=== PATIENT | female | born 1965 | race Two or more races ===

== ENCOUNTER 2022-08-18 08:11 | Outpatient (OUT) | payer BC, SELFPAY ==
[2022-08-18 09:18] LABS: Basophils Absolute Auto 0.1 10^3/uL (0.0-0.1); Basophils Percent Auto 0.9 % (0.2-2.0); Eosinophils Absolute Auto 0.5 10^3/uL (0.0-0.7); Eosinophils Percent Auto 8.7 % (0.9-7.0); Hematocrit 39.2 % (36.0-48.0); Hemoglobin 12.4 g/dL (12.0-16.0); Immature Granulocytes Abs Auto 0.01 10^3/uL (0.00-0.03); Immature Granulocytes Pct Auto 0.2 % (0.0-0.5); Lymphocytes Absolute Auto 1.6 10^3/uL (1.2-3.8); Lymphocytes Percent Auto 30.2 % (20.5-60.0); Mean Corpuscular HGB Conc 31.6 g/dL (29.9-35.2); Mean Corpuscular Hemoglobin 24.8 pg (26.7-34.0); Mean Corpuscular Volume 78.2 fL (81.0-99.0); Mean Platelet Volume 10.9 fL (9.5-13.5); Monocytes Absolute Auto 0.4 10^3/uL (0.3-0.8); Monocytes Percent Auto 7.6 % (1.7-12.0); Neutrophils Absolute Auto 2.8 10^3/uL (1.4-6.5); Neutrophils Percent Auto 52.4 % (43.0-75.0); Platelet Count 266 10^3/uL (150-450); Red Blood Count 5.01 10^6/uL (4.20-5.40); Red Cell Distribution Width 17.4 % (11.0-15.0); White Blood Count 5.3 10^3/uL (4.0-11.0)
[2022-08-18 09:43] LABS: Partial Thromboplastin Time 24.1 sec (22.3-36.2); Prothrombin Time 9.8 sec (9.0-11.6)
[2022-08-18 09:46] LABS: INR <0.93
[2022-08-18 10:07] LABS: Estimated Average Glucose 148 mg/dL; Glycohemoglobin A1C 6.8 % (4.5-6.2)
[2022-08-18 10:47] LABS: Alanine Aminotransferase 27 U/L (14-59); Albumin Globulin Ratio 0.8; Albumin Level 3.4 g/dL (3.4-5.0); Alkaline Phosphatase 76 U/L (46-116); Anion Gap 14.5; Aspartate Amino Transferase 19 U/L (15-37); BUN Creatinine Ratio 35.1; Bilirubin Direct 0.1 mg/dL (0.0-0.2); Bilirubin Total 0.3 mg/dL (0.2-1.0); Carbon Dioxide 24.7 mmol/L (21.0-32.0); Chloride 104 mmol/L (98-107); Estimated GFR (African America >60 (>=60); Estimated GFR (Non-African Ame >60 (>=60); Globulin 4.2 g/dL; Glucose 127 mg/dL (74-106); Potassium 4.2 mmol/L (3.5-5.1); Sodium 139 mmol/L (136-145); Total Protein 7.6 g/dL (6.4-8.2)
== END 2022-08-18 08:12 ==
LOC: PST 08:12
PROVIDERS: Obstetrics & Gynecology; PCP Family Medicine
DX: Z01.812 Encounter for preprocedural laboratory examination (principal); N92.0 Excessive and frequent menstruation with regular cycle; R10.2 Pelvic and perineal pain; N94.10 Unspecified dyspareunia; N94.6 Dysmenorrhea, unspecified
CPT/HCPCS: 36415; 80048; 80076; 83036; 85025; 85610; 85730; 86850; 86900; 86901

== ENCOUNTER 2022-08-23 06:16 | Day surgery (SDC) | payer BC, SELFPAY ==
[2022-08-18 08:33] VITALS: BP 131/86; PULSE 86; RESP 16; TEMP 36.4; O2SAT 98; BMI 31.4
[2022-08-23] VITALS (18 sets, daily range): BP systolic 132–155; BP diastolic 8–95; PULSE 89–100; RESP 10–28; TEMP 36.2–36.6; O2SAT 93–100; BMI 31.7
[2022-08-23 06:33] LABS: Hemoglobin 12.5 g/dL (12.0-16.0); Mean Corpuscular HGB Conc 32.1 g/dL (29.9-35.2); Mean Corpuscular Hemoglobin 24.9 pg (26.7-34.0); Mean Corpuscular Volume 77.7 fL (81.0-99.0); Mean Platelet Volume 10.8 fL (9.5-13.5); Platelet Count 252 10^3/uL (150-450); Red Blood Count 5.02 10^6/uL (4.20-5.40); Red Cell Distribution Width 17.2 % (11.0-15.0); White Blood Count 7.1 10^3/uL (4.0-11.0)
[2022-08-23 06:58] LABS: Glucometer 122 mg/dL (74-106)
[2022-08-23 07:06] LABS: HCG Quantitative <1 mIU/mL
[2022-08-23] MEDS: METRONIDAZOLE/SODIUM CHLORIDE 500 MG/100 ML PREMIX 100 MG IV ×2 (07:21→14:16)
[2022-08-23] MEDS: LACTATED RINGER'S SOLUTION 1,000 ML 50 ML IV ×2 (07:26→09:49)
[2022-08-23] MEDS: CIPROFLOXACIN IN 5 % DEXTROSE 400 MG/200 ML PIGGYBACK 200 MG IV (07:40)
--- NOTE | 2022-08-23 09:26 | PC.NURSE ---
BLADDER RETROFILLED WITH 240MLS.
[2022-08-23] MEDS: HYDROMORPHONE HCL 0.5 MG/0.5 ML SYRINGE IV (11:19)
--- NOTE | 2022-08-23 11:40 | PC.NURSE ---
restless on arrival to PACU; TRYING TO RUB EYES; NO SPECIFIC COMPLAINTS
--- NOTE | 2022-08-23 11:45 | PC.NURSE ---
pLACED ON BEDPAN;having urge to vois; peripad removed for medium amount bloody drainage
--- NOTE | 2022-08-23 11:50 | PC.NURSE ---
c/o right neck pain and lower abdominal pain; medicated with Toradol per anesthesia; remains on bedpan
--- NOTE | 2022-08-23 11:57 | PC.NURSE ---
medicated for pain as ordered; also c/o right neck pain
--- NOTE | 2022-08-23 12:31 | PC.NURSE ---
removed from bedpan; did not void; 3 dressings to abdomen dry and intact; pain to lower abdomen and right neck rated 4 on pain scale; peripad dry and intact
--- NOTE | 2022-08-23 12:36 | PC.NURSE ---
dressings x3 to abdomen and peripad dry and intact; pain assessment unchanged from previous
--- NOTE | 2022-08-23 12:39 | PC.NURSE ---
dressingsx3 to abdomen dry and intact; peripad dry; pain level to lower abdomen and right neck unchanged and pt states pain level tolerable
--- NOTE | 2022-08-23 12:43 | PC.NURSE ---
dressings x3 to abdomen and peripad dry; pain level unchanged from previous
--- NOTE | 2022-08-23 13:16 | OP_ITS ---
OPERATION DATE: ??08/23/2022 PROCEDURE:? Robotic assisted laparoscopic hysterectomy with left salpingectomy and right salpingo-oophorectomy with extensive lysis of adhesions of the omentum and bowel from the anterior abdominal wall. PREOPERATIVE DIAGNOSIS:? Dysmenorrhea, menorrhagia, pelvis pain, history of endometriosis. POSTOPERATIVE DIAGNOSIS:? Dysmenorrhea, menorrhagia, pelvis pain, history of endometriosis. ANESTHESIA:? General. SURGEON:? Kain Qucah D.O. CLIENT SUCCESS MANAGER:? INOCENTE Anand URINE OUTPUT:? Yellow and clear. BLOOD LOSS:? 100 mL. FINDINGS:? Significant adhesions of the bowel and omentum to the anterior abdominal wall, significant uterine fibroids, enlarged uterus, normal appearing ovaries and tubes. SPECIMEN:? Uterus, left tube and right tube and ovary. PROCEDURE:? The patient was taken back to the operating room, where she was prepped and draped in the normal sterile fashion after being placed in the dorsal lithotomy position.? Patient?s anesthesia was found to be adequate.? Surgical timeout was performed using two patient identifiers.? SCDs were on and in place.? Two grams of Ancef were given prior to the surgery.? Sterile Anderson catheter was inserted.? Standard size VCare was secured to the uterine cervix and the surgeon changed gloves.? Attention then was turned to the patient's abdomen, where a supraumbilical incision was then made.? Two S retractors were used to identify the patient?s fascia.? The fascia was then tented up using Jean clamps and the patient?s fascia was incised sharply.? Patient?s abdomen was identified and entered bluntly.? The patient had the trocar placed and a pneumoperitoneum was obtained.? Approximately 4 liters of CO2 gas was used.? The camera was then placed through the trocar.? At this time, two robot trocars were placed in the patient?s left and right side, two hand widths from the midline, and this was placed under direct visualization.? The patient?s tube on the right side was tented up and the vessel sealer was then used to come across the infundibular ligament, and this was carried down.? The vessel sealer was carried down serially to the broad ligament, to the area of the bladder flap, which was then created anteriorly, and the uterine arteries were skeletonized and sealed using the vessel sealer.?This was done on the contralateral side as well, except is was across the mesosalpinx and uteroovarian ligament. The colpotomy was made using the monopolar cautery on cut, and this was carried circumferentially, posteriorly to anteriorly, until the uterus was amputated.? The specimen was then removed intact through the vagina, without difficulty.? The vagina was then closed using two running V-Loc in a non-lock fashion.? The robot was undocked.? The abdomen was desufflated.? The skin defects were closed using 4-0 Vicryl.? Please note, the fascia was closed using 0 Vicryl.? Sponge, lap and needle counts were correct x2.? Patient was taken to recovery room in stable condition.? The patient was awakened by Anesthesia first.? Patient tolerated procedure well.? please note extensive lysis of adhesions of omentum and bowel adhesions using the vessel sealer MTDD
[2022-08-23] MEDS: PROMETHAZINE HCL 25 MG/ML VIAL 12.5 MG IV (14:02)
[2022-08-23 18:13] LABS: Hematocrit 37.5 % (36.0-48.0); Hemoglobin 12.2 g/dL (12.0-16.0)
--- NOTE | 2022-09-30 10:22 | PM.ONB ---
Brief Operative Note Date of procedure: 08/23/22 Pre-op diagnosis: pelvic pain, aub, dysmenorrhea,dyspareunia Post-op diagnosis: same Procedure: PROCEDURE:? Robotic assisted laparoscopic hysterectomy with cystoscopy, bilateral salpingectomy, rt oopherectomy SPECIMEN:? Uterus and cervix, rt ovary and bilateral tubes PROCEDURE:? The patient was taken back to the operating room, where she was prepped and draped in the normal sterile fashion after being placed in the dorsal lithotomy position.? Patient?s anesthesia was found to be adequate.? Surgical timeout was performed using two patient identifiers.? SCDs were on and in place.? Two grams of Ancef were given prior to the surgery.? Sterile Anderson catheter was inserted.? Standard size VCare was secured to the uterine cervix and the surgeon changed gloves.? Attention then was turned to the patient's abdomen, where a supraumbilical incision was then made.? Two S retractors were used to identify the patient?s fascia.? The fascia was then tented up using Jean clamps and the patient?s fascia was incised sharply.? Patient?s abdomen was identified and entered bluntly.? The patient had the trocar placed and a pneumoperitoneum was obtained.? Approximately 4 liters of CO2 gas was used.? The camera was then placed through the trocar.? At this time, two robot trocars were placed in the patient?s left and right side, two hand widths from the midline, and this was placed under direct visualization.? The patient?s tube on the right side was tented up and the vessel sealer was then used to come across the infundibular pelvic ligaement. .? The vessel sealer was carried down serially to the broad ligament, to the area of the bladder flap, which was then created anteriorly, and the uterine arteries were skeletonized and sealed using the vessel sealer.? This was done on the contralateral side, except we came across the mesosalpingx and uteroovarian ligament. The colpotomy was made using the monopolar cautery on cut, and this was carried circumferentially, posteriorly to anteriorly, until the uterus was amputated.? The specimen was then removed intact through the vagina, without difficulty.? The vagina was then closed using two running V-Loc in a non-lock fashion.? The robot was undocked.? The abdomen was desufflated.? The skin defects were closed using 4-0 Vicryl.? Please note, the fascia was closed using 0 Vicryl.? Sponge, lap and needle counts were correct x2.? Patient was taken to recovery room in stable condition.? The patient was awakened by Anesthesia first.? Patient tolerated procedure well.??Please note left ovarian cystectomy was performed using the vessel sealer Anesthesia: SUSHMA Surgeon: Kain Quach [employer] Drawer: Amanda Geronimo Estimated blood loss (mL): 100 Pathology: other (rt ovary and tube, lt tube, uterus and cervix) Condition: stable Disposition: PACU
== END 2022-08-23 20:57 ==
LOC: SURGOUT 12:49 → MS 18:10 → SURGOUT 08-24 10:02
PROVIDERS: PCP Family Medicine; Visit Provider Obstetrics & Gynecology
PROC: (CPT 58571; principal; 2022-08-23 07:30)
DX: N80.03 Adenomyosis of the uterus (principal); N83.11 Corpus luteum cyst of right ovary; D25.9 Leiomyoma of uterus, unspecified; N94.6 Dysmenorrhea, unspecified; N92.0 Excessive and frequent menstruation with regular cycle; R10.2 Pelvic and perineal pain; N94.10 Unspecified dyspareunia; Z01.812 Encounter for preprocedural laboratory examination; I10 Essential (primary) hypertension; E11.9 Type 2 diabetes mellitus without complications; G47.33 Obstructive sleep apnea (adult) (pediatric); Z79.84 Long term (current) use of oral hypoglycemic drugs; Z79.899 Other long term (current) drug therapy; Z79.85 Long-term (current) use of injectable non-insulin antidiabetic drugs; Z90.49 Acquired absence of other specified parts of digestive tract
CPT/HCPCS: 58571; 36415; 84702; 85014; 85018; 85027; 86850; 86900; 86901; 88307; 94667; J1170; J2704

== ENCOUNTER 2022-08-31 15:22 | Outpatient (OUT) | payer BC, SELFPAY ==
[2022-08-31 15:54] LABS: Basophils Absolute Auto 0.1 10^3/uL (0.0-0.1); Basophils Percent Auto 0.6 % (0.2-2.0); Eosinophils Absolute Auto 0.6 10^3/uL (0.0-0.7); Eosinophils Percent Auto 6.9 % (0.9-7.0); Hematocrit 41.4 % (36.0-48.0); Immature Granulocytes Abs Auto 0.06 10^3/uL (0.00-0.03); Immature Granulocytes Pct Auto 0.6 % (0.0-0.5); Lymphocytes Absolute Auto 2.1 10^3/uL (1.2-3.8); Lymphocytes Percent Auto 23.2 % (20.5-60.0); Mean Corpuscular HGB Conc 31.4 g/dL (29.9-35.2); Mean Corpuscular Hemoglobin 24.9 pg (26.7-34.0); Mean Corpuscular Volume 79.2 fL (81.0-99.0); Mean Platelet Volume 10.7 fL (9.5-13.5); Monocytes Absolute Auto 0.6 10^3/uL (0.3-0.8); Monocytes Percent Auto 6.4 % (1.7-12.0); Neutrophils Absolute Auto 5.8 10^3/uL (1.4-6.5); Neutrophils Percent Auto 62.3 % (43.0-75.0); Platelet Count 396 10^3/uL (150-450); Red Blood Count 5.23 10^6/uL (4.20-5.40); Red Cell Distribution Width 16.3 % (11.0-15.0); White Blood Count 9.2 10^3/uL (4.0-11.0)
== END 2022-08-31 15:23 | disposition home or self-care (01) ==
LOC: LAB 15:24
PROVIDERS: PCP Family Medicine; Visit Provider Physician Assistant
DX: Z48.89 Encounter for other specified surgical aftercare (principal); Z90.710 Acquired absence of both cervix and uterus
CPT/HCPCS: 36415; 85025

== ENCOUNTER 2022-09-22 16:03 | Outpatient (OUT) | payer BC, SELFPAY ==
--- NOTE | 2022-09-22 16:23 | XR_ITS ---
The [address] [address] Patient Name: RENO HARRIS MRN: [id number] date: 1965 Sex: F Assigned Patient Location: [facility] Current Patient Location: [facility] Accession/Order Number: [id number] Exam Date: 09/22/2022 16:15 Report Date: 09/25/2022 09:25 At the request of: KATHLEEN FREITAS Procedure: XR shoulder RT min 2V EXAM: XR shoulder RT min 2V HISTORY: SHOULDER IMPONGMENT M75.40 COMPARISON: None. TECHNIQUE: 3 views FINDINGS: No acute fracture or dislocation. No significant degenerative changes. Unremarkable soft tissues. XR/XR shoulder RT min 2V IMPRESSION: Unremarkable exam. Electronically authenticated by: IVETH SUTHERLAND Date: 09/25/2022 09:25
== END 2022-09-22 16:04 | disposition home or self-care (01) ==
PROVIDERS: PCP Family Medicine; Visit Provider Family Medicine
DX: M75.41 Impingement syndrome of right shoulder (principal)
CPT/HCPCS: 73030

== ENCOUNTER 2022-10-05 06:56 | Outpatient (RCR) | payer BC, SELFPAY | END 2022-10-27 15:11 | disposition home or self-care (01) | LOC: PT 06:56 | PROVIDERS: PCP Family Medicine; Visit Provider Family Medicine | DX: M25.511 Pain in right shoulder (principal) | CPT/HCPCS: 97110; 97161 ==

== ENCOUNTER 2022-11-02 07:36 | Day surgery (SDC) | payer BC, SELFPAY ==
--- NOTE | 2022-11-02 07:49 | MR_ITS ---
[address] [address] Patient Name: RENO HARRIS MRN: [id number] date: 1965 Sex: F Assigned Patient Location: MRI Current Patient Location: MRI Accession/Order Number: [id number] Exam Date: 11/02/2022 08:45 Report Date: 11/02/2022 10:12 At the request of: KATHLEEN FREITAS Procedure: MR arthrogram shoulder EXAMINATION: MR arthrogram shoulder HISTORY: Shoulder Impingement M75.40 ; chronic right shoulder pain and limited range of motion COMPARISON: Right shoulder arthrogram 11/02/2022, XR shoulder right 09/22/2022 TECHNIQUE: A variety of imaging planes and parameters were utilized for visualization of suspected pathology. Imaging was performed without or with contrast as indicated by examination type. FINDINGS: ROTATOR CUFF REGION CUFF TENDONS: A full thickness tear involves the supraspinatus tendon involving intra-articular injected contrast to fill the subacromial and subdeltoid bursa. Tendon remains intact without retraction. CUFF MUSCLES: Normal appearing muscles. DELTOID: Normal. No significant atrophy or tear. LONG BICEPS TENDON: Normal. No abnormal signal, attrition, or tear. LABRUM/BICEPS ANCHOR SUPERIOR: Normal. No visible labral tear or biceps anchor pathology. ANTERIOR/INFERIOR: Normal. No visible tear or attrition. POSTERIOR: Normal. No posterior labrum abnormality. CAPSULE Normal. No visible capsular laxity or thickening. AC JOINT REGION AC JOINT: Normal acromioclavicular joint. AC LIGAMENTS: Normal acromioclavicular ligament. CC LIGAMENTS: Normal coracoclavicular ligaments. ACROMION: Normal horizontal (Type I) configuration. SUBACROMIAL BURSA: Normal. No significant effusion. HYALINE CARTILAGE: Normal. No visible cartilage narrowing or focal defect. OTHER BONES: Normal proximal humerus, glenoid, and coracoid. OTHER OBSERVATIONS: Negative. No other significant findings or glenohumeral effusion. MR/MR arthrogram shoulder IMPRESSION: 1. Full-thickness tear of the supraspinatus tendon without complete disruption or retraction. 2. Large amount of fluid within the subacromial and subdeltoid bursa. During today's arthrogram intra-articular injected contrast quickly and easily passed through the supraspinatus tendon into the bursa. Electronically authenticated by: EFREN WHEALN Date: 11/02/2022 10:12
[2022-11-02] MEDS: LIDOCAINE HCL 20 ML, SODIUM BICARBONATE 2 MEQ INJ (08:45)
--- NOTE | 2022-11-02 08:50 | FL_ITS ---
[address] [address] Patient Name: RENO HARRIS MRN: [id number] date: 1965 Sex: F Assigned Patient Location: MRI Current Patient Location: MRI Accession/Order Number: [id number] Exam Date: 11/02/2022 08:00 Report Date: 11/02/2022 09:05 At the request of: KATHLEEN FREITAS Procedure: FL arthrogram shoulder RT EXAMINATION: FL arthrogram shoulder RT, FL guided needle placement HISTORY: Shoulder Impingement COMPARISON: No relevant comparison available. TECHNIQUE: An arthrogram was performed under fluoroscopic guidance using non-ionic contrast material in the usual sterile manner after obtaining informed consent. Standard level fluoroscopic mode of operation utilized. FINDINGS: JOINT: Right shoulder NEEDLE: 25 gauge, 3.5 spinal needle. MEDICATION: 2 mL buffered 1% lidocaine for subcutaneous anesthesia. Approximately 8 mL injected into joint space consisting of a mixture of 5 mL Omnipaque-300, 5 mL 1% Xylocaine and 0.2 mL Dotarem. TECHNIQUE: Anterior approach under fluoroscopic guidance. CLINICAL: Decreased pain following the injection (4/10 preinjection; 0/10 post injection). COMPLICATIONS: None. OTHER: Negative. FL/FL arthrogram shoulder RT IMPRESSION: 1. Technically successful arthrogram without complication. 2. Please see separate MRI arthrogram report. Electronically authenticated by: EFREN WHELAN Date: 11/02/2022 09:05
--- NOTE | 2022-11-02 08:50 | FL_ITS ---
[address] [address] Patient Name: RENO HARRIS MRN: [id number] date: 1965 Sex: F Assigned Patient Location: MRI Current Patient Location: MRI Accession/Order Number: [id number] Exam Date: 11/02/2022 08:00 Report Date: 11/02/2022 09:05 At the request of: KATHLEEN FREITAS Procedure: FL guided needle placement EXAMINATION: FL arthrogram shoulder RT, FL guided needle placement HISTORY: Shoulder Impingement COMPARISON: No relevant comparison available. TECHNIQUE: An arthrogram was performed under fluoroscopic guidance using non-ionic contrast material in the usual sterile manner after obtaining informed consent. Standard level fluoroscopic mode of operation utilized. FINDINGS: JOINT: Right shoulder NEEDLE: 25 gauge, 3.5 spinal needle. MEDICATION: 2 mL buffered 1% lidocaine for subcutaneous anesthesia. Approximately 8 mL injected into joint space consisting of a mixture of 5 mL Omnipaque-300, 5 mL 1% Xylocaine and 0.2 mL Dotarem. TECHNIQUE: Anterior approach under fluoroscopic guidance. CLINICAL: Decreased pain following the injection (4/10 preinjection; 0/10 post injection). COMPLICATIONS: None. OTHER: Negative. FL/FL guided needle placement IMPRESSION: 1. Technically successful arthrogram without complication. 2. Please see separate MRI arthrogram report. Electronically authenticated by: EFREN WHELAN Date: 11/02/2022 09:05
== END 2022-11-02 08:52 | disposition home or self-care (01) ==
PROVIDERS: Radiology Diagnostic Radiology; PCP Family Medicine; Visit Provider Family Medicine
DX: M75.41 Impingement syndrome of right shoulder (principal); M75.121 Complete rotator cuff tear or rupture of right shoulder, not specified as traumatic
CPT/HCPCS: 23350; 73040; 73222; 77002; A9575; Q9967

== ENCOUNTER 2022-11-19 03:00 | Emergency (ER) | payer BC, SELFPAY ==
[2022-11-19 03:04] VITALS: BP 153/73; PULSE 110; RESP 18; TEMP 37.8; O2SAT 97
--- NOTE | 2022-11-19 03:21 | ED_ITS ---
HPI - URI/Sore Throat General Chief Complaint: Upper Respiratory Infection Stated Complaint: COLD FEVER Time Seen by Provider: 11/19/22 03:01 History of Present Illness HPI Narrative: 57-year-old female presents for cough and body aches and chills and slight fever. She is worried about having Covid. She's been vaccinated and her symptoms started about twelve hours ago. She is worried about passing anything contagious to coworkers or family members. No vomiting or diarrhea. Related Data Home Medications Medication Instructions Recorded Confirmed dulaglutide 3 mg/0.5 mL 3 mg subcut .weekly 08/18/22 11/02/22 subcutaneous pen injector (Trulicity) insulin glargine 100 unit/mL (3 70 unit subcut BEDTIME 08/18/22 11/02/22 mL) subcutaneous pen (Basaglar KwikPen U-100 Insulin) lisinopril 10 1 tab PO DAILY 08/18/22 11/02/22 mg-hydrochlorothiazide 12.5 mg tablet metformin 1,000 mg tablet 1,000 mg PO BID 08/18/22 11/02/22 doxepin 10 mg capsule 10 mg PO BEDTIME 11/02/22 11/02/22 Allergies Allergy/AdvReac Type Severity Reaction Status Date / Time Penicillins Allergy Rash Verified 11/19/22 03:11 Review of Systems ROS Narrative A ten point review of systems is negative except as noted above. [facility] Medical History (Updated 11/19/22 @ 04:26 by Manfred Holbrook MD) Surgical History (Updated 10/31/22 @ 14:14 by Elizabeth Michele) Family History (Updated 08/18/22 @ 08:42 by Ellie Villegas NP) Other Family history of colon cancer Family history of diabetes mellitus Family history of heart disease Family history of hypertension Family history of myocardial infarction Family history of stroke Social History (Updated 08/18/22 @ 08:33 by Ellie Villegas NP) Within the past year, how often did you have a drink containing alcohol: monthly or less Smoking status: Never smoker Non-prescribed substance use: denies use Previous occupational history: [employer] Highest level of school completed/degree received: Associate degree: occupational, technical, vocational program Exam Narrative Exam Narrative: Nurses note and vital signs reviewed and patient is not hypoxic. General: The patient appears well and in no apparent distress. Patient is resting comfortably on cart. Skin: Warm, dry, no pallor noted. There is no rash noted. Head: Normocephalic, atraumatic Eye: Normal conjunctiva, no drainage Ears, Nose, Mouth, and Throat: oral mucosa is moist. Nares patent. Cardiovascular: Regular Rate and Rhythm Respiratory: Patient is in no distress, no accessory muscle use, lungs are clear to auscultation, no wheezing, rales or rhonchi Back: non-tender GI: soft and nontender Musculoskeletal: The patient has no evidence of calf tenderness, no pitting edema, symmetrical pulses noted bilaterally Neurological: A&O, normal speech Psychiatric: Cooperative Constitutional Vital Signs, click to edit/add: Last Vital Signs Temp 100.0 F 11/19/22 03:04 Pulse 110 H 11/19/22 03:04 Resp 18 11/19/22 03:04 BP 153/73 H 11/19/22 03:04 Pulse Ox 97 11/19/22 03:04 O2 Del Method Room Air 11/19/22 03:04 Course Vital Signs Vital signs: Vital Signs Temperature 100.0 F 11/19/22 03:04 Pulse Rate 110 H 11/19/22 03:04 Respiratory Rate 18 11/19/22 03:04 Blood Pressure 153/73 H 11/19/22 03:04 Pulse Oximetry 97 11/19/22 03:04 Oxygen Delivery Method Room Air 11/19/22 03:04 Temperature 100.0 F 11/19/22 03:04 Pulse Rate 110 H 11/19/22 03:04 Respiratory Rate 18 11/19/22 03:04 Blood Pressure 153/73 H 11/19/22 03:04 Pulse Oximetry 97 11/19/22 03:04 Oxygen Delivery Method Room Air 11/19/22 03:04 MDM - URI/Sore Throat MDM Narrative Medical decision making narrative: Covid test is positive and she was informed. Treatment diagnosis and follow-up were discussed with the patient. Differential Diagnosis Differential diagnosis: Likely upper respiratory infection, bronchitis and other (Covid) Lab Data Attestation: I reviewed the patient's lab results. Labs: Lab Results 11/19/22 Range/Units 03:25 SARS-CoV-2 (PCR) Positive A (NEGATIVE) Discharge Plan Discharge Chief Complaint: Upper Respiratory Infection Clinical Impression: COVID-19 Patient Disposition: Home, Self-Care Time of Disposition Decision: 04:26 Condition: Good Prescriptions / Home Meds: No Action Trulicity 3 mg/0.5 mL pen injector 3 mg SUBCUT .weekly Rx Instructions: Mondays insulin glargine [Basaglar KwikPen U-100 Insulin] 100 unit/mL (3 mL) insulin pen 70 unit SUBCUT BEDTIME lisinopril-hydrochlorothiazide 10-12.5 mg tablet 1 tab PO DAILY metformin 1,000 mg tablet 1,000 mg PO BID doxepin 10 mg capsule 10 mg PO BEDTIME Instructions: Droplet Precautions (ED), COVID-19 (Coronavirus Disease 2019) (ED), COVID-19: Slow the Coronavirus Spread (ED), Face Coverings (Masks) and COVID-19 (ED) Stand Alone Forms: Portal Instructions Referrals: Frank Busby MD [Primary Care Provider] - 1 week
[2022-11-19 04:20] LABS: SARS-CoV-2 Ag POSITIVE (NEGATIVE)
[2022-11-19] MEDS: ACETAMINOPHEN 325 MG TABLET 650 MG PO (04:43)
== END 2022-11-19 04:45 | disposition home or self-care (01) ==
PROVIDERS: Emergency Provider Emergency Medicine; PCP Family Medicine
DX: U07.1 COVID-19 (principal); Z79.4 Long term (current) use of insulin; Z79.899 Other long term (current) drug therapy; Z79.85 Long-term (current) use of injectable non-insulin antidiabetic drugs; Z79.84 Long term (current) use of oral hypoglycemic drugs
CPT/HCPCS: 87811; 99283

== ENCOUNTER 2022-12-04 08:08 | Outpatient (OUT) | payer BC, SELFPAY ==
--- NOTE | 2022-12-04 08:13 | MM_ITS ---
Patient: RENO HARRIS Exam Date: 12/04/2022 : 1965 Gender:F Ordering : DR Frank Busby . Admission #: [id number] Family : DR Finnegan Philomena . Order #: [id number] CLICK HERE TO VIEW EXAM RADIOLOGY REPORT PROCEDURE: MM TOMOSYNTHESIS SCREENING BI COMPARISON: MG MAMM SCREEN 3D ILSA CAD, 07/04/2021. MG MAMM SCREEN ILSA W CAD, 02/19/2019. MG MAMM SCREEN ILSA W CAD, 02/13/2018. MAMMO ILSA SCREEN, 04/26/2007. INDICATIONS: Screening Calculator Name NCI Breast Cancer Risk Assessment Tool 5 Year Breast Cancer Risk 0.80% Lifetime Breast Cancer Risk 6.00% Personal Breast Cancer No Personal Ovarian Cancer No Treatments None Family Cancers Aunt-paternal with breast cancer at age 50. LOCATION: [facility] BREAST COMPOSITION: Scattered areas fibroglandular density. FINDINGS: DIAGNOSTIC CATEGORY 1--NEGATIVE. RIGHT BREAST: No significant suspicious finding. No significant change has occurred. LEFT BREAST: No significant suspicious finding. No significant change has occurred. RECOMMENDATIONS: ROUTINE MAMMOGRAM AND CLINICAL EVALUATION IN 12 MONTHS. PLEASE NOTE: A NORMAL MAMMOGRAM DOES NOT EXCLUDE THE POSSIBILITY OF BREAST CANCER. A CLINICALLY SUSPICIOUS PALPABLE LUMP SHOULD BE BIOPSIED. Dictated by: Ede Meneses M.D. on 12/04/2022 at 13:24 Approved by: Ede Meneses M.D. on 12/04/2022 at 13:29
== END 2022-12-04 08:09 | disposition home or self-care (01) ==
LOC: MAMMO 08:09
PROVIDERS: PCP Family Medicine; Visit Provider Family Medicine
DX: Z12.31 Encounter for screening mammogram for malignant neoplasm of breast (principal); Z80.3 Family history of malignant neoplasm of breast
CPT/HCPCS: 77063; 77067

== ENCOUNTER 2023-01-12 08:40 | Outpatient (OUT) | payer BC, SELFPAY ==
--- NOTE | 2023-01-12 09:17 | ECG_ITS ---
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
--- NOTE | 2023-01-12 09:43 | PM.PRESUREVA ---
History of Present Illness History of Present Illness Chief complaint: Right Shoulder Rotator Cuff Tear Narrative: Patient presents for preadmission testing. Please see HPI from Dr. Nath dated 01/08/2023. Review of Systems ROS Narrative REVIEW OF SYSTEMS: Negative except as stated in HPI, ten or more systems reviewed. Constitutional: No fever , chills, weakness ENT: No sore throat or epistaxis Cardiovascular: No edema, chest pain, palpitations, or activity intolerance Respiratory: No shortness of breath, cough, or wheezing Gastrointestinal: No abdominal pain, constipation, diarrhea, or vomiting Genitourinary: No dysuria or hematuria Neurological: No numbness, tingling, weakness, or headache Psychiatric: No mood changes [facility] Medical History (Updated 01/12/23 @ 09:24 by Ellie Villegas NP) Anemia ?D64.9 - Anemia, unspecified (ICD-10) Arthritis ?M19.90 - Unspecified osteoarthritis, unspecified site (ICD-10) Back pain ?M54.9 - Dorsalgia, unspecified (ICD-10) Colon polyp ?K63.5 - Polyp of colon (ICD-10) Constipation ?K59.00 - Constipation, unspecified (ICD-10) Depression ?F32.A - Depression, unspecified (ICD-10) Diabetes ?E11.9 - Type 2 diabetes mellitus without complications (ICD-10) Diarrhea ?R19.7 - Diarrhea, unspecified (ICD-10) Diverticulosis ?K57.90 - Diverticulosis of intestine, part unspecified, without perforation or abscess without bleeding (ICD-10) GERD (gastroesophageal reflux disease) ?K21.9 - Gastro-esophageal reflux disease without esophagitis (ICD-10) Hepatitis A ?B15.9 - Hepatitis A without hepatic coma (ICD-10) High cholesterol ?E78.00 - Pure hypercholesterolemia, unspecified (ICD-10) Hypertension ?I10 - Essential (primary) hypertension (ICD-10) IBS (irritable bowel syndrome) ?K58.9 - Irritable bowel syndrome without diarrhea (ICD-10) Migraine ?G43.909 - Migraine, unspecified, not intractable, without status migrainosus (ICD-10) Neuropathy ?G62.9 - Polyneuropathy, unspecified (ICD-10) ARLIN (obstructive sleep apnea) ?G47.33 - Obstructive sleep apnea (adult) (pediatric) (ICD-10) Palpitations ?R00.2 - Palpitations (ICD-10) Pneumonia ?J18.9 - Pneumonia, unspecified organism (ICD-10) Restless leg ?G25.81 - Restless legs syndrome (ICD-10) Right shoulder pain ?M25.511 - Pain in right shoulder (ICD-10) Rotator cuff tear ?M75.100 - Unspecified rotator cuff tear or rupture of unspecified shoulder, not specified as traumatic (ICD-10) Sleep apnea ?G47.30 - Sleep apnea, unspecified (ICD-10) Urinary tract infection ?N39.0 - Urinary tract infection, site not specified (ICD-10) Surgical History (Updated 01/12/23 @ 09:24 by Ellie Villegas NP) History of section ?Z98.891 - History of uterine scar from previous surgery (ICD-10) History of cholecystectomy ?Z90.49 - Acquired absence of other specified parts of digestive tract (ICD-10) History of colonoscopy ?Z98.890 - Other specified postprocedural states (ICD-10) History of dilation and curettage ?Z98.890 - Other specified postprocedural states (ICD-10) History of hysterectomy (08/2022) ?Z90.710 - Acquired absence of both cervix and uterus (ICD-10) History of robot-assisted laparoscopic hysterectomy ?Z90.710 - Acquired absence of both cervix and uterus (ICD-10) History of tubal ligation ?Z98.51 - Tubal ligation status (ICD-10) S/P hip arthroscopy ?Z98.890 - Other specified postprocedural states (ICD-10) Family History (Updated 08/18/22 @ 08:42 by Ellie Villegas NP) Other Family history of colon cancer Family history of diabetes mellitus Family history of heart disease Family history of hypertension Family history of myocardial infarction Family history of stroke Social History (Updated 08/18/22 @ 08:33 by Ellie Villegas NP) Within the past year, how often did you have a drink containing alcohol: monthly or less Smoking status: Never smoker Non-prescribed substance use: denies use Previous occupational history: [employer] Highest level of school completed/degree received: Associate degree: occupational, technical, vocational program Meds Home Medications and Allergies Home Medications Medication Instructions Recorded Confirmed Type dulaglutide 3 mg/0.5 mL 3 mg subcut .weekly 08/18/22 01/12/23 History subcutaneous pen injector (Trulicity) insulin glargine 100 unit/mL (3 70 unit subcut BEDTIME 08/18/22 01/12/23 History mL) subcutaneous pen (Basaglar KwikPen U-100 Insulin) lisinopril 10 1 tab PO DAILY 08/18/22 01/12/23 History mg-hydrochlorothiazide 12.5 mg tablet metformin 1,000 mg tablet 1,000 mg PO BID 08/18/22 01/12/23 History diclofenac sodium 75 mg 75 mg PO BID 01/12/23 01/12/23 History tablet,delayed release tizanidine 4 mg capsule 4 mg PO QPM 01/12/23 01/12/23 History Allergies Allergy/AdvReac Type Severity Reaction Status Date / Time Penicillins Allergy Rash Verified 01/12/23 09:17 Exam Narrative Exam Narrative: Constitutional: Awake, alert, comfortable, well-appearing, nontoxic, interactive, vital signs as charted Head: Normocephalic, atraumatic Neck: Supple, normal appearance, normal range of motion, no meningeal signs, no lymphadenopathy Respiratory: No respiratory distress, breath sounds clear Cardiovascular: Regular rate and rhythm, strong and regular heart tones Psychiatric: Oriented ?3, normal affect Assessment and Plan Assessment and Plan (1) Rotator cuff tear: Plan Right shoulder arthroscopic rotator cuff repair scheduled with Dr. Nath 01/22/2023.
[2023-01-12 10:04] LABS: Basophils Absolute Auto 0.1 10^3/uL (0.0-0.1); Basophils Percent Auto 0.9 % (0.2-2.0); Eosinophils Absolute Auto 0.4 10^3/uL (0.0-0.7); Eosinophils Percent Auto 7.8 % (0.9-7.0); Hematocrit 35.9 % (36.0-48.0); Hemoglobin 12.2 g/dL (12.0-16.0); Immature Granulocytes Abs Auto 0.02 10^3/uL (0.00-0.03); Immature Granulocytes Pct Auto 0.4 % (0.0-0.5); Lymphocytes Absolute Auto 1.9 10^3/uL (1.2-3.8); Lymphocytes Percent Auto 35.2 % (20.5-60.0); Mean Corpuscular Hemoglobin 28.9 pg (26.7-34.0); Mean Corpuscular Volume 85.1 fL (81.0-99.0); Mean Platelet Volume 11.2 fL (9.5-13.5); Monocytes Absolute Auto 0.4 10^3/uL (0.3-0.8); Monocytes Percent Auto 7.8 % (1.7-12.0); Neutrophils Absolute Auto 2.5 10^3/uL (1.4-6.5); Neutrophils Percent Auto 47.9 % (43.0-75.0); Platelet Count 206 10^3/uL (150-450); Red Blood Count 4.22 10^6/uL (4.20-5.40); Red Cell Distribution Width 13.6 % (11.0-15.0); White Blood Count 5.3 10^3/uL (4.0-11.0)
[2023-01-12 11:21] LABS: Anion Gap 10.3; BUN Creatinine Ratio 31.1; Calcium 8.6 mg/dL (8.5-10.1); Carbon Dioxide 29.9 mmol/L (21.0-32.0); Chloride 101 mmol/L (98-107); Estimated GFR (African America >60 (>=60); Estimated GFR (Non-African Ame >60 (>=60); Glucose 204 mg/dL (74-106); Potassium 4.2 mmol/L (3.5-5.1); Sodium 137 mmol/L (136-145)
== END 2023-01-12 08:41 | disposition home or self-care (01) ==
LOC: PST 01-15 08:40
PROVIDERS: PCP Family Medicine; Visit Provider Orthopaedic Surgery
DX: Z01.812 Encounter for preprocedural laboratory examination (principal); Z01.810 Encounter for preprocedural cardiovascular examination; S46.021A Laceration of muscle(s) and tendon(s) of the rotator cuff of right shoulder, initial encounter
CPT/HCPCS: 80048; 85025; 93005; G0463

== ENCOUNTER 2023-01-22 12:58 | Day surgery (SDC) | payer BC, SELFPAY ==
[2023-01-12 09:37] VITALS: BP 157/88; PULSE 80; RESP 18; TEMP 36.2; O2SAT 98; BMI 34.1
[2023-01-22] VITALS (11 sets, daily range): BP systolic 136–173; BP diastolic 65–96; PULSE 68–88; RESP 14–21; TEMP 36.2–36.4; O2SAT 91–98; BMI 33.5
[2023-01-22 13:12] LABS: Basophils Absolute Auto 0.1 10^3/uL (0.0-0.1); Basophils Percent Auto 0.8 % (0.2-2.0); Eosinophils Absolute Auto 0.4 10^3/uL (0.0-0.7); Hematocrit 37.4 % (36.0-48.0); Hemoglobin 12.8 g/dL (12.0-16.0); Immature Granulocytes Abs Auto 0.02 10^3/uL (0.00-0.03); Immature Granulocytes Pct Auto 0.3 % (0.0-0.5); Lymphocytes Absolute Auto 2.3 10^3/uL (1.2-3.8); Lymphocytes Percent Auto 31.9 % (20.5-60.0); Mean Corpuscular HGB Conc 34.2 g/dL (29.9-35.2); Mean Corpuscular Hemoglobin 29.2 pg (26.7-34.0); Mean Corpuscular Volume 85.2 fL (81.0-99.0); Mean Platelet Volume 10.8 fL (9.5-13.5); Monocytes Absolute Auto 0.5 10^3/uL (0.3-0.8); Monocytes Percent Auto 6.4 % (1.7-12.0); Neutrophils Percent Auto 55.6 % (43.0-75.0); Platelet Count 231 10^3/uL (150-450); Red Blood Count 4.39 10^6/uL (4.20-5.40); Red Cell Distribution Width 13.4 % (11.0-15.0); White Blood Count 7.2 10^3/uL (4.0-11.0)
[2023-01-22] MEDS: LACTATED RINGER'S SOLUTION 1,000 ML 50 ML IV ×2 (13:49→17:37)
[2023-01-22] MEDS: CEFAZOLIN SODIUM/DEXTROSE,ISO 2 GM/50 ML PIGGYBACK IV (15:19)
--- NOTE | 2023-01-22 15:24 | PC.NURSE ---
Patient was positioned for block being performed by Dr. Mcfarlane. Time out was completed per protocol. O2 applied. Patient medicated per Dr. Mcfarlane. Bedside Ultrasound was used to locate nerve for block. Monitored patient throughout block and until taken to OR. Patient tolerated block well. Voiced no concerns or complaints.
--- NOTE | 2023-01-22 15:29 | PM.ORPRC ---
Procedure Note Date of procedure: 01/22/23 Pre-op diagnosis: Right shoulder rotator cuff tear Post-op diagnosis: same as pre-op Procedure: Procedure: Right shoulder arthroscopic rotator cuff repair Operative Procedure: After informed consent was obtained the patient was brought to the operating room where general anesthetic was administered. Preoperatively a regional block was placed. The patient was placed in the beach chair position. Exam under anesthesia of the left shoulder revealed full range of motion and no instability. The left shoulder was prepped and draped in the usual sterile fashion. Diagnostic arthroscopy was performed through standard anterior, posterior, and lateral arthroscopy portals. Findings included a normal biceps tendon. The anterior and superior labrum had degenerative fraying was debrided with arthroscopic shaver back to stable edge. Posterior labrum was intact. The subscapularis tendon was intact. Articular cartilage of the humeral head had grade I chondromalacia of the more posterior aspect. Articular cartilage of the glenoid was intact. The supraspinatus tendon had a full-thickness nonretracted tear.. The infraspinatus was intact. The axillary recess did not have any loose bodies. The arthroscope was introduced into the subacromial space and there was moderate bursal inflammation which was removed the arthroscopic shaver. The greater tuberosity where the rotator cuff and torn from was debrided down to bleeding bed of bone. 1 Arthrex suture tape and 1 Arthrex fiber tape were placed in the torn rotator cuff tendons in an inverted horizontal mattress fashion. These were then repaired to the greater tuberosity with 1 Arthrex 4.75 bio composite swivel lock. Solid fixation was achieved. The shoulder was drained of arthroscopy fluid and portals were closed with 3-0 nylon suture. A sterile dressing was placed. UltraSling was placed. Patient was awakened and brought to the recovery room in stable condition. There were no intraoperative or immediate postoperative complications. Anesthesia: regional and General-LMA Surgeon: Ede Nath Estimated blood loss (mL): 5 Pathology: none sent Condition: stable Disposition: PACU
[2023-01-22] MEDS: EPINEPHRINE HCL PF 1 MG/ML AMPULE IO (17:41)
== END 2023-01-22 18:00 | disposition home or self-care (01) ==
PROVIDERS: Anesthesiology; PCP Family Medicine; Visit Provider Orthopaedic Surgery
PROC: (CPT 29827; principal; 2023-01-22 14:30)
DX: M75.101 Unspecified rotator cuff tear or rupture of right shoulder, not specified as traumatic (principal); I10 Essential (primary) hypertension; Z86.010 Personal history of colon polyps; F32.A Depression, unspecified; K57.90 Diverticulosis of intestine, part unspecified, without perforation or abscess without bleeding; K21.9 Gastro-esophageal reflux disease without esophagitis; B15.9 Hepatitis A without hepatic coma; E78.00 Pure hypercholesterolemia, unspecified; E11.42 Type 2 diabetes mellitus with diabetic polyneuropathy; G47.33 Obstructive sleep apnea (adult) (pediatric); G25.81 Restless legs syndrome; Z87.01 Personal history of pneumonia (recurrent); Z87.440 Personal history of urinary (tract) infections; Z90.710 Acquired absence of both cervix and uterus; Z98.51 Tubal ligation status; Z79.4 Long term (current) use of insulin; Z79.84 Long term (current) use of oral hypoglycemic drugs; Z86.16 Personal history of COVID-19
CPT/HCPCS: 29827; 36415; 64415; 82948; 85025; C1713; J2704

== ENCOUNTER 2023-02-20 08:00 | Outpatient (RCR) | payer BC, SELFPAY | END 2023-03-11 07:55 | disposition home or self-care (01) | LOC: PT 08:00 | PROVIDERS: PCP Family Medicine; Visit Provider Orthopaedic Surgery | DX: M75.101 Unspecified rotator cuff tear or rupture of right shoulder, not specified as traumatic (principal) | CPT/HCPCS: 97110; 97161 ==

== ENCOUNTER 2023-03-12 10:08 | Outpatient (RCR) | payer BC, SELFPAY | END 2023-05-24 17:19 | disposition home or self-care (01) | LOC: PT 10:08 | PROVIDERS: PCP Family Medicine; Visit Provider Orthopaedic Surgery | DX: M75.101 Unspecified rotator cuff tear or rupture of right shoulder, not specified as traumatic (principal) | CPT/HCPCS: 97110; 97140 ==

== ENCOUNTER 2023-11-29 07:41 | Outpatient (OUT) | payer BC, SELFPAY ==
--- OUTSIDE RECORDS SUMMARY | 2023-11-29 07:44 | XMS_ITS | CCD ---
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 above: Performed By: #### E RUR, PREGU #### [facility] [address] [address] [address] Bernice Hamilton PTTon 06-09-2022 aPTT Coag (Bld) [Time] 24.2 s Normal 22.3-36.2 [facility] Comment on above: Performed By: #### Mara MURPHYR, PREGU #### [facility] [address] [place] [address] Dr. Bernice Hamilton Outside Colonoscopyon 2022 Outside Colonoscopy [id number]#[id number] D:127 Normal [facility] Reminderson 04-20-2022 Reminders - From: Nayeli Du LPN To: N - Clinical; Sent: 04/20/2022 12:53:45 EST Show up: 03/19/2027 07:00:00 EST Subject: colonoscopy recall Due Date/Time: 2027 07:00:00 EST Reminder/Recall Patient is due for colonoscopy 2027 due to history of colonic polyps. Normal [facility] PREG HCG QUALon 2022 , QUAL Negative Normal NEGATIVE [facility] Comment on above: Performed By: #### E CHRISTIE, PREGU #### [facility] [address] [place], [place] [id number] Dr. Bernice Hamilton Pre-Certification Formon Pre-Certification Form [id number]#[id number] D:127 Normal [facility] Ambulatory Visit Summaryon 0 03-23-2022 Ambulatory Visit Summary [place] H[place]IS :1965 Visit Date:03/23/2022 Ambulatory Visit Instructions Your Diagnosis Abdominal pain, left lower quadrant Personal history of colonic polyps Your Care Team Attending Physician - BO LACY, Polina Saleh Primary Care Physician - Kehinde LACY, Kathleen This Is Your Medications List Contact prescribing physician if questions or concerns dulaglutide (Trulicity Pen 1.5 mg/0.5 mL subcutaneous solution) empagliflozin (Jardiance 10 mg oral tablet) esomeprazole (esomeprazole 20 mg Cap-DR) hydrochlorothiazide (hydrochlorothiazide 12.5 mg Tab) hydrochlorothiazide-lis inopril (hydrochlorothiazide-li sinopril 12.5 mg-10 mg Tab) insulin glargine (Basaglar KwikPen 100 units/mL subcutaneous solution) linaclotide (linaclotide 145 mcg oral capsule) metformin (metformin 1000 mg Tab) multivitamin (Multi Vitamins oral tablet) Procedures Performed Colonoscopy (09/05/2017), Colonoscopy (2012), section (2001), section (1994), section (1991), section (1986), Arthroscopy of hip, Cholecystectomy, Dilation and curettage, Hysteroscopy. Discharge Vitals Heart Rate (Peripheral) 88 Respiratory Rate 16 Blood Pressure 141/81 Height 175.2 cm Height 69 in Weight 98.5 kg Weight 216.7 lb BMI 32.09 Medications What How Much When Instructions Unchanged dulaglutide (Trulicity Pen 1.5 mg/ 0.5 mL subcutaneous solution) 1.5 Milligram Subcutaneous Every week Contact prescribing physician if questions or concerns Unchanged empagliflozin (Jardiance 10 mg oral tablet) 1 Tablets By Mouth Once a day (in the morning) Contact prescribing physician if questions or concerns Unchanged esomeprazole (esomeprazole 20 mg Cap-DR) 1 Capsules By Mouth Every day Contact prescribing physician if questions or concerns Unchanged hydrochlorothiazide (hydrochlorothiazide 12.5 mg Tab) 1 Tablets By Mouth Every day Contact prescribing physician if questions or concerns Unchanged hydrochlorothiazide-lis inopril (hydrochlorothiazide-li sinopril 12.5 mg-10 mg Tab) 1 Tablets By Mouth Every day Contact prescribing physician if questions or concerns Unchanged insulin glargine (Basaglar KwikPen 100 units/ mL subcutaneous solution) 50 Units Subcutaneous Every day Contact prescribing physician if questions or concerns Unchanged linaclotide (linaclotide 145 mcg oral capsule) 1 Capsules By Mouth Every day Contact prescribing physician if questions or concerns Unchanged metformin (metformin 1000 mg Tab) 1 Tablets By Mouth 2 times a day Contact prescribing physician if questions or concerns Unchanged multivitamin (Multi Vitamins oral tablet) 1 Tablets By Mouth Every day Contact prescribing physician if questions or concerns Allergies Bactrim (Unknown) penicillins (Rash) Problems Ongoing - Any problem that you are currently receiving treatment for. Abdominal pain, left lower quadrant Anxiety BMI 32.0-32.9,adult Depression Diabetes Dysphonia GERD (gastroesophageal reflux disease) HTN (hypertension) Hypercholesteremia Migraines Personal history of colonic polyps RLS (restless legs syndrome) Sleep apnea Normal [facility] Consent for Procedure/Surger yon 03-23-2022 Consent for Procedure/Surgery [id number]#[id number] D:127 Normal [facility] ED Note-Physicianon 03-19-19 ED Note-Physician [id number] D:127 Normal [facility] RAD - CT Reporton 03-19-2022 RAD - CT Report [id number]#[id number] D:127 Normal [facility] AMYLASEon 03-13-2022 Amylase [Catalytic activity/Vol] 53 U/L Normal 25-115 [facility] Comment on above: Performed By: #### E RUTherese PREGU #### [facility] [address] [place], [place] [address] Dr. Bernice Hamilton CBC AUTO DIFFon 03-13-2022 BASO # 0.0 103/ul Normal 0.0-0.1 [facility] Comment on above: Performed By: #### C BC ####[facility] [address] [place], [place] [address]DaDr. Bernice Hamilton Basophils/100 WBC (Bld) 0.2 % Normal 0.2-2.0 [facility] Comment on above: Performed By: #### C BC ####[facility] [address] [id number]. Bernice Hamilton EO # 0.2 103/ul Normal 0.0-0.7 [facility] Comment on above: Performed By: #### C BC ####[facility] [address] [address]Dr. Bernice Hamilton Eosinophils/100 WBC (Bld) 1.1 % Normal 0.9-7.0 [facility] Comment on above: Performed By: #### C BC ####[facility] [address] [address]Dr. Bernice Hamilton Erythrocyte distribution width (RBC) [Ratio] 15.7 % Critically high 11.0-15.0 [facility] Comment on above: Performed By: #### C BC ####[facility] [address] [place], [place] [address]Dr. Bernice Hamilton Hematocrit (Bld) [Volume fraction] 37.0 % Normal 36.0-48.0 [facility] Comment on above: Performed By: #### C BC ####[facility] [address] [address]Dr. Bernice Hamilton Hemoglobin (Bld) [Mass/Vol] 11.5 g/dL Critically low 12.0-16.0 [facility] Comment on above: Performed By: #### C BC ####[facility] [address] [place], [place] [address]Dr. Bernice Hamilton IG # 0.08 10e3/ul Critically high 0.00-0.03 [facility] Comment on above: Performed By: #### C BC ####[facility] [address] [address]Dr. Bernice Hamilton IG % 0.5 % Normal 0.0-0.5 [facility] Comment on above: Performed By: #### C BC ####[facility] [address] [place], [place] [address]Dr. Bernice Hamilton LYMPH # 1.1 103/ul Critically low 1.2-3.8 [facility] Comment on above: Performed By: #### C BC ####[facility] [address] [address]Dr. Bernice Hamilton Lymphocytes/100 WBC (Bld) 6.4 % Critically low 20.5-60.0 [facility] Comment on above: Performed By: #### C BC ####[facility] [address] [address]Dr. Bernice Hamilton MANUAL DIFF REQ NO Normal [facility] Comment on above: Performed By: #### C BC ####[facility] [address] [place], [place] [address]Dr. Bernice Hamilton MCH (RBC) [Entitic mass] 23.1 pg Critically low 26.7-34.0 [facility] Comment on above: Performed By: #### C BC ####[facility] [address] [place], [place] [address]Dr. Bernice Hamilton MCHC (RBC) [Mass/Vol] 31.1 g/dL Normal 29.9-35.2 [facility] Comment on above: Performed By: #### C BC ####[facility] [address] [place], [place] [address]Dr. Bernice Hamilton MCV (RBC) [Entitic vol] 74.3 fL Critically low 81.0-99.0 [facility] Comment on above: Performed By: #### C BC ####[facility] [address] [place], [place] [address]Dr. Bernice Hamilton MONO # 1.1 103/ul Critically high 0.3-0.8 [facility] Comment on above: Performed By: #### C BC ####[facility] [address] [place], [place] [address]Dr. Bernice Hamilton Monocytes/100 WBC (Bld) 6.3 % Normal 1.7-12.0 [facility] Comment on above: Performed By: #### C BC ####[facility] [address] [place], [place] [address]Dr. Bernice Hamilton NEUT # 14.3 103/ul Critically high 1.4-6.5 [facility] Comment on above: Performed By: #### C BC ####[facility] [address] [id number]. Bernice Hamilton Neutrophils/100 WBC (Bld) 85.5 % Critically high 43.0-75.0 [facility] Comment on above: Performed By: #### C BC ####[facility] [address] [address]Dr. Bernice Hamilton Platelet mean volume (Bld) [Entitic vol] 10.4 fL Normal 9.5-13.5 [facility] Comment on above: Performed By: #### C BC ####[facility] [address] [address]Dr. Bernice Hamilton PLT 356 103/ul Normal 150-450 [facility] Comment on above: Performed By: #### C BC ####[facility] [address] [address]Dr. Bernice Hamilton RBC 4.98 106/ul Normal 4.20-5.40 [facility] Comment on above: Performed By: #### C BC ####[facility] [address] [address]Dr. Bernice Hamilton WBC 16.8 103/ul Critically high 4.0-11.0 [facility] Comment on above: Performed By: #### C BC ####[facility] [address] [address]Dr. Bernice Hamilton CT ABD/PELV W CONon 03-13-[address] ABD/PELV W CON CT ABD/PELV W CON: 03/13/2022 3:40 AM EST CLINICAL HISTORY: 56 years old Female with GENERALIZED ABDOMINAL PAIN. Left lower quadrant pain and vomiting. [facility] 02/28/2022. TECHNIQUE: Axial CT images through the abdomen and pelvis are obtained after the intravenous administration of contrast. Coronal and sagittal reformations are also obtained. Dose reduction techniques were achieved by using automated exposure control and/or adjustment of mA and/or kV according to patient size and/or use of iterative reconstruction technique. COMPARISON: None available. FINDINGS: The lung bases are clear with no dependent infiltrate or effusion. The spleen, pancreas and bilateral adrenal glands are unremarkable. Elongation of the right lobe of the liver at 24.2 cm is present possible hepatomegaly or Sheri's lobe. The liver is mildly diffusely hypoattenuating suggesting hepatic steatosis without focal abnormality. Small cyst at the upper pole of the right kidney measures 1.6 cm. The bilateral kidneys demonstrate normal enhancement without hydronephrosis. The bilateral ureters demonstrate no gross abnormality or obstruction. The stomach and small bowel are unremarkable. The appendix is visualized and mildly thickened at 7 mm with minimal indistinct margins with normal appearance at the base possible early acute appendicitis. Fluid density seen throughout the colon suggesting diarrheal illness. A few diverticula are present without focal inflammatory change. Tiny fat-containing ventral umbilical hernia. The bladder appears unremarkable. There is no evidence of aortic aneurysm present. No enlarged lymph nodes are seen. No free air or free fluid is seen. The uterus and adnexa are within normal limits. Mild senescent changes of the osseous structures are present. No acute compression fracture deformity or suspicious osseous abnormality. IMPRESSION: 1. The distal appendix is mildly thickened and edematous in appearance at 7 mm without mesenteric stranding. Appendix is located superficially within the right lower quadrant. Findings may represent early acute appendicitis. 2. Fluid density throughout the colon suggesting diarrheal illness. 3. Mild hepatomegaly or Sheri's lobe and hepatic steatosis. 4. Diverticulosis without diverticulitis. 5. Small right renal cyst. Findings discussed with Dr. Shore 03/13/2022 and 5:40 AM. Electronically authenticated by: MATTHEW MELARA Date: 2022-03-13 05:43 Normal [facility] GROUP A STREP CULTUREon S. pyogenes Ag Ql (Unsp spec) Culture Observations: NEGATIVE FOR GROUP A STREPTOCOCCUS. Normal [facility] Comment on above: Performed By: #### S SCRN, GRASTCX ####[facility] [address] [place], [place] [address]TqDr. Bernice Hamilton LIPASEon 03-13-2022 Lipase [Catalytic activity/Vol] 121.0 U/L Normal 73.0-393.0 [facility] Comment on above: Performed By: #### E RUR, PREGU #### [facility] [address] [place], [place] [address] Dr. Bernice Hamilton PROF 14(COMP METB)on 023 Albumin [Mass/Vol] 3.6 g/dL Normal 3.4-5.[address] [facility] Comment on above: Performed By: #### Mara MURPHYR, PREGU #### [facility] [address] [address] [address] Bernice Hamilton Albumin/Globulin [Mass ratio] 0.8 {ratio} Normal [facility] Comment on above: Performed By: #### Mara MURPHYR, PREGU #### [facility] [address] [address] [address] Bernice Hamilton ALP [Catalytic activity/Vol] 112 U/L Normal 46-116 [facility] Comment on above: Performed By: #### Mara SORIANO, PREGU #### [facility] [address] [place] [address] Dr. Bernice Hamilton ALT [Catalytic activity/Vol] 23 U/L Normal 14-59 [facility] Comment on above: Performed By: #### Mara SORIANO, PREGU #### [facility] [address] [place] [address] Dr. Bernice Hamilton Anion gap [Moles/Vol] 16.5 mmol/L Normal [facility] Comment on above: Performed By: #### Mara SORIANO, PREGU #### [facility] [address] [place] [address] Dr. Bernice Hamilton AST [Catalytic activity/Vol] 20 U/L Normal 15-37 [facility] Comment on above: Performed By: #### Mara SORIANO, PREGU #### [facility] [address] [address] [address] Bernice Hamilton Bilirubin [Mass/Vol] 0.5 mg/dL Normal 0.2-1.0 [facility] Comment on above: Performed By: #### Mara SORIANO, PREGU #### [facility] [address] [place] [address] Dr. Bernice Hamilton Calcium [Mass/Vol] 9.2 mg/dL Normal 8.5-10.1 [facility] Comment on above: Performed By: #### E RUR, PREGU #### [facility] [address] [address] [address] Bernice Hamilton Chloride [Moles/Vol] 98 mmol/L Normal 98-107 [facility] Comment on above: Performed By: #### E RUR, PREGU #### [facility] [address] [address] [address] Bernice Hamilton CO2 [Moles/Vol] 23.5 mmol/L Normal 21.0-32.0 [facility] Comment on above: Performed By: #### E RUR, PREGU #### [facility] [address] [address] [address] Bernice Hamilton Creatinine [Mass/Vol] 0.99 mg/dL Normal 0.55-1.02 [facility] Comment on above: Performed By: #### E RUR, PREGU #### [facility] [address] [place] [address] Dr. Bernice Hamilton EGFR-AF ITALIAN >60 Normal >=60 [facility] Comment on above: Performed By: #### E RUR, PREGU #### [facility] [address] [place] [address] Dr. Bernice Hamilotn EGFR-NON AF ITALIAN 58 mL/min/1.73m2 Critically low >=60 [facility] Comment on above: Performed By: #### E RUR, PREGU #### [facility] [address] [place] [address] Dr. Bernice Hamilton Globulin (S) [Mass/Vol] 4.4 g/dL Normal [facility] Comment on above: Performed By: #### E RUR, PREGU #### [facility] [address] [place] [address] Dr. Bernice Hamilton Glucose [Mass/Vol] 288 mg/dL Critically high 74-106 [facility] Comment on above: Performed By: #### E RUR, PREGU #### [facility] [address] [place] [address] Dr. Bernice Hamilton Potassium [Moles/Vol] 4.0 mmol/L Normal 3.5-5.1 [facility] Comment on above: Performed By: #### E RUR, PREGU #### [facility] [address] [address] [address] Bernice Hamilton Protein [Mass/Vol] 8.0 g/dL Normal 6.4-8.[address] [facility] Comment on above: Performed By: #### E RUR, PREGU #### [facility] [address] [address] [address] Bernice Hamilton Sodium [Moles/Vol] 134 mmol/L Critically low 136-145 [facility] Comment on above: Performed By: #### E RUR, PREGU #### [facility] [address] [place] [address] Dr. Bernice Hamilton Urea nitrogen [Mass/Vol] 17.0 mg/dL Normal 7.0-18.0 [facility] Comment on above: Performed By: #### E RUR, PREGU #### [facility] [address] [place] [address] Dr. Bernice Hamilton Urea nitrogen/Creatinine [Mass ratio] 17.2 mg/mg Normal [facility] Comment on above: Performed By: #### E RUR, PREGU #### [facility] [address] [place] [address] Dr. Bernice Hamilton STREPT SCREENon 03-13-2022 STREP SCREEN A Negative Normal NEGATIVE [facility] Comment on above: Performed By: #### S SCRN, GRASTCX ####[facility] [address] [place], [place] [address]Dr. Bernice Hamilton TROPONIN, HIGH SENSITIVITYon 03-13-2022 HSTROP 8.3 pg/mL Normal 4.0-51.3 [facility] Comment on above: Result Comment: CUT- OFF POINTS HAVE BEEN ESTABLISHED BASED ON THE FOURTH UNIVERSAL DEFINITIONS OF MYOCARDIAL INFARCTION. THE UPPER REFERENCE LIMIT (URL) OF TROPONIN, DEFINED THE 99TH PERCENTILE OF cTnI DISTRIBUTION IN A REFERENCE POPULATION, HAS BEEN CONFIRMED THE DECISION THRESHOLD FOR UT DIAGNOSIS. Performed By: #### H STROPN ####[facility] [address] [place], [place] [address]Dr. Bernice Hamilton CBC AUTO DIFFon 02-28-2022 BASO # 0.1 103/ul Normal 0.0-0.1 [facility] Comment on above: Performed By: #### C BC ####[facility] [address] [address]Dr. Bernice Hamilton Basophils/100 WBC (Bld) 0.8 % Normal 0.2-2.0 [facility] Comment on above: Performed By: #### C BC ####[facility] [address] [place], [place] [address]Dr. Susiesherwin Hamilton EO # 0.4 103/ul Normal 0.0-0.7 [facility] Comment on above: Performed By: #### C BC ####[facility] [address] [place], [place] [address]Dr. Bernice Hamilton Eosinophils/100 WBC (Bld) 5.7 % Normal 0.9-7.0 [facility] Comment on above: Performed By: #### C BC ####[facility] [address] [place], [place] [address]Dr. Bernice Hamilton Erythrocyte distribution width (RBC) [Ratio] 15.3 % Critically high 11.0-15.0 [facility] Comment on above: Performed By: #### C BC ####[facility] [address] [place], [place] [address]Dr. Bernice Hamilton Hematocrit (Bld) [Volume fraction] 35.9 % Critically low 36.0-48.0 [facility] Comment on above: Performed By: #### C BC ####[facility] [address] [place], [place] [address]Dr. Susiesherwin Hamilton Hemoglobin (Bld) [Mass/Vol] 11.0 g/dL Critically low 12.0-16.0 [facility] Comment on above: Performed By: #### C BC ####[facility] [address] [place], [place] [address]Dr. Bernice Hamilton IG # 0.02 10e3/ul Normal 0.00-0.03 [facility] Comment on above: Performed By: #### C BC ####[facility] [address] [place] [id number]. Susiesherwin Hamilton IG % 0.3 % Normal 0.0-0.5 [facility] Comment on above: Performed By: #### C BC ####[facility] [address] [address]Dr. Bernice Alfonso LYMPH # 2.4 103/ul Normal 1.2-3.8 [facility] Comment on above: Performed By: #### C BC ####[facility] [address] [place], [place] [address]Dr. Susiesherwin Hamilton Lymphocytes/100 WBC (Bld) 33.2 % Normal 20.5-60.0 [facility] Comment on above: Performed By: #### C BC ####[facility] [address] [place], [place] [address]Dr. Bernice Hamilton MANUAL DIFF REQ NO Normal [facility] Comment on above: Performed By: #### C BC ####[facility] [address] [address]Dr. Bernice Alfonso MCH (RBC) [Entitic mass] 22.8 pg Critically low 26.7-34.0 [facility] Comment on above: Performed By: #### C BC ####[facility] [address] [place], [place] [address]Dr. Bernice Hamilton MCHC (RBC) [Mass/Vol] 30.6 g/dL Normal 29.9-35.2 [facility] Comment on above: Performed By: #### C BC ####[facility] [address] [place], [place] [address]Dr. Bernice Alfonso MCV (RBC) [Entitic vol] 74.5 fL Critically low 81.0-99.0 [facility] Comment on above: Performed By: #### C BC ####[facility] [address] [place], [place] [address]DrPablo Hamilton MONO # 0.5 103/ul Normal 0.3-0.8 [facility] Comment on above: Performed By: #### C BC ####[facility] [address] [place], [place] [address]Dr. Bernice Hamilton Monocytes/100 WBC (Bld) 7.4 % Normal 1.7-12.0 [facility] Comment on above: Performed By: #### C BC ####[facility] [address] [place] [address]Dr. Bernice Hamilton NEUT # 3.8 103/ul Normal 1.4-6.5 [facility] Comment on above: Performed By: #### C BC ####[facility] [address] [address]Dr. Berince Hamilton Neutrophils/100 WBC (Bld) 52.6 % Normal 43.0-75.0 [facility] Comment on above: Performed By: #### C BC ####[facility] [address] [place] [address]Dr. Bernice Hamilton Platelet mean volume (Bld) [Entitic vol] 10.3 fL Normal 9.5-13.5 [facility] Comment on above: Performed By: #### C BC ####[facility] [address] [place] [address]Dr. Bernice Hamilton PLT 334 103/ul Normal 150-450 [facility] Comment on above: Performed By: #### C BC ####[facility] [address] [place] [address]Dr. Bernice Hamilton RBC 4.82 106/ul Normal 4.20-5.40 [facility] Comment on above: Performed By: #### C BC ####[facility] [address] [place] [id number]. Bernice Hamilton WBC 7.3 103/ul Normal 4.0-11.0 [facility] Comment on above: Performed By: #### C BC ####[facility] [address] [id number] Hamilton POINT OF CARE GLUCOSEon 12-2 -2021 Glucose [Mass/Vol] 188 mg/dL Critically high 74-106 [facility] Comment on above: Performed By: #### B MP #### [facility] [address] [address] [address] Bernice Hamilton PREG HCG QUALon 02-28-2022 , QUAL Negative Normal NEGATIVE [facility] Comment on above: Performed By: #### B MP #### [facility] [address] [address] [address] Bernice Hamilton Covid-19 PCR ([facility])on 02-09 SARS-CoV-2 (COVID-19) RNA JOSIAS+probe Ql (Unsp spec) Not detected Normal NOT DETECTED [facility] Comment on above: Result Comment: This test is not yet approved or cleared by the [place] FDA. When there are no FDA-approved or cleared tests available, and other criteria are met, FDA can make tests available under an emergency access mechanism called an Emergency Use Authorization (EUA). The EUA for this test is supported by the Speed of Health and Human Service's (HHS's) declaration that circumstances exist to justify the emergency use of in vitro diagnostics for the detection and/or diagnosis of the virus that causes COVID-19. This EUA will remain in effect (meaning this test can be used) for the duration of the COVID-19 declaration justifying emergency of IVDs, unless it is terminated or revoked by FDA (after which the test may no longer be used). When diagnostic testing is negative, the possibility of a false negative should be considered in the context of a patient's recent exposures and the presence of clinical signs and symptoms consistent with SARS-CoV-2. Performed By: #### C VDTBH ####[facility] [address] [address]Dr. Bernice Hamilton PROF CHEM 8 (BAS METB)on Anion gap [Moles/Vol] 12.4 mmol/L Normal [facility] Comment on above: Performed By: #### B MP #### [facility] [id number] Bernice Hamilton Calcium [Mass/Vol] 8.7 mg/dL Normal 8.5-10.1 [facility] Comment on above: Performed By: #### B MP #### [facility] [id number] Bernice Hamilton Chloride [Moles/Vol] 103 mmol/L Normal 98-107 [facility] Comment on above: Performed By: #### B MP #### [facility] [address] [address] [address] Bernice Hamilton CO2 [Moles/Vol] 27.8 mmol/L Normal 21.0-32.0 [facility] Comment on above: Performed By: #### B MP #### [facility] [address] [address] [address] Bernice Hamilton Creatinine [Mass/Vol] 0.92 mg/dL Normal 0.55-1.02 [facility] Comment on above: Performed By: #### B MP #### [facility] [address] [address] [address] Bernice Hamilton EGFR-AF ITALIAN >60 Normal >=60 [facility] Comment on above: Performed By: #### B MP #### [facility] [address] [address] [address] Bernice Hamilton EGFR-NON AF ITALIAN >60 Normal >=60 [facility] Comment on above: Performed By: #### B MP #### [facility] [address] [address] [address] Bernice Hamilton Glucose [Mass/Vol] 228 mg/dL Critically high 74-106 [facility] Comment on above: Performed By: #### B MP #### [facility] [address] [address] [address] Bernice Hamilton Potassium [Moles/Vol] 4.2 mmol/L Normal 3.5-5.1 [facility] Comment on above: Performed By: #### B MP #### [facility] [address] [address] [address] Bernice Hamilton Sodium [Moles/Vol] 139 mmol/L Normal 136-[address] [facility] Comment on above: Performed By: #### B MP #### [facility] [address] [address] [address] Bernice Hamilton Urea nitrogen [Mass/Vol] 16.0 mg/dL Normal 7.0-18.0 [facility] Comment on above: Performed By: #### B MP #### [facility] [address] [place] [address] Dr. Bernice Hamilton Urea nitrogen/Creatinine [Mass ratio] 17.4 mg/mg Normal [facility] Comment on above: Performed By: #### B MP #### [facility] [address] [place] [address] Dr. Bernice Hamilton Covid-19 PCR ([facility])on SARS-CoV-2 (COVID-19) RNA JOSIAS+probe Ql (Unsp spec) Not detected Normal NOT DETECTED [facility] Comment on above: Result Comment: When diagnostic testing is negative, the possibility of a false negative should be considered in the context of a patient's recent exposures and the presence of clinical signs and symptoms consistent with SARS-CoV-2. This test is not yet approved or cleared by the [place] FDA. When there are no FDA-approved or cleared tests available, and other criteria are met, FDA can make tests available under an emergency access mechanism called an Emergency Use Authorization (EUA). The EUA for this test is supported by the Principal Software Engineer of Health and Human Service's declaration that circumstances exist to justify the emergency use of in vitro diagnostics for the detection and/or diagnosis of the virus that causes COVID-19. This EUA will remain in effect for the duration of the COVID-19 declaration justifying emergency of IVDs, unless it is terminated or revoked by the FDA (after which the test may no longer be used). Performed By: #### E RUR, PREGU #### [facility] [address] [place] [address] Dr. Bernice Hamilton INFLUENZA A AND B AGon 02-14 INFLUANEGH SEE BELOW Normal [facility] Comment on above: Result Comment: Nega tive for Flu A protein angiten. Infection due to Flu A cannot be ruled out. Flu A angiten in the sample may be below the detection limit of the test. Performed By: #### I NFLUAB #### [facility] [address] [place] [address] Dr. Bernice Hamilton INFLUBNEGH SEE BELOW Normal [facility] Comment on above: Result Comment: Nega tive for Flu B protein antigen. Infection due to Flu B cannot be ruled out. Flu B antigen in the sample may be below the detection limit of the test. Performed By: #### I NFLUAB #### [facility] [address] [address] [address] Bernice Hamilton INFLUENZA A AG Negative Normal NEGATIVE SEE COMMENT [facility] Comment on above: Performed By: #### I NFLUAB #### [facility] [address] [place] [address] Dr. Bernice Hamilton INFLUENZA B AG Negative Normal NEGATIVE SEE COMMENT [facility] Comment on above: Performed By: #### I NFLUAB #### [facility] [address] [address] [address] Bernice Hamilton INTERNAL CONTROLS Within Normal Limits Normal Wi thin Normal Limits [facility] Comment on above: Performed By: #### I NFLUAB #### [facility] [address] [place] [address] Dr. Bernice Hamilton US PELVIS AND TRANSVAGon US PELVIS AND TRANSVAG EXAMINATION: US PELVIS AND TRANSVAG HISTORY: Excessive menstruation with irregular cycle COMPARISON: Ultrasound pelvis 07/08/2021 TECHNIQUE: Transabdominal and transvaginal sonographic examination. FINDINGS: UTERUS: Slightly heterogeneous echotexture with less well-defined differentiation between endometrium and myometrium. Thickened appearance of uterine khalil, the 2.8 cm anteriorly. Incidental scar within lower uterine segment. Round 1.7 cm hypoechoic mass within posterior lower uterine wall favoring a leiomyoma. Uterus size: 11.1 x 5.9 x 5.5 cm ENDOMETRIUM: Homogeneous echotexture. Endometrial thickness: 9 mm RIGHT OVARY: Contains a 2.6 cm benign-appearing cyst. Duplex Doppler demonstrates normal waveform and flow; resistive index 0.4. Ovary size: 2.6 x 2.8 x 3.4 cm LEFT OVARY: Contains a 1.1 cm dominant follicle versus benign-appearing cyst. Duplex Doppler demonstrates normal waveform and flow; resistive index 0.4. Ovary size: 2.9 x 1.4 x 2.8 cm CUL-DE-SAC: Unremarkable. No significant free fluid. BLADDER: Unremarkable. OTHER: None. IMPRESSION: 1. Posterior uterine wall 1.7 cm leiomyoma. 2. Slightly heterogeneous myometrium less well demarcated myometrial-endometrial junction; possible adenomyosis. No abnormal endometrial thickening or endometrial mass. Electronically authenticated by: EFREN WHELAN Date: 2022-01-27 06:22 Normal [facility] CBC AUTO DIFFon 01-26-2022 BASO # 0.1 103/ul Normal 0.0-0.1 [facility] Comment on above: Performed By: #### B MP #### [facility] [address] [address] [address] Bernice Hamilton Basophils/100 WBC (Bld) 0.8 % Normal 0.2-2.0 [facility] Comment on above: Performed By: #### B MP #### [facility] [address] [address] [address] Bernice Hamilton EO # 0.3 103/ul Normal 0.0-0.7 [facility] Comment on above: Performed By: #### B MP #### [facility] [address] [address] [address] Bernice Hamilton Eosinophils/100 WBC (Bld) 3.8 % Normal 0.9-7.0 [facility] Comment on above: Performed By: #### B MP #### [facility] [address] [address] [address] Bernice Hamilton Erythrocyte distribution width (RBC) [Ratio] 15.0 % Normal 11.0-15.0 [facility] Comment on above: Performed By: #### B MP #### [facility] [address] [address] [address] Bernice Hamilton Hematocrit (Bld) [Volume fraction] 39.1 % Normal 36.0-48.0 [facility] Comment on above: Performed By: #### B MP #### [facility] [address] [address] [address] Bernice Hamilton Hemoglobin (Bld) [Mass/Vol] 12.3 g/dL Normal 12.0-16.0 [facility] Comment on above: Performed By: #### B MP #### [facility] [address] [place] [address] Dr. Bernice Hamilton IG # 0.02 10e3/ul Normal 0.00-0.03 [facility] Comment on above: Performed By: #### B MP #### [facility] [address] [place] [address] Dr. Bernice Hamilton IG % 0.3 % Normal 0.0-0.5 [facility] Comment on above: Performed By: #### B MP #### [facility] [address] [place] [address] Dr. Bernice Hamilton LYMPH # 2.6 103/ul Normal 1.2-3.8 [facility] Comment on above: Performed By: #### B MP #### [facility] [address] [place] [address] Dr. Bernice Hamilton Lymphocytes/100 WBC (Bld) 36.1 % Normal 20.5-60.0 [facility] Comment on above: Performed By: #### B MP #### [facility] [address] [place] [address] Dr. Bernice Hamilton MANUAL DIFF REQ NO Normal [facility] Comment on above: Performed By: #### B MP #### [facility] [address] [place] [address] Dr. Bernice Hamilton MCH (RBC) [Entitic mass] 23.3 pg Critically low 26.7-34.0 [facility] Comment on above: Performed By: #### B MP #### [facility] [address] [place] [address] Dr. Bernice Hamilton MCHC (RBC) [Mass/Vol] 31.5 g/dL Normal 29.9-35.2 [facility] Comment on above: Performed By: #### B MP #### [facility] [address] [place] [address] Dr. Bernice Hamilton MCV (RBC) [Entitic vol] 74.2 fL Critically low 81.0-99.0 [facility] Comment on above: Performed By: #### B MP #### [facility] [address] [place] [address] Dr. Bernice Hamilton MONO # 0.6 103/ul Normal 0.3-0.8 [facility] Comment on above: Performed By: #### B MP #### [facility] [address] [place] [address] Dr. Bernice Hamilton Monocytes/100 WBC (Bld) 8.3 % Normal 1.7-12.0 [facility] Comment on above: Performed By: #### B MP #### [facility] [address] [place] [address] Dr. Bernice Hamilton NEUT # 3.6 103/ul Normal 1.4-6.5 [facility] Comment on above: Performed By: #### B MP #### [facility] [address] [place] [address] Dr. Bernice Hamilton Neutrophils/100 WBC (Bld) 50.7 % Normal 43.0-75.0 [facility] Comment on above: Performed By: #### B MP #### [facility] [address] [place] [address] Dr. Bernice Hamilton Platelet mean volume (Bld) [Entitic vol] 10.7 fL Normal 9.5-13.5 [facility] Comment on above: Performed By: #### B MP #### [facility] [address] [place] [address] Dr. Bernice Hamilton PLT 303 103/ul Normal 150-450 [facility] Comment on above: Performed By: #### B MP #### [facility] [address] [place] [address] Dr. Bernice Hamilton RBC 5.27 106/ul Normal 4.20-5.40 [facility] Comment on above: Performed By: #### B MP #### [facility] [address] [place] [address] Dr. Bernice Hamilton WBC 7.1 103/ul Normal 4.0-11.0 [facility] Comment on above: Performed By: #### B MP #### [facility] [address] [place] [address] Dr. Bernice Hamilton FREE T4on 01-26-2022 Free T4 [Mass/Vol] 1.08 ng/dL Normal 0.76-1.46 [facility] Comment on above: Performed By: #### B MP #### [facility] [address] [place] [address] Dr. Bernice Hamilton GLYCOHEMOGLOBIN A1Con 2021 ADA RECOMMENDATION SEE BELOW Normal [facility] Comment on above: Result Comment: ADA RECOMMENDED LIMIT 4.0 - 6.0 ADA THERAPEUTIC TARGET < 7.0 ACTION SUGGESTED > 7.0 Performed By: #### E RUR, PREGU #### [facility] [address] [place] [address] Dr. Bernice Hamilton Glucose [Mass/Vol] 209 mg/dL Normal [facility] Comment on above: Performed By: #### E RUR, PREGU #### [facility] [address] [place] [address] Dr. Bernice Hamilton HbA1c (Bld) [Mass fraction] 8.9 % Critically high 4.5-6.2 [facility] Comment on above: Performed By: #### E RUR, PREGU #### [facility] [address] [place] [address] Dr. Bernice Hamilton PREG QUANT HCGon 01-26-2022 HCG QUANT <1 Normal [facility] Comment on above: Performed By: #### T HUMBERTO, PREGQNT #### [facility] [address] [place] [address] Dr. Bernice Hamilton HCG RANGE SEE BELOW Normal [facility] Comment on above: Result Comment: 5-50 0.2-1 WEEK 50-500 1-2 WEEKS 100-5,000 2-3 WEEKS 500-10,000 3-4 WEEKS 1,000-50,000 4-5 WEEKS 10,000-100,000 5-6 WEEKS 15,000-200,000 6-8 WEEKS 10,000-100,000 2-3 MONTHS Performed By: #### T SH, PREGQNT #### [facility] [address] [place] [address] Dr. Bernice Hamilton PROTIMEon 01-26-2022 INR Coag (PPP) [Relative time] 0.95 {INR} Normal [facility] Comment on above: Performed By: #### P TT, PT ####[facility] [address] [id number]. Bernice Hamilton INR GUIDELINES SEE BELOW Normal [facility] Comment on above: Result Comment: DAMARIS RED INR: 2.0 - 3.0 CONDITIONS NOT LISTED BELOW 2.5 - 3.5 FOR PROSTHETIC HEART VALVE REPLACEMENT 2.5 - 3.5 RECURRENT THROMBOSIS Performed By: #### P TT, PT ####[facility] [address] [id number]. Bernice Hamilton PT Coag (PPP) [Time] 10.3 s Normal 9.0-11.6 [facility] Comment on above: Performed By: #### P TT, PT ####[facility] [address] [id number]. Bernice Hamilton PTTon 01-26-2022 aPTT Coag (Bld) [Time] 23.8 s Normal 22.3-36.2 [facility] Comment on above: Performed By: #### P TT, PT ####[facility] [address] [id number]. Bernice Hamilton TSHon 01-26-2022 TSH 1.602 uIU/mL Normal 0.358-3.740 [facility] Comment on above: Performed By: #### T SH, PREGQNT #### [facility] [address] [place], [place] [address] Dr. Bernice Hamilton Covid-19 PCR ([facility])on 12-11 SARS-CoV-2 (COVID-19) RNA JOSIAS+probe Ql (Unsp spec) Not detected Normal NOT DETECTED [facility] Comment on above: Result Comment: When diagnostic testing is negative, the possibility of a false negative should be considered in the context of a patient's recent exposures and the presence of clinical signs and symptoms consistent with SARS-CoV-2. This test is not yet approved or cleared by the [place] FDA. When there are no FDA-approved or cleared tests available, and other criteria are met, FDA can make tests available under an emergency access mechanism called an Emergency Use Authorization (EUA). The EUA for this test is supported by the Speed of Health and Human Service's declaration that circumstances exist to justify the emergency use of in vitro diagnostics for the detection and/or diagnosis of the virus that causes COVID-19. This EUA will remain in effect for the duration of the COVID-19 declaration justifying emergency of IVDs, unless it is terminated or revoked by the FDA (after which the test may no longer be used). Performed By: #### E CHRISTIE, MERARYU #### [facility] [address] [place] [address] Dr. Bernice Hamilton XR FOOT ILSA MIN 3 VIEWSon XR FOOT ILSA MIN 3 VIEWS EXAMINATION: XR FOOT ILSA MIN 3 VIEWS HISTORY: Pain in both feet COMPARISON: No relevant comparison available. FINDINGS: RIGHT FINDINGS: BONES: No acute fracture or dislocation. Moderate enthesopathic spurring of the calcaneus SOFT TISSUES: Negative. No visible soft tissue swelling. OTHER: Negative. LEFT FINDINGS: BONES: No acute fracture or dislocation. Moderate enthesopathic spurring of the calcaneus SOFT TISSUES: Negative. No visible soft tissue swelling. OTHER: Negative. IMPRESSION: RIGHT CONCLUSION: Calcaneal enthesopathy LEFT CONCLUSION: Calcaneal enthesopathy Electronically authenticated by: HETAL ENCARNACION Date: 2021-09-22 18:28 Normal [facility] ECHOCARDIO M/2D COMPLETEon 0 09-13-2021 ECHOCARDIO M/2D COMPLETE Patient: RENO HARRIS Exam Date: 09/13/2021 : 1965 Gender:F Ordering : DR KATHLEEN BUSBY . Admission #: [id number] Family : Order #: [id number] CLICK HERE TO VIEW EXAM ECHOCARDIOGRAM REPORT PROCEDURE: CARDIO PULMONARY ECHOCARDIO M/2D COMP INDICATIONS: Near syncope COMPARISON: None. DESCRIPTION: COMPLETE ECHOCARDIOGRAM Real-time transthoracic echocardiography with 2D, M-mode, spectral and color flow Doppler performed. QUALITY: Technical quality was good. LEFT VENTRICLE: Normal chamber size. Proximal septal hypertrophy (sigmoid septum). Moderate left ventricular hypertrophy. Global left ventricular systolic function is normal. LV EF: Visual estimation of left ventricular ejection fraction is 65% DIASTOLIC: Grade I diastolic dysfunction. ATRIAL SEPTUM: LEFT ATRIUM: Mild dilatation. RIGHT ATRIUM: Mild dilatation. RIGHT VENTRICLE: Normal chamber size. Normal right ventricular systolic function. TRICUSPID VALVE: Normal mobility and thickness. No stenosis with trivial regurgitation. Unable to assess right-sided pressures due to lack of measurable tricuspid regurgitation. MITRAL VALVE: No mitral valve prolapse. No evidence of mitral valve stenosis. There is no mitral annular calcification. No mitral regurgitation. AORTIC VALVE: Normal trileaflet appearance. No visible sclerosis. Normal leaflet mobility. No evidence of aortic valve stenosis. AORTIC ROOT: Normal diameter and appearance. 3.4 cm. PULMONIC VALVE: Normal thickness and mobility. No stenosis. No regurgitation. PERICARDIUM: No evidence of pericardial effusion. IVC: Collapses with inspirations. Normal size PLEURA: CONCLUSION: 1. Moderate left ventricular hypertrophy with proximal septal hypertrophy. LV systolic function is normal. LVEF is 65%. 2. Normal right ventricular size and systolic function. 3. No significant valvular dysfunction. 4. Unable to assess right-sided pressures due to lack of measurable tricuspid regurgitation. 5. No pericardial effusion. Dictated by: Zac Aguilar M.D. on 09/14/2021 at 10:18 Approved by: Zac Aguilar M.D. on 09/14/2021 at 10:21 Normal [facility] CARDIAC IVETH ADMITon 022 CK [Catalytic activity/Vol] 69 U/L Normal 26-192 [facility] Comment on above: Performed By: #### B MP #### [facility] [address] [place] [address] Dr. Bernice Hamilton CK.MB [Mass/Vol] 0.99 ng/mL Normal <=3.60 [facility] Comment on above: Performed By: #### B MP #### [facility] [address] [address] [address] Bernice Hamilton HSTROP 13.6 pg/mL Normal 4.0-51.3 [facility] Comment on above: Result Comment: CUT- OFF POINTS HAVE BEEN ESTABLISHED BASED ON THE FOURTH UNIVERSAL DEFINITIONS OF MYOCARDIAL INFARCTION. THE UPPER REFERENCE LIMIT (URL) OF TROPONIN, DEFINED THE 99TH PERCENTILE OF cTnI DISTRIBUTION IN A REFERENCE POPULATION, HAS BEEN CONFIRMED THE DECISION THRESHOLD FOR UT DIAGNOSIS. Performed By: #### B MP #### [facility] [address] [address] [address] Bernice Hamilton CRISTIANO 25 ng/mL Normal 9-82 [facility] Comment on above: Performed By: #### B MP #### [facility] [address] [place] [address] Dr. Bernice Hamilton CBC AUTO DIFFon 08-21-2021 BASO # 0.1 103/ul Normal 0.0-0.1 [facility] Comment on above: Performed By: #### C BC #### [facility] [address] [place] [address] Dr. Bernice Hamilton Basophils/100 WBC (Bld) 0.9 % Normal 0.2-2.0 [facility] Comment on above: Performed By: #### C BC #### [facility] [address] [place] [address] Dr. Bernice Hamilton EO # 0.5 103/ul Normal 0.0-0.7 [facility] Comment on above: Performed By: #### C BC #### [facility] [address] [place] [address] Dr. Bernice Hamilton Eosinophils/100 WBC (Bld) 6.8 % Normal 0.9-7.0 [facility] Comment on above: Performed By: #### C BC #### [facility] [address] [place] [address] Dr. Bernice Hamilton Erythrocyte distribution width (RBC) [Ratio] 14.6 % Normal 11.0-15.0 [facility] Comment on above: Performed By: #### C BC #### [facility] [address] [place] [address] Dr. Bernice Hamilton Hematocrit (Bld) [Volume fraction] 33.7 % Critically low 36.0-48.0 [facility] Comment on above: Performed By: #### C BC #### [facility] [address] [place] [address] Dr. Bernice Hamilton Hemoglobin (Bld) [Mass/Vol] 10.6 g/dL Critically low 12.0-16.0 [facility] Comment on above: Performed By: #### C BC #### [facility] [address] [place] [address] Dr. Bernice Hamilton IG # 0.02 10e3/ul Normal 0.00-0.03 [facility] Comment on above: Performed By: #### C BC #### [facility] [address] [place] [address] Dr. Bernice Hamilton IG % 0.3 % Normal 0.0-0.5 [facility] Comment on above: Performed By: #### C BC #### [facility] [address] [place] [address] Dr. Bernice Hamilton LYMPH # 2.6 103/ul Normal 1.2-3.8 [facility] Comment on above: Performed By: #### C BC #### [facility] [address] [place] [address] Dr. Bernice Hamilton Lymphocytes/100 WBC (Bld) 32.7 % Normal 20.5-60.0 [facility] Comment on above: Performed By: #### C BC #### [facility] [address] [place] [address] Dr. Bernice Hamilton MANUAL DIFF REQ NO Normal [facility] Comment on above: Performed By: #### C BC #### [facility] [address] [place] [address] Dr. Bernice Hamilton MCH (RBC) [Entitic mass] 24.9 pg Critically low 26.7-34.0 [facility] Comment on above: Performed By: #### C BC #### [facility] [address] [place] [address] Dr. Bernice Hamilton MCHC (RBC) [Mass/Vol] 31.5 g/dL Normal 29.9-35.2 [facility] Comment on above: Performed By: #### C BC #### [facility] [address] [place] [address] Dr. Bernice Hamilton MCV (RBC) [Entitic vol] 79.3 fL Critically low 81.0-99.0 [facility] Comment on above: Performed By: #### C BC #### [facility] [address] [place] [address] Dr. Bernice Hamilton MONO # 0.5 103/ul Normal 0.3-0.8 [facility] Comment on above: Performed By: #### C BC #### [facility] [address] [place] [address] Dr. Bernice Hamilton Monocytes/100 WBC (Bld) 6.0 % Normal 1.7-12.0 [facility] Comment on above: Performed By: #### C BC #### [facility] [address] [place] [address] Dr. Bernice Hamilton NEUT # 4.3 103/ul Normal 1.4-6.5 [facility] Comment on above: Performed By: #### C BC #### [facility] [address] [place] [address] Dr. Bernice Hamilton Neutrophils/100 WBC (Bld) 53.3 % Normal 43.0-75.0 [facility] Comment on above: Performed By: #### C BC #### [facility] [address] [place] [address] Dr. Bernice Hamilton Platelet mean volume (Bld) [Entitic vol] 11.8 fL Normal 9.5-13.5 [facility] Comment on above: Performed By: #### C BC #### [facility] [address] [place] [address] Dr. Bernice Hamilton PLT 262 103/ul Normal 150-450 [facility] Comment on above: Performed By: #### C BC #### [facility] [address] [place] [address] Dr. Bernice Hamilton RBC 4.25 106/ul Normal 4.20-5.40 [facility] Comment on above: Performed By: #### C BC #### [facility] [address] [place] [address] Dr. Bernice Hamilton WBC 8.0 103/ul Normal 4.0-11.0 [facility] Comment on above: Performed By: #### C BC #### [facility] [address] [place] [address] Dr. Bernice Hamilton ER URINE PROFILEon 2 Bilirubin Ql (U) Negative Normal NEGATIVE [facility] Comment on above: Performed By: #### E RUR, PREGU #### [facility] [address] [place] [address] Dr. Bernice Hamilton Clarity (U) CLEAR Normal CLEAR [facility] Comment on above: Performed By: #### E RUR, PREGU #### [facility] [address] [place] [address] Dr. Bernice Hamilton Color (U) LT. YELLOW Normal YELLOW [facility] Comment on above: Performed By: #### E RUR, PREGU #### [facility] [address] [place] [address] Dr. Bernice GONZALEZ A micrscopic examination will be performed if indicated. Normal [facility] Comment on above: Performed By: #### E RUR, PREGU #### [facility] [address] [place] [address] Dr. Bernice Hamilton Glucose Ql (U) 100 mg/dl Abnormal NEGATIVE [facility] Comment on above: Performed By: #### E RUR, PREGU #### [facility] [address] [place] [address] Dr. Bernice Hamilton Hemoglobin Ql (U) Negative Normal NEGATIVE [facility] Comment on above: Performed By: #### E RUR, PREGU #### [facility] [address] [place] [address] Dr. Bernice Hamilton Ketones Ql (U) Negative Normal NEGATIVE [facility] Comment on above: Performed By: #### E RUR, PREGU #### [facility] [address] [place] [address] Dr. Bernice Hamilton LEUKOCYTES Negative Normal NEGATIVE [facility] Comment on above: Performed By: #### E RUR, PREGU #### [facility] [address] [place] [address] Dr. Bernice Hamilton Nitrite Ql (U) Negative Normal NEGATIVE [facility] Comment on above: Performed By: #### E RUR, PREGU #### [facility] [address] [place] [address] Dr. Bernice Hamilton pH (U) 5.0 [pH] Normal 5-9 [facility] Comment on above: Performed By: #### E RUR, PREGU #### [facility] [address] [address] [address] Bernice Hamilton SPEC GRAVITY 1.010 Normal 1.005-<=1.025 [facility] Comment on above: Performed By: #### E RUR, PREGU #### [facility] [address] [address] [address] Bernice Hamilton UA PROTEIN Negative Normal NEGATIVE/ TRACE [facility] Comment on above: Performed By: #### E RUR, PREGU #### [facility] [address] [place] [address] Dr. Bernice Hamilton UR MICRO IND NOT INDICATED Normal [facility] Comment on above: Performed By: #### E RUR, PREGU #### [facility] [address] [place] [address] Dr. Bernice Hamilton Urobilinogen Qn (U) 0.2 {Marco Antonio'U}/dL Normal 0.2 - 1. 0 [facility] Comment on above: Performed By: #### E RUR, PREGU #### [facility] [address] [address] [address] Bernice Hamilton URon 08-21-2021 , QUAL Negative Normal NEGATIVE [facility] Comment on above: Performed By: #### E RUR, PREGU #### [facility] [address] [place] [address] Dr. Bernice Hamilton PROF 14(COMP METB)on 022 Albumin [Mass/Vol] 3.4 g/dL Normal 3.4-5.[address] [facility] Comment on above: Performed By: #### B MP #### [facility] [address] [place] [address] Dr. Bernice Hamilton Albumin/Globulin [Mass ratio] 0.9 {ratio} Normal [facility] Comment on above: Performed By: #### B MP #### [facility] [address] [address] [address] Bernice Hamilton ALP [Catalytic activity/Vol] 81 U/L Normal 46-116 [facility] Comment on above: Performed By: #### B MP #### [facility] [address] [address] [address] Bernice Hamilton ALT [Catalytic activity/Vol] 32 U/L Normal 14-59 [facility] Comment on above: Performed By: #### B MP #### [facility] [address] [address] [address] Bernice Hamilton Anion gap [Moles/Vol] 15.5 mmol/L Normal [facility] Comment on above: Performed By: #### B MP #### [facility] [address] [address] [address] Bernice Hamilton AST [Catalytic activity/Vol] 29 U/L Normal 15-37 [facility] Comment on above: Performed By: #### B MP #### [facility] [address] [place] [address] Dr. Bernice Hamilton Bilirubin [Mass/Vol] 0.4 mg/dL Normal 0.2-1.0 [facility] Comment on above: Performed By: #### B MP #### [facility] [address] [address] [address] Bernice Hamilton Calcium [Mass/Vol] 8.7 mg/dL Normal 8.5-10.[address] [facility] Comment on above: Performed By: #### B MP #### [facility] [address] [place] [address] Dr. Bernice Hamilton Chloride [Moles/Vol] 100 mmol/L Normal 98-107 [facility] Comment on above: Performed By: #### B MP #### [facility] [address] [address] [address] Bernice Hamilton CO2 [Moles/Vol] 24.2 mmol/L Normal 21.0-32.0 [facility] Comment on above: Performed By: #### B MP #### [facility] [address] [address] [address] Bernice Hamilton Creatinine [Mass/Vol] 0.78 mg/dL Normal 0.55-1.02 [facility] Comment on above: Performed By: #### B MP #### [facility] [address] [address] [address] Bernice Hamilton EGFR-AF ITALIAN >60 Normal >=60 [facility] Comment on above: Performed By: #### B MP #### [facility] [address] [address] [address] Bernice Hamilton EGFR-NON AF ITALIAN >60 Normal >=60 [facility] Comment on above: Performed By: #### B MP #### [facility] [address] [address] [address] Bernice Hamilton Globulin (S) [Mass/Vol] 3.8 g/dL Normal [facility] Comment on above: Performed By: #### B MP #### [facility] [address] [address] [address] Bernice Hamilton Glucose [Mass/Vol] 214 mg/dL Critically high 74-106 [facility] Comment on above: Performed By: #### B MP #### [facility] [address] [address] [address] Bernice Hamilton Potassium [Moles/Vol] 3.7 mmol/L Normal 3.5-5.1 [facility] Comment on above: Performed By: #### B MP #### [facility] [address] [place] [address] Dr. Bernice Hamilton Protein [Mass/Vol] 7.2 g/dL Normal 6.4-8.2 [facility] Comment on above: Performed By: #### B MP #### [facility] [address] [address] [address] Bernice Hamilton Sodium [Moles/Vol] 136 mmol/L Normal 136-145 [facility] Comment on above: Performed By: #### B MP #### [facility] [address] [address] [address] Bernice Hamilton Urea nitrogen [Mass/Vol] 13.0 mg/dL Normal 7.0-18.0 [facility] Comment on above: Performed By: #### B MP #### [facility] [address] [address] [address] Bernice Hamilton Urea nitrogen/Creatinine [Mass ratio] 16.7 mg/mg Normal [facility] Comment on above: Performed By: #### B MP #### [facility] [address] [place], [place] [address] Dr. Bernice Hamilton PROTIMEon 08-21-2021 INR Coag (PPP) [Relative time] 0.97 {INR} Normal [facility] Comment on above: Performed By: #### P T, PTT ####[facility] [address] [id number]. Bernice Hamilton INR GUIDELINES SEE BELOW Normal [facility] Comment on above: Result Comment: DAMARIS RED INR: 2.0 - 3.0 CONDITIONS NOT LISTED BELOW 2.5 - 3.5 FOR PROSTHETIC HEART VALVE REPLACEMENT 2.5 - 3.5 RECURRENT THROMBOSIS Performed By: #### P T, PTT ####[facility] [address] [id number]. Bernice Hamilton PT Coag (PPP) [Time] 10.5 s Normal 9.0-11.6 [facility] Comment on above: Performed By: #### P T, PTT ####[facility] [address] [id number]. Bernice Hamilton PTTon 08-21-2021 aPTT Coag (Bld) [Time] 21.9 s Critically low 22.3-36.2 [facility] Comment on above: Performed By: #### P T, PTT ####[facility] [address] [address]Dr. Bernice Hamilton XR CHEST 1 Von 08-21-2021 XR CHEST 1 V EXAMINATION: XR CHES T 1 V, , 08/21/2021 2:46 PM EDT INDICATION: Dizziness HISTORY: Ordering Provider Reason for Exam: Technologist Note: Additional: COMPARISON: Chest x-ray dated 07/28/2021. TECHNIQUE: Chest x-ray: One view. FINDINGS: No pneumothorax, pleural effusion or focal airspace consolidation. Heart is normal in size. Bony thorax is unremarkable. IMPRESSION: No acute cardiopulmonary process. Electronically authenticated by: SARAH BETH MENJIVAR Date: 2021-08-21 15:43 Normal [facility] GLYCOHEMOGLOBIN A1Con 2021 ADA RECOMMENDATION SEE BELOW Normal [facility] Comment on above: Result Comment: ADA RECOMMENDED LIMIT 4.0 - 6.0 ADA THERAPEUTIC TARGET < 7.0 ACTION SUGGESTED > 7.0 Performed By: #### A 1C ####[facility] [address] [address]Dr. Bernice Hamilton Glucose [Mass/Vol] 192 mg/dL Normal [facility] Comment on above: Performed By: #### A 1C ####[facility] [address] [place], [place] [address]Dr. Bernice Hamilton HbA1c (Bld) [Mass fraction] 8.3 % Critically high 4.5-6.2 [facility] Comment on above: Performed By: #### A 1C ####[facility] [address] [place], [place] [address]Dr. Bernice Hamilton PROF 14(COMP METB)on 022 Albumin [Mass/Vol] 3.6 g/dL Normal 3.4-5.[address] [facility] Comment on above: Performed By: #### C MP ####[facility] [address] [place], [place] [address]Dr. Bernice Hamilton Albumin/Globulin [Mass ratio] 0.9 {ratio} Normal [facility] Comment on above: Performed By: #### C MP ####[facility] [address] [place], [place] [address]Dr. Bernice Hamilton ALP [Catalytic activity/Vol] 84 U/L Normal 46-116 [facility] Comment on above: Performed By: #### C MP ####[facility] [address] [place], [place] [address]Dr. Bernice Hamilton ALT [Catalytic activity/Vol] 31 U/L Normal 14-59 [facility] Comment on above: Performed By: #### C MP ####[facility] [address] [place], [place] [address]Dr. Bernice Hamilton Anion gap [Moles/Vol] 12.4 mmol/L Normal [facility] Comment on above: Performed By: #### C MP ####[facility] [address] [address]Dr. Bernice Hamilton AST [Catalytic activity/Vol] 19 U/L Normal 15-37 [facility] Comment on above: Performed By: #### C MP ####[facility] [address] [address]Dr. Bernice Hamilton Bilirubin [Mass/Vol] 0.3 mg/dL Normal 0.2-1.0 [facility] Comment on above: Performed By: #### C MP ####[facility] [address] [address]Dr. Bernice Hamilton Calcium [Mass/Vol] 8.9 mg/dL Normal 8.5-10.[address] [facility] Comment on above: Performed By: #### C MP ####[facility] [address] [place], [place] [address]Dr. Bernice Hamilton Chloride [Moles/Vol] 100 mmol/L Normal 98-107 [facility] Comment on above: Performed By: #### C MP ####[facility] [address] [place], [place] [address]Dr. Bernice Hamilton CO2 [Moles/Vol] 28.8 mmol/L Normal 21.0-32.0 [facility] Comment on above: Performed By: #### C MP ####[facility] [address] [place], [place] [address]Dr. Bernice Hamilton Creatinine [Mass/Vol] 0.79 mg/dL Normal 0.55-1.02 [facility] Comment on above: Performed By: #### C MP ####[facility] [address] [address]Dr. Bernice Hamilton EGFR-AF ITALIAN >60 Normal >=60 [facility] Comment on above: Performed By: #### C MP ####[facility] [address] [place], [place] [address]Dr. Bernice Hamilton EGFR-NON AF ITALIAN >60 Normal >=60 [facility] Comment on above: Performed By: #### C MP ####[facility] [address] [phone]. Bernice Hamilton Globulin (S) [Mass/Vol] 3.9 g/dL Normal [facility] Comment on above: Performed By: #### C MP ####[facility] [address] [address]Dr. Bernice Hamilton Glucose [Mass/Vol] 187 mg/dL Critically high 74-106 [facility] Comment on above: Performed By: #### C MP ####[facility] [address] [address]Dr. Bernice Hamilton Potassium [Moles/Vol] 4.2 mmol/L Normal 3.5-5.1 [facility] Comment on above: Performed By: #### C MP ####[facility] [address] [address]Dr. Bernice Hamilton Protein [Mass/Vol] 7.5 g/dL Normal 6.4-8.2 [facility] Comment on above: Performed By: #### C MP ####[facility] [address] [place], [place] [address]Dr. Benrice Hamilton Sodium [Moles/Vol] 137 mmol/L Normal 136-[address] [facility] Comment on above: Performed By: #### C MP ####[facility] [address] [place], [place] [address]Dr. Bernice Hamilton Urea nitrogen [Mass/Vol] 14.0 mg/dL Normal 7.0-18.0 [facility] Comment on above: Performed By: #### C MP ####[facility] [address] [place], [place] [address]Dr. Bernice Hamilton Urea nitrogen/Creatinine [Mass ratio] 17.7 mg/mg Normal [facility] Comment on above: Performed By: #### C MP ####[facility] [address] [place], [place] [address]Dr. Bernice Hamilton CBC AUTO DIFFon 07-28-2021 BASO # 0.1 103/ul Normal 0.0-0.1 [facility] Comment on above: Performed By: #### C BC ####[facility] [address] [id number]. Bernice Hamilton Basophils/100 WBC (Bld) 0.8 % Normal 0.2-2.0 [facility] Comment on above: Performed By: #### C BC ####[facility] [address] [id number]. Bernice Hamilton EO # 0.5 103/ul Normal 0.0-0.7 [facility] Comment on above: Performed By: #### C BC ####[facility] [address] [place], [place] [address]Dr. Bernice Hamilton Eosinophils/100 WBC (Bld) 5.4 % Normal 0.9-7.0 [facility] Comment on above: Performed By: #### C BC ####[facility] [address] [place], [place] [address]Dr. Bernice Hamilton Erythrocyte distribution width (RBC) [Ratio] 14.6 % Normal 11.0-15.0 [facility] Comment on above: Performed By: #### C BC ####[facility] [address] [place], [place] [address]Dr. Bernice Hamilton Hematocrit (Bld) [Volume fraction] 35.2 % Critically low 36.0-48.0 [facility] Comment on above: Performed By: #### C BC ####[facility] [address] [id number]. Bernice Hamilton Hemoglobin (Bld) [Mass/Vol] 11.0 g/dL Critically low 12.0-16.0 [facility] Comment on above: Performed By: #### C BC ####[facility] [address] [address]Dr. Bernice Hamilton IG # 0.04 10e3/ul Critically high 0.00-0.03 [facility] Comment on above: Performed By: #### C BC ####[facility] [address] [place], [place] [address]Dr. Bernice Hamilton IG % 0.5 % Normal 0.0-0.5 [facility] Comment on above: Performed By: #### C BC ####[facility] [address] [id number]. Bernice Hamilton LYMPH # 2.7 103/ul Normal 1.2-3.8 [facility] Comment on above: Performed By: #### C BC ####[facility] [address] [id number]. Bernice Alfonso Lymphocytes/100 WBC (Bld) 32.7 % Normal 20.5-60.0 [facility] Comment on above: Performed By: #### C BC ####[facility] [address] [id number]. Bernice Alfonso MANUAL DIFF REQ NO Normal [facility] Comment on above: Performed By: #### C BC ####[facility] [address] [id number]. Bernice Alfonso MCH (RBC) [Entitic mass] 24.6 pg Critically low 26.7-34.0 [facility] Comment on above: Performed By: #### C BC ####[facility] [address] [id number]. Bernice Hamilton MCHC (RBC) [Mass/Vol] 31.3 g/dL Normal 29.9-35.2 [facility] Comment on above: Performed By: #### C BC ####[facility] [address] [id number]. Bernice Alfonso MCV (RBC) [Entitic vol] 78.7 fL Critically low 81.0-99.0 [facility] Comment on above: Performed By: #### C BC ####[facility] [address] [id number]. Bernice Hamilton MONO # 0.6 103/ul Normal 0.3-0.8 [facility] Comment on above: Performed By: #### C BC ####[facility] [address] [address]Dr. Bernice Alfonso Monocytes/100 WBC (Bld) 7.0 % Normal 1.7-12.0 [facility] Comment on above: Performed By: #### C BC ####[facility] [address] [id number]. Bernice Hamilton NEUT # 4.5 103/ul Normal 1.4-6.5 [facility] Comment on above: Performed By: #### C BC ####[facility] [address] [id number]. Susiesherwin Hamilton Neutrophils/100 WBC (Bld) 53.6 % Normal 43.0-75.0 [facility] Comment on above: Performed By: #### C BC ####[facility] [address] [id number]. Bernice Hamilton Platelet mean volume (Bld) [Entitic vol] 11.0 fL Normal 9.5-13.5 [facility] Comment on above: Performed By: #### C BC ####[facility] [address] [address]Dr. Bernice Hamilton PLT 305 103/ul Normal 150-450 [facility] Comment on above: Performed By: #### C BC ####[facility] [address]yn[address] [address]Dr. Bernice Hamilton RBC 4.47 106/ul Normal 4.20-5.40 [facility] Comment on above: Performed By: #### C BC ####[facility] [address] [id number]. Bernice Alfonso WBC 8.4 103/ul Normal 4.0-11.0 [facility] Comment on above: Performed By: #### C BC ####[facility] [address] [address]Dr. Susiesherwin Hamilton MAGNESIUMon 07-28-2021 Magnesium [Mass/Vol] 1.5 mg/dL Critically low 1.8-2.4 [facility] Comment on above: Performed By: #### E RUR PREGU #### [facility] [id number] Bernice Hamilton PROF 14(COMP METB)on 022 Albumin [Mass/Vol] 3.4 g/dL Normal 3.4-5.0 [facility] Comment on above: Performed By: #### H STROPN, CMP ####[facility] [address] [address]Dr. Bernice Hamilton Albumin/Globulin [Mass ratio] 0.8 {ratio} Normal [facility] Comment on above: Performed By: #### H STROPN, CMP ####[facility] [address] [address]Dr. Bernice Hamilton ALP [Catalytic activity/Vol] 81 U/L Normal 46-116 [facility] Comment on above: Performed By: #### H STROPN, CMP ####[facility] [address] [address]Dr. Bernice Hamilton ALT [Catalytic activity/Vol] 31 U/L Normal 14-59 [facility] Comment on above: Performed By: #### H STROPN, CMP ####[facility] [address] [address]Dr. Bernice Hamilton Anion gap [Moles/Vol] 14.3 mmol/L Normal [facility] Comment on above: Performed By: #### H STROPN, CMP ####[facility] [address] [place], [place] [address]Dr. Bernice Alfonso AST [Catalytic activity/Vol] 18 U/L Normal 15-37 [facility] Comment on above: Performed By: #### H STROPN, CMP ####[facility] [address] [address]Dr. Bernice Alfonso Bilirubin [Mass/Vol] 0.3 mg/dL Normal 0.2-1.0 [facility] Comment on above: Performed By: #### H STROPN, CMP ####[facility] [address] [address]Dr. Bernice Alfonso Calcium [Mass/Vol] 9.1 mg/dL Normal 8.5-10.[address] [facility] Comment on above: Performed By: #### H STROPN, CMP ####[facility] [address] [address]Dr. Bernice Hamilton Chloride [Moles/Vol] 102 mmol/L Normal 98-107 [facility] Comment on above: Performed By: #### H STROPN, CMP ####[facility] [address] [address]Dr. Bernice Hamilton CO2 [Moles/Vol] 26.1 mmol/L Normal 21.0-32.0 [facility] Comment on above: Performed By: #### H STROPN, CMP ####[facility] [address] [place] [address]Dr. Bernice Hamilton Creatinine [Mass/Vol] 0.81 mg/dL Normal 0.55-1.02 [facility] Comment on above: Performed By: #### H STROPN, CMP ####[facility] [address] [place], [place] [address]Dr. Bernice Hamilton EGFR-AF ITALIAN >60 Normal >=60 [facility] Comment on above: Performed By: #### H ANURADHAPN, CMP ####[facility] [address] [place], [place] [address]Dr. Bernice Hamilton EGFR-NON AF ITALIAN >60 Normal >=60 [facility] Comment on above: Performed By: #### H LOY, CMP ####[facility] [address] [place], [place] [address]Dr. Bernice Hamilton Globulin (S) [Mass/Vol] 3.8 g/dL Normal [facility] Comment on above: Performed By: #### H ANURADHAPN, CMP ####[facility] [address] [address]Dr. Bernice Hamilton Glucose [Mass/Vol] 206 mg/dL Critically high 74-106 [facility] Comment on above: Performed By: #### H STROPN, CMP ####[facility] [address] [address]Dr. Bernice Hamilton Potassium [Moles/Vol] 3.4 mmol/L Critically low 3.5-5.1 [facility] Comment on above: Performed By: #### H STROPN, CMP ####[facility] [address] [place], [place] [address]Dr. Bernice Hamilton Protein [Mass/Vol] 7.2 g/dL Normal 6.4-8.2 [facility] Comment on above: Performed By: #### H LOY, CMP ####[facility] [address] [place], [place] [address]Po. Bernice Hamilton Sodium [Moles/Vol] 139 mmol/L Normal 136-145 [facility] Comment on above: Performed By: #### H LOY, CMP ####[facility] [address] [place], [place] [address]Vq. Bernice Hamilton Urea nitrogen [Mass/Vol] 16.0 mg/dL Normal 7.0-18.0 [facility] Comment on above: Performed By: #### H LOY, CMP ####[facility] [address] [place], [place] [address]Ha. Bernice Hamilton Urea nitrogen/Creatinine [Mass ratio] 19.7 mg/mg Normal [facility] Comment on above: Performed By: #### H LOY, CMP ####[facility] [address] [place], [place] [address]Cs. Bernice Hamilton TROPONIN, HIGH SENSITIVITYon 07-28-2021 HSTROP 10.4 pg/mL Normal 4.0-51.3 [facility] Comment on above: Result Comment: CUT- OFF POINTS HAVE BEEN ESTABLISHED BASED ON THE FOURTH UNIVERSAL DEFINITIONS OF MYOCARDIAL INFARCTION. THE UPPER REFERENCE LIMIT (URL) OF TROPONIN, DEFINED THE 99TH PERCENTILE OF cTnI DISTRIBUTION IN A REFERENCE POPULATION, HAS BEEN CONFIRMED THE DECISION THRESHOLD FOR UT DIAGNOSIS. Performed By: #### H LOY, CMP ####[facility] [address] [place], [place] [address]Da. Bernice Hamilton XR CHEST 1 Von 07-28-2021 XR CHEST 1 V EXAMINATION: XR CHES T 1 V HISTORY: Near syncope COMPARISON: 10/11/2020 TECHNIQUE: AP portable erect FINDINGS: LUNGS: No significant pulmonary parenchymal abnormalities. VASCULATURE: No increased pulmonary vasculature. PLEURA: No pneumothorax, effusion, or pleural thickening. CARDIAC: No cardiomegaly or cardiac silhouette abnormality. MEDIASTINUM: No visible mass or adenopathy. BONES: No fracture or visible bone lesion. OTHER: Negative. IMPRESSION: No acute disease. Electronically authenticated by: HETAL ENCARNACION Date: 2021-07-28 15:17 Normal [facility] Chlamydia/GC/Trich NAAon Chlamydia Trachomotis, JOSIAS Negative Normal Negative [facility] Comment on above: Order Comment: Reaso n for Exam High risk sexual behavior, unspecified type Performed By: #### G CCHLAMTRI #### [facility] , #### CUU #### [facility] [address] [place] [address] Neisseria Gonorrhoeae, JOSIAS Negative Normal Negative [facility] Comment on above: Order Comment: Reaso n for Exam High risk sexual behavior, unspecified type Performed By: #### G CCHLAMTRI #### [facility] , #### CUU #### [facility] [address] [place] [address] Trichomonas JOSIAS Negative Normal Negative [facility] Comment on above: Order Comment: Reaso n for Exam High risk sexual behavior, unspecified type Result Comment: Perf ormed at: =G - [facility] [address] [id number] Commissioned Sales Associate: Taylor Bowser MD, Phone: [phone] PERFORMED BY: [place] [id number] PATHOLOGIST METER REPAIRER HELPER ANGELI TINAJERO M.D. Performed By: #### G CCHLAMTRI #### [facility] , #### CUU #### [address] Urine Cultureon 07-11-2020 Bacteria identified Cx Nom (U) Reason for Exam Dysuria Urine Reason for Exam: Dysuria : Urine ORGANISM: Escherichia coli (O:ESCCOL) [place] Count >100,000 Aerobic SIMONE Charge (NUC86) -- SUSCEPTIBILITY - ORGANISM: O:ESCCOL ANTIBIOTIC INTERPRETATION SIMONE Amikacin S <16 Ampicillin R >16 Ampicillin/Sulbactam I 1616/8 Aztreonam S <4 Cefazolin S <2 Cefepime S <2 Ceftazidime S <1 Ceftazidime/Avibactam S <8 Ceftriaxone S <1 Ciprofloxacin S <1 Ertapenem S <0.5 Gentamicin S <4 Levofloxacin S <2 Meropenem S <1 Nitrofurantoin S <32 Piperacillin/Tazobactam S <16 Tetracycline S <4 Tigecycline S <2 Tobramycin S <4 Trimethoprim/Sulfametho xazole S <2/38 S = SUSCEPTIBLE I = INTERMEDIATE R = RESISTANT BLANK = DATA NOT AVAILABLE, OR DRUG NOT ADVISABLE OR TESTED R* = RESISTANCE DUE TO EXTENDED SPECTRUM BETA-LACTAMASES ESBL = EXTENDED SPECTRUM BETA-LACTAMASE TFG = THYMIDINE-DEPENDENT STRAIN KIMBERLY = BETA-LACTAMASE POSITIVE IB = INDUCIBLE BETA-LACTAMASE. APPEARS IN PLACE OF 'S' WITH SPECIES KNOWN TO POSSESS INDUCIBLE BETA-LACTAMASES. POTENTIALLY THEY MAY BECOME RESISTANT TO ALL B-LACTAM DRUGS. PERFORMED BY: [place] [id number] PATHOLOGIST METER REPAIRER HELPER ANGELI TINAJERO M.D. [facility] Comment on above: Performed By: #### G CCHLAMTRI #### [facility] , #### CUU #### [facility] [address] [place] [address] Comprehensive Metabolic Empo n 04-26-2020 Albumin [Mass/Vol] 3.9 g/dL Normal 3[facility]2-5.5 [facility] Comment on above: Performed By: #### E BS A1C, EBS CMP, LIPID #### [facility] [address] [place] [address] Albumin/Globulin [Mass ratio] 1.4 {ratio} Normal [facility] Comment on above: Performed By: #### E BS A1C, EBS CMP, LIPID #### [address] ALP [Catalytic activity/Vol] 66 U/L Normal 32-92 [facility] Comment on above: Performed By: #### E BS A1C, EBS CMP, LIPID #### [facility] [address] [place] [address] [place] ALT [Catalytic activity/Vol] 20 U/L Normal 10-60 [facility] Comment on above: Performed By: #### E BS A1C, EBS CMP, LIPID #### [facility] [address] [place] [address] [place] AST [Catalytic activity/Vol] 19 U/L Normal 10-42 [facility] Comment on above: Performed By: #### E BS A1C, EBS CMP, LIPID #### [facility] [address] [place] [address] [place] Bilirubin [Mass/Vol] 0.8 mg/dL Normal 0.3-1.2 [facility] Comment on above: Performed By: #### E BS A1C, EBS CMP, LIPID #### [facility] [address] [place] [address] [place] Calcium [Mass/Vol] 9.6 mg/dL Normal 8.2-10.2 [facility] Comment on above: Performed By: #### E BS A1C, EBS CMP, LIPID #### [facility] [address] [place] [id number] [place] Chloride [Moles/Vol] 96 mmol/L Normal 95-114 [facility] Comment on above: Performed By: #### E BS A1C, EBS CMP, LIPID #### [facility] [address] [place] [id number] [place] CO2 [Moles/Vol] 25.9 mmol/L Normal 22.0-30.0 [facility] Comment on above: Performed By: #### E BS A1C, EBS CMP, LIPID #### [facility] [address] [place] [id number] [place] Creatinine [Mass/Vol] 0.74 mg/dL Normal 0.44-1.03 [facility] Comment on above: Performed By: #### E BS A1C, EBS CMP, LIPID #### [facility] [address] [place] [id number] [place] Estimated GFR ( Rea > 60 Normal [facility] Comment on above: Result Comment: GFR estimated reference range: According to KDOQI guidelines, <60 ml/min/1.73m2 is sufficient to diagnose a patient with chronic kidney disease. Performed By: #### E BS A1C, EBS CMP, LIPID #### [facility] [address] Estimated GFR (Non- Am > 60 Normal [facility] Comment on above: Performed By: #### E BS A1C, EBS CMP, LIPID #### [facility] [address] Globulin (S) [Mass/Vol] 2.8 g/dL Normal [facility] Comment on above: Performed By: #### E BS A1C, EBS CMP, LIPID #### [facility] [address] [place] [address] Glucose [Mass/Vol] 155 mg/dL High 70-100 [facility] Comment on above: Result Comment: ADA recommended reference range Performed By: #### E BS A1C, EBS CMP, LIPID #### [address] Potassium [Moles/Vol] 3.5 mmol/L Normal 3.5-5.1 [facility] Comment on above: Performed By: #### E BS A1C, EBS CMP, LIPID #### [address] Protein [Mass/Vol] 6.7 g/dL Normal 6.1-7.9 [facility] Comment on above: Performed By: #### E BS A1C, EBS CMP, LIPID #### [address] Sodium [Moles/Vol] 134 mmol/L Low 136-146 [facility] Comment on above: Performed By: #### E BS A1C, EBS CMP, LIPID #### [address] Urea nitrogen [Mass/Vol] 11 mg/dL Normal 9-23 [facility] Comment on above: Performed By: #### E BS A1C, EBS CMP, LIPID #### [facility] [address] [place] [address] EBS A1C with Estimated Avmara ash 04-26-2020 Glucose [Mass/Vol] 169 mg/dL Normal [facility] Comment on above: Result Comment: PERF ORMED BY: [address] [place] [address] PATHOLOGIST METER REPAIRER HELPER ANGELI TINAJERO M.D. Performed By: #### E BS A1C, EBS CMP, LIPID #### [facility] [address] [place] [id number] [facility] HbA1c (Bld) [Mass fraction] 7.5 % High 4.3-5.6 [facility] Comment on above: Result Comment: Incr eased risk for diabetes: 5.7 - 6.4 diabetes: >6.4 glycemic control for adults with diabetes: <7.0 Performed By: #### E BS A1C, EBS CMP, LIPID #### [facility] [address] Lipid Panelon 04-26-2020 Cholesterol [Mass/Vol] 203 mg/dL High 140-200 [facility] Comment on above: Result Comment: Chol less than 200 mg/dl low risk Chol 201-239 mg/dl borderline risk Chol 240 mg/dl and greater high risk Performed By: #### E BS A1C, EBS CMP, LIPID #### [address] Cholesterol in HDL [Mass/Vol] 65 mg/dL Normal 35-85 [facility] Comment on above: Result Comment: HDL CHOL ATP-III CLASSIFICATION Cardiovascular Risk HDL > or equal to 60 mg/dL LOW HDL < 40 mg/dL HIGH Performed By: #### E BS A1C, EBS CMP, LIPID #### [facility] [address] Cholesterol.total/Ch olesterol in HDL [Mass ratio] 3.1 {ratio} Normal <5.0 [facility] Comment on above: Result Comment: PERF ORMED BY: [facility] [address] [place] [id number] PATHOLOGIST METER REPAIRER HELPER ANGELI TINAJERO M.D. Performed By: #### E BS A1C, EBS CMP, LIPID #### [facility] [address] LDL Cholesterol,Calculat ed 117 mg/dL High 0-100 [facility] Comment on above: Result Comment: LDL ATP III CLASSIFICATION LDL less than 100 mg/dL Optimal LDL 100-129 mg/dL Near or above optimal LDL 130-159 mg/dL Borderline high LDL 160-189 mg/dL High LDL greater than 189 mg/dL Very high Performed By: #### E BS A1C, EBS CMP, LIPID #### [facility] [address] Triglyceride w/Reflex 103 mg/dL Normal 35-149 [facility] Comment on above: Result Comment: TRIG ATP III CLASSIFICATION TRIG less than 150 mg/dL Normal TRIG 150-199 mg/dL Borderline high TRIG 200-500 mg/dL High TRIG greater than 500 mg/dL Very high Standard traceable to the Center for Disease Conrtrol and Prevention (CDC) test method. Performed By: #### E BS A1C, EBS CMP, LIPID #### [facility] [address] VLDL CHOLESTEROL 20 mg/dL Normal [facility] Comment on above: Performed By: #### E BS A1C, EBS CMP, LIPID #### [facility] [address] Vital Signs Date Time Vital Sign Value Performing Clinician Facility 11-11-2022 09:35-0400 Body height 175.26 cm Reva Zimmerman Other [facility] Other 11-11-2022 09:35-0400 Body mass index (BMI) [Ratio] 32.48 kg/m2 Reva Elsie Other [facility] Other 11-11-2022 09:35-0400 Body weight 99.79 kg Reva Zimmerman Other [facility] Other 11-11-2022 09:35-0400 Diastolic blood pressure 90 mm[Hg] Reva Zimmerman Other [facility] Other 11-11-2022 09:35-0400 SaO2% (BldA) [Mass fraction] 98 % Reva Zimmerman Other [facility] Other 11-11-2022 09:35-0400 Systolic blood pressure 142 mm[Hg] Reva Zimmerman Other [facility] Other 03-23-2022 10:17-0500 Blood Pressure Location [employer] [facility] 03-23-2022 10:17-0500 Diastolic blood pressure 81 mm[Hg] [employer] [facility] 03-23-2022 10:17-0500 Heart rate 88 /min [employer] [facility] 03-23-2022 10:17-0500 Respiratory rate 16 /min [employer] [facility] 03-23-2022 10:17-0500 Systolic blood pressure 141 mm[Hg] [employer] [facility] Encounters Encounter Date Encounter Type Care Provider Facility Start: 11-11-2022 End: 11-11-2022 ambulatory Reva Zimmerman Other [facility] [employer] Other Start: 11-11-2022 Office outpatient vi sit 15 minutes Reva Zimmerman [facility] Start: 07-18-2022 End: 07-19-[address] PEPITO QUACH . Facility: Start: 06-16-2022 Encounter for other preprocedural examination DR PEPITO QUACH . [facility] Start: 06-16-2022 Encounter for preprocedural laboratory examination DR PEPITO QUACH . [facility] Start: 06-15-[address] PEPITO QUACH . Facili ty:[facility] Start: 06-12-2022 End: 06-13-[address] PEPITO QUACH . Facility:[facility] Start: 06-12-2022 End: 06-13-2022 Encounter for other preprocedural examination DR PEPITO QUACH . Facility:[facility] Start: 06-09-2022 End: 06-10-[address] PEPITO QUACH . Facility:[facility] Start: 06-09-2022 End: 06-10-2022 Encounter for preprocedural laboratory examination DR PEPITO QUACH . Facility:[facility] Start: 2022 End: 04-20-2022 ambulatory Polina BIRD Facility:CD:[id number] Start: 04-15-[address] KATHLEEN BUSBY . Facili ty:[facility] Start: 03-23-2022 End: 03-24-2022 ambulatory Polina BIRD Facility: [place] Start: 03-23-2022 End: 03-23-2022 Patient encounter procedure Polina BIRD [facility] [place] Start: 03-20-2022 ambulatory Polina BIRD Facility:[facility] [place] Start: 03-13-2022 End: 03-13-[address] KATHLEEN BUSBY . Facility: Start: 02-28-2022 End: 02-28-[address] PEPITO QUACH . Facility:[facility] Start: 02-24-2022 End: 02-25-[address] KATHLEEN BUSBY . Facility:[facility] Start: 02-20-2022 Encounter for preprocedural cardiovascular examination DR PEPITO QUACH . [facility] Start: 02-16-2022 End: 02-17-[address] PEPITO QUACH . Facility:[facility] Start: 02-14-2022 End: 02-14-[address] KATHLEEN BUSBY . Facility:[facility] Start: 02-13-2022 End: 02-14-[address] KATHLEEN BUSBY . Facility:[facility] Start: 01-26-2022 End: 01-27-[address] PEPITO QUACH . Facility:[facility] Start: 01-04-2022 End: 01-05-[address] KATHLEEN BUSBY . Facility:[facility] Start: 01-04-2022 End: 01-04-2022 ambulatory MILY OLVERA Facility:[facility] Start: 09-22-2021 End: 09-23-2021 ambulatory JEIMY CLARKE Facility:[facility] Start: 09-13-2021 End: 09-14-[address] KATHLEEN BUSBY . Facility:[facility] Start: 09-07-2021 End: 09-08-[address] KATHLEEN BUSBY . Facility:[facility] Start: 08-21-2021 End: 08-21-2021 ambulatory JOESPH GALVAN . Facility:[facility] Start: 07-30-2021 End: 07-31-[address] KATHLEEN BUSBY . Facility:[facility] Start: 07-28-2021 End: 07-28-2021 ambulatory HUYEN CUADRA Facility:[facility] Procedures Date Procedure Procedure Detail Performing Clinician Start: 09-05-2017 Colonoscopy Polina NI LL Start: 03-12-2012 Colonoscopy Polina NI LL Start: 03-12-2001 section Michae l NILL Start: 03-12-1994 section Michae l NILL Start: 03-12-1991 section Michae l NILL Start: 03-12-1986 section Michae l NILL Arthroscopy of hip Polina N ILL Cholecystectomy Polina NILL Dilation and curettage Ar el NILL Hysteroscopy Polina NILL Immunizations Immunization Date Immunization Notes Care Provider Mario malave 12-12-2021 influenza, unspecifi ed formulation Polina NILL [facility] [place] 02-01-2021 SARS-CoV-2 (COVID-19 ) mRNA-1273 vaccine Polina NILL [facility] [place] 04-13-2020 SARS-CoV-2 (COVID-19 ) mRNA-1273 vaccine Polina WINNL [facility] 03-10-2020 SARS-CoV-2 (COVID-19 ) mRNA-1273 vaccine Polina BIRD [facility] Payers Date Payer Category Payer Unknown [id number] 1965 Unknown [id number] 2.16.8 [id number] 1967 Unknown [id number] 2.16.8 40.1.438784.3.579.2.727 1967 Unknown [id number] 2.16.84 0.1.247267.3.579.2.593 1967 Unknown [id number] 2.16.84 0.1.275581.3.579.2.593 1967 Unknown [id number] 2.16.84 0.1.449180.3.579.2.593 1967 Unknown [id number] 2.16.84 0.1.376001.3.579.2.593 1967 Unknown [id number] 2.16.84 0.1.333039.3.579.2.593 1967 Unknown [id number] 2.16.84 0.1.531650.3.579.2.593 1967 Unknown [id number] 2.16.84 0.1.578283.3.579.2.593 1967 Unknown [id number] 2.16.84 0.1.827272.3.579.2.593 1967 Unknown [id number] 2.16.84 0.1.188755.3.579.2.593 1967 Unknown [id number] 2.16.84 0.1.013890.3.579.2.593 1967 Unknown [id number] 2.16.84 0.1.398915.3.579.2.593 1967 Unknown [id number] 2.16.84 0.1.083080.3.579.2.593 1967 Unknown [id number] 2.16.84 0.1.137750.3.579.2.593 1967 Unknown [id number] 2.16.84 0.1.724989.3.579.2.593 1967 Unknown [id number] 2.16.84 0.1.712219.3.579.2.593 1967 Unknown [id number] 2.16.84 0.1.575682.3.579.2.593 1967 Unknown [id number] 2.16.84 0.1.757643.3.579.2.593 1967 Unknown [id number] 2.16.84 0.1.189181.3.579.2.593 1967 Unknown [id number] 2.16.84 0.1.876997.3.579.2.593 1967 Unknown [id number] 2.16.84 0.1.024357.3.579.2.593 1957 Self-pay 1957 Unknown [id number] 1957 Unknown [id number] Unknown [id number] 2.16.84 0.1.008791.3.579.2.593 Social History Date Type Detail Facility Start: 03-23-2022 Tobacco smoking status Ex-smoker (fi nding) [facility] Tobacco smoking status Never Fishe [facility] Sex Assigned At Female [facility] Medical Equipment Procedure Code Equipment Code Equipment Original Text Equi pment Identifier Dates Functional Status Date Assessment Result Facility 03-23-2022 Functional Status N/A [facility] [place] Evaluation note 09-02-2023 Note Date & Type Note Facility 11-11-2022 Evaluation note Encounter Date Diagnosis Assessment Notes Nov, Abrasion of left cornea, initial encounter (ICD-10 - S05.02XA) Corneal abrasion home care material was printed Drink plenty fluids, get plenty of rest. Use the eyedrops as prescribed. Follow-up with your family physician if no improvement in 2 to 3 days [facility] Other Clinical Note 2022 Note Date & Type Note Facility 2022 Note OPERATIVE NOTE OPERATION DATE: 2022 PREOPERATIVE DIAGNOSIS: Left lower quadrant abdominal pain, personal history of colon polyps. POSTOPERATIVE DIAGNOSIS: Small external anal skin tag. PROCEDURE: Colonoscopy to cecum. SURGEON: Polina Bird M.D. ANESTHESIA: Monitored anesthesia care. ESTIMATED BLOOD LOSS: Zero. INDICATIONS AND CONSENT: Patient is a 57-year-old female with history of intermittent left lower quadrant abdominal pain, as well as personal history of colon polyps. Indications, risks, benefits, alternatives of proceeding with colonoscopy were explained extensively to the patient, including the risks of bleeding, colon perforation or anesthetic complications. All of her questions were answered. Informed consent was obtained. PROCEDURE: Patient brought to the operating room, placed in the left lateral decubitus position. Monitored anesthesia care was provided. Rectal exam was performed which revealed a small, broad based skin tag, no significant hemorrhoidal disease, no inflammation or bleeding, no fissures. The scope was then inserted into the anal canal. Under direct visualization was advanced. With the aid of abdominal compression, it was advanced to the cecum where cecal markings were clearly identified. Upon withdrawal of the scope, mucosal surfaces were carefully examined. There were no mass lesions or polyps. No inflammatory changes or ulcerations. No significant diverticulosis. The scope was retroflexed in the anal canal. There was no significant hemorrhoidal disease. Scope was then withdrawn. Patient tolerated procedure well, was sent to recovery room in good condition. Follow up colonoscopy should be in five years due to the personal history of colon polyps. CC: Kathleen Busby M.D. [facility] Clinical Note 03-23-2022 Note Date & Type Note Facility 03-23-2022 Note Chief Complaint consultation for abdominal pain HPI Staff 56 year old female presents on consultation from [place] ED for abdominal pain. Presented with complaint of LLQ pain, nausea, vomiting and diarrhea; diagnosed with gastroenteritis. Symptoms resolved one day after ED evaluation. Last colonoscopy completed 08/2017-normal. History of Present Illness 56 yo female with h/o htn, DMII, hypercholesterolemia, migraines, referred from [place] ED for epidsode of gastroenteritis; patient was seen there 10 days ago for N/V/diarrhea and LLQ pain; ct read as mildly dilated tip of appendix, no inflammation; ct reviewed, no obstruction or inflammation of appendix; patients's symptoms resolved; however she still has some intermittent ache/discomfort in LLQ prior to bms, relieved with bms, no diarrhea or blood in stools; she does report personal h/o colon polyps, last colonoscopy 2017 wnl, previous one with diverticulosis; no asa or NSAID use, no SBE prophylaxis; she reports fmhx of colon polyps in her sister, no fmhx of colon cancer or IBD; no tobacco use. Review of Systems PHQ Score Initial Depression Screen Score: 0 ROS - Provider Constitutional: no fever, no sweats, no weight loss. Eyes: no glasses, no blurred vision, no visual loss. ENMT: no dentures, no hoarseness, no swallowing difficulties, no hearing loss, no ear infection(s), no nose bleeds. Cardiovascular: normal blood pressure, no chest pain, regular heartbeat, no heart murmur. Respiratory: no shortness of breath, no cough, no asthma, no wheezing. Gastrointestinal: no nausea, no vomiting, no diarrhea, no constipation, no blood in stool, no change in bowel habits, no abdominal pain, no hepatitis. Genitourinary: no kidney stones, no urine infection, no dysuria. Musculoskeletal: no pain, no weakness. Skin: no changing moles, no rash, no skin lumps. Neurologic: no seizures, no epilepsy, no headache. Psychiatric: no emotional or psychiatric problem. Heme/Lymph: no bleeding problems, no anemia, no blood clots, no transfusions. Allergy/Immunologic: no swollen lymph nodes/glands, no IV drug abuse. Other: Additional ROS info: Except as noted in the above Review of Systems and in the History of Present Illness, all other systems have been reviewed and are negative or noncontributory. Physical Exam Vitals & Measurements HR: 88(Peripheral) RR: 16 BP: 141/81 HT: 69 in HT: 175.2 cm WT: 98.5 kg WT: 216.7 lb BMI: 32.09 HEENT: normal conjunctiva, sclera clear, no scleral icterus, EOM intact, PERRLA, oral mucosa moist without lesions. Neck: trachea midline, no mass, symmetric, no thyromegaly or nodules, no adenopathy Respiratory: lungs CTA, respirations non labored. Cardiovascular: regular rate and rhythm, no murmur, no pedal edema or varicosities. Gastrointestinal: soft, non distended, no tenderness, no masses, no palpable hernias, diastasis recti no, no hepatosplenomegaly; normal bs Lymphatic: no cervical adenopathy, Musculoskeletal: normal gait, digits and nails without infection, nodes, cyanosis, clubbing. Skin: no rashes, no lesions, no ulcers, no subcutaneous nodules, induration. Psychiatric/Neuro: oriented to time, place, person, judgement normal, affect appropriate for age, insight intact, no focal deficits. Tests: labs reviewed, x-rays reviewed, review of old records completed, Discussed surgical options, risks, and possible complications with patient. Assessment/Plan 1. Abdominal pain, left lower quadrant (R10.32: Left lower quadrant pain) plan colonoscopy under anesthesia for further evaluation, informed consent obtained. 2. Personal history of colonic polyps (Z86.010: Personal history of colonic polyps) see # 1 Follow-up No qualifying data available Problem List/Past Medical History Ongoing Abdominal pain, left lower quadrant Anxiety BMI 32.0-32.9,adult Depression Diabetes Dysphonia GERD (gastroesophageal reflux disease) HTN (hypertension) Hypercholesteremia Migraines Personal history of colonic polyps RLS (restless legs syndrome) Sleep apnea Historical No qualifying data Procedure/Surgical History Colonoscopy (09/05/2017), Colonoscopy (2012), section (2001), section (1994), section (1991), section (1986), Arthroscopy of hip, Cholecystectomy, Dilation and curettage, Hysteroscopy. Medications Basaglar KwikPen 100 units/mL subcutaneous solution, 50 unit(s), SubCutaneous, Daily esomeprazole 20 mg Cap-DR, 20 mg= 1 cap(s), Oral, Daily hydrochlorothiazide 12.5 mg Tab, 12.5 mg= 1 tab(s), Oral, Daily hydrochlorothiazide-lisinopril 12.5 mg-10 mg Tab, 1 tab(s), Oral, Daily Jardiance 10 mg oral tablet, 10 mg= 1 tab(s), Oral, qAM linaclotide 145 mcg oral capsule, 145 mcg= 1 cap(s), Oral, Daily metformin 1000 mg Tab, 1000 mg= 1 tab(s), Oral, BID Multi Vitamins oral tablet, 1 tab(s), Oral, Daily Trulicity Pen 1.5 mg/0.5 mL subcutaneous solution, 1.5 mg, SubCutaneous, qWeek Allergies Bact (more content not included)... [facility] Comment on above: Result Comment: Elec tronically Signed By: BO LACY, Polina Mujica\Date and Time Signed: 03/23/22 11:26 EST Clinical Note 02-28-2022 Note Date & Type Note Facility 02-28-2022 Note OPERATIVE NOTE OPERATION DATE: 02/28/2022 PROCEDURE: D AND C hysteroscopy with Myosure. PREOPERATIVE DIAGNOSIS: Abnormal uterine bleeding, questionable postmenopausal bleeding. POSTOPERATIVE DIAGNOSIS: Abnormal uterine bleeding, questionable postmenopausal bleeding. ANESTHESIA: General. SURGEON: Pepito Quach D.O. WET INSPECTOR OPTICAL GLASS: None. BLOOD LOSS: 5 mL URINE OUTPUT: Yellow and clear. SPECIMEN: Endometrial curettings. FINDINGS: Fluffy appearing endometrium. No gross evidence of polyps, fibroids, malignancy. Patient was significant anteverted. In order to get a good sample of the uterus, the MyoSure was engaged. PROCEDURE: The patient was taken back to the Operating Room where she was prepped and draped in normal sterile fashion after being placed under general anesthesia without difficulty. She was also placed in the dorsal lithotomy position. A weighted speculum was placed in the patient's vagina. The anterior lip of the cervix was identified and grasped with a single tooth tenaculum. The patient's uterus was then sounded roughly to 9 cm. The patient was then gently dilated using Hegar dilators. The hysteroscope was passed through the patient's cervix into the uterus. Both ostia were identified. Slightly thickened appearing endometrium. No gross evidence of malignancy. Please note that the MyoSure apparatus was placed through the hysteroscope under direct visualization. The apparatus was engaged and endometrial curettings were removed under direct visualization. The MyoSure was then removed from the scope. The hysteroscope was then removed from the patient's uterus. The endometrial curettings were sent out to pathology. The single tooth tenaculum was then removed from the patient's anterior lip of the cervix where excellent hemostasis was noted. All instruments were removed from the patient's vagina. The patient tolerated the procedure well. Sponge, lap and needle counts were correct times two. The patient was taken to the Recovery Room in stable condition. [facility] Evaluation + Plan note Note Date & Type Note Facility Evaluation + Plan note No data available for this section [facility] [place] History general Narrative - Reported Note Date & Type Note Facility History general Narrative - Reported Type Medical History HTN (hypertension) Medical History DM (diabetes mellitus) Medical History Anxiety Surgical History cholecystectomy Surgical History C section x4 Surgical History hip arthroscopy Surgical History hysterectomy 08/2022 Surgical History colonoscopy 2022 Surgical History ablation, D&C 02/2022 Hospitalization History See Above [facility] Other Hospital Discharge instructions Note Date & Type Note Facility Hospital Discharge instructions No data available for this section [facility] Progress note Note Date & Type Note Facility Progress note No data available for this section [facility] Summary Purpose Family History No Family History Records FoundNo Family History Records FoundNo Family History Records Found Advance Directives No Advanced Directives Records FoundNo Advanced Directives Records FoundNo Advanced Directives Records Found Additional Source Comments INFORMATION SOURCE (unrecogn ized section and content) DATE CREATED AUTHOR 07/14/2020 [place] DATE CREATED AUTHOR AUTHOR'S ORGANIZ ATION 04/27/2022 [facility] DATE CREATED AUTHOR AUTHOR'S ORGANIZ ATION 07/26/2022 [facility] Patient Care team informatio n (unrecognized section and content) Personnel Name: Kathleen Busby MD Address: Address: [address] [place] [address]- REASON FOR VISIT (unrecogniz ed section and content) RIGHT EYE, PINK EYE FOR RECORDS PERTAINING TO PATIENTS WHO ARE OR HAVE BEEN ENROLLED IN A CHEMICAL DEPENDENCY/SUBSTANCEABUSE PROGRAM, SOME INFORMATION MAY BE OMITTED. This clinical summary was aggregated from multiple sources. Caution should be exercised in using it in the provision of clinical care. This summary normalizes information from multiple sources, and as a consequence, information in this document may materially change the coding, format and clinical context of patient data. In addition, data may be omitted in some cases. CLINICAL DECISIONS SHOULD BE BASED ON THE PRIMARY CLINICAL RECORDS. [facility], [facility]. provides no warranty or guarantee of the accuracy or completeness of information in this document.
[2023-11-29 07:58] LABS: Basophils Percent Auto 0.8 % (0.2-2.0); Eosinophils Absolute Auto 0.6 10^3/uL (0.0-0.7); Eosinophils Percent Auto 11.4 % (0.9-7.0); Hematocrit 40.8 % (36.0-48.0); Hemoglobin 14.1 g/dL (12.0-16.0); Immature Granulocytes Abs Auto 0.02 10^3/uL (0.00-0.03); Immature Granulocytes Pct Auto 0.4 % (0.0-0.5); Lymphocytes Absolute Auto 1.8 10^3/uL (1.2-3.8); Lymphocytes Percent Auto 35.9 % (20.5-60.0); Mean Corpuscular HGB Conc 34.6 g/dL (29.9-35.2); Mean Corpuscular Hemoglobin 31.3 pg (26.7-34.0); Mean Corpuscular Volume 90.5 fL (81.0-99.0); Mean Platelet Volume 10.8 fL (9.5-13.5); Monocytes Absolute Auto 0.4 10^3/uL (0.3-0.8); Monocytes Percent Auto 7.6 % (1.7-12.0); Neutrophils Absolute Auto 2.2 10^3/uL (1.4-6.5); Neutrophils Percent Auto 43.9 % (43.0-75.0); Platelet Count 200 10^3/uL (150-450); Red Blood Count 4.51 10^6/uL (4.20-5.40); Red Cell Distribution Width 12.5 % (11.0-15.0); White Blood Count 5.1 10^3/uL (4.0-11.0)
[2023-11-29 08:20] LABS: Estimated Average Glucose 214 mg/dL; Glycohemoglobin A1C 9.1 % (4.5-6.2)
[2023-11-29 08:49] LABS: Alanine Aminotransferase 30 U/L (14-59); Albumin Level 3.6 g/dL (3.4-5.0); Alkaline Phosphatase 83 U/L (46-116); Anion Gap 9.8; Aspartate Amino Transferase 22 U/L (15-37); Bilirubin Total 0.5 mg/dL (0.2-1.0); Calcium 9.6 mg/dL (8.5-10.1); Carbon Dioxide 30.5 mmol/L (21.0-32.0); Chloride 102 mmol/L (98-107); Chol HDL Ratio 4.4; Cholesterol 242 mg/dL (<=200); Estimated GFR (African America >60 (>=60); Estimated GFR (Non-African Ame >60 (>=60); Globulin 3.7 g/dL; Glucose 227 mg/dL (74-106); HDL Cholesterol 55 mg/dL (40-60); Potassium 4.3 mmol/L (3.5-5.1); Sodium 138 mmol/L (136-145); Thyroid Stimulating Hormone 1.705 uIU/mL (0.358-3.740); Total Protein 7.3 g/dL (6.4-8.2); Triglycerides 209 mg/dL (<=150); VLDL CHOLESTEROL 41.8 mg/dL
== END 2023-11-29 07:42 | disposition home or self-care (01) ==
LOC: LAB 07:42
PROVIDERS: PCP Family Medicine; Visit Provider Family Medicine
DX: Z00.00 Encounter for general adult medical examination without abnormal findings (principal)
CPT/HCPCS: 36415; 80053; 80061; 83036; 84443; 85025

== ENCOUNTER 2023-12-07 09:26 | Outpatient (OUT) | payer BC, SELFPAY ==
--- NOTE | 2023-12-07 09:29 | MM_ITS ---
Patient Name: RENO HARRIS MR#: [id number] : 1965 Exam Date: 12/07/2023 Ordering Doctor: DR Frank Busby . RADIOLOGY REPORT PROCEDURE: MM TOMOSYNTHESIS SCREENING BI COMPARISON: MM TOMOSYNTHESIS SCREENING BI, 12/04/2022. MG MAMM SCREEN 3D ILSA CAD, 07/04/2021. MG MAMM SCREEN ILSA W CAD, 02/19/2019. MAMMO ILSA SCREEN, 04/26/2007. INDICATIONS: Screening for malignant neoplasm Calculator Name NCI Breast Cancer Risk Assessment Tool 5 Year Breast Cancer Risk 0.90% Lifetime Breast Cancer Risk 5.90% Personal Breast Cancer No Personal Ovarian Cancer No Treatments None Family Cancers Aunt-paternal with breast cancer at age 50. LOCATION: [facility] BREAST COMPOSITION: There are scattered areas of fibroglandular density. FINDINGS: DIAGNOSTIC CATEGORY 1--NEGATIVE. RIGHT BREAST: No significant suspicious finding. No significant change has occurred. LEFT BREAST: No significant suspicious finding. No significant change has occurred. RECOMMENDATIONS: ROUTINE MAMMOGRAM AND CLINICAL EVALUATION IN 12 MONTHS. PLEASE NOTE: A NORMAL MAMMOGRAM DOES NOT EXCLUDE THE POSSIBILITY OF BREAST CANCER. A CLINICALLY SUSPICIOUS PALPABLE LUMP SHOULD BE BIOPSIED. Dictated by: Ede Meneses M.D. on 12/07/2023 at 14:48 Approved by: Ede Meneses M.D. on 12/07/2023 at 14:59
== END 2023-12-07 09:27 | disposition home or self-care (01) ==
LOC: MAMMO 09:26
PROVIDERS: PCP Family Medicine; Visit Provider Family Medicine
DX: Z12.31 Encounter for screening mammogram for malignant neoplasm of breast (principal); Z80.3 Family history of malignant neoplasm of breast
CPT/HCPCS: 77063; 77067

== ENCOUNTER 2024-03-11 10:21 | Emergency (ER) | payer BC, SELFPAY ==
[2024-03-11 10:25] VITALS: BP 172/92; PULSE 89; TEMP 36.7; O2SAT 100; BMI 31.4
--- NOTE | 2024-03-11 10:28 | XR_ITS ---
The [address] [address] Patient Name: RENO HARRIS MRN: [id number] date: 1965 Sex: F Assigned Patient Location: ER Current Patient Location: ER Accession/Order Number: [id number] Exam Date: 03/11/2024 10:45 Report Date: 03/11/2024 11:23 At the request of: HUYEN CUADRA Procedure: XR hip RT 2V w/ pelvis PROCEDURE: XR hip RT 2V w/ pelvis COMPARISON: None. HISTORY: injury/pain FINDINGS: BONES:No acute fracture or dislocation. Moderate bilateral hip osteoarthropathy with marginal osteophyte formation SOFT TISSUES:Negative. No visible soft tissue swelling. EFFUSION:None visible. OTHER: Negative. XR/XR hip RT 2V w/ pelvis IMPRESSION: Moderate osteoarthritis Electronically authenticated by: HETAL ENCARNACION Date: 03/11/2024 11:23
--- NOTE | 2024-03-11 11:07 | ED_ITS ---
HPI HPI - Extremity Injury (Lower) General Chief Complaint: Extremity Injury, Lower Stated Complaint: RT HIP PAIN Time Seen by Provider: 03/11/24 10:50 Source: patient Mode of arrival: walk-in Limitations: no limitations History of Present Illness HPI Narrative: 58-year-old female presents to the emergency department for pain in her right hip area posteriorly. 2 and half to 3 weeks ago she fell and had bruising and this pain has not gone away. It hurts more in certain positions and in particular when she bends over. Related Data Home Medications ?Medication ?Instructions ?Recorded ?Confirmed dulaglutide 3 mg/0.5 mL 3 mg subcut .weekly 08/18/22 01/22/23 subcutaneous pen injector ([employer]) insulin glargine 100 unit/mL (3 70 unit subcut BEDTIME 08/18/22 01/22/23 mL) subcutaneous pen (Basaglar KwikPen U-100 Insulin) lisinopril 10 1 tab PO DAILY 08/18/22 01/22/23 mg-hydrochlorothiazide 12.5 mg tablet metformin 1,000 mg tablet 1,000 mg PO BID 08/18/22 01/22/23 diclofenac sodium 75 mg 75 mg PO BID 01/12/23 01/22/23 tablet,delayed release tizanidine 4 mg capsule 4 mg PO QPM 01/12/23 01/22/23 Previous Rx's ?Medication ?Instructions ?Recorded ketorolac 10 mg tablet 10 mg PO Q8H pain 5 days #15 tabs 01/22/23 oxycodone-acetaminophen 5 mg-325 1 tab PO Q4H PRN pain #40 tabs 01/22/23 mg tablet (Percocet) acetaminophen 300 mg-codeine 30 mg 1 tab PO Q6H PRN pain 5 days #20 03/11/24 tablet tabs Allergies Allergy/AdvReac Type Severity Reaction Status Date / Time Penicillins Allergy Rash Verified 03/11/24 10:25 cephalexin (From Keflex) AdvReac Mild Vomiting Verified 03/11/24 10:25 Opioid HPI Opioid Management Most Recent Pain and Opioid Data: Last Pain Scale 0 01/22/23 18:06 01/22/23 Review of Systems ROS Narrative A ten point review of systems is negative except as noted above. PFSH PFS Medical History (Updated 12/31/24 @ 12:16 by Manfred Holbrook MD) Back pain ?M54.9 - Dorsalgia, unspecified (ICD-10) Rotator cuff tear ?M75.100 - Unspecified rotator cuff tear or rupture of unspecified shoulder, not specified as traumatic (ICD-10) ARLIN (obstructive sleep apnea) ?G47.33 - Obstructive sleep apnea (adult) (pediatric) (ICD-10) Hepatitis A ?B15.9 - Hepatitis A without hepatic coma (ICD-10) Right shoulder pain ?M25.511 - Pain in right shoulder (ICD-10) Diverticulosis ?K57.90 - Diverticulosis of intestine, part unspecified, without perforation or abscess without bleeding (ICD-10) Arthritis ?M19.90 - Unspecified osteoarthritis, unspecified site (ICD-10) Anemia ?D64.9 - Anemia, unspecified (ICD-10) Depression ?F32.A - Depression, unspecified (ICD-10) Colon polyp ?K63.5 - Polyp of colon (ICD-10) Diarrhea ?R19.7 - Diarrhea, unspecified (ICD-10) Constipation ?K59.00 - Constipation, unspecified (ICD-10) Sleep apnea ?G47.30 - Sleep apnea, unspecified (ICD-10) Pneumonia ?J18.9 - Pneumonia, unspecified organism (ICD-10) Neuropathy ?G62.9 - Polyneuropathy, unspecified (ICD-10) Restless leg ?G25.81 - Restless legs syndrome (ICD-10) Migraine ?G43.909 - Migraine, unspecified, not intractable, without status migrainosus (ICD-10) Urinary tract infection ?N39.0 - Urinary tract infection, site not specified (ICD-10) IBS (irritable bowel syndrome) ?K58.9 - Irritable bowel syndrome without diarrhea (ICD-10) GERD (gastroesophageal reflux disease) ?K21.9 - Gastro-esophageal reflux disease without esophagitis (ICD-10) Palpitations ?R00.2 - Palpitations (ICD-10) High cholesterol ?E78.00 - Pure hypercholesterolemia, unspecified (ICD-10) Hypertension ?I10 - Essential (primary) hypertension (ICD-10) Diabetes ?E11.9 - Type 2 diabetes mellitus without complications (ICD-10) Surgical History (Updated 01/12/23 @ 09:24 by Ellie Villegas NP) History of hysterectomy (08/2022) ?Z90.710 - Acquired absence of both cervix and uterus (ICD-10) History of robot-assisted laparoscopic hysterectomy ?Z90.710 - Acquired absence of both cervix and uterus (ICD-10) History of cholecystectomy ?Z90.49 - Acquired absence of other specified parts of digestive tract (ICD- 10) History of dilation and curettage ?Z98.890 - Other specified postprocedural states (ICD-10) History of colonoscopy ?Z98.890 - Other specified postprocedural states (ICD-10) History of tubal ligation ?Z98.51 - Tubal ligation status (ICD-10) History of section ?Z98.891 - History of uterine scar from previous surgery (ICD-10) S/P hip arthroscopy ?Z98.890 - Other specified postprocedural states (ICD-10) Family History (Updated 08/18/22 @ 08:42 by Ellie Villegas NP) Other Family history of colon cancer Family history of diabetes mellitus Family history of heart disease Family history of hypertension Family history of myocardial infarction Family history of stroke Social History (Updated 01/22/23 @ 13:31 by Stormy Witt RN) Within the past year, how often did you have a drink containing alcohol: monthly or less Smoking status: Former smoker Non-prescribed substance use: denies use Previous occupational history: [employer] Highest level of school completed/degree received: Associate degree: occupational, technical, vocational program Exam Narrative Exam Narrative: Nurses note and vital signs reviewed and patient is not hypoxic. General: The patient appears in no apparent distress. Patient appears uncomfortable Skin: Warm, dry, no pallor noted. There is no rash noted. Head: Normocephalic, atraumatic Eye: Normal conjunctiva, no drainage Ears, Nose, Mouth, and Throat: oral mucosa is moist. Nares patent. Cardiovascular: Regular Rate and Rhythm Respiratory: Patient is in no distress, no accessory muscle use, lungs are clear to auscultation, no wheezing, rales or rhonchi Back: non-tender GI: Soft and nontender Musculoskeletal: She has no bruising or rash in the right hip or lower back area. Range of motion causes discomfort. She has some palpable tenderness in the right buttock area Neurological: A&O, normal speech Psychiatric: Cooperative Constitutional Vital Signs, click to edit/add: Last Vital Signs Temp 98.0 F 03/11/24 10:25 Pulse 89 03/11/24 10:25 Resp 18 03/11/24 10:25 BP 172/92 H 03/11/24 10:25 Pulse Ox 100 03/11/24 10:25 O2 Del Method Room Air 03/11/24 10:25 Course Vital Signs Vital signs: Vital Signs Temperature 98.0 F 03/11/24 10:25 Pulse Rate 89 03/11/24 10:25 Respiratory Rate 18 03/11/24 10:25 Blood Pressure 172/92 H 03/11/24 10:25 Pulse Oximetry 100 03/11/24 10:25 Oxygen Delivery Method Room Air 03/11/24 10:25 Temperature 98.0 F 03/11/24 10:25 Pulse Rate 89 03/11/24 10:25 Respiratory Rate 18 03/11/24 10:25 Blood Pressure 172/92 H 03/11/24 10:25 Pulse Oximetry 100 03/11/24 10:25 Oxygen Delivery Method Room Air 03/11/24 10:25 MDM - Extremity Injury (Lower) MDM Narrative Medical decision making narrative: X-rays are negative per radiologist and she is provided a prescription for Tylenol 3. Treatment diagnosis and follow-up were discussed with the patient. Differential Diagnosis Differential diagnosis: Likely other (Contusion, fracture) Imaging Data Right hip and pelvis: Radiologist's impression: ITS Impressions Hip/Pelvis X-Ray 03/11/24 10:28 IMPRESSION: Moderate osteoarthritis Electronically authenticated by: HETAL ENCARNACION Date: 03/11/2024 11:23 Discharge Plan Discharge Chief Complaint: Extremity Injury, Lower Clinical Impression: Contusion of hip, right Patient Disposition: Home, Self-Care Time of Disposition Decision: 12:16 Condition: Good Mode of Transportation: Private Vehicle Prescriptions / Home Meds: New acetaminophen-codeine 300-30 mg tablet 1 tab PO Q6H PRN (Reason: pain) 5 Days Qty: 20 0RF No Action Trulicity 3 mg/0.5 mL pen injector 3 mg SUBCUT .weekly Rx Instructions: Mondays insulin glargine [Basaglar KwikPen U-100 Insulin] 100 unit/mL (3 mL) insulin pen 70 unit SUBCUT BEDTIME Patient Comments: took 35 this am. lisinopril-hydrochlorothiazide 10-12.5 mg tablet 1 tab PO DAILY metformin 1,000 mg tablet 1,000 mg PO BID ketorolac 10 mg tablet 10 mg PO Q8H 5 Days Qty: 15 0RF oxycodone-acetaminophen [Percocet] 5-325 mg tablet 1 tab PO Q4H PRN (Reason: pain) Qty: 40 0RF diclofenac sodium 75 mg tablet,delayed release (DR/EC) 75 mg PO BID tizanidine 4 mg capsule 4 mg PO QPM Print Language: Tamazight Instructions: Hip Contusion (ED) Referrals: Frank Busby MD [Primary Care Provider] - 1 week
== END 2024-03-11 12:35 | disposition home or self-care (01) ==
PROVIDERS: Emergency Provider Emergency Medicine; PCP Family Medicine
DX: S70.01XA Contusion of right hip, initial encounter (principal); Z90.710 Acquired absence of both cervix and uterus; Z90.49 Acquired absence of other specified parts of digestive tract; Z87.891 Personal history of nicotine dependence; W19.XXXA Unspecified fall, initial encounter; M16.11 Unilateral primary osteoarthritis, right hip
CPT/HCPCS: 73502; 99283

== ENCOUNTER 2024-03-26 08:07 | Outpatient (OUT) | payer BC, SELFPAY ==
--- OUTSIDE RECORDS SUMMARY | 2024-03-26 08:28 | XMS_ITS | CCD ---
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 [address] [place] [address] Dr. Bernice Hamilton ALP [Catalytic activity/Vol] 112 U/L Normal 46-116 [facility] Comment on above: Performed By: #### E RUR, PREGU #### [facility] [address] [place] [address] Dr. Bernice Hamilton ALT [Catalytic activity/Vol] 23 U/L Normal 14-59 [facility] Comment on above: Performed By: #### E RUR, PREGU #### [facility] [address] [place] [address] Dr. Bernice Hamilton Anion gap [Moles/Vol] 16.5 mmol/L Normal [facility] Comment on above: Performed By: #### E RUR, PREGU #### [facility] [address] [place] [address] Dr. Bernice Hamilton AST [Catalytic activity/Vol] 20 U/L Normal 15-37 [facility] Comment on above: Performed By: #### Mara MURPHYR, PREGU #### [facility] [address] [place] [address] Dr. Bernice Hamilton Bilirubin [Mass/Vol] 0.5 mg/dL Normal 0.2-1.0 [facility] Comment on above: Performed By: #### Mara MURPHYR, PREGU #### [facility] [address] [place] [address] Dr. Bernice Hamilton Calcium [Mass/Vol] 9.2 mg/dL Normal 8.5-10.1 [facility] Comment on above: Performed By: #### Mara RUR, PREGU #### [facility] [address] [place] [address] Dr. Bernice Hamilton Chloride [Moles/Vol] 98 mmol/L Normal 98-107 [facility] Comment on above: Performed By: #### E RUR, PREGU #### [facility] [address] [place] [address] Dr. Bernice Hamilton CO2 [Moles/Vol] 23.5 mmol/L Normal 21.0-32.0 [facility] Comment on above: Performed By: #### Mara RUR, PREGU #### [facility] [address] [address] [address] Bernice Hamilton Creatinine [Mass/Vol] 0.99 mg/dL Normal 0.55-1.02 [facility] Comment on above: Performed By: #### E RUR, PREGU #### [facility] [address] [address] [address] Bernice Hamilton EGFR-AF PANAMANIAN >60 Normal >=60 [facility] Comment on above: Performed By: #### E RUR, PREGU #### [facility] [address] [address] [address] Bernice Hamilton EGFR-NON AF PANAMANIAN 58 mL/min/1.73m2 Critically low >=60 [facility] Comment on above: Performed By: #### E RUR, PREGU #### [facility] [address] [place] [address] Dr. Bernice Hamilton Globulin (S) [Mass/Vol] 4.4 g/dL Normal [facility] Comment on above: Performed By: #### E RUR, PREGU #### [facility] [address] [address] [address] Bernice Hamilton Glucose [Mass/Vol] 288 mg/dL Critically high 74-106 [facility] Comment on above: Performed By: #### E RUR, PREGU #### [facility] [address] [place] [address] Dr. Bernice Hamilton Potassium [Moles/Vol] 4.0 mmol/L Normal 3.5-5.1 [facility] Comment on above: Performed By: #### E RUR, PREGU #### [facility] [address] [address] [address] Bernice Hamilton Protein [Mass/Vol] 8.0 g/dL Normal 6.4-8.2 [facility] Comment on above: Performed By: #### E RUR, PREGU #### [facility] [address] [address] [address] Bernice Hamilton Sodium [Moles/Vol] 134 mmol/L Critically low 136-145 [facility] Comment on above: Performed By: #### E RUR, PREGU #### [facility] [address] [address] [address] Bernice Hamilton Urea nitrogen [Mass/Vol] 17.0 mg/dL Normal 7.0-18.0 [facility] Comment on above: Performed By: #### E RUR, PREGU #### [facility] [address] [address] [address] Bernice Hamilton Urea nitrogen/Creatinine [Mass ratio] 17.2 mg/mg Normal [facility] Comment on above: Performed By: #### E RUR, PREGU #### [facility] [address] [address] [address] Bernice Hamilton STREPT SCREENon 03-13-2022 STREP SCREEN A Negative Normal NEGATIVE [facility] Comment on above: Performed By: #### S SCRN, GRASTCX ####[facility] [address] [place], [place] [address]Dr. Bernice Hamilton TROPONIN, HIGH SENSITIVITYon 03-13-2022 HSTROP 8.3 pg/mL Normal 4.0-51.3 [facility] Comment on above: Result Comment: CUT- OFF POINTS HAVE BEEN ESTABLISHED BASED ON THE FOURTH UNIVERSAL DEFINITIONS OF MYOCARDIAL INFARCTION. THE UPPER REFERENCE LIMIT (URL) OF TROPONIN, DEFINED THE 99TH PERCENTILE OF cTnI DISTRIBUTION IN A REFERENCE POPULATION, HAS BEEN CONFIRMED THE DECISION THRESHOLD FOR [place] DIAGNOSIS. Performed By: #### H STROPN ####[facility] [address] [place] [address]Dr. Bernice Hamilton CBC AUTO DIFFon 02-28-2022 BASO # 0.1 103/ul Normal 0.0-0.1 [facility] Comment on above: Performed By: #### C BC ####[facility] [address] [place] [address]Dr. Bernice Hamilton Basophils/100 WBC (Bld) 0.8 % Normal 0.2-2.0 [facility] Comment on above: Performed By: #### C BC ####[facility] [address] [place] [address]Dr. Bernice Hamilton EO # 0.4 103/ul Normal 0.0-0.7 [facility] Comment on above: Performed By: #### C BC ####[facility] [address] [place] [address]Dr. Bernice Alfonso Eosinophils/100 WBC (Bld) 5.7 % Normal 0.9-7.0 [facility] Comment on above: Performed By: #### C BC ####[facility] [address] [place], [place] [address]Dr. Bernice Hamilton Erythrocyte distribution width (RBC) [Ratio] 15.3 % Critically high 11.0-15.0 [facility] Comment on above: Performed By: #### C BC ####[facility] [address] [place], [place] [address]Dr. Bernice Hamilton Hematocrit (Bld) [Volume fraction] 35.9 % Critically low 36.0-48.0 [facility] Comment on above: Performed By: #### C BC ####[facility] [address] [place], [place] [address]Dr. Bernice Hamilton Hemoglobin (Bld) [Mass/Vol] 11.0 g/dL Critically low 12.0-16.0 [facility] Comment on above: Performed By: #### C BC ####[facility] [address] [place], [place] [address]Dr. Bernice Hamilton IG # 0.02 10e3/ul Normal 0.00-0.03 [facility] Comment on above: Performed By: #### C BC ####[facility] [address] [place], [place] [address]Dr. Bernice Hamilton IG % 0.3 % Normal 0.0-0.5 [facility] Comment on above: Performed By: #### C BC ####[facility] [address] [place], [place] [address]Dr. Bernice Hamilton LYMPH # 2.4 103/ul Normal 1.2-3.8 [facility] Comment on above: Performed By: #### C BC ####[facility] [address] [place], [place] [address]Dr. Bernice Hamilton Lymphocytes/100 WBC (Bld) 33.2 % Normal 20.5-60.0 [facility] Comment on above: Performed By: #### C BC ####[facility] [address] [place] [address]DrPablo Hamilton MANUAL DIFF REQ NO Normal [facility] Comment on above: Performed By: #### C BC ####[facility] [address] [place] [address]Dr. Bernice Hamilton MCH (RBC) [Entitic mass] 22.8 pg Critically low 26.7-34.0 [facility] Comment on above: Performed By: #### C BC ####[facility] [address] [place], [place] [address]Dr. Bernice Hamilton MCHC (RBC) [Mass/Vol] 30.6 g/dL Normal 29.9-35.2 [facility] Comment on above: Performed By: #### C BC ####[facility] [address] [place], [place] [address]DrPablo Hamilton MCV (RBC) [Entitic vol] 74.5 fL Critically low 81.0-99.0 [facility] Comment on above: Performed By: #### C BC ####[facility] [address] [place], [place] [address]DrPablo Hamilton MONO # 0.5 103/ul Normal 0.3-0.8 [facility] Comment on above: Performed By: #### C BC ####[facility] [address] [place], [place] [address]DrPablo Hamilton Monocytes/100 WBC (Bld) 7.4 % Normal 1.7-12.0 [facility] Comment on above: Performed By: #### C BC ####[facility] [address] [place], [place] [address]DrPablo Hamilton NEUT # 3.8 103/ul Normal 1.4-6.5 [facility] Comment on above: Performed By: #### C BC ####[facility] [address] [place], [place] [address]DrPablo Hamilton Neutrophils/100 WBC (Bld) 52.6 % Normal 43.0-75.0 [facility] Comment on above: Performed By: #### C BC ####[facility] [address] [place] [address]Dr. Bernice Hamilton Platelet mean volume (Bld) [Entitic vol] 10.3 fL Normal 9.5-13.5 [facility] Comment on above: Performed By: #### C BC ####[facility] [address] [place] [address]Dr. Bernice Hamilton PLT 334 103/ul Normal 150-450 [facility] Comment on above: Performed By: #### C BC ####[facility] [address] [place] [address]Dr. Bernice Hamilton RBC 4.82 106/ul Normal 4.20-5.40 [facility] Comment on above: Performed By: #### C BC ####[facility] [address] [place] [address]Dr. Bernice Hamilton WBC 7.3 103/ul Normal 4.0-11.0 [facility] Comment on above: Performed By: #### C BC ####[facility] [address] [place] [id number]. Bernice Hamilton POINT OF CARE GLUCOSEon 02-10 Glucose [Mass/Vol] 188 mg/dL Critically high 74-106 [facility] Comment on above: Performed By: #### B MP #### [facility] [address] [place] [address] Dr. Bernice Hamilton PREG HCG QUALon 02-28-2022 , QUAL Negative Normal NEGATIVE [facility] Comment on above: Performed By: #### B MP #### [facility] [address] [address] [address] Bernice Hamilton Covid-19 PCR (CVDTB)on 02-09 SARS-CoV-2 (COVID-19) RNA JOSIAS+probe Ql (Unsp spec) Not detected Normal NOT DETECTED [facility] Comment on above: Result Comment: This test is not yet approved or cleared by the [place] FDA. When there are no FDA-approved or cleared tests available, and other criteria are met, FDA can make tests available under an emergency access mechanism called an Emergency Use Authorization (EUA). The EUA for this test is supported by the Outside Maintenance Worker of Health and Human Service's (HHS's) declaration [...] consistent with SARS-CoV-2. Performed By: #### C VDNEW [facility] ####[facility] [address] [place] [address]Dr. Bernice Hamilton PROF CHEM 8 (BAS METB)on Anion gap [Moles/Vol] 12.4 mmol/L Normal [facility] Comment on above: Performed By: #### B MP #### [facility] [address] [place] [address] Dr. Bernice Hamilton Calcium [Mass/Vol] 8.7 mg/dL Normal 8.5-10.1 [facility] Comment on above: Performed By: #### B MP #### [facility] [address] [place] [address] Dr. Bernice Hamilton Chloride [Moles/Vol] 103 mmol/L Normal 98-107 [facility] Comment on above: Performed By: #### B MP #### [facility] [address] [address] [address] Bernice Hamilton CO2 [Moles/Vol] 27.8 mmol/L Normal 21.0-32.0 [facility] Comment on above: Performed By: #### B MP #### [facility] [address] [place] [address] Dr. Bernice Hamilton Creatinine [Mass/Vol] 0.92 mg/dL Normal 0.55-1.02 [facility] Comment on above: Performed By: #### B MP #### [facility] [address] [address] [address] Bernice Hamilton EGFR-AF PANAMANIAN >60 Normal >=60 [facility] Comment on above: Performed By: #### B MP #### [facility] [address] [address] [address] Bernice Hamilton EGFR-NON AF PANAMANIAN >60 Normal >=60 [facility] Comment on above: Performed By: #### B MP #### [facility] [address] [address] [address] Bernice Hamilton Glucose [Mass/Vol] 228 mg/dL Critically high 74-106 [facility] Comment on above: Performed By: #### B MP #### [facility] [address] [place] [address] Dr. Bernice Hamilton Potassium [Moles/Vol] 4.2 mmol/L Normal 3.5-5.1 [facility] Comment on above: Performed By: #### B MP #### [facility] [address] [place] [address] Dr. Bernice Hamilton Sodium [Moles/Vol] 139 mmol/L Normal 136-145 [facility] Comment on above: Performed By: #### B MP #### [facility] [address] [place] [address] Dr. Bernice Hamilton Urea nitrogen [Mass/Vol] 16.0 mg/dL Normal 7.0-18.0 [facility] Comment on above: Performed By: #### B MP #### [facility] [address] [place] [address] Dr. Bernice Hamilton Urea nitrogen/Creatinine [Mass ratio] 17.4 mg/mg Normal [facility] Comment on above: Performed By: #### B MP #### [facility] [address] [place] [address] Dr. Bernice Hamilton Covid-19 PCR ([facility]VDNEW [facility])on SARS-CoV-2 (COVID-19) RNA JOSIAS+probe Ql (Unsp spec) Not detected Normal NOT DETECTED [facility] Comment on above: Result Comment: When diagnostic [...] for this test is supported by the [place] of Health and Human Service's declaration that [...] be used). Performed By: #### E CHRISTIE, PREGU #### [facility] [address] [place] [address] Dr. Bernice Hamilton INFLUENZA A AND B AGon 02-14 [facility] BELOW Normal [facility] Comment on above: Result Comment: Nega tive for Flu A protein angiten. Infection due to Flu A cannot be ruled out. Flu A angiten in the sample may be below the detection limit of the test. Performed By: #### I NFLUAB #### [facility] [address] [place] [address] Dr. Bern[address] [facility] SEE BELOW Normal [facility] Comment on above: Result Comment: Nega tive for Flu B protein antigen. Infection due to Flu B cannot be ruled out. Flu B antigen in the sample may be below the detection limit of the test. Performed By: #### I NFLUAB #### [facility] [address] [place] [address] Dr. Bernice Hamilton INFLUENZA A AG Negative Normal NEGATIVE SEE COMMENT [facility] Comment on above: Performed By: #### I NFLUAB #### [facility] [address] [place] [address] Dr. Bernice Hamilton INFLUENZA B AG Negative Normal NEGATIVE SEE COMMENT [facility] Comment on above: Performed By: #### I NFLUAB #### [facility] [address] [address] [address] Bernice Hamilton INTERNAL CONTROLS Within Normal Limits Normal Wi thin Normal Limits [facility] Comment on above: Performed By: #### I NFLUAB #### [facility] [address] [address] [address] Bernice Hamilton US PELVIS AND TRANSVAGon [...] EFREN WHELAN Date: 2022-01-27 06:22 Normal [facility] CBC AUTO DIFFon 01-26-2022 BASO # 0.1 103/ul Normal 0.0-0.1 [facility] Comment on above: Performed By: #### B MP #### [facility] [address] [address] [address] Bernice Hamilton Basophils/100 WBC (Bld) 0.8 % Normal 0.2-2.0 [facility] Comment on above: Performed By: #### B MP #### [facility] [address] [place] [address] Dr. Bernice Hamilton EO # 0.3 103/ul Normal 0.0-0.7 [facility] Comment on above: Performed By: #### B MP #### [facility] [address] [place] [address] Dr. Bernice Hamilton Eosinophils/100 WBC (Bld) 3.8 % Normal 0.9-7.0 [facility] Comment on above: Performed By: #### B MP #### [facility] [address] [place] [address] Dr. Bernice Hamilton Erythrocyte distribution width (RBC) [Ratio] 15.0 % Normal 11.0-15.0 [facility] Comment on above: Performed By: #### B MP #### [facility] [address] [place] [address] Dr. Bernice Hamilton Hematocrit (Bld) [Volume fraction] 39.1 % Normal 36.0-48.0 [facility] Comment on above: Performed By: #### B MP #### [facility] [address] [place] [address] Dr. Bernice Hamilton Hemoglobin (Bld) [Mass/Vol] 12.3 g/dL Normal 12.0-16.0 [facility] Comment on above: Performed By: #### B MP #### [facility] [address] [place] [address] Dr. Bernice Hamilton IG # 0.02 10e3/ul Normal 0.00-0.03 [facility] Comment on above: Performed By: #### B MP #### [facility] [address] [place] [address] Dr. Bernice Hamilton IG % 0.3 % Normal 0.0-0.5 [facility] Comment on above: Performed By: #### B MP #### [facility] [address] [place] [address] Dr. Bernice Hamilton LYMPH # 2.6 103/ul Normal 1.2-3.8 [facility] Comment on above: Performed By: #### B MP #### [facility] [address] [place] [address] Dr. Bernice Hamilton Lymphocytes/100 WBC (Bld) 36.1 % Normal 20.5-60.0 [facility] Comment on above: Performed By: #### B MP #### [facility] [address] [place] [address] Dr. Bernice Hamilton MANUAL DIFF REQ NO Normal [facility] Comment on above: Performed By: #### B MP #### [facility] [address] [place] [address] Dr. Bernice Hamilton MCH (RBC) [Entitic mass] 23.3 pg Critically low 26.7-34.0 [facility] Comment on above: Performed By: #### B MP #### [facility] [address] [place] [address] Dr. Bernice Hamilton MCHC (RBC) [Mass/Vol] 31.5 g/dL Normal 29.9-35.2 [facility] Comment on above: Performed By: #### B MP #### [facility] [address] [place] [address] Dr. Bernice Hamilton MCV (RBC) [Entitic vol] 74.2 fL Critically low 81.0-99.0 [facility] Comment on above: Performed By: #### B MP #### [facility] [address] [place] [address] Dr. Bernice Hamilton MONO # 0.6 103/ul Normal 0.3-0.8 [facility] Comment on above: Performed By: #### B MP #### [facility] [address] [place] [address] Dr. Bernice Hamilton Monocytes/100 WBC (Bld) 8.3 % Normal 1.7-12.0 [facility] Comment on above: Performed By: #### B MP #### [facility] [address] [place] [address] Dr. Bernice Hamilton NEUT # 3.6 103/ul Normal 1.4-6.5 [facility] Comment on above: Performed By: #### B MP #### [facility] [address] [address] [address] Bernice Hamilton Neutrophils/100 WBC (Bld) 50.7 % Normal 43.0-75.0 [facility] Comment on above: Performed By: #### B MP #### [facility] [address] [address] [address] Bernice Hamilton Platelet mean volume (Bld) [Entitic vol] 10.7 fL Normal 9.5-13.5 [facility] Comment on above: Performed By: #### B MP #### [facility] [address] [place] [address] Dr. Bernice Hamilton PLT 303 103/ul Normal 150-450 [facility] Comment on above: Performed By: #### B MP #### [facility] [address] [place] [address] Dr. Bernice Hamilton RBC 5.27 106/ul Normal 4.20-5.40 [facility] Comment on above: Performed By: #### B MP #### [facility] [address] [place] [address] Dr. Bernice Hamilton WBC 7.1 103/ul Normal 4.0-11.0 [facility] Comment on above: Performed By: #### B MP #### [facility] [address] [place] [address] Dr. Bernice Hamilton FREE T4on 01-26-2022 Free T4 [Mass/Vol] 1.08 ng/dL Normal 0.76-1.46 [facility] Comment on above: Performed By: #### B MP #### [facility] [address] [place] [address] Dr. Bernice Hamilton GLYCOHEMOGLOBIN A1Con 2021 ADA RECOMMENDATION SEE BELOW Normal [facility] Comment on above: Result Comment: ADA RECOMMENDED LIMIT 4.0 - 6.0 ADA THERAPEUTIC TARGET < 7.0 ACTION SUGGESTED > 7.0 Performed By: #### E RUR, PREGU #### [facility] [address] [place] [address] Dr. Bernice Hamilton Glucose [Mass/Vol] 209 mg/dL Normal [facility] Comment on above: Performed By: #### E RUR, PREGU #### [facility] [address] [address] [address] Bernice Hamilton HbA1c (Bld) [Mass fraction] 8.9 % Critically high 4.5-6.2 [facility] Comment on above: Performed By: #### E RUR, PREGU #### [facility] [address] [address] [address] Bernice Hamilton PREG QUANT HCGon 01-26-2022 HCG QUANT <1 Normal [facility] Comment on above: Performed By: #### T SH, PREGQNT #### [facility] [address] [place] [address] Dr. Bernice Hamilton HCG RANGE SEE BELOW Normal [facility] Comment on above: Result Comment: 5-50 0.2-1 WEEK 50-500 1-2 WEEKS 100-5,000 2-3 WEEKS 500-10,000 3-4 WEEKS 1,000-50,000 4-5 WEEKS 10,000-100,000 5-6 WEEKS 15,000-200,000 6-8 WEEKS 10,000-100,000 2-3 MONTHS Performed By: #### T SH, PREGQNT #### [facility] [address] [place] [address] Dr. Bernice Hamilton PROTIMEon 01-26-2022 INR Coag (PPP) [Relative time] 0.95 {INR} Normal [facility] Comment on above: Performed By: #### P TT, PT ####[facility] [address] [address]Dr. Bernice Hamilton INR GUIDELINES SEE BELOW Normal [facility] Comment on above: Result Comment: DAMARIS RED INR: 2.0 - 3.0 CONDITIONS NOT LISTED BELOW 2.5 - 3.5 FOR PROSTHETIC HEART VALVE REPLACEMENT 2.5 - 3.5 RECURRENT THROMBOSIS Performed By: #### P TT, PT ####[facility] [address] [address]Dr. Bernice Hamilton PT Coag (PPP) [Time] 10.3 s Normal 9.0-11.6 [facility] Comment on above: Performed By: #### P TT, PT ####[facility] [address] [id number] Bernice Alfonso PTTon 01-26-2022 aPTT Coag (Bld) [Time] 23.8 s Normal 22.3-36.2 [facility] Comment on above: Performed By: #### P TT, PT ####[facility] [address] [id number]. Bernice Alfonso TSHon 01-26-2022 TSH 1.602 uIU/mL Normal 0.358-3.740 [facility] Comment on above: Performed By: #### T SH, PREGQNT #### [facility] [address] [address] [address] Bernice Hamilton Covid-19 PCR ([facility])on 12-11 SARS-CoV-2 (COVID-19) RNA JOSIAS+probe Ql (Unsp spec) Not detected Normal NOT DETECTED [facility] Comment on above: Result Comment: When diagnostic [...] for this test is supported by the [place] of Health and Human Service's declaration that [...] Performed By: #### E RUR, PREGU #### [facility] [address] [address] [address] Bernice Hamilton XR FOOT ILSA MIN [...] LEFT CONCLUSION: Calcaneal enthesopathy Electronically authenticated by: EHTAL ENCARNACION Date: 2021-09-22 18:28 Normal [facility] ECHOCARDIO M/2D COMPLETEon 0 09-13-2021 ECHOCARDIO M/2D COMPLETE Patient: BRITNEY PARSONS Exam Date: 09/13/2021 : 1965 Gender:F Ordering : DR KATHLEEN BUSBY . Admission #: [id number] Family : Order #: [id number] CLICK HERE TO VIEW EXAM ECHOCARDIOGRAM REPORT [...] M.D. on 09/14/2021 at 10:21 Normal [facility] CARDIAC IVETH ADMITon 022 CK [Catalytic activity/Vol] 69 U/L Normal 26-192 [facility] Comment on above: Performed By: #### B MP #### [facility] [address] [place] [address] Dr. Bernice Hamilton CK.MB [Mass/Vol] 0.99 ng/mL Normal <=3.60 [facility] Comment on above: Performed By: #### B MP #### [facility] [address] [place] [address] Dr. Bernice Hamilton HSTROP 13.6 pg/mL Normal 4.0-51.3 [facility] Comment on above: Result Comment: CUT- OFF POINTS HAVE BEEN ESTABLISHED BASED ON THE FOURTH UNIVERSAL DEFINITIONS OF MYOCARDIAL INFARCTION. THE UPPER REFERENCE LIMIT (URL) OF TROPONIN, DEFINED THE 99TH PERCENTILE OF cTnI DISTRIBUTION IN A REFERENCE POPULATION, HAS BEEN CONFIRMED THE DECISION THRESHOLD FOR [place] DIAGNOSIS. Performed By: #### B MP #### [facility] [address] [place] [address] Dr. Bernice Hamilton CRISTIANO 25 ng/mL Normal 9-82 [facility] Comment on above: Performed By: #### B MP #### [facility] [address] [address] [address] Bernice Hamilton CBC AUTO DIFFon 08-21-2021 BASO # 0.1 103/ul Normal 0.0-0.1 [facility] Comment on above: Performed By: #### C BC #### [facility] [address] [address] [address] Bernice Hamilton Basophils/100 WBC (Bld) 0.9 % Normal 0.2-2.0 [facility] Comment on above: Performed By: #### C BC #### [facility] [address] [place] [address] Dr. Bernice Hamilton EO # 0.5 103/ul Normal 0.0-0.7 [facility] Comment on above: Performed By: #### C BC #### [facility] [address] [place] [address] Dr. Bernice Hamilton Eosinophils/100 WBC (Bld) 6.8 % Normal 0.9-7.0 [facility] Comment on above: Performed By: #### C BC #### [facility] [address] [place] [address] Dr. Bernice Hamilton Erythrocyte distribution width (RBC) [Ratio] 14.6 % Normal 11.0-15.0 [facility] Comment on above: Performed By: #### C BC #### [facility] [address] [place] [address] Dr. Bernice Hamilton Hematocrit (Bld) [Volume fraction] 33.7 % Critically low 36.0-48.0 [facility] Comment on above: Performed By: #### C BC #### [facility] [address] [place] [address] Dr. Bernice Hamilton Hemoglobin (Bld) [Mass/Vol] 10.6 g/dL Critically low 12.0-16.0 [facility] Comment on above: Performed By: #### C BC #### [facility] [address] [place] [address] Dr. Bernice Hamilton IG # 0.02 10e3/ul Normal 0.00-0.03 [facility] Comment on above: Performed By: #### C BC #### [facility] [address] [place] [address] Dr. Bernice Hamilton IG % 0.3 % Normal 0.0-0.5 [facility] Comment on above: Performed By: #### C BC #### [facility] [address] [place] [address] Dr. Bernice Hamilton LYMPH # 2.6 103/ul Normal 1.2-3.8 [facility] Comment on above: Performed By: #### C BC #### [facility] [address] [address] [address] Bernice Hamilton Lymphocytes/100 WBC (Bld) 32.7 % Normal 20.5-60.0 [facility] Comment on above: Performed By: #### C BC #### [facility] [address] [place] [address] Dr. Bernice Hamilton MANUAL DIFF REQ NO Normal [facility] Comment on above: Performed By: #### C BC #### [facility] [address] [address] [address] Bernice Hamilton MCH (RBC) [Entitic mass] 24.9 pg Critically low 26.7-34.0 [facility] Comment on above: Performed By: #### C BC #### [facility] [address] [place] [address] Dr. Bernice Hamilton MCHC (RBC) [Mass/Vol] 31.5 g/dL Normal 29.9-35.2 [facility] Comment on above: Performed By: #### C BC #### [facility] [address] [place] [address] Dr. Bernice Hamilton MCV (RBC) [Entitic vol] 79.3 fL Critically low 81.0-99.0 [facility] Comment on above: Performed By: #### C BC #### [facility] [address] [place] [address] Dr. Bernice Hamilton MONO # 0.5 103/ul Normal 0.3-0.8 [facility] Comment on above: Performed By: #### C BC #### [facility] [address] [place] [address] Dr. Bernice Hamilton Monocytes/100 WBC (Bld) 6.0 % Normal 1.7-12.0 [facility] Comment on above: Performed By: #### C BC #### [facility] [address] [place] [address] Dr. Bernice Hamilton NEUT # 4.3 103/ul Normal 1.4-6.5 [facility] Comment on above: Performed By: #### C BC #### [facility] [address] [place] [address] Dr. Bernice Hamilton Neutrophils/100 WBC (Bld) 53.3 % Normal 43.0-75.0 [facility] Comment on above: Performed By: #### C BC #### [facility] [address] [place] [address] Dr. Bernice Hamilton Platelet mean volume (Bld) [Entitic vol] 11.8 fL Normal 9.5-13.5 [facility] Comment on above: Performed By: #### C BC #### [facility] [address] [place] [address] Dr. Bernice Hamilton PLT 262 103/ul Normal 150-450 [facility] Comment on above: Performed By: #### C BC #### [facility] [address] [place] [address] Dr. Bernice Hamilton RBC 4.25 106/ul Normal 4.20-5.40 [facility] Comment on above: Performed By: #### C BC #### [facility] [address] [place] [address] Dr. Bernice Hamilton WBC 8.0 103/ul Normal 4.0-11.0 [facility] Comment on above: Performed By: #### C BC #### [facility] [address] [place] [address] Dr. Bernice Hamilton ER URINE PROFILEon 2 Bilirubin Ql (U) Negative Normal NEGATIVE [facility] Comment on above: Performed By: #### E RUR, PREGU #### [facility] [address] [place] [address] Dr. Bernice Hamilton Clarity (U) CLEAR Normal CLEAR [facility] Comment on above: Performed By: #### E RUR, PREGU #### [facility] [address] [place] [address] Dr. Bernice Hamilton Color (U) LT. YELLOW Normal YELLOW [facility] Comment on above: Performed By: #### E RUR, PREGU #### [facility] [address] [place] [address] Dr. Bernice GONZALEZ A micrscopic examination will be performed if indicated. Normal [facility] Comment on above: Performed By: #### E RUR, PREGU #### [facility] [address] [place] [address] Dr. Bernice Hamilton Glucose Ql (U) 100 mg/dl Abnormal NEGATIVE [facility] Comment on above: Performed By: #### E RUR, PREGU #### [facility] [address] [place] [address] Dr. Bernice Hamilton Hemoglobin Ql (U) Negative Normal NEGATIVE [facility] Comment on above: Performed By: #### E RUR, PREGU #### [facility] [address] [place] [address] Dr. Bernice Hamilton Ketones Ql (U) Negative Normal NEGATIVE [facility] Comment on above: Performed By: #### E RUR, PREGU #### [facility] [address] [place] [address] Dr. Bernice Hamilton LEUKOCYTES Negative Normal NEGATIVE [facility] Comment on above: Performed By: #### E RUR, PREGU #### [facility] [address] [place] [address] Dr. Bernice Hamilton Nitrite Ql (U) Negative Normal NEGATIVE [facility] Comment on above: Performed By: #### E RUR, PREGU #### [facility] [address] [place] [address] Dr. Bernice Hamilton pH (U) 5.0 [pH] Normal 5-9 [facility] Comment on above: Performed By: #### E RUR, PREGU #### [facility] [address] [place] [address] Dr. Bernice Hamilton SPEC GRAVITY 1.010 Normal 1.005-<=1.025 [facility] Comment on above: Performed By: #### E RUR, PREGU #### [facility] [address] [place] [address] Dr. Bernice Hamilton UA PROTEIN Negative Normal NEGATIVE/ TRACE [facility] Comment on above: Performed By: #### E RUR, PREGU #### [facility] [address] [place] [address] Dr. Bernice Hamilton UR MICRO IND NOT INDICATED Normal [facility] Comment on above: Performed By: #### E RUR, PREGU #### [facility] [address] [place] [address] Dr. Bernice Hamilton Urobilinogen Qn (U) 0.2 {[place]'U}/dL Normal 0.2 - 1. 0 [facility] Comment on above: Performed By: #### E RUR, PREGU #### [facility] [address] [place] [address] Dr. Bernice Hamilton URon 08-21-2021 , QUAL Negative Normal NEGATIVE [facility] Comment on above: Performed By: #### E RUR, PREGU #### [facility] [address] [place] [address] Dr. Bernice Hamilton PROF 14(COMP METB)on 022 Albumin [Mass/Vol] 3.4 g/dL Normal 3.4-5.0 [facility] Comment on above: Performed By: #### B MP #### [facility] [address] [place] [address] Dr. Bernice Hamilton Albumin/Globulin [Mass ratio] 0.9 {ratio} Normal [facility] Comment on above: Performed By: #### B MP #### [facility] [address] [place] [address] Dr. Bernice Hamilton ALP [Catalytic activity/Vol] 81 U/L Normal 46-116 [facility] Comment on above: Performed By: #### B MP #### [facility] [address] [place] [address] Dr. Bernice Hamilton ALT [Catalytic activity/Vol] 32 U/L Normal 14-59 [facility] Comment on above: Performed By: #### B MP #### [facility] [address] [place] [address] Dr. Bernice Hamilton Anion gap [Moles/Vol] 15.5 mmol/L Normal [facility] Comment on above: Performed By: #### B MP #### [facility] [address] [address] [address] Bernice Hamilton AST [Catalytic activity/Vol] 29 U/L Normal 15-37 [facility] Comment on above: Performed By: #### B MP #### [facility] [address] [place] [address] Dr. Bernice Hamilton Bilirubin [Mass/Vol] 0.4 mg/dL Normal 0.2-1.0 [facility] Comment on above: Performed By: #### B MP #### [facility] [address] [place] [address] Dr. Bernice Hamilton Calcium [Mass/Vol] 8.7 mg/dL Normal 8.5-10.1 [facility] Comment on above: Performed By: #### B MP #### [facility] [address] [place] [address] Dr. Bernice Hamilton Chloride [Moles/Vol] 100 mmol/L Normal 98-107 [facility] Comment on above: Performed By: #### B MP #### [facility] [address] [place] [address] Dr. Bernice Hamilton CO2 [Moles/Vol] 24.2 mmol/L Normal 21.0-32.0 [facility] Comment on above: Performed By: #### B MP #### [facility] [address] [place] [address] Dr. Bernice Hamilton Creatinine [Mass/Vol] 0.78 mg/dL Normal 0.55-1.02 [facility] Comment on above: Performed By: #### B MP #### [facility] [address] [place] [address] Dr. Bernice Hamilton EGFR-AF PANAMANIAN >60 Normal >=60 [facility] Comment on above: Performed By: #### B MP #### [facility] [address] [place] [address] Dr. Bernice Hamilton EGFR-NON AF PANAMANIAN >60 Normal >=60 [facility] Comment on above: Performed By: #### B MP #### [facility] [address] [place] [address] Dr. Bernice Hamilton Globulin (S) [Mass/Vol] 3.8 g/dL Normal [facility] Comment on above: Performed By: #### B MP #### [facility] [address] [address] [address] Bernice Hamilton Glucose [Mass/Vol] 214 mg/dL Critically high 74-106 [facility] Comment on above: Performed By: #### B MP #### [facility] [address] [address] [address] Bernice Hamilton Potassium [Moles/Vol] 3.7 mmol/L Normal 3.5-5.1 [facility] Comment on above: Performed By: #### B MP #### [facility] [address] [address] [address] Bernice Hamilton Protein [Mass/Vol] 7.2 g/dL Normal 6.4-8.2 [facility] Comment on above: Performed By: #### B MP #### [facility] [address] [address] [address] Bernice Hamilton Sodium [Moles/Vol] 136 mmol/L Normal 136-145 [facility] Comment on above: Performed By: #### B MP #### [facility] [address] [address] [address] Bernice Hamilton Urea nitrogen [Mass/Vol] 13.0 mg/dL Normal 7.0-18.0 [facility] Comment on above: Performed By: #### B MP #### [facility] [address] [address] [address] Bernice Hamilton Urea nitrogen/Creatinine [Mass ratio] 16.7 mg/mg Normal [facility] Comment on above: Performed By: #### B MP #### [facility] [id number] Bernice Hamilton PROTIMEon 08-21-2021 INR Coag (PPP) [Relative time] 0.97 {INR} Normal [facility] Comment on above: Performed By: #### P T, PTT ####[facility] [address] [address]Dr. Bernice Hamilton INR GUIDELINES SEE BELOW Normal [facility] Comment on above: Result Comment: DAMARIS RED INR: 2.0 - 3.0 CONDITIONS NOT LISTED BELOW 2.5 - 3.5 FOR PROSTHETIC HEART VALVE REPLACEMENT 2.5 - 3.5 RECURRENT THROMBOSIS Performed By: #### P T, PTT ####[facility] [address] [id number]. Bernice Hamilton PT Coag (PPP) [Time] 10.5 s Normal 9.0-11.6 [facility] Comment on above: Performed By: #### P T, PTT ####[facility] [address] [id number]. Bernice Hamilton PTTon 08-21-2021 aPTT Coag (Bld) [Time] 21.9 s Critically low 22.3-36.2 [facility] Comment on above: Performed By: #### P T, PTT ####[facility] [address] [place], [place] [address]Dr. Bernice Hamilton XR CHEST 1 Von 08-21-2021 [...] SARAH BETH MENJIVAR Date: 2021-08-21 15:43 Normal [facility] GLYCOHEMOGLOBIN A1Con 2021 ADA RECOMMENDATION SEE BELOW Normal [facility] Comment on above: Result Comment: ADA RECOMMENDED LIMIT 4.0 - 6.0 ADA THERAPEUTIC TARGET < 7.0 ACTION SUGGESTED > 7.0 Performed By: #### A 1C ####[facility] [address] [address]Dr. Bernice Hamilton Glucose [Mass/Vol] 192 mg/dL Normal [facility] Comment on above: Performed By: #### A 1C ####[facility] [address] [place], [place] [address]Dr. Bernice Hamilton HbA1c (Bld) [Mass fraction] 8.3 % Critically high 4.5-6.2 [facility] Comment on above: Performed By: #### A 1C ####[facility] [address] [place], [place] [address]Dr. Bernice Hamilton PROF 14(COMP METB)on 022 Albumin [Mass/Vol] 3.6 g/dL Normal 3.4-5.0 [facility] Comment on above: Performed By: #### C MP ####[facility] [address] [place], [place] [address]Dr. Bernice Hamilton Albumin/Globulin [Mass ratio] 0.9 {ratio} Normal [facility] Comment on above: Performed By: #### C MP ####[facility] [address] [place], [place] [address]Dr. Bernice Hamilton ALP [Catalytic activity/Vol] 84 U/L Normal 46-116 [facility] Comment on above: Performed By: #### C MP ####[facility] [address] [place], [place] [address]Dr. Bernice Hamilton ALT [Catalytic activity/Vol] 31 U/L Normal 14-59 [facility] Comment on above: Performed By: #### C MP ####[facility] [address] [place], [place] [address]Dr. Bernice Hamilton Anion gap [Moles/Vol] 12.4 mmol/L Normal [facility] Comment on above: Performed By: #### C MP ####[facility] [address] [place], [place] [address]Dr. Bernice Hamilton AST [Catalytic activity/Vol] 19 U/L Normal 15-37 [facility] Comment on above: Performed By: #### C MP ####[facility] [address] [place], [place] [address]Dr. Bernice Hamilton Bilirubin [Mass/Vol] 0.3 mg/dL Normal 0.2-1.0 [facility] Comment on above: Performed By: #### C MP ####[facility] [address] [id number]. Bernice Hamilton Calcium [Mass/Vol] 8.9 mg/dL Normal 8.5-10.1 [facility] Comment on above: Performed By: #### C MP ####[facility] [address] [id number]. Bernice Hamilton Chloride [Moles/Vol] 100 mmol/L Normal 98-107 [facility] Comment on above: Performed By: #### C MP ####[facility] [address] [address]Dr. Bernice Hamilton CO2 [Moles/Vol] 28.8 mmol/L Normal 21.0-32.0 [facility] Comment on above: Performed By: #### C MP ####[facility] [address] [address]Dr. Bernice Hamilton Creatinine [Mass/Vol] 0.79 mg/dL Normal 0.55-1.02 [facility] Comment on above: Performed By: #### C MP ####[facility] [address] [address]Dr. Bernice Hamilton EGFR-AF PANAMANIAN >60 Normal >=60 [facility] Comment on above: Performed By: #### C MP ####[facility] [address] [address]Dr. Bernice Hamilton EGFR-NON AF PANAMANIAN >60 Normal >=60 [facility] Comment on above: Performed By: #### C MP ####[facility] [address] [address]Dr. Bernice Hamilton Globulin (S) [Mass/Vol] 3.9 g/dL Normal [facility] Comment on above: Performed By: #### C MP ####[facility] [address] [address]Dr. Bernice Alfonso Glucose [Mass/Vol] 187 mg/dL Critically high 74-106 [facility] Comment on above: Performed By: #### C MP ####[facility] [address] [place], [place] [address]Dr. Bernice Hamilton Potassium [Moles/Vol] 4.2 mmol/L Normal 3.5-5.1 [facility] Comment on above: Performed By: #### C MP ####[facility] [address] [place], [place] [address]Dr. Bernice Hamilton Protein [Mass/Vol] 7.5 g/dL Normal 6.4-8.2 [facility] Comment on above: Performed By: #### C MP ####[facility] [address] [place], [place] [address]Dr. Bernice Hamilton Sodium [Moles/Vol] 137 mmol/L Normal 136-145 [facility] Comment on above: Performed By: #### C MP ####[facility] [address] [place], [place] [address]Dr. Bernice Hamilton Urea nitrogen [Mass/Vol] 14.0 mg/dL Normal 7.0-18.0 [facility] Comment on above: Performed By: #### C MP ####[facility] [address] [place], [place] [address]Dr. Bernice Alfonso Urea nitrogen/Creatinine [Mass ratio] 17.7 mg/mg Normal [facility] Comment on above: Performed By: #### C MP ####[facility] [address] [place], [place] [address]Dr. Bernice Hamilton CBC AUTO DIFFon 07-28-2021 BASO # 0.1 103/ul Normal 0.0-0.1 [facility] Comment on above: Performed By: #### C BC ####[facility] [address] [place], [place] [address]Dr. Bernice Alfonso Basophils/100 WBC (Bld) 0.8 % Normal 0.2-2.0 [facility] Comment on above: Performed By: #### C BC ####[facility] [address] [place], [place] [address]Dr. Susieshrewin Hamilton EO # 0.5 103/ul Normal 0.0-0.7 [facility] Comment on above: Performed By: #### C BC ####[facility] [address] [place], [place] [address]Dr. Bernice Hamilton Eosinophils/100 WBC (Bld) 5.4 % Normal 0.9-7.0 [facility] Comment on above: Performed By: #### C BC ####[facility] [address] [address]Dr. Bernice Hamilton Erythrocyte distribution width (RBC) [Ratio] 14.6 % Normal 11.0-15.0 [facility] Comment on above: Performed By: #### C BC ####[facility] [address] [address]Dr. Bernice Hamilton Hematocrit (Bld) [Volume fraction] 35.2 % Critically low 36.0-48.0 [facility] Comment on above: Performed By: #### C BC ####[facility] [address] [address]Dr. Bernice Hamilton Hemoglobin (Bld) [Mass/Vol] 11.0 g/dL Critically low 12.0-16.0 [facility] Comment on above: Performed By: #### C BC ####[facility] [address] [address]Dr. Bernice Hamilton IG # 0.04 10e3/ul Critically high 0.00-0.03 [facility] Comment on above: Performed By: #### C BC ####[facility] [address] [address]Dr. Bernice Hamilton IG % 0.5 % Normal 0.0-0.5 [facility] Comment on above: Performed By: #### C BC ####[facility] [address] [address]Dr. Bernice Hamilton LYMPH # 2.7 103/ul Normal 1.2-3.8 [facility] Comment on above: Performed By: #### C BC ####[facility] [address] [address]Dr. Bernice Hamilton Lymphocytes/100 WBC (Bld) 32.7 % Normal 20.5-60.0 [facility] Comment on above: Performed By: #### C BC ####[facility] [address] [address]Dr. Bernice Alfonso MANUAL DIFF REQ NO Normal [facility] Comment on above: Performed By: #### C BC ####[facility] [address] [address]Dr. Bernice Hamilton MCH (RBC) [Entitic mass] 24.6 pg Critically low 26.7-34.0 [facility] Comment on above: Performed By: #### C BC ####[facility] [address] [address]Dr. Bernice Alfonso MCHC (RBC) [Mass/Vol] 31.3 g/dL Normal 29.9-35.2 [facility] Comment on above: Performed By: #### C BC ####[facility] [address] [address]Dr. Bernice Alfonso MCV (RBC) [Entitic vol] 78.7 fL Critically low 81.0-99.0 [facility] Comment on above: Performed By: #### C BC ####[facility] [address] [place], [place] [address]Dr. Bernice Alfonso MONO # 0.6 103/ul Normal 0.3-0.8 [facility] Comment on above: Performed By: #### C BC ####[facility] [address] [place], [place] [address]Dr. Susiesherwin Hamilton Monocytes/100 WBC (Bld) 7.0 % Normal 1.7-12.0 [facility] Comment on above: Performed By: #### C BC ####[facility] [address] [place], [place] [address]Dr. Bernice Alfonso NEUT # 4.5 103/ul Normal 1.4-6.5 [facility] Comment on above: Performed By: #### C BC ####[facility] [address] [place], [place] [address]Dr. Bernice Hamilton Neutrophils/100 WBC (Bld) 53.6 % Normal 43.0-75.0 [facility] Comment on above: Performed By: #### C BC ####[facility] [address] [address]Dr. Bernice Hamilton Platelet mean volume (Bld) [Entitic vol] 11.0 fL Normal 9.5-13.5 [facility] Comment on above: Performed By: #### C BC ####[facility] [address] [id number]. Bernice Hamilton PLT 305 103/ul Normal 150-450 [facility] Comment on above: Performed By: #### C BC ####[facility] [address] [address]Dr. Bernice Hamilton RBC 4.47 106/ul Normal 4.20-5.40 [facility] Comment on above: Performed By: #### C BC ####[facility] [address] [address]Dr. Bernice Hamilton WBC 8.4 103/ul Normal 4.0-11.0 [facility] Comment on above: Performed By: #### C BC ####[facility] [address] [address]DrPablo Hamilton MAGNESIUMon 07-28-2021 Magnesium [Mass/Vol] 1.5 mg/dL Critically low 1.8-2.4 [facility] Comment on above: Performed By: #### Mara SORIANO PREGU #### [facility] [address] [address] [address] Bernice Hamilton PROF 14(COMP METB)on 022 Albumin [Mass/Vol] 3.4 g/dL Normal 3.4-5.0 [facility] Comment on above: Performed By: #### H LOY, CMP ####[facility] [address] [address]DrPablo Hamilton Albumin/Globulin [Mass ratio] 0.8 {ratio} Normal [facility] Comment on above: Performed By: #### H LOY, CMP ####[facility] [address] [address]DrPablo Hamilton ALP [Catalytic activity/Vol] 81 U/L Normal 46-116 [facility] Comment on above: Performed By: #### H STROPN, CMP ####[facility] [address] [id number]. Bernice Hamilton ALT [Catalytic activity/Vol] 31 U/L Normal 14-59 [facility] Comment on above: Performed By: #### H STROPN, CMP ####[facility] [address] [id number]. Bernice Hamilton Anion gap [Moles/Vol] 14.3 mmol/L Normal [facility] Comment on above: Performed By: #### H STROPN, CMP ####[facility] [address] [place], [place] [address]Dr. Bernice Hamilton AST [Catalytic activity/Vol] 18 U/L Normal 15-37 [facility] Comment on above: Performed By: #### H STROGILLIAN, CMP ####[facility] [address] [place], [place] [address]Dr. Bernice Hamilton Bilirubin [Mass/Vol] 0.3 mg/dL Normal 0.2-1.0 [facility] Comment on above: Performed By: #### H STROGILLIAN, CMP ####[facility] [address] [place], [place] [address]Dr. Bernice Hamilton Calcium [Mass/Vol] 9.1 mg/dL Normal 8.5-10.1 [facility] Comment on above: Performed By: #### H STROPN, CMP ####[facility] [address] [place], [place] [address]Dr. Bernice Hamilton Chloride [Moles/Vol] 102 mmol/L Normal 98-107 [facility] Comment on above: Performed By: #### H STROPN, CMP ####[facility] [address] [place], [place] [id number]. Bernice Hamilton CO2 [Moles/Vol] 26.1 mmol/L Normal 21.0-32.0 [facility] Comment on above: Performed By: #### H STROPN, CMP ####[facility] [address] [id number]. Bernice Hamilton Creatinine [Mass/Vol] 0.81 mg/dL Normal 0.55-1.02 [facility] Comment on above: Performed By: #### H STROPN, CMP ####[facility] [address] [address]Dr. Bernice Hamilton EGFR-AF PANAMANIAN >60 Normal >=60 [facility] Comment on above: Performed By: #### H STROPN, CMP ####[facility] [address] [address]Dr. Bernice Hamilton EGFR-NON AF PANAMANIAN >60 Normal >=60 [facility] Comment on above: Performed By: #### H STROPN, CMP ####[facility] [address] [address]Dr. Bernice Hamilton Globulin (S) [Mass/Vol] 3.8 g/dL Normal [facility] Comment on above: Performed By: #### H STROPN, CMP ####[facility] [address] [place], [place] [address]Dr. Susiesherwin Hamilton Glucose [Mass/Vol] 206 mg/dL Critically high 74-106 [facility] Comment on above: Performed By: #### H STROPN, CMP ####[facility] [address] [place], [place] [address]Dr. Bernice Alfonso Potassium [Moles/Vol] 3.4 mmol/L Critically low 3.5-5.1 [facility] Comment on above: Performed By: #### H STROPN, CMP ####[facility] [address] [address]Dr. Bernice Hamilton Protein [Mass/Vol] 7.2 g/dL Normal 6.4-8.2 [facility] Comment on above: Performed By: #### H STROPN, CMP ####[facility] [address] [place], [place] [address]Dr. Bernice Hamilton Sodium [Moles/Vol] 139 mmol/L Normal 136-145 [facility] Comment on above: Performed By: #### H STROPN, CMP ####[facility] [address] [place], [place] [address]Dr. Bernice Alfonso Urea nitrogen [Mass/Vol] 16.0 mg/dL Normal 7.0-18.0 [facility] Comment on above: Performed By: #### H LOY, CMP ####[facility] [address] [id number]. Bernice Hamilton Urea nitrogen/Creatinine [Mass ratio] 19.7 mg/mg Normal [facility] Comment on above: Performed By: #### H LOY, CMP ####[facility] [address] [id number]. Bernice Hamitlon TROPONIN, HIGH SENSITIVITYon 07-28-2021 HSTROP 10.4 pg/mL Normal 4.0-51.3 [facility] Comment on above: Result Comment: CUT- OFF POINTS HAVE BEEN ESTABLISHED BASED ON THE FOURTH UNIVERSAL DEFINITIONS OF MYOCARDIAL INFARCTION. THE UPPER REFERENCE LIMIT (URL) OF TROPONIN, DEFINED THE 99TH PERCENTILE OF cTnI DISTRIBUTION IN A REFERENCE POPULATION, HAS BEEN CONFIRMED THE DECISION THRESHOLD FOR [place] DIAGNOSIS. Performed By: #### H LOY, CMP ####[facility] [address] [phone]. Bernice Hamilton XR CHEST 1 Von 07-28-2021 [...] by: HETAL ENCARNACION Date: 2021-07-28 15:17 Normal [facility] Chlamydia/GC/Trich NAAon Chlamydia Trachomotis, JOSIAS Negative Normal Negative [facility] Comment on above: Order Comment: Reaso n for Exam High risk sexual behavior, unspecified type Performed By: #### G CCHLAMTRI #### [facility] , #### CUU #### [address] Neisseria Gonorrhoeae, JOSIAS Negative Normal Negative [facility] Comment on above: Order Comment: Reaso n for Exam High risk sexual behavior, unspecified type Performed By: #### G CCHLAMTRI #### [facility] , #### CUU #### [facility] [address] [place] [address] Trichomonas JOSIAS Negative Normal Negative [facility] Comment on above: Order Comment: Reaso n for Exam High risk sexual behavior, unspecified type Result Comment: Perf ormed at: =G - [facility] [address] [id number] Seo Team Lead: Taylor Bowser MD, Phone: [phone] PERFORMED BY: [place] [address] PATHOLOGIST MUTUEL TELLER ANGELI TINAJERO M.D. Performed By: #### G CCHLAMTRI #### [facility] , #### CUU #### [address] Urine Cultureon 07-11-2020 Bacteria identified Cx Nom (U) Reason for Exam Dysuria Urine Reason for Exam: Dysuria : Urine ORGANISM: Escherichia coli (O:ESCCOL) [place] Count >100,000 Aerobic SIMONE Charge (NUC86) -- [...] RESISTANT TO ALL B-LACTAM DRUGS. PERFORMED BY: [place] [address] PATHOLOGIST MUTUEL TELLER ANGELI TINAJERO M.D. [facility] Comment on above: Performed By: #### G CCHLAMTRI #### [facility] , #### CUU #### [facility] [address] [place] [address] Comprehensive Metabolic Empo n 04-26-2020 Albumin [Mass/Vol] 3.9 g/dL Normal 3.2-5.5 [facility] Comment on above: Performed By: #### E BS A1C, EBS CMP, LIPID #### [facility] [address] [place] [address] Albumin/Globulin [Mass ratio] 1.4 {ratio} [facility] Comment on above: Performed By: #### E BS A1C, EBS CMP, LIPID #### [facility] [address] [place] [address] [place] ALP [Catalytic activity/Vol] 66 U/L Normal 32-92 [facility] Comment on above: Performed By: #### E BS A1C, EBS CMP, LIPID #### [facility] [address] [place], [place] [id number] [place] ALT [Catalytic activity/Vol] 20 U/L Normal 10-60 [facility] Comment on above: Performed By: #### E BS A1C, EBS CMP, LIPID #### [facility] [address] [place], [place] [address] [place] AST [Catalytic activity/Vol] 19 U/L Normal 10-42 [facility] Comment on above: Performed By: #### E BS A1C, EBS CMP, LIPID #### [address] [place] [address] [place] Bilirubin [Mass/Vol] 0.8 mg/dL Normal 0.3-1.2 [facility] Comment on above: Performed By: #### E BS A1C, EBS CMP, LIPID #### [facility] [address] Calcium [Mass/Vol] 9.6 mg/dL Normal 8.2-10.2 [facility] Comment on above: Performed By: #### E BS A1C, EBS CMP, LIPID #### [facility] [address] Chloride [Moles/Vol] 96 mmol/L Normal 95-114 [facility] Comment on above: Performed By: #### E BS A1C, EBS CMP, LIPID #### [address] CO2 [Moles/Vol] 25.9 mmol/L Normal 22.0-30.0 [facility] Comment on above: Performed By: #### E BS A1C, EBS CMP, LIPID #### [address] Creatinine [Mass/Vol] 0.74 mg/dL Normal 0.44-1.03 [facility] Comment on above: Performed By: #### E BS A1C, EBS CMP, LIPID #### [address] Estimated GFR ( Rea > 60 Normal [facility] Comment on above: Result Comment: GFR estimated reference range: According to KDOQI guidelines, <60 ml/min/1.73m2 is sufficient to diagnose a patient with chronic kidney disease. Performed By: #### E BS A1C, EBS CMP, LIPID #### [facility] [address] [place] [address] Estimated GFR (Non- Am > 60 Normal [facility] Comment on above: Performed By: #### E BS A1C, EBS CMP, LIPID #### [facility] [address] [place] [address] [place] Globulin (S) [Mass/Vol] 2.8 g/dL Normal [facility] Comment on above: Performed By: #### E BS A1C, EBS CMP, LIPID #### [facility] [address] [place] [address] [place] Glucose [Mass/Vol] 155 mg/dL High 70-100 [facility] Comment on above: Result Comment: ADA recommended reference range Performed By: #### E BS A1C, EBS CMP, LIPID #### [facility] [address] [place] [address] [place] Potassium [Moles/Vol] 3.5 mmol/L Normal 3.5-5.1 [facility] Comment on above: Performed By: #### E BS A1C, EBS CMP, LIPID #### [facility] [address] Protein [Mass/Vol] 6.7 g/dL Normal 6.1-7.9 [facility] Comment on above: Performed By: #### E BS A1C, EBS CMP, LIPID #### [facility] [address] [place] [address] [place] Sodium [Moles/Vol] 134 mmol/L Low 136-146 [facility] Comment on above: Performed By: #### E BS A1C, EBS CMP, LIPID #### [facility] [address] [place] [address] [place] Urea nitrogen [Mass/Vol] 11 mg/dL Normal 9-23 [facility] Comment on above: Performed By: #### E BS A1C, EBS CMP, LIPID #### [facility] [address] EBS A1C with Estimated Avmara ash 04-26-2020 Glucose [Mass/Vol] 169 mg/dL Normal [facility] Comment on above: Result Comment: PERF ORMED BY: [place] [address] PATHOLOGIST MUTUEL TELLER ANGELI TINAJERO M.D. Performed By: #### E BS A1C, EBS CMP, LIPID #### [facility] [address] [place] [address] [place] HbA1c (Bld) [Mass fraction] 7.5 % High 4.3-5.6 [facility] Comment on above: Result Comment: Incr eased risk for diabetes: 5.7 - 6.4 diabetes: >6.4 glycemic control for adults with diabetes: <7.0 Performed By: #### E BS A1C, EBS CMP, LIPID #### [facility] [address] [id number] [facility] Lipid Panelon 04-26-2020 Cholesterol [Mass/Vol] 203 mg/dL High 140-200 [facility] Comment on above: Result Comment: Chol less than 200 mg/dl low risk Chol 201-239 mg/dl borderline risk Chol 240 mg/dl and greater high risk Performed By: #### E BS A1C, EBS CMP, LIPID #### [facility] [address] [id number] [facility] Cholesterol in HDL [Mass/Vol] 65 mg/dL Normal 35-85 [facility] Comment on above: Result Comment: HDL CHOL ATP-III CLASSIFICATION Cardiovascular Risk HDL > or equal to 60 mg/dL LOW HDL < 40 mg/dL HIGH Performed By: #### E BS A1C, EBS CMP, LIPID #### [facility] [address] [place] [address] [place] Cholesterol.total/Ch olesterol in HDL [Mass ratio] 3.1 {ratio} Normal <5.0 [facility] Comment on above: Result Comment: PERF ORMED BY: [place] [address] PATHOLOGIST MUTUEL TELLER ANGELI TINAJERO M.D. Performed By: #### E BS A1C, EBS CMP, LIPID #### [facility] [address] [id number] [place] LDL Cholesterol,Calculat ed 117 mg/dL High 0-100 [facility] Comment on above: Result Comment: LDL ATP III CLASSIFICATION LDL less than 100 mg/dL Optimal LDL 100-129 mg/dL Near or above optimal LDL 130-159 mg/dL Borderline high LDL 160-189 mg/dL High LDL greater than 189 mg/dL Very high Performed By: #### E BS A1C, EBS CMP, LIPID #### [facility] [address] [id number] [place] Triglyceride w/Reflex 103 mg/dL Normal 35-149 [facility] Comment on above: Result Comment: TRIG ATP III CLASSIFICATION TRIG less than 150 mg/dL Normal TRIG 150-199 mg/dL Borderline high TRIG 200-500 mg/dL High TRIG greater than 500 mg/dL Very high Standard traceable to the Center for Disease Conrtrol and Prevention (CDC) test method. Performed By: #### E BS A1C, EBS CMP, LIPID #### [facility] [address] VLDL CHOLESTEROL 20 mg/dL Normal [facility] Comment on above: Performed By: #### E BS A1C, EBS CMP, LIPID #### [facility] [address] [id number] [facility] Vital Signs Date Time Vital Sign Value Performing Clinician Facility 03-19-2024 16:04-0500 Body mass index (BMI) [Ratio] 31.16 kg/m2 Padmini GONZALEZ Work Phone: [facility] 03-19-2024 16:04-0500 Body weight 95.71 kg Padmini GONZALEZ Work Phone: [facility] 03-19-2024 16:04-0500 Diastolic blood pressure 78 mm[Hg] Padmini GONZALEZ Work Phone: [facility] 03-19-2024 16:04-0500 Systolic blood pressure 124 mm[Hg] Padmini GONZALEZ Work Phone: [facility] 11-11-2022 09:35-0400 Body height 175.26 cm Reva Zimmerman Other [facility] Other 11-11-2022 09:35-0400 Body mass index (BMI) [Ratio] 32.48 kg/m2 Reva Zimmerman Other [facility] Other 11-11-2022 09:35-0400 Body weight 99.79 kg Reva Zimmerman Other [facility] Other 11-11-2022 09:35-0400 Diastolic blood pressure 90 mm[Hg] Reva Zimmerman Other [facility] Other 11-11-2022 09:35-0400 SaO2% (BldA) [Mass fraction] 98 % Reva Zimmerman Other [facility] Other 11-11-2022 09:35-0400 Systolic blood pressure 142 mm[Hg] Reva Zimmerman Other [employer] [facility] Other 03-23-2022 10:17-0500 Blood Pressure Location Polina [employer] [facility] 03-23-2022 10:17-0500 Diastolic blood pressure 81 mm[Hg] Polina WINNL [facility] 03-23-2022 10:17-0500 Heart rate 88 /min Polina [employer] [facility] 03-23-2022 10:17-0500 Respiratory rate 16 /min Polina [employer] [facility] 03-23-2022 10:17-0500 Systolic blood pressure 141 mm[Hg] Polina WINNL [facility] Encounters Encounter Date Encounter Type Care Provider Facility Start: 03-19-2024 End: 03-19-2024 Office outpatient visit 15 minutes Padmini GONZALEZ Work Phone: [facility] Comment on above: Hormone disorder; Osteoporosis, post-menopausal (CMS/HCC) Start: 03-19-2024 End: 03-19-2024 ambulatory PADMINI MARR Not Available Start: 03-19-2024 End: 03-19-2024 Bamboo flowsheet Padmini GONZALEZ Work Phone: [facility] Start: 03-19-2024 End: 03-19-2024 Bamboo flowsheet Padmini GONZALEZ Work Phone: [facility] Start: 11-11-2022 End: 11-11-2022 ambulatory Reva Elsie Other [facility] Other Start: 11-11-2022 Office outpatient vi sit 15 minutes Reva Zimmerman [facility] Start: 07-18-2022 End: 07-19-[address] PEPITO QUACH . Facility:[facility] Start: 06-16-2022 Encounter for other preprocedural examination DR PEPITO QUACH . [facility] Start: 06-16-2022 Encounter for preprocedural laboratory examination DR PEPITO QUACH . [facility] Start: 06-15-[address] PEPITO QUACH . [...] Start: 2022 End: 04-20-2022 ambulatory Polina BIRD Facility:CD:[id number] Start: 04-15-[address] KATHLEEN BUSBY . Facili ty:[facility] Start: 03-23-2022 End: 03-24-2022 ambulatory Polina BIRD Facility:[facility] Start: 03-23-2022 End: 03-23-2022 Patient encounter procedure Polina BIRD [facility] Start: 03-20-2022 ambulatory Polina BIRD Facility:[facility] Start: 03-13-2022 End: 03-13-[address] KATHLEEN BUSBY . Facility:[facility] Start: 02-28-2022 End: 02-28-[address] PEPITO QUACH . Facility:[facility] Start: 02-24-2022 End: 02-25-[address] KATHLEEN BUSYB . Facility:[facility] Start: 02-20-2022 Encounter for preprocedural cardiovascular examination DR PEPITO QUACH . [facility] Start: 02-16-2022 End: 02-17-[address] [...] Date Procedure Procedure Detail Performing Clinician Start: 08-30-2022 H/O: hysterectomy S/P hysterectomy A stacy GONZALEZ Work Phone: Start: 09-05-2017 Colonoscopy Padmini GONZALEZ Work Phone: Start: 09-05-2017 Colonoscopy Polina GONZALES Start: 04-11-2017 Microscopic observat ion [Identifier] in Cervix by Cyto stain Padmini GONZALEZ Work Phone: Start: 03-12-2012 Colonoscopy Polina GONZALES Start: 03-12-2001 section Dori WINNL Start: 03-12-1994 section Dori hutchins NILL Start: 03-12-1991 section Dori hutchins NILL Start: 03-12-1986 section Dori hutchins NILL Arthroscopy of hip Polina CHAMBERS Cholecystectomy Polina BIRD Dilation and curettage Ar BIRD Hysteroscopy Polina BIRD Plan of Treatment Date Care Activity Detail Author Start: 09-06-2027 Screening for malign ant neoplasm of colon [facility] Start: 03-19-2024 End: 03-19-2024 Patient encounter procedure 03/19/2024 3:30 PM EST Office Visit [facility] [address] [place] [address] Padmini Marr PA [address] [place], [place] [id number] Arrived [facility] Comment on above: Arrived Start: 03-19-2024 End: 03-19-2025 DXA Skeletal system Views for bone density DEXA bone density Imaging Routine Osteoporosis, post-menopausal ([facility]/HCC) Expected: 03/19/2024 (Approximate), Expires: 03/19/2025 [facility] Work Phone: Comment on above: Expected: 03/19/2024 (Approximate), Expires: 03/19/2025 Start: 11-11-2023 Influenza vaccination Influenz a Vaccine (#1) [facility] Start: 04-11-2022 Screening for malign ant neoplasm of cervix [facility] Start: 2007 Screening for malign ant neoplasm of breast Mammogram [facility] Start: 1967 Screening for malign ant neoplasm of colon [facility] Immunizations Immunization Date Immunization Notes Care Provider Fa cility 12-13-2023 influenza virus vaccine, unspecified formulation Padmini GONZALEZ Work Phone: [facility] 12-12-2021 influenza, unspecifi ed formulation Polina TATUML [facility] 02-01-2021 SARS-CoV-2 (COVID-19 ) mRNA-1273 vaccine Polina NILL [facility] 04-13-2020 SARS-CoV-2 (COVID-19 ) mRNA-1273 vaccine Polina NILL [facility] 03-10-2020 SARS-CoV-2 (COVID-19 ) mRNA-1273 vaccine Polina NILL [facility] Payers Date Payer Category Payer [facility] er [id number] 2019 Unknown [id number] 1967 Unknown [id number] 2.16.840.1.866474.3.579.2. 727 1967 Unknown [id number] 2.16.840.1.530527.3.579.2. 727 1967 Unknown [id number] 2.16.840.1.040496.3.579.2. 593 1967 Unknown [id number] 2.16.840.1.589992.3.579.2. 593 1967 Unknown [id number] 2.16.840.1.505787.3.579.2. 593 1967 Unknown [id number] 2.16.840.1.624163.3.579.2. 593 1967 Unknown [id number] 2.16.840.1.753224.3.579.2. 593 1967 Unknown [id number] 2.16.840.1.004204.3.579.2. 593 1967 Unknown [id number] 2.16.840.1.947105.3.579.2. 593 1967 Unknown [id number] 2.16.840.1.219292.3.579.2. 593 1967 Unknown [id number] 2.16.840.1.605889.3.579.2. 593 1967 Unknown [id number] 2.16.840.1.902047.3.579.2. 593 1967 Unknown [id number] 2.16.840.1.519498.3.579.2. 593 1967 Unknown [id number] 2.16.840.1.443982.3.579.2. 593 1967 Unknown [id number] 2.16.840.1.722786.3.579.2. 593 1967 Unknown [id number] 2.16.840.1.903781.3.579.2. 593 1967 Unknown [id number] 2.16.840.1.751427.3.579.2. 593 1967 Unknown [id number] 2.16.840.1.064456.3.579.2. 593 1967 Unknown [id number] 2.16.840.1.385919.3.579.2. 593 1967 Unknown [id number] 2.16.840.1.724600.3.579.2. 593 1967 Unknown [id number] 2.16.840.1.423090.3.579.2. 593 1967 Unknown [id number] 2.16.840.1.355039.3.579.2. 593 1967 Unknown [id number] 2.16.840.1.229748.3.579.2. 1259 1959 Self-pay 1959 Unknown [id number] 1959 Unknown [id number] Unknown [id number] 2.16.840.1.003958.3.579.2. 593 Social History Date Type Detail Facility Start: 03-23-2022 End: 09-29-2022 Tobacco smoking status Ex-smoker (finding) [facility] Tobacco smoking status Never [facility] Start: 10-02-2022 End: 03-19-2024 Sex Assigned At Female [facility] History of tobacco use Current smoker [facility] History of tobacco use Cigarette Smoker [facility] Start: 10-02-2022 End: 03-19-2024 Alcoholic beverage intake Current drinker of alcohol (finding) [facility] Start: 10-02-2022 End: 03-19-2024 History of Social function [facility] Start: 09-29-2022 Alcohol Comment less than branden hly, Caffeine intake: 1-2 cups per day [facility] Start: 1965 Sex assigned at Not on file [facility] Medical Equipment Procedure Code Equipment Code Equipment Original Text Equi pment Identifier Dates Functional Status Date Assessment Result Facility 03-23-2022 Functional Status N/A [facility] History of Present illness Narrative 03-19-2024 CARLOS Murphy - 03/19/2024 3:30 PM EST Note Date & Type Note Facility 03-19-2024 History of Presen t illness Narrative Reason for Appointment: Patient ID: Britney Jaqueline is a 58 y.o. female who presents for Menopause (Pt present today for post menopause symptoms) Patient presents today for Menopause symptoms MEDICATIONS Current Outpatient Medications Medication Instructions empagliflozin (Jardiance) 10 MG Every 24 hours insulin glargine (Basaglar KwikPen) 100 UNIT/ML pen as directed Subcutaneous Trulicity 3 mg, Subcutaneous, Weekly ALLERGIES Allergies Allergen Reactions Sulfamethoxazole-Trimethoprim Other Reaction(s): Unknown Penicillins Rash PROBLEMS Active Ambulatory Problems Diagnosis Date Noted Dysmenorrhea 08/30/2022 Menorrhagia with irregular cycle 08/30/2022 Nasal obstruction 08/30/2022 Obstructive sleep apnea syndrome 08/30/2022 Pain in female genitalia on intercourse 08/30/2022 Pain in female pelvis 08/30/2022 S/P hysterectomy 08/30/2022 Postoperative visit 08/30/2022 Resolved Ambulatory Problems Diagnosis Date Noted No Resolved Ambulatory Problems Past Medical History: Diagnosis Date Diabetes ([facility]) Diverticulosis Hypertension ([facility]) Obstructive sleep apnea HISTORY PAST MEDICAL HISTORY SOCIAL HISTORY Past Medical History: Diagnosis Date Diabetes ([facility]/HCC) Diverticulosis Hypertension ([facility]) Nasal obstruction Obstructive sleep apnea Social History Tobacco Use Smoking status: Former Types: Cigarettes Smokeless tobacco: Not on file Substance Use Topics Alcohol use: Yes Comment: less than monthly, Caffeine intake: 1-2 cups per day Drug use: Not on file FAMILY HISTORY Family History Problem Relation Name Age of Onset Hypertension Mother Diabetes Mother Asthma Father Heart disease Father Stroke Father SURGICAL HISTORY Past Surgical History: Procedure Laterality Date SECTION, CLASSIC 4 total DILATION AND CURETTAGE OF UTERUS GALLBLADDER SURGERY TOTAL VAGINAL HYSTERECTOMY 08/23/2022 TUBAL LIGATION REVIEW OF SYSTEMS Review of Systems: Review of Systems Constitutional: Negative. HENT: Negative. Eyes: Negative. Respiratory: Negative. Cardiovascular: Negative. Gastrointestinal: Negative. Genitourinary: Negative. Musculoskeletal: Negative. Skin: Negative. Neurological: Negative. All other systems reviewed and are negative. Hematological: Negative. Endocrine: Negative. Allergic/Immunologic: Negative. OBJECTIVE Objective: Physical Exam Constitutional: Appearance: Normal appearance. She is normal weight. Genitourinary: Rectum: Tenderness and external hemorrhoid present. HENT: Head: Normocephalic. Cardiovascular: Rate and Rhythm: Normal rate. Pulses: Normal pulses. Pulmonary: Effort: Pulmonary effort is normal. Breath sounds: Normal breath sounds. Abdominal: Palpations: Abdomen is soft. Musculoskeletal: General: Normal range of motion. Neurological: General: No focal deficit present. Mental Status: She is alert and oriented to person, place, and time. Psychiatric: Mood and Affect: Mood normal. Behavior: Behavior normal. Thought Content: Thought content normal. Judgment: Judgment normal. Vitals and nursing note reviewed. Vitals: Estimated body mass index is 31.16 kg/m as calculated from the following: Height as of 10/02/22: 5' 9 . Weight as of this encounter: 211 lb. BP: 124/78 No LMP recorded. Patient has had a hysterectomy. ASSESSMENT & PLAN ICD-10-CM 1. Hormone disorder E34.9 Patient presents to discuss hot flashes. States they have increased and keeping her up at night. Pt wishes to try natural supplements rather than estradiol at this time. Patient given order for dexascan. I examined external rectal tag vs hemorrhoid. Pt states she had discussed removal with DR Bird in past and was not done w her colonoscopy as she hoped. Patient advised to reach back out to DR Bird for removal Documented by Kendra Hernandes MA on behalf of: CARLOS Murphy documented in this encounter [facility] Healthcare Evaluation note 11-11-2022 Note Date & Type Note Facility 11-11-2022 Evaluation note Encounter Date Diagnosis Assessment Notes Nov, Abrasion of left cornea, initial encounter (ICD-10 - S05.02XA) Corneal abrasion home care material was printed Drink plenty fluids, get plenty of rest. Use the eyedrops as prescribed. Follow-up with your family physician if no improvement in 2 to 3 days [facility] Other Clinical Note 2022 Note Date & [...] colon polyps. CC: Kathleen Busby M.D. [facility] Clinical Note 03-23-2022 Note Date & Type Note Facility 03-23-2022 Note Chief Complaint consultation for abdominal pain HPI Staff 56 year old female presents on consultation from [place] for abdominal pain. Presented with complaint of LLQ pain, nausea, vomiting and diarrhea; diagnosed with gastroenteritis. Symptoms resolved one day after ED evaluation. Last colonoscopy completed 08/2017-normal. History of Present Illness 56 yo female with h/o htn, DMII, hypercholesterolemia, migraines, referred from [facility] ED for epidsode of gastroenteritis; patient was [...] qWeek Allergies Bact (more content not included)... [facility] Comment on above: Result Comment: Elec tronically [...] bleeding. ANESTHESIA: General. SURGEON: Pepito Quach D.O. SHUTDOWN COORDINATOR: None. BLOOD LOSS: 5 mL URINE OUTPUT: [...] the Recovery Room in stable condition. [facility] Evaluation + Plan note Note Date & Type Note Facility Evaluation + Plan note No data available for this section [facility] Evaluation note Note Date & Type Note Facility Evaluation note Diagnosis Hormone disorder Unspecified endocrine disorder Osteoporosis, post-menopausal (CMS/HCC) Senile osteoporosis documented in this encounter [facility] History general Narrative - Reported Note Date & Type Note Facility History general Narrative - Reported Type Medical History HTN (hypertension) Medical History DM (diabetes mellitus) Medical History Anxiety Surgical History cholecystectomy Surgical History C section x4 Surgical History hip arthroscopy Surgical History hysterectomy 08/2022 Surgical History colonoscopy 2022 Surgical History ablation, D&C 02/2022 Hospitalization History See Above [facility] Other Hospital Discharge instructions Note Date & Type Note Facility Hospital Discharge instructions No data available for this section [facility] Progress note Note Date & Type Note Facility Progress note No data available for this section [facility] Summary Purpose Family History No Family History Records FoundNo Family History Records FoundNo Family History Records FoundNo Family History Records Found Advance Directives No Advanced Directives Records FoundNo Advanced Directives Records FoundNo Advanced Directives Records FoundNo Advanced Directives Records Found Additional Source Comments INFORMATION SOURCE (unrecogn ized section and content) DATE CREATED AUTHOR 07/14/2020 [facility] DATE CREATED AUTHOR AUTHOR'S ORGANIZ ATION 04/27/[address] 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 [email or web address]. provides no warranty or guarantee of the accuracy or completeness of information in this document.
--- NOTE | 2024-03-26 09:53 | XR_ITS ---
The [address] [address] Patient Name: RENO HARRIS MRN: [id number] date: 1965 Sex: F Assigned Patient Location: [facility] Current Patient Location: [facility] Accession/Order Number: [id number] Exam Date: 03/26/2024 09:40 Report Date: 03/26/2024 13:09 At the request of: ROSALIO MARR Procedure: XR DEXA axial skeleton EXAMINATION: XR DEXA axial skeleton, 03/26/2024 9:40 AM EST HISTORY: Osteoporosis COMPARISON: None. TECHNIQUE: Dual-energy X-ray absorptiometry (DEXA) bone density study performed for the axial skeleton. FINDINGS: Bone mineral density of the AP spine L1-L4 measures 1.545 g percent meters per. T score 3.0. Normal. Lowest bone mineral density right femoral trochanter measures 0.895 g/sq cm. T score 0.4. Normal XR/XR DEXA axial skeleton IMPRESSION: Normal bone mineral density 10 year fracture risk not reported because T score is at or above -1.0 Pharmacologic treatment recommendations * No uniform recommendation applies to all patients. Management plans must be individualized. * Consider initiating pharmacologic treatment in postmenopausal women and men >= 50 years of age who have the following: Primary fracture prevention: * T-score <= - 2.5 at the femoral neck, total hip, lumbar spine, 33% radius (some uncertainty with existing data) by DXA. * Low bone mass (osteopenia: T-score between - 1.0 and - 2.5) at the femoral neck or total hip by DXA with a 10-year hip fracture risk >= 3% or a 10-year major osteoporosis-related fracture risk >= 20% (i.e., clinical vertebral, hip, forearm, or proximal humerus) based on the [place]-adapted FRAXregistered model. Secondary fracture prevention: * Fracture of the hip or vertebra regardless of BMD [4, 5]. * Fracture of proximal humerus, pelvis, or distal forearm in persons with low bone mass (osteopenia: T-score between - 1.0 and - 2.5). The decision to treat should be individualized in persons with a fracture of the proximal humerus, pelvis, or distal forearm who do not have osteopenia or low BMD [12, 13]. Medardo MS, No SL, Prieto KL, Mary EM, Cherri KG, Vizcarra AJ, Lotus ES. The clinician's guide to prevention and treatment of osteoporosis. Osteoporos Int. 2021;33(10):1716-8726. doi: 10.1007/i18856-053-53414-a. Epub 2021Jul 07. Erratum in: Osteoporos Int. 2021Oct 06;: PMID: [id number]; PMCID: [id number]. Electronically authenticated by: HETAL ENCARNACION Date: 03/26/2024 13:09
== END 2024-03-26 08:08 | disposition home or self-care (01) ==
LOC: RAD 08:08
PROVIDERS: PCP Family Medicine; Visit Provider Physician Assistant
DX: M81.0 Age-related osteoporosis without current pathological fracture (principal)
CPT/HCPCS: 77080

== ENCOUNTER 2024-07-03 15:35 | Outpatient (RCR) | payer BC, SELFPAY | END 2024-08-08 09:25 | disposition home or self-care (01) | LOC: PT 15:35 | PROVIDERS: PCP Family Medicine; Visit Provider Family Medicine | DX: M54.50 Low back pain, unspecified (principal); M25.551 Pain in right hip | CPT/HCPCS: 20560; 97014; 97035; 97110; 97140; 97161 ==

== ENCOUNTER 2024-08-06 07:46 | Outpatient (OUT) | payer BC, SELFPAY ==
--- OUTSIDE RECORDS SUMMARY | 2024-08-06 08:03 | XMS_ITS | CCD ---
Author Organization [facility] Care Team Providers Care Dough Sheeter Name Role Phone Kathleen Busby Primary Care [...] ., JOESPH Consulting Unavailable HOY ., DR AWNG Admitting Unavailable HOY ., DR WANG Primary [...] ASH Consulting Unavailable MANUELA PICKARD Consulting Unavailable JACK CUADRAERY Delia Admitting [...] Unavailable Kathleen Busby MD Primary Care Provider [phone] PADMINI MARR Attending Unavailable Allergies Allergy Classification Reported Allergen(s) Allergy Type Date of Onset Reaction(s) Facility (6 sources) Penicillins; Translations: [penicillins] Drug allergy 08-31-19 Eruption of skin (disorder), Rash [facility] (5 sources) Sulfamethoxazole / Trimethoprim; Translations: [sulfamethoxazole-tr imethoprim] Drug Allergy 10-03-19 Unknown (qualifier value) [facility] (1 source) Bacitracin Drug Allergy [facility] (1 source) Sulfamethoxazole / Trimethoprim Drug Allergy [facility] (1 source) penicillAMINE Drug Allergy rash [employer] Other Medications Current Medications Medication Drug Class(es) [...] encounter] Onset: 09-27-2021 Episodic Unclassified (1 source) 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 NONINSULN ANTIDIAB; Translations: [GROUP HOME INJECT NONINSULN ANTIDIAB] Onset: 04-25-2022 Unclassified (4 [...] Onset: 03-15-2022 Episodic Other aftercare (1 source) [facility] (current) use of oral hypoglycemic drugs; Translations: [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 USE ORAL HYPOGLYCEMIC DX] Onset: 04-25-2022 Episodic Other aftercare (1 source) [facility] (current) use of insulin; Translations: [GROUP HOME CURRENT USE OF INSULIN] Onset: 03-15-2022 Episodic 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 Bernice Hamilton Glucose [Mass/Vol] 160 mg/dL Normal [facility] Comment on above: Performed By: #### B MP #### [facility] [address] [address] [address] Bernice Hamilton HbA1c (Bld) [Mass fraction] 7.2 % Critically high 4.5-6.2 [facility] Comment on above: Performed By: #### B MP #### [facility] [address] [address] [address] Bernice Hamilton GLYCOHEMOGLOBIN A1Con 2022 ADA RECOMMENDATION SEE BELOW Normal [facility] Comment on above: Result Comment: ADA RECOMMENDED LIMIT 4.0 - 6.0 ADA THERAPEUTIC TARGET < 7.0 ACTION SUGGESTED > 7.0 Performed By: #### B MP #### [facility] [address] [address] [address] Bernice Hamilton Glucose [Mass/Vol] 186 mg/dL Normal [facility] Comment on above: Performed By: #### B MP #### [facility] [address] [address] [address] Bernice Hamilton HbA1c (Bld) [Mass fraction] 8.1 % Critically high 4.5-6.2 [facility] Comment on above: Performed By: #### B MP #### [facility] [address] [address] [address] Bernice Hamilton TYPE AND SCREENon 06-12-2022 TYPE AND SCREEN Negative Normal [facility] Comment on above: Performed By: #### T NS ####[facility] [address] [address]Dr. Bernice Hamilton CBC AUTO DIFFon 06-09-2022 BASO # 0.1 103/ul Normal 0.0-0.1 [facility] Comment on above: Performed By: #### E RUR, PREGU #### [facility] [address] [place] [address] Dr. Bernice Hamilton Basophils/100 WBC (Bld) 1.1 % Normal 0.2-2.0 [facility] Comment on above: Performed By: #### E RUR, PREGU #### [facility] [address] [place] [address] Dr. Bernice Hamilton EO # 0.5 103/ul Normal 0.0-0.7 [facility] Comment on above: Performed By: #### E RUR, PREGU #### [facility] [address] [place] [address] Dr. Bernice Hamilton Eosinophils/100 WBC (Bld) 7.4 % Critically high 0.9-7.0 [facility] Comment on above: Performed By: #### E RUR, PREGU #### [facility] [address] [place] [address] Dr. Bernice Hamilton Erythrocyte distribution width (RBC) [Ratio] 16.8 % Critically high 11.0-15.0 [facility] Comment on above: Performed By: #### E RUR, PREGU #### [facility] [address] [place] [address] Dr. Bernice Hamilton Hematocrit (Bld) [Volume fraction] 37.8 % Normal 36.0-48.0 [facility] Comment on above: Performed By: #### E RUR, PREGU #### [facility] [address] [place] [address] Dr. Bernice Hamilton Hemoglobin (Bld) [Mass/Vol] 11.5 g/dL Critically low 12.0-16.0 [facility] Comment on above: Performed By: #### E RUR, PREGU #### [facility] [address] [place] [address] Dr. Bernice Hamilton IG # 0.02 10e3/ul Normal 0.00-0.03 [facility] Comment on above: Performed By: #### E RUR, PREGU #### [facility] [address] [place] [address] Dr. Bernice Hamilton IG % 0.3 % Normal 0.0-0.5 [facility] Comment on above: Performed By: #### E RUR, PREGU #### [facility] [address] [place] [address] Dr. Bernice Hamilton LYMPH # 1.8 103/ul Normal 1.2-3.8 [facility] Comment on above: Performed By: #### E RUR, PREGU #### [facility] [address] [place] [address] Dr. Bernice Hamilton Lymphocytes/100 WBC (Bld) 29.6 % Normal 20.5-60.0 [facility] Comment on above: Performed By: #### E RUR, PREGU #### [facility] [address] [place] [address] Dr. Bernice Hamilton MANUAL DIFF REQ NO Normal [facility] Comment on above: Performed By: #### E RUR, PREGU #### [facility] [address] [place] [address] Dr. Bernice Hamilton MCH (RBC) [Entitic mass] 22.8 pg Critically low 26.7-34.0 [facility] Comment on above: Performed By: #### E RUR, PREGU #### [facility] [address] [place] [address] Dr. Bernice Hamilton MCHC (RBC) [Mass/Vol] 30.4 g/dL Normal 29.9-35.2 [facility] Comment on above: Performed By: #### E RUR, PREGU #### [facility] [address] [place] [address] Dr. Bernice Hamilton MCV (RBC) [Entitic vol] 74.9 fL Critically low 81.0-99.0 [facility] Comment on above: Performed By: #### E RUR, PREGU #### [facility] [address] [place] [address] Dr. Bernice Hamilton MONO # 0.5 103/ul Normal 0.3-0.8 [facility] Comment on above: Performed By: #### E RUR, PREGU #### [facility] [address] [place] [address] Dr. Bernice Hamilton Monocytes/100 WBC (Bld) 7.3 % Normal 1.7-12.0 [facility] Comment on above: Performed By: #### E RUR, PREGU #### [facility] [address] [place] [address] Dr. Bernice Hamilton NEUT # 3.4 103/ul Normal 1.4-6.5 [facility] Comment on above: Performed By: #### E RUR, PREGU #### [facility] [address] [place] [address] Dr. Bernice Hamilton Neutrophils/100 WBC (Bld) 54.3 % Normal 43.0-75.0 [facility] Comment on above: Performed By: #### E RUR, PREGU #### [facility] [address] [place] [address] Dr. Bernice Hamilton Platelet mean volume (Bld) [Entitic vol] 10.9 fL Normal 9.5-13.5 [facility] Comment on above: Performed By: #### E RUR, PREGU #### [facility] [address] [place] [address] Dr. Bernice Hamilton PLT 320 103/ul Normal 150-450 [facility] Comment on above: Performed By: #### E RUR, PREGU #### [facility] [address] [place] [address] Dr. Bernice Hamilton RBC 5.05 106/ul Normal 4.20-5.40 [facility] Comment on above: Performed By: #### E RUR, PREGU #### [facility] [address] [place] [address] Dr. Bernice Hamilton WBC 6.2 103/ul Normal 4.0-11.0 [facility] Comment on above: Performed By: #### E RUR, PREGU #### [facility] [address] [place] [address] Dr. Bernice Hamilton LIVER PROFILEon 06-09-2022 Albumin [Mass/Vol] 3.6 g/dL Normal 3.4-5.0 [facility] Comment on above: Performed By: #### B MP #### [facility] [address] [place] [address] Dr. Bernice Hamilton Albumin/Globulin [Mass ratio] 1.0 {ratio} Normal [facility] Comment on above: Performed By: #### B MP #### [facility] [address] [place] [address] Dr. Bernice Hamilton ALP [Catalytic activity/Vol] 77 U/L Normal 46-116 [facility] Comment on above: Performed By: #### B MP #### [facility] [address] [place] [address] Dr. Bernice Hamilton ALT [Catalytic activity/Vol] 28 U/L Normal 14-59 [facility] Comment on above: Performed By: #### B MP #### [facility] [address] [place] [address] Dr. Bernice Hamilton AST [Catalytic activity/Vol] 15 U/L Normal 15-37 [facility] Comment on above: Performed By: #### B MP #### [facility] [address] [place] [address] Dr. Bernice Hamilton BILI, CONJUGATED 0.1 mg/dL Normal 0.0-0.2 [facility] Comment on above: Performed By: #### B MP #### [facility] [address] [place] [address] Dr. Bernice Hamilton Bilirubin [Mass/Vol] 0.2 mg/dL Normal 0.2-1.0 [facility] Comment on above: Performed By: #### B MP #### [facility] [address] [place] [address] Dr. Bernice Hamilton Globulin (S) [Mass/Vol] 3.7 g/dL Normal [facility] Comment on above: Performed By: #### B MP #### [facility] [address] [place] [address] Dr. Bernice Hamilton Protein [Mass/Vol] 7.3 g/dL Normal 6.4-8.2 [facility] Comment on above: Performed By: #### B MP #### [facility] [address] [address] [address] Bernice Hamilton PROF CHEM 8 (BAS METB)on Anion gap [Moles/Vol] 11.8 mmol/L Normal [facility] Comment on above: Performed By: #### B MP #### [facility] [address] [address] [address] Bernice Hamilton Calcium [Mass/Vol] 9.0 mg/dL Normal 8.5-10.1 [facility] Comment on above: Performed By: #### B MP #### [facility] [address] [address] [address] Bernice Hamilton Chloride [Moles/Vol] 104 mmol/L Normal 98-107 [facility] Comment on above: Performed By: #### B MP #### [facility] [address] [address] [address] Bernice Hamilton CO2 [Moles/Vol] 27.6 mmol/L Normal 21.0-32.0 [facility] Comment on above: Performed By: #### B MP #### [facility] [address] [place] [address] Dr. Bernice Hamilton Creatinine [Mass/Vol] 0.60 mg/dL Normal 0.55-1.02 [facility] Comment on above: Performed By: #### B MP #### [facility] [address] [place] [address] Dr. Bernice Hamilton EGFR-AF STATELESS >60 Normal >=60 [facility] Comment on above: Performed By: #### B MP #### [facility] [address] [address] [address] Berince Hamilton EGFR-NON AF STATELESS >60 Normal >=60 [facility] Comment on above: Performed By: #### B MP #### [facility] [address] [place] [address] Dr. Bernice Hamilton Glucose [Mass/Vol] 174 mg/dL Critically high 74-106 [facility] Comment on above: Performed By: #### B MP #### [facility] [address] [address] [address] Bernice Hamilton Potassium [Moles/Vol] 4.4 mmol/L Normal 3.5-5.1 [facility] Comment on above: Performed By: #### B MP #### [facility] [address] [address] [address] Bernice Hamilton Sodium [Moles/Vol] 139 mmol/L Normal 136-145 [facility] Comment on above: Performed By: #### B MP #### [facility] [address] [address] [address] Bernice Hamilton Urea nitrogen [Mass/Vol] 17.0 mg/dL Normal 7.0-18.0 [facility] Comment on above: Performed By: #### B MP #### [facility] [address] [place] [address] Dr. Bernice Hamilton Urea nitrogen/Creatinine [Mass ratio] 28.3 mg/mg Normal [facility] Comment on above: Performed By: #### B MP #### [facility] [address] [place] [address] Dr. Bernice Hamilton PROTIMEon 06-09-2022 INR Coag (PPP) [Relative time] {INR} Normal [facility] Comment on above: Performed By: #### E RUR, PREGU #### [facility] [address] [place] [address] Dr. Bernice Hamilton INR GUIDELINES SEE BELOW Normal [facility] Comment on above: Result Comment: DAMARIS RED INR: 2.0 - 3.0 CONDITIONS NOT LISTED BELOW 2.5 - 3.5 FOR PROSTHETIC HEART VALVE REPLACEMENT 2.5 - 3.5 RECURRENT THROMBOSIS Performed By: #### E RUR, PREGU #### [facility] [address] [place] [address] Dr. Bernice Hamilton PT Coag (PPP) [Time] 9.8 s Normal 9.0-11.6 [facility] Comment on above: Performed By: #### E RUR, PREGU #### [facility] [address] [place] [address] Dr. Bernice Hamilton PTTon 06-09-2022 aPTT Coag (Bld) [Time] 24.2 s Normal 22.3-36.2 [facility] Comment on above: Performed By: #### Mara SORIANO PREGU #### [facility] [address] [place] [address] [address] [address] Bernice Hamilton Outside Colonoscopyon 2022 Outside Colonoscopy [id number]#1.00C D:127 Normal [facility] Reminderson 04-20-2022 Reminders - From: Nayeli Du LPN To: N - Clinical; Sent: 04/20/2022 12:53:45 EST Show up: 03/19/2027 07:00:00 EST Subject: colonoscopy recall Due Date/Time: 2027 07:00:00 EST Reminder/Recall Patient is due for colonoscopy 2027 due to history of colonic polyps. Normal [facility] PREG HCG QUALon 2022 , QUAL Negative Normal NEGATIVE [facility] Comment on above: Performed By: #### Mara SORIANO PREGU #### [facility] [address] [place], [place] [id number] Dr. Bernice Hamilton Pre-Certification Formon Pre-Certification Form [id number] D:127 Normal [facility] Ambulatory Visit Summaryon 0 03-23-2022 Ambulatory Visit [...] RLS (restless legs syndrome) Sleep apnea Normal [facility] Consent for Procedure/Surger yon 03-23-2022 Consent for Procedure/Surgery [id number]#1.00C D:127 Normal [facility] ED Note-Physicianon 03-19-19 ED Note-Physician [id number]#1.00C D:127 Normal [facility] RAD - CT Reporton 03-19-2022 RAD - CT Report [id number]#1.00C D:127 Normal [facility] AMYLASEon 03-13-2022 Amylase [Catalytic activity/Vol] 53 U/L Normal 25-115 [facility] Comment on above: Performed By: #### E CHRISTIE PREGU #### [facility] [address] [address] [address] Bernice Hamilton CBC AUTO DIFFon 03-13-2022 BASO # 0.0 103/ul Normal 0.0-0.1 [facility] Comment on above: Performed By: #### C BC ####[facility] [address] [address]DrPablo Hamilton Basophils/100 WBC (Bld) 0.2 % Normal 0.2-2.0 [facility] Comment on above: Performed By: #### C BC ####[facility] [address] [address]DrPablo Hamilton EO # 0.2 103/ul Normal 0.0-0.7 [facility] Comment on above: Performed By: #### C BC ####[facility] [address] [address]DrPablo Hamilton Eosinophils/100 WBC (Bld) 1.1 % Normal 0.9-7.0 [facility] Comment on above: Performed By: #### C BC ####[facility] [address] [address]Dr. Bernice Hamilton Erythrocyte distribution width (RBC) [Ratio] 15.7 % Critically high 11.0-15.0 [facility] Comment on above: Performed By: #### C BC ####[facility] [address] [address]Dr. Bernice Hamilton Hematocrit (Bld) [Volume fraction] 37.0 % Normal 36.0-48.0 [facility] Comment on above: Performed By: #### C BC ####[facility] [address] [address]Dr. Bernice Hamilton Hemoglobin (Bld) [Mass/Vol] 11.5 g/dL Critically low 12.0-16.0 [facility] Comment on above: Performed By: #### C BC ####[facility] [address] [address]Dr. Bernice Hamilton IG # 0.08 10e3/ul Critically high 0.00-0.03 [facility] Comment on above: Performed By: #### C BC ####[facility] [address] [place], [place] [address]Dr. Bernice Hamilton IG % 0.5 % Normal 0.0-0.5 [facility] Comment on above: Performed By: #### C BC ####[facility] [address] [place], [place] [address]Dr. Bernice Hamilton LYMPH # 1.1 103/ul Critically low 1.2-3.8 [facility] Comment on above: Performed By: #### C BC ####[facility] [address] [address]Dr. Bernice Hamilton Lymphocytes/100 WBC (Bld) 6.4 % Critically low 20.5-60.0 [facility] Comment on above: Performed By: #### C BC ####[facility] [address] [place], [place] [address]Dr. Bernice Hamilton MANUAL DIFF REQ NO Normal [facility] Comment on above: Performed By: #### C BC ####[facility] [address] [place], [place] [address]Dr. Bernice Hamilton MCH (RBC) [Entitic mass] 23.1 pg Critically low 26.7-34.0 [facility] Comment on above: Performed By: #### C BC ####[facility] [address] [address]Dr. Bernice Hamilton MCHC (RBC) [Mass/Vol] 31.1 g/dL Normal 29.9-35.2 [facility] Comment on above: Performed By: #### C BC ####[facility] [address] [address]Dr. Bernice Hamilton MCV (RBC) [Entitic vol] 74.3 fL Critically low 81.0-99.0 [facility] Comment on above: Performed By: #### C BC ####[facility] [address] [address]Dr. Bernice Hamilton MONO # 1.1 103/ul Critically high 0.3-0.8 [facility] Comment on above: Performed By: #### C BC ####[facility] [address] [address]Dr. Bernice Hamilton Monocytes/100 WBC (Bld) 6.3 % Normal 1.7-12.0 [facility] Comment on above: Performed By: #### C BC ####[facility] [address] [address]Dr. Bernice Hamilton NEUT # 14.3 103/ul Critically high 1.4-6.5 [facility] Comment on above: Performed By: #### C BC ####[facility] [address] [address]Dr. Bernice Hamilton Neutrophils/100 WBC (Bld) 85.5 % Critically high 43.0-75.0 [facility] Comment on above: Performed By: #### C BC ####[facility] [address] [address]Dr. Bernice Hamilton Platelet mean volume (Bld) [Entitic vol] 10.4 fL Normal 9.5-13.5 [facility] Comment on above: Performed By: #### C BC ####[facility] [address] [place], [place] [address]Zg. Bernice Hamilton PLT 356 103/ul Normal 150-450 [facility] Comment on above: Performed By: #### C BC ####[facility] [address] [place], [place] [address]Gn. Bernice Hamilton RBC 4.98 106/ul Normal 4.20-5.40 [facility] Comment on above: Performed By: #### C BC ####[facility] [address] [place], [place] [address]Yz. Bernice Hamilton WBC 16.8 103/ul Critically high 4.0-11.0 [facility] Comment on above: Performed By: #### C BC ####[facility] [address] [place], [place] [address] CT ABD/PELV W CONon 03-13-[address] ABD/PELV W CON CT ABD/PELV W CON: 03/13/2022 3:40 AM EST CLINICAL HISTORY: 56 years old Female with GENERALIZED ABDOMINAL PAIN. Left lower quadrant pain and vomiting. [facility] 02/28/2022. TECHNIQUE: Axial CT images through the [...] MATTHEW MELARA Date: 2022-03-13 05:43 Normal [facility] GROUP A STREP CULTUREon S. pyogenes Ag Ql (Unsp spec) Culture Observations: NEGATIVE FOR GROUP A STREPTOCOCCUS. Normal [facility] Comment on above: Performed By: #### S SCRN GRASTCX ####[facility] [address] [address]Dr. Bernice Hamilton LIPASEon 03-13-2022 Lipase [Catalytic activity/Vol] 121.0 U/L Normal 73.0-393.0 [facility] Comment on above: Performed By: #### E KATHERINER, PREGU #### [facility] [address] [place] [address] Dr. Bernice Hamilton PROF 14(COMP METB)on 023 Albumin [Mass/Vol] 3.6 g/dL Normal 3.4-5.0 [facility] Comment on above: Performed By: #### E CHRISTIE, PREGU #### [facility] [address] [address] [address] Bernice Hamilton Albumin/Globulin [Mass ratio] 0.8 {ratio} Normal [facility] Comment on above: Performed By: #### E CHRISTIE, PREGU #### [facility] [address] [place] [address] Dr. Bernice Hamilton ALP [Catalytic activity/Vol] 112 U/L Normal 46-116 [facility] Comment on above: Performed By: #### E RUR, PREGU #### [facility] [address] [place] [address] Dr. Bernice Hamilton ALT [Catalytic activity/Vol] 23 U/L Normal 14-59 [facility] Comment on above: Performed By: #### E RUR, PREGU #### [facility] [address] [place] [address] Dr. Bernice Hamilton Anion gap [Moles/Vol] 16.5 mmol/L Normal [facility] Comment on above: Performed By: #### E RUR, PREGU #### [facility] [address] [place] [address] Dr. Bernice Hamilton AST [Catalytic activity/Vol] 20 U/L Normal 15-37 [facility] Comment on above: Performed By: #### Mara MURPHYR, PREGU #### [facility] [address] [place] [address] Dr. Bernice Hamilton Bilirubin [Mass/Vol] 0.5 mg/dL Normal 0.2-1.0 [facility] Comment on above: Performed By: #### Mara MURPHYR, PREGU #### [facility] [address] [place] [address] Dr. Bernice Hamilton Calcium [Mass/Vol] 9.2 mg/dL Normal 8.5-10.1 [facility] Comment on above: Performed By: #### Mara RUR, PREGU #### [facility] [address] [place] [address] Dr. Bernice Hamilton Chloride [Moles/Vol] 98 mmol/L Normal 98-107 [facility] Comment on above: Performed By: #### E RUR, PREGU #### [facility] [address] [place] [address] Dr. Bernice Hamilton CO2 [Moles/Vol] 23.5 mmol/L Normal 21.0-32.0 [facility] Comment on above: Performed By: #### Mara RUR, PREGU #### [facility] [address] [address] [address] Bernice Hamilton Creatinine [Mass/Vol] 0.99 mg/dL Normal 0.55-1.02 [facility] Comment on above: Performed By: #### E RUR, PREGU #### [facility] [address] [address] [address] Bernice Hamilton EGFR-AF STATELESS >60 Normal >=60 [facility] Comment on above: Performed By: #### E RUR, PREGU #### [facility] [address] [address] [address] Bernice Hamilton EGFR-NON AF STATELESS 58 mL/min/1.73m2 Critically low >=60 [facility] Comment on above: Performed By: #### E RUR, PREGU #### [facility] [address] [place] [address] Dr. Bernice Hamilton Globulin (S) [Mass/Vol] 4.4 g/dL Normal [facility] Comment on above: Performed By: #### E RUR, PREGU #### [facility] [address] [address] [address] Bernice Hamilton Glucose [Mass/Vol] 288 mg/dL Critically high 74-106 T [facility] Comment on above: Performed By: #### E RUR, PREGU #### [facility] [address] [place] [address] Dr. Bernice Hamilton Potassium [Moles/Vol] 4.0 mmol/L Normal 3.5-5.1 [facility] Comment on above: Performed By: #### E RUR, PREGU #### [facility] [address] [address] [address] Bernice Hamilton Protein [Mass/Vol] 8.0 g/dL Normal 6.4-8.2 [facility] Comment on above: Performed By: #### E RUR, PREGU #### [facility] [address] [address] [address] Bernice Hamilton Sodium [Moles/Vol] 134 mmol/L Critically low 136-145 Th [facility] Comment on above: Performed By: #### E RUR, PREGU #### [facility] [address] [address] [address] Bernice Hamilton Urea nitrogen [Mass/Vol] 17.0 mg/dL Normal 7.0-18.0 [facility] Comment on above: Performed By: #### E RUR, PREGU #### [facility] [address] [address] [address] Bernice Hamilton Urea nitrogen/Creatinine [Mass ratio] 17.2 mg/mg Normal [facility] Comment on above: Performed By: #### E RUR, PREGU #### [facility] [address] [address] [address] Bernice Hamilton STREPT SCREENon 03-13-2022 STREP SCREEN A Negative Normal NEGATIVE [facility] Comment on above: Performed By: #### S SCRN, GRASTCX ####[facility] [address] [place], [place] [address]Dr. Bernice Hamilton TROPONIN, HIGH SENSITIVITYon 03-13-2022 HSTROP 8.3 pg/mL Normal 4.0-51.3 [facility] Comment on above: Result Comment: CUT- OFF POINTS HAVE BEEN ESTABLISHED BASED ON THE FOURTH UNIVERSAL DEFINITIONS OF MYOCARDIAL INFARCTION. THE UPPER REFERENCE LIMIT (URL) OF TROPONIN, DEFINED THE 99TH PERCENTILE OF cTnI DISTRIBUTION IN A REFERENCE POPULATION, HAS BEEN CONFIRMED THE DECISION THRESHOLD FOR [place] DIAGNOSIS. Performed By: #### H STROPN ####[facility] [address] [address]Dr. Bernice Hamilton CBC AUTO DIFFon 02-28-2022 BASO # 0.1 103/ul Normal 0.0-0.1 [facility] Comment on above: Performed By: #### C BC ####[facility] [address] [address]Dr. Bernice Hamilton Basophils/100 WBC (Bld) 0.8 % Normal 0.2-2.0 [facility] Comment on above: Performed By: #### C BC ####[facility] [address] [address]Dr. Bernice Hamilton EO # 0.4 103/ul Normal 0.0-0.7 [facility] Comment on above: Performed By: #### C BC ####[facility] [address] [address]Dr. Bernice Alfonso Eosinophils/100 WBC (Bld) 5.7 % Normal 0.9-7.0 [facility] Comment on above: Performed By: #### C BC ####[facility] [address] [place], [place] [address]Dr. Bernice Hamilton Erythrocyte distribution width (RBC) [Ratio] 15.3 % Critically high 11.0-15.0 [facility] Comment on above: Performed By: #### C BC ####[facility] [address] [place], [place] [address]Dr. Bernice Hamilton Hematocrit (Bld) [Volume fraction] 35.9 % Critically low 36.0-48.0 [facility] Comment on above: Performed By: #### C BC ####[facility] [address] [place], [place] [address]Dr. Bernice Hamilton Hemoglobin (Bld) [Mass/Vol] 11.0 g/dL Critically low 12.0-16.0 [facility] Comment on above: Performed By: #### C BC ####[facility] [address] [place], [place] [address]Dr. Bernice Hamilton IG # 0.02 10e3/ul Normal 0.00-0.03 [facility] Comment on above: Performed By: #### C BC ####[facility] [address] [place], [place] [address]Dr. Bernice Hamilton IG % 0.3 % Normal 0.0-0.5 [facility] Comment on above: Performed By: #### C BC ####[facility] [address] [place], [place] [address]Dr. Bernice Hamilton LYMPH # 2.4 103/ul Normal 1.2-3.8 [facility] Comment on above: Performed By: #### C BC ####[facility] [address] [place], [place] [address]Dr. Bernice Hamilton Lymphocytes/100 WBC (Bld) 33.2 % Normal 20.5-60.0 [facility] Comment on above: Performed By: #### C BC ####[facility] [address] [address]DrPablo Hamilton MANUAL DIFF REQ NO Normal [facility] Comment on above: Performed By: #### C BC ####[facility] [address] [address]Dr. Bernice Hamilton MCH (RBC) [Entitic mass] 22.8 pg Critically low 26.7-34.0 [facility] Comment on above: Performed By: #### C BC ####[facility] [address] [place], [place] [address]Dr. Bernice Hamilton MCHC (RBC) [Mass/Vol] 30.6 g/dL Normal 29.9-35.2 [facility] Comment on above: Performed By: #### C BC ####[facility] [address] [place], [place] [address]DrPablo Hamilton MCV (RBC) [Entitic vol] 74.5 fL Critically low 81.0-99.0 [facility] Comment on above: Performed By: #### C BC ####[facility] [address] [place], [place] [address]DrPablo Hamilton MONO # 0.5 103/ul Normal 0.3-0.8 [facility] Comment on above: Performed By: #### C BC ####[facility] [address] [place], [place] [address]DrPablo Hamilton Monocytes/100 WBC (Bld) 7.4 % Normal 1.7-12.0 [facility] Comment on above: Performed By: #### C BC ####[facility] [address] [place], [place] [address]DrPablo Hamilton NEUT # 3.8 103/ul Normal 1.4-6.5 [facility] Comment on above: Performed By: #### C BC ####[facility] [address] [place], [place] [address]DrPablo Hamilton Neutrophils/100 WBC (Bld) 52.6 % Normal 43.0-75.0 [facility] Comment on above: Performed By: #### C BC ####[facility] [address] [address]Dr. Bernice Hamilton Platelet mean volume (Bld) [Entitic vol] 10.3 fL Normal 9.5-13.5 [facility] Comment on above: Performed By: #### C BC ####[facility] [address] [address]Dr. Bernice Hamilton PLT 334 103/ul Normal 150-450 [facility] Comment on above: Performed By: #### C BC ####[facility] [address] [address]Dr. Bernice Hamilton RBC 4.82 106/ul Normal 4.20-5.40 [facility] Comment on above: Performed By: #### C BC ####[facility] [address] [address]Dr. Bernice Hamilton WBC 7.3 103/ul Normal 4.0-11.0 [facility] Comment on above: Performed By: #### C BC ####[facility] [address] [id number]. Bernice Hamilton POINT OF CARE GLUCOSEon 02-10 Glucose [Mass/Vol] 188 mg/dL Critically high 74-106 T [facility] Comment on above: Performed By: #### B MP #### [facility] [address] [place] [address] Dr. Bernice Hamilton PREG HCG QUALon 02-28-2022 , QUAL Negative Normal NEGATIVE [facility] Comment on above: Performed By: #### B MP #### [facility] [address] [address] [address] Bernice Hamilton Covid-19 PCR (CVDTB)on 02-09 SARS-CoV-2 (COVID-19) RNA JOSIAS+probe Ql (Unsp spec) Not detected Normal NOT DETECTED [facility] Comment on above: Result Comment: This test is not yet approved or cleared by the [place] FDA. When there are no FDA-approved or cleared tests available, and other criteria are met, FDA can make tests available under an emergency access mechanism called an Emergency Use Authorization (EUA). The EUA for this test is supported by the [place] of Health and Human Service's (HHS's) declaration [...] consistent with SARS-CoV-2. Performed By: #### [facility] ####[facility] [address] [address]Dr. Bernice Hamilton PROF CHEM 8 (BAS METB)on Anion gap [Moles/Vol] 12.4 mmol/L Normal [facility] Comment on above: Performed By: #### B MP #### [facility] [address] [place] [address] Dr. Bernice Hamilton Calcium [Mass/Vol] 8.7 mg/dL Normal 8.5-10.1 [facility] Comment on above: Performed By: #### B MP #### [facility] [address] [place] [address] Dr. Bernice Hamilton Chloride [Moles/Vol] 103 mmol/L Normal 98-107 [facility] Comment on above: Performed By: #### B MP #### [facility] [address] [address] [address] Bernice Hamilton CO2 [Moles/Vol] 27.8 mmol/L Normal 21.0-32.0 [facility] Comment on above: Performed By: #### B MP #### [facility] [address] [place] [address] Dr. Bernice Hamilton Creatinine [Mass/Vol] 0.92 mg/dL Normal 0.55-1.02 [facility] Comment on above: Performed By: #### B MP #### [facility] [address] [address] [address] Bernice Hamilton EGFR-AF STATELESS >60 Normal >=60 [facility] Comment on above: Performed By: #### B MP #### [facility] [address] [address] [address] Bernice Hamilton EGFR-NON AF STATELESS >60 Normal >=60 [facility] Comment on above: Performed By: #### B MP #### [facility] [address] [address] [address] Bernice Hamilton Glucose [Mass/Vol] 228 mg/dL Critically high 74-106 T [facility] Comment on above: Performed By: #### B MP #### [facility] [address] [place] [address] Dr. Bernice Hamilton Potassium [Moles/Vol] 4.2 mmol/L Normal 3.5-5.1 [facility] Comment on above: Performed By: #### B MP #### [facility] [address] [place] [address] Dr. Bernice Hamilton Sodium [Moles/Vol] 139 mmol/L Normal 136-145 [facility] Comment on above: Performed By: #### B MP #### [facility] [address] [place] [address] Dr. Bernice Hamilton Urea nitrogen [Mass/Vol] 16.0 mg/dL Normal 7.0-18.0 [facility] Comment on above: Performed By: #### B MP #### [facility] [address] [place] [address] Dr. Bernice Hamilton Urea nitrogen/Creatinine [Mass ratio] 17.4 mg/mg Normal [facility] Comment on above: Performed By: #### B MP #### [facility] [address] [place] [address] Dr. Bernice Hamilton [facility]19 PCR [facility])on SARS-CoV-2 (COVID-19) RNA JOSIAS+probe Ql (Unsp spec) Not detected Normal NOT DETECTED [facility] Comment on above: Result Comment: When [...] for this test is supported by the [place] of Health and Human Service's declaration that [...] Performed By: #### E CHRISTIE, PREGU #### [facility] [address] [place] [address] Dr. Bernice Hamilton INFLUENZA A AND B AGon 02-14 [facility] SEE BELOW Normal [facility] Comment on above: Result Comment: Nega tive for Flu A protein angiten. Infection due to Flu A cannot be ruled out. Flu A angiten in the sample may be below the detection limit of the test. Performed By: #### I NFLUAB #### [facility] [address] [place] [address] Dr. Bernice Hamilton [facility] SEE BELOW Normal [facility] Comment on above: Result Comment: Nega tive for Flu B protein antigen. Infection due to Flu B cannot be ruled out. Flu B antigen in the sample may be below the detection limit of the test. Performed By: #### I NFLUAB #### [facility] [address] [place] [address] Dr. Bernice Hamilton INFLUENZA A AG Negative Normal NEGATIVE SEE COMMENT [facility] Comment on above: Performed By: #### I NFLUAB #### [facility] [address] [place] [address] Dr. Bernice Hamilton INFLUENZA B AG Negative Normal NEGATIVE SEE COMMENT [facility] Comment on above: Performed By: #### I NFLUAB #### [facility] [address] [address] [address] Bernice Hamilton INTERNAL CONTROLS Within Normal Limits Normal Wi thin Normal Limits [facility] Comment on above: Performed By: #### I NFLUAB #### [facility] [address] [address] [address] Bernice Hamilton US PELVIS AND TRANSVAGon [...] EFREN WHELAN Date: 2022-01-27 06:22 Normal [facility] CBC AUTO DIFFon 01-26-2022 BASO # 0.1 103/ul Normal 0.0-0.1 [facility] Comment on above: Performed By: #### B MP #### [facility] [address] [address] [address] Bernice Hamilton Basophils/100 WBC (Bld) 0.8 % Normal 0.2-2.0 [facility] Comment on above: Performed By: #### B MP #### [facility] [address] [place] [address] Dr. Bernice Hamilton EO # 0.3 103/ul Normal 0.0-0.7 [facility] Comment on above: Performed By: #### B MP #### [facility] [address] [place] [address] Dr. Bernice Hamilton Eosinophils/100 WBC (Bld) 3.8 % Normal 0.9-7.0 [facility] Comment on above: Performed By: #### B MP #### [facility] [address] [place] [address] Dr. Bernice Hamilton Erythrocyte distribution width (RBC) [Ratio] 15.0 % Normal 11.0-15.0 [facility] Comment on above: Performed By: #### B MP #### [facility] [address] [place] [address] Dr. Bernice Hamilton Hematocrit (Bld) [Volume fraction] 39.1 % Normal 36.0-48.0 [facility] Comment on above: Performed By: #### B MP #### [facility] [address] [place] [address] Dr. Bernice Hamilton Hemoglobin (Bld) [Mass/Vol] 12.3 g/dL Normal 12.0-16.0 [facility] Comment on above: Performed By: #### B MP #### [facility] [address] [place] [address] Dr. Bernice Hamilton IG # 0.02 10e3/ul Normal 0.00-0.03 [facility] Comment on above: Performed By: #### B MP #### [facility] [address] [place] [address] Dr. Bernice Hamilton IG % 0.3 % Normal 0.0-0.5 [facility] Comment on above: Performed By: #### B MP #### [facility] [address] [place] [address] Dr. Bernice Hamilton LYMPH # 2.6 103/ul Normal 1.2-3.8 [facility] Comment on above: Performed By: #### B MP #### [facility] [address] [place] [address] Dr. Bernice Hamilton Lymphocytes/100 WBC (Bld) 36.1 % Normal 20.5-60.0 [facility] Comment on above: Performed By: #### B MP #### [facility] [address] [place] [address] Dr. Bernice Hamilton MANUAL DIFF REQ NO Normal [facility] Comment on above: Performed By: #### B MP #### [facility] [address] [place] [address] Dr. Bernice Hamilton MCH (RBC) [Entitic mass] 23.3 pg Critically low 26.7-34.0 [facility] Comment on above: Performed By: #### B MP #### [facility] [address] [place] [address] Dr. Bernice Hamilton MCHC (RBC) [Mass/Vol] 31.5 g/dL Normal 29.9-35.2 [facility] Comment on above: Performed By: #### B MP #### [facility] [address] [place] [address] Dr. Bernice Hamilton MCV (RBC) [Entitic vol] 74.2 fL Critically low 81.0-99.0 [facility] Comment on above: Performed By: #### B MP #### [facility] [address] [place] [address] Dr. Bernice Hamilton MONO # 0.6 103/ul Normal 0.3-0.8 [facility] Comment on above: Performed By: #### B MP #### [facility] [address] [place] [address] Dr. Bernice Hamilton Monocytes/100 WBC (Bld) 8.3 % Normal 1.7-12.0 [facility] Comment on above: Performed By: #### B MP #### [facility] [address] [place] [address] Dr. Bernice Hamilton NEUT # 3.6 103/ul Normal 1.4-6.5 [facility] Comment on above: Performed By: #### B MP #### [facility] [address] [address] [address] Bernice Hamilton Neutrophils/100 WBC (Bld) 50.7 % Normal 43.0-75.0 [facility] Comment on above: Performed By: #### B MP #### [facility] [address] [address] [address] Bernice Hamilton Platelet mean volume (Bld) [Entitic vol] 10.7 fL Normal 9.5-13.5 [facility] Comment on above: Performed By: #### B MP #### [facility] [address] [place] [address] Dr. Bernice Hamilton PLT 303 103/ul Normal 150-450 [facility] Comment on above: Performed By: #### B MP #### [facility] [address] [place] [address] Dr. Bernice Hamilton RBC 5.27 106/ul Normal 4.20-5.40 [facility] Comment on above: Performed By: #### B MP #### [facility] [address] [place] [address] Dr. Bernice Hamilton WBC 7.1 103/ul Normal 4.0-11.0 [facility] Comment on above: Performed By: #### B MP #### [facility] [address] [place] [address] Dr. Bernice Hamilton FREE T4on 01-26-2022 Free T4 [Mass/Vol] 1.08 ng/dL Normal 0.76-1.46 [facility] Comment on above: Performed By: #### B MP #### [facility] [address] [place] [address] Dr. Bernice Hamilton GLYCOHEMOGLOBIN A1Con 2021 ADA RECOMMENDATION SEE BELOW Normal [facility] Comment on above: Result Comment: ADA RECOMMENDED LIMIT 4.0 - 6.0 ADA THERAPEUTIC TARGET < 7.0 ACTION SUGGESTED > 7.0 Performed By: #### E RUR, PREGU #### [facility] [address] [place] [address] Dr. Bernice Hamilton Glucose [Mass/Vol] 209 mg/dL Normal [facility] Comment on above: Performed By: #### E RUR, PREGU #### [facility] [address] [address] [address] Bernice Hamilton HbA1c (Bld) [Mass fraction] 8.9 % Critically high 4.5-6.2 [facility] Comment on above: Performed By: #### E RUR, PREGU #### [facility] [address] [address] [address] Bernice Hamilton PREG QUANT HCGon 01-26-2022 HCG QUANT <1 Normal [facility] Comment on above: Performed By: #### T SH, PREGQNT #### [facility] [address] [place] [address] Dr. Bernice Hamilton HCG RANGE SEE BELOW Normal [facility] Comment on above: Result Comment: 5-50 0.2-1 WEEK 50-500 1-2 WEEKS 100-5,000 2-3 WEEKS 500-10,000 3-4 WEEKS 1,000-50,000 4-5 WEEKS 10,000-100,000 5-6 WEEKS 15,000-200,000 6-8 WEEKS 10,000-100,000 2-3 MONTHS Performed By: #### T SH, PREGQNT #### [facility] [address] [place] [address] Dr. Bernice Hamilton PROTIMEon 01-26-2022 INR Coag (PPP) [Relative time] 0.95 {INR} Normal [facility] Comment on above: Performed By: #### P TT, PT ####[facility] [address] [address]Dr. Bernice Hamilton INR GUIDELINES SEE BELOW Normal [facility] Comment on above: Result Comment: DAMARIS RED INR: 2.0 - 3.0 CONDITIONS NOT LISTED BELOW 2.5 - 3.5 FOR PROSTHETIC HEART VALVE REPLACEMENT 2.5 - 3.5 RECURRENT THROMBOSIS Performed By: #### P TT, PT ####[facility] [address] [address]Dr. Bernice Hamilton PT Coag (PPP) [Time] 10.3 s Normal 9.0-11.6 [facility] Comment on above: Performed By: #### P TT, PT ####[facility] [address] [id number] Bernice Alfonso PTTon 01-26-2022 aPTT Coag (Bld) [Time] 23.8 s Normal 22.3-36.2 [facility] Comment on above: Performed By: #### P TT, PT ####[facility] [address] [id number] Bernice Alfonso TSHon 01-26-2022 TSH 1.602 uIU/mL Normal 0.358-3.740 [facility] Comment on above: Performed By: #### T SH, PREGQNT #### [facility] [address] [address] [address] Bernice Hamilton [facility]-19 PCR ([facility])on 12-11 SARS-CoV-2 (COVID-19) RNA JOSIAS+probe Ql (Unsp spec) Not detected Normal NOT DETECTED [facility] Comment on above: Result Comment: When [...] for this test is supported by the [employer] [place] of Health and Human Service's declaration that [...] Performed By: #### E RUR, PREGU #### [facility] [address] [address] [address] Bernice Hamilton XR FOOT ILSA MIN [...] by: HETAL ENCARNACION Date: 2021-09-22 18:28 Normal [facility] ECHOCARDIO M/2D COMPLETEon 0 09-13-2021 ECHOCARDIO M/2D COMPLETE Patient: BRITNEY PARSONS Exam Date: 09/13/2021 : 1965 Gender:F Ordering : DR KATHLEEN BUSBY . Admission #: [id number] Family : Order #: [id number] CLICK HERE TO VIEW EXAM ECHOCARDIOGRAM REPORT [...] M.D. on 09/14/2021 at 10:21 Normal [facility] CARDIAC IVETH ADMITon 022 CK [Catalytic activity/Vol] 69 U/L Normal 26-192 [facility] Comment on above: Performed By: #### B MP #### [facility] [address] [place] [address] Dr. Bernice Hamilton CK.MB [Mass/Vol] 0.99 ng/mL Normal <=3.60 [facility] Comment on above: Performed By: #### B MP #### [facility] [address] [place] [address] Dr. Bernice Hamilton HSTROP 13.6 pg/mL Normal 4.0-51.3 [facility] Comment on above: Result Comment: CUT- OFF POINTS HAVE BEEN ESTABLISHED BASED ON THE FOURTH UNIVERSAL DEFINITIONS OF MYOCARDIAL INFARCTION. THE UPPER REFERENCE LIMIT (URL) OF TROPONIN, DEFINED THE 99TH PERCENTILE OF cTnI DISTRIBUTION IN A REFERENCE POPULATION, HAS BEEN CONFIRMED THE DECISION THRESHOLD FOR [place] DIAGNOSIS. Performed By: #### B MP #### [facility] [address] [place] [address] Dr. Bernice Hamilton CRISTIANO 25 ng/mL Normal 9-82 [facility] Comment on above: Performed By: #### B MP #### [facility] [address] [address] [address] Bernice Hamilton CBC AUTO DIFFon 08-21-2021 BASO # 0.1 103/ul Normal 0.0-0.1 [facility] Comment on above: Performed By: #### C BC #### [facility] [address] [address] [address] Bernice Hamilton Basophils/100 WBC (Bld) 0.9 % Normal 0.2-2.0 [facility] Comment on above: Performed By: #### C BC #### [facility] [address] [place] [address] Dr. Bernice Hamilton EO # 0.5 103/ul Normal 0.0-0.7 [facility] Comment on above: Performed By: #### C BC #### [facility] [address] [place] [address] Dr. Bernice Hamilton Eosinophils/100 WBC (Bld) 6.8 % Normal 0.9-7.0 [facility] Comment on above: Performed By: #### C BC #### [facility] [address] [place] [address] Dr. Bernice Hamilton Erythrocyte distribution width (RBC) [Ratio] 14.6 % Normal 11.0-15.0 [facility] Comment on above: Performed By: #### C BC #### [facility] [address] [place] [address] Dr. Bernice Hamilton Hematocrit (Bld) [Volume fraction] 33.7 % Critically low 36.0-48.0 [facility] Comment on above: Performed By: #### C BC #### [facility] [address] [place] [address] Dr. Bernice Hamilton Hemoglobin (Bld) [Mass/Vol] 10.6 g/dL Critically low 12.0-16.0 [facility] Comment on above: Performed By: #### C BC #### [facility] [address] [place] [address] Dr. Bernice Hamilton IG # 0.02 10e3/ul Normal 0.00-0.03 [facility] Comment on above: Performed By: #### C BC #### [facility] [address] [place] [address] Dr. Bernice Hamilton IG % 0.3 % Normal 0.0-0.5 [facility] Comment on above: Performed By: #### C BC #### [facility] [address] [place] [address] Dr. Bernice Hamilton LYMPH # 2.6 103/ul Normal 1.2-3.8 [facility] Comment on above: Performed By: #### C BC #### [facility] [address] [address] [address] Bernice Hamilton Lymphocytes/100 WBC (Bld) 32.7 % Normal 20.5-60.0 [facility] Comment on above: Performed By: #### C BC #### [facility] [address] [place] [address] Dr. Bernice Hamilton MANUAL DIFF REQ NO Normal [facility] Comment on above: Performed By: #### C BC #### [facility] [address] [address] [address] Bernice Hamilton MCH (RBC) [Entitic mass] 24.9 pg Critically low 26.7-34.0 [facility] Comment on above: Performed By: #### C BC #### [facility] [address] [place] [address] Dr. Bernice Hamilton MCHC (RBC) [Mass/Vol] 31.5 g/dL Normal 29.9-35.2 [facility] Comment on above: Performed By: #### C BC #### [facility] [address] [place] [address] Dr. Bernice Hamilton MCV (RBC) [Entitic vol] 79.3 fL Critically low 81.0-99.0 [facility] Comment on above: Performed By: #### C BC #### [facility] [address] [place] [address] Dr. Bernice Hamilton MONO # 0.5 103/ul Normal 0.3-0.8 [facility] Comment on above: Performed By: #### C BC #### [facility] [address] [place] [address] Dr. Bernice Hamilton Monocytes/100 WBC (Bld) 6.0 % Normal 1.7-12.0 [facility] Comment on above: Performed By: #### C BC #### [facility] [address] [place] [address] Dr. Bernice Hamilton NEUT # 4.3 103/ul Normal 1.4-6.5 [facility] Comment on above: Performed By: #### C BC #### [facility] [address] [place] [address] Dr. Bernice Hamilton Neutrophils/100 WBC (Bld) 53.3 % Normal 43.0-75.0 [facility] Comment on above: Performed By: #### C BC #### [facility] [address] [place] [address] Dr. Bernice Hamilton Platelet mean volume (Bld) [Entitic vol] 11.8 fL Normal 9.5-13.5 [facility] Comment on above: Performed By: #### C BC #### [facility] [address] [place] [address] Dr. Bernice Hamilton PLT 262 103/ul Normal 150-450 [facility] Comment on above: Performed By: #### C BC #### [facility] [address] [place] [address] Dr. Bernice Hamilton RBC 4.25 106/ul Normal 4.20-5.40 [facility] Comment on above: Performed By: #### C BC #### [facility] [address] [place] [address] Dr. Bernice Hamilton WBC 8.0 103/ul Normal 4.0-11.0 [facility] Comment on above: Performed By: #### C BC #### [facility] [address] [place] [address] Dr. Bernice Hamilton ER URINE PROFILEon 2 Bilirubin Ql (U) Negative Normal NEGATIVE [facility] Comment on above: Performed By: #### E RUR, PREGU #### [facility] [address] [place] [address] Dr. Bernice Hamilton Clarity (U) CLEAR Normal CLEAR [facility] Comment on above: Performed By: #### E RUR, PREGU #### [facility] [address] [place] [address] Dr. Bernice Hamilton Color (U) LT. YELLOW Normal YELLOW [facility] Comment on above: Performed By: #### E RUR, PREGU #### [facility] [address] [place] [address] Dr. Bernice GONZALEZ A micrscopic examination will be performed if indicated. Normal [facility] Comment on above: Performed By: #### E RUR, PREGU #### [facility] [address] [place] [address] Dr. Bernice Hamilton Glucose Ql (U) 100 mg/dl Abnormal NEGATIVE [facility] Comment on above: Performed By: #### E RUR, PREGU #### [facility] [address] [place] [address] Dr. Bernice Hamilton Hemoglobin Ql (U) Negative Normal NEGATIVE [facility] Comment on above: Performed By: #### E RUR, PREGU #### [facility] [address] [place] [address] Dr. Bernice Hamilton Ketones Ql (U) Negative Normal NEGATIVE [facility] Comment on above: Performed By: #### E RUR, PREGU #### [facility] [address] [place] [address] Dr. Bernice Hamilton LEUKOCYTES Negative Normal NEGATIVE [facility] Comment on above: Performed By: #### E RUR, PREGU #### [facility] [address] [place] [address] Dr. Bernice Hamilton Nitrite Ql (U) Negative Normal NEGATIVE [facility] Comment on above: Performed By: #### E RUR, PREGU #### [facility] [address] [place] [address] Dr. Bernice Hamilton pH (U) 5.0 [pH] Normal 5-9 [facility] Comment on above: Performed By: #### E RUR, PREGU #### [facility] [address] [place] [address] Dr. Bernice Hamilton SPEC GRAVITY 1.010 Normal 1.005-<=1.025 [facility] Comment on above: Performed By: #### E RUR, PREGU #### [facility] [address] [place] [address] Dr. Bernice Hamilton UA PROTEIN Negative Normal NEGATIVE/ TRACE [facility] Comment on above: Performed By: #### E RUR, PREGU #### [facility] [address] [place] [address] Dr. Bernice Hamilton UR MICRO IND NOT INDICATED Normal [facility] Comment on above: Performed By: #### E RUR, PREGU #### [facility] [address] [place] [address] Dr. Bernice Hamilton Urobilinogen Qn (U) 0.2 {Marco [place]'U}/dL Normal 0.2 - 1. 0 [facility] Comment on above: Performed By: #### E RUR, PREGU #### [facility] [address] [place] [address] Dr. Bernice Hamilton URon 08-21-2021 , QUAL Negative Normal NEGATIVE [facility] Comment on above: Performed By: #### E RUR, PREGU #### [facility] [address] [place] [address] Dr. Bernice Hamilton PROF 14(COMP METB)on 022 Albumin [Mass/Vol] 3.4 g/dL Normal 3.4-5.0 [facility] Comment on above: Performed By: #### B MP #### [facility] [address] [place] [address] Dr. Bernice Hamilton Albumin/Globulin [Mass ratio] 0.9 {ratio} Normal [facility] Comment on above: Performed By: #### B MP #### [facility] [address] [place] [address] Dr. Bernice Hamilton ALP [Catalytic activity/Vol] 81 U/L Normal 46-116 [facility] Comment on above: Performed By: #### B MP #### [facility] [address] [place] [address] Dr. Bernice Hamilton ALT [Catalytic activity/Vol] 32 U/L Normal 14-59 [facility] Comment on above: Performed By: #### B MP #### [facility] [address] [place] [address] Dr. Bernice Hamilton Anion gap [Moles/Vol] 15.5 mmol/L Normal [facility] Comment on above: Performed By: #### B MP #### [facility] [address] [address] [address] Bernice Hamilton AST [Catalytic activity/Vol] 29 U/L Normal 15-37 [facility] Comment on above: Performed By: #### B MP #### [facility] [address] [place] [address] Dr. Bernice Hamilton Bilirubin [Mass/Vol] 0.4 mg/dL Normal 0.2-1.0 [facility] Comment on above: Performed By: #### B MP #### [facility] [address] [place] [address] Dr. Bernice Hamilton Calcium [Mass/Vol] 8.7 mg/dL Normal 8.5-10.1 [facility] Comment on above: Performed By: #### B MP #### [facility] [address] [place] [address] Dr. Bernice Hamilton Chloride [Moles/Vol] 100 mmol/L Normal 98-107 [facility] Comment on above: Performed By: #### B MP #### [facility] [address] [place] [address] Dr. Bernice Hamilton CO2 [Moles/Vol] 24.2 mmol/L Normal 21.0-32.0 [facility] Comment on above: Performed By: #### B MP #### [facility] [address] [place] [address] Dr. Bernice Hamilton Creatinine [Mass/Vol] 0.78 mg/dL Normal 0.55-1.02 [facility] Comment on above: Performed By: #### B MP #### [facility] [address] [place] [address] Dr. Bernice Hamilton EGFR-AF STATELESS >60 Normal >=60 [facility] Comment on above: Performed By: #### B MP #### [facility] [address] [place] [address] Dr. Bernice Hamilton EGFR-NON AF STATELESS >60 Normal >=60 [facility] Comment on above: Performed By: #### B MP #### [facility] [address] [place] [address] Dr. Bernice Hamilton Globulin (S) [Mass/Vol] 3.8 g/dL Normal [facility] Comment on above: Performed By: #### B MP #### [facility] [address] [address] [address] Bernice Hamilton Glucose [Mass/Vol] 214 mg/dL Critically high 74-106 [facility] Comment on above: Performed By: #### B MP #### [facility] [address] [address] [address] Bernice Hamilton Potassium [Moles/Vol] 3.7 mmol/L Normal 3.5-5.1 [facility] Comment on above: Performed By: #### B MP #### [facility] [address] [address] [address] Bernice Hamilton Protein [Mass/Vol] 7.2 g/dL Normal 6.4-8.2 [facility] Comment on above: Performed By: #### B MP #### [facility] [address] [address] [address] Bernice Hamilton Sodium [Moles/Vol] 136 mmol/L Normal 136-145 [facility] Comment on above: Performed By: #### B MP #### [facility] [address] [address] [address] Bernice Hamilton Urea nitrogen [Mass/Vol] 13.0 mg/dL Normal 7.0-18.0 [facility] Comment on above: Performed By: #### B MP #### [facility] [address] [address] [address] Bernice Hamilton Urea nitrogen/Creatinine [Mass ratio] 16.7 mg/mg Normal [facility] Comment on above: Performed By: #### B MP #### [facility] [id number] Bernice Hamilton PROTIMEon 08-21-2021 INR Coag (PPP) [Relative time] 0.97 {INR} Normal [facility] Comment on above: Performed By: #### P T, PTT ####[facility] [address] [address]Dr. Bernice Hamilton INR GUIDELINES SEE BELOW Normal [facility] Comment on above: Result Comment: DAMARIS RED INR: 2.0 - 3.0 CONDITIONS NOT LISTED BELOW 2.5 - 3.5 FOR PROSTHETIC HEART VALVE REPLACEMENT 2.5 - 3.5 RECURRENT THROMBOSIS Performed By: #### P T, PTT ####[facility] [address] [phone]. Bernice Hamilton PT Coag (PPP) [Time] 10.5 s Normal 9.0-11.6 [facility] Comment on above: Performed By: #### P T, PTT ####[facility] [address] [phone]. Bernice Hamilton PTTon 08-21-2021 aPTT Coag (Bld) [Time] 21.9 s Critically low 22.3-36.2 [facility] Comment on above: Performed By: #### P T, PTT ####[facility] [address] [place], [place] [address]Dr. Bernice Hamilton XR CHEST 1 Von 08-21-2021 [...] SARAH BETH MENJIVAR Date: 2021-08-21 15:43 Normal [facility] GLYCOHEMOGLOBIN A1Con 2021 ADA RECOMMENDATION SEE BELOW Normal [facility] Comment on above: Result Comment: ADA RECOMMENDED LIMIT 4.0 - 6.0 ADA THERAPEUTIC TARGET < 7.0 ACTION SUGGESTED > 7.0 Performed By: #### A 1C ####[facility] [address] [address]Dr. Bernice Hamilton Glucose [Mass/Vol] 192 mg/dL Normal [facility] Comment on above: Performed By: #### A 1C ####[facility] [address] [place], [place] [address]Dr. Bernice Hamilton HbA1c (Bld) [Mass fraction] 8.3 % Critically high 4.5-6.2 [facility] Comment on above: Performed By: #### A 1C ####[facility] [address] [place], [place] [address]Dr. Bernice Hamilton PROF 14(COMP METB)on 022 Albumin [Mass/Vol] 3.6 g/dL Normal 3.4-5.0 [facility] Comment on above: Performed By: #### C MP ####[facility] [address] [place], [place] [address]Dr. Bernice Hamilton Albumin/Globulin [Mass ratio] 0.9 {ratio} Normal [facility] Comment on above: Performed By: #### C MP ####[facility] [address] [place], [place] [address]Dr. Bernice Hamilton ALP [Catalytic activity/Vol] 84 U/L Normal 46-116 [facility] Comment on above: Performed By: #### C MP ####[facility] [address] [place], [place] [address]Dr. Bernice Hamilton ALT [Catalytic activity/Vol] 31 U/L Normal 14-59 [facility] Comment on above: Performed By: #### C MP ####[facility] [address] [place], [place] [address]Dr. Bernice Hamilton Anion gap [Moles/Vol] 12.4 mmol/L Normal [facility] Comment on above: Performed By: #### C MP ####[facility] [address] [place], [place] [address]Dr. Bernice Hamilton AST [Catalytic activity/Vol] 19 U/L Normal 15-37 [facility] Comment on above: Performed By: #### C MP ####[facility] [address] [place], [place] [address]Dr. Bernice Hamilton Bilirubin [Mass/Vol] 0.3 mg/dL Normal 0.2-1.0 [facility] Comment on above: Performed By: #### C MP ####[facility] [address] [phone]. Bernice Hamilton Calcium [Mass/Vol] 8.9 mg/dL Normal 8.5-10.1 [facility] Comment on above: Performed By: #### C MP ####[facility] [address] [phone]. Bernice Hamilton Chloride [Moles/Vol] 100 mmol/L Normal 98-107 [facility] Comment on above: Performed By: #### C MP ####[facility] [address] [address]Dr. Bernice Hamilton CO2 [Moles/Vol] 28.8 mmol/L Normal 21.0-32.0 [facility] Comment on above: Performed By: #### C MP ####[facility] [address] [address]Dr. Bernice Hamilton Creatinine [Mass/Vol] 0.79 mg/dL Normal 0.55-1.02 [facility] Comment on above: Performed By: #### C MP ####[facility] [address] [address]Dr. Bernice Hamilton EGFR-AF STATELESS >60 Normal >=60 [facility] Comment on above: Performed By: #### C MP ####[facility] [address] [address]Dr. eBrnice Hamilton EGFR-NON AF STATELESS >60 Normal >=60 [facility] Comment on above: Performed By: #### C MP ####[facility] [address] [address]Dr. Bernice Hamilton Globulin (S) [Mass/Vol] 3.9 g/dL Normal [facility] Comment on above: Performed By: #### C MP ####[facility] [address] [address]Dr. Bernice Alfonso Glucose [Mass/Vol] 187 mg/dL Critically high 74-106 [facility] Comment on above: Performed By: #### C MP ####[facility] [address] [place], [place] [address]Dr. Bernice Hamilton Potassium [Moles/Vol] 4.2 mmol/L Normal 3.5-5.1 [facility] Comment on above: Performed By: #### C MP ####[facility] [address] [place], [place] [address]Dr. Bernice Hamilton Protein [Mass/Vol] 7.5 g/dL Normal 6.4-8.2 [facility] Comment on above: Performed By: #### C MP ####[facility] [address] [place], [place] [address]Dr. Bernice Hamilton Sodium [Moles/Vol] 137 mmol/L Normal 136-145 [facility] Comment on above: Performed By: #### C MP ####[facility] [address] [place], [place] [address]Dr. Bernice Hamilton Urea nitrogen [Mass/Vol] 14.0 mg/dL Normal 7.0-18.0 [facility] Comment on above: Performed By: #### C MP ####[facility] [address] [place], [place] [address]Dr. Bernice Alfonso Urea nitrogen/Creatinine [Mass ratio] 17.7 mg/mg Normal [facility] Comment on above: Performed By: #### C MP ####[facility] [address] [place], [place] [address]Dr. Bernice Hamilton CBC AUTO DIFFon 07-28-2021 BASO # 0.1 103/ul Normal 0.0-0.1 [facility] Comment on above: Performed By: #### C BC ####[facility] [address] [place], [place] [address]Dr. Bernice Alfonso Basophils/100 WBC (Bld) 0.8 % Normal 0.2-2.0 [facility] Comment on above: Performed By: #### C BC ####[facility] [address] [place], [place] [address]Dr. Susiesherwin Hamilton EO # 0.5 103/ul Normal 0.0-0.7 [facility] Comment on above: Performed By: #### C BC ####[facility] [address] [place], [place] [address]Dr. Bernice Hamilton Eosinophils/100 WBC (Bld) 5.4 % Normal 0.9-7.0 [facility] Comment on above: Performed By: #### C BC ####[facility] [address] [address]Dr. Bernice Hamilton Erythrocyte distribution width (RBC) [Ratio] 14.6 % Normal 11.0-15.0 [facility] Comment on above: Performed By: #### C BC ####[facility] [address] [address]Dr. Bernice Hamilton Hematocrit (Bld) [Volume fraction] 35.2 % Critically low 36.0-48.0 [facility] Comment on above: Performed By: #### C BC ####[facility] [address] [address]Dr. Bernice Hamilton Hemoglobin (Bld) [Mass/Vol] 11.0 g/dL Critically low 12.0-16.0 [facility] Comment on above: Performed By: #### C BC ####[facility] [address] [address]Dr. Bernice Hamilton IG # 0.04 10e3/ul Critically high 0.00-0.03 [facility] Comment on above: Performed By: #### C BC ####[facility] [address] [address]Dr. Bernice Hamilton IG % 0.5 % Normal 0.0-0.5 [facility] Comment on above: Performed By: #### C BC ####[facility] [address] [address]Dr. Bernice Hamilton LYMPH # 2.7 103/ul Normal 1.2-3.8 [facility] Comment on above: Performed By: #### C BC ####[facility] [address] [address]Dr. Bernice Hamilton Lymphocytes/100 WBC (Bld) 32.7 % Normal 20.5-60.0 [facility] Comment on above: Performed By: #### C BC ####[facility] [address] [address]Dr. Bernice Alfonso MANUAL DIFF REQ NO Normal [facility] Comment on above: Performed By: #### C BC ####[facility] [address] [address]Dr. Bernice Hamilton MCH (RBC) [Entitic mass] 24.6 pg Critically low 26.7-34.0 [facility] Comment on above: Performed By: #### C BC ####[facility] [address] [address]Dr. Bernice Alfonso MCHC (RBC) [Mass/Vol] 31.3 g/dL Normal 29.9-35.2 [facility] Comment on above: Performed By: #### C BC ####[facility] [address] [address]Dr. Bernice Alfonso MCV (RBC) [Entitic vol] 78.7 fL Critically low 81.0-99.0 [facility] Comment on above: Performed By: #### C BC ####[facility] [address] [place], [place] [address]Dr. Bernice Alfonso MONO # 0.6 103/ul Normal 0.3-0.8 [facility] Comment on above: Performed By: #### C BC ####[facility] [address] [place], [place] [address]Dr. Susiesherwin Hamilton Monocytes/100 WBC (Bld) 7.0 % Normal 1.7-12.0 [facility] Comment on above: Performed By: #### C BC ####[facility] [address] [place], [place] [address]Dr. Bernice Alfonso NEUT # 4.5 103/ul Normal 1.4-6.5 [facility] Comment on above: Performed By: #### C BC ####[facility] [address] [place], [place] [address]Dr. Bernice Hamilton Neutrophils/100 WBC (Bld) 53.6 % Normal 43.0-75.0 [facility] Comment on above: Performed By: #### C BC ####[facility] [address] [address]Dr. Bernice Hamilton Platelet mean volume (Bld) [Entitic vol] 11.0 fL Normal 9.5-13.5 [facility] Comment on above: Performed By: #### C BC ####[facility] [address] [id number]. Bernice Hamilton PLT 305 103/ul Normal 150-450 [facility] Comment on above: Performed By: #### C BC ####[facility] [address] [address]Dr. Bernice Hamilton RBC 4.47 106/ul Normal 4.20-5.40 [facility] Comment on above: Performed By: #### C BC ####[facility] [address] [address]Dr. Bernice Hamilton WBC 8.4 103/ul Normal 4.0-11.0 [facility] Comment on above: Performed By: #### C BC ####[facility] [address] [address]DrPablo Hamilton MAGNESIUMon 07-28-2021 Magnesium [Mass/Vol] 1.5 mg/dL Critically low 1.8-2.4 [facility] Comment on above: Performed By: #### Mara SORIANO PREGU #### [facility] [address] [address] [address] Bernice Hamilton PROF 14(COMP METB)on 022 Albumin [Mass/Vol] 3.4 g/dL Normal 3.4-5.0 [facility] Comment on above: Performed By: #### H LOY, CMP ####[facility] [address] [address]DrPablo Hamilton Albumin/Globulin [Mass ratio] 0.8 {ratio} Normal [facility] Comment on above: Performed By: #### H LOY, CMP ####[facility] [address] [address]DrPablo Hamilton ALP [Catalytic activity/Vol] 81 U/L Normal 46-116 [facility] Comment on above: Performed By: #### H STROPN, CMP ####[facility] [address] [id number]. Bernice Hamilton ALT [Catalytic activity/Vol] 31 U/L Normal 14-59 [facility] Comment on above: Performed By: #### H STROPN, CMP ####[facility] [address] [id number]. Bernice Hamilton Anion gap [Moles/Vol] 14.3 mmol/L Normal [facility] Comment on above: Performed By: #### H STROPN, CMP ####[facility] [address] [place], [place] [address]Dr. Bernice Hamilton AST [Catalytic activity/Vol] 18 U/L Normal 15-37 [facility] Comment on above: Performed By: #### H STROGILLIAN, CMP ####[facility] [address] [place], [place] [address]Dr. Bernice Hamilton Bilirubin [Mass/Vol] 0.3 mg/dL Normal 0.2-1.0 [facility] Comment on above: Performed By: #### H STROGILLIAN, CMP ####[facility] [address] [place], [place] [address]Dr. Bernice Hamilton Calcium [Mass/Vol] 9.1 mg/dL Normal 8.5-10.1 [facility] Comment on above: Performed By: #### H STROPN, CMP ####[facility] [address] [place], [place] [address]Dr. Bernice Hamilton Chloride [Moles/Vol] 102 mmol/L Normal 98-107 [facility] Comment on above: Performed By: #### H STROPN, CMP ####[facility] [address] [place], [place] [id number]. Bernice Hamilton CO2 [Moles/Vol] 26.1 mmol/L Normal 21.0-32.0 [facility] Comment on above: Performed By: #### H STROPN, CMP ####[facility] [address] [id number]. Bernice Hamilton Creatinine [Mass/Vol] 0.81 mg/dL Normal 0.55-1.02 [facility] Comment on above: Performed By: #### H STROPN, CMP ####[facility] [address] [address]Dr. Bernice Hamilton EGFR-AF STATELESS >60 Normal >=60 [facility] Comment on above: Performed By: #### H STROPN, CMP ####[facility] [address] [address]Dr. Bernice Hamilton EGFR-NON AF STATELESS >60 Normal >=60 [facility] Comment on above: Performed By: #### H STROPN, CMP ####[facility] [address] [place] [address]Dr. Bernice Hamilton Globulin (S) [Mass/Vol] 3.8 g/dL Normal [facility] Comment on above: Performed By: #### H STROPN, CMP ####[facility] [address] [place], [place] [address]Dr. Susiesherwin Hamilton Glucose [Mass/Vol] 206 mg/dL Critically high 74-106 [facility] Comment on above: Performed By: #### H STROPN, CMP ####[facility] M[address] [place], [place] [address]Dr. Bernice Alfonso Potassium [Moles/Vol] 3.4 mmol/L Critically low 3.5-5.1 [facility] Comment on above: Performed By: #### H STROPN, CMP ####[facility] [address] [place] [address]Dr. Bernice Hamilton Protein [Mass/Vol] 7.2 g/dL Normal 6.4-8.2 [facility] Comment on above: Performed By: #### H STROPN, CMP ####[facility] Z[address] [place], [place] [address]Dr. Bernice Hamilton Sodium [Moles/Vol] 139 mmol/L Normal 136-145 [facility] Comment on above: Performed By: #### H STROPN, CMP ####[facility] [address] [place], [place] [address]Dr. Bernice Alfonso Urea nitrogen [Mass/Vol] 16.0 mg/dL Normal 7.0-18.0 [facility] Comment on above: Performed By: #### H LOY, CMP ####[facility] [address] [place] [id number]. Bernice Hamilton Urea nitrogen/Creatinine [Mass ratio] 19.7 mg/mg Normal [facility] Comment on above: Performed By: #### H LOY, CMP ####[facility] [address] [place] [id number]. Bernice Hamilton TROPONIN, HIGH SENSITIVITYon 07-28-2021 HSTROP 10.4 pg/mL Normal 4.0-51.3 [facility] Comment on above: Result Comment: CUT- OFF POINTS HAVE BEEN ESTABLISHED BASED ON THE FOURTH UNIVERSAL DEFINITIONS OF MYOCARDIAL INFARCTION. THE UPPER REFERENCE LIMIT (URL) OF TROPONIN, DEFINED THE 99TH PERCENTILE OF cTnI DISTRIBUTION IN A REFERENCE POPULATION, HAS BEEN CONFIRMED THE DECISION THRESHOLD FOR [place] DIAGNOSIS. Performed By: #### H LOY, CMP ####[facility] [address] [place] [id number]. Bernice Hamilton XR CHEST 1 Von 07-28-2021 [...] by: HETAL ENCARNACION Date: 2021-07-28 15:17 Normal [facility] Chlamydia/GC/Trich NAAon Chlamydia Trachomotis, JOSIAS Negative Normal Negative [facility] Comment on above: Order Comment: Reaso n for Exam High risk sexual behavior, unspecified type Performed By: #### G CCHLAMTRI #### [facility] , #### CUU #### [address] Neisseria Gonorrhoeae, JOSIAS Negative Normal Negative [facility] Comment on above: Order Comment: Reaso n for Exam High risk sexual behavior, unspecified type Performed By: #### G CCHLAMTRI #### [facility] , #### CUU #### [facility] [address] [place] [address] Trichomonas JOSIAS Negative Normal Negative [facility] Comment on above: Order Comment: Reaso n for Exam High risk sexual behavior, unspecified type Result Comment: Perf ormed at: =G - [facility] [address] [id number] Therapeutic Program Worker: Taylor Bowser MD, Phone: [phone] PERFORMED BY: [place] [address] PATHOLOGIST MECHANICAL SPREADER OPERATOR ANGELI TINAJERO M.D. Performed By: #### G CCHLAMTRI #### [facility] , #### CUU #### [address] Urine Cultureon 07-11-2020 Bacteria identified Cx Nom (U) Reason for Exam Dysuria Urine Reason for Exam: Dysuria : Urine ORGANISM: Escherichia coli (O:ESCCOL) [place] Count >100,000 Aerobic SIMONE Charge (NUC86) -- [...] RESISTANT TO ALL B-LACTAM DRUGS. PERFORMED BY: [place] [address] PATHOLOGIST MECHANICAL SPREADER OPERATOR ANGELI TINAJERO M.D. [facility] Comment on above: Performed By: #### G CCHLAMTRI #### [facility] , #### CUU #### [facility] [address] [place] [address] Comprehensive Metabolic Empo n 04-26-2020 Albumin [Mass/Vol] 3.9 g/dL Normal 3.2-5.5 [facility] Comment on above: Performed By: #### E BS A1C, EBS CMP, LIPID #### [facility] [address] [place] [address] Albumin/Globulin [Mass ratio] 1.4 {ratio} [facility] Comment on above: Performed By: #### E BS A1C, EBS CMP, LIPID #### [facility] [address] [place] [address] [place] ALP [Catalytic activity/Vol] 66 U/L Normal 32-92 [facility] Comment on above: Performed By: #### E BS A1C, EBS CMP, LIPID #### [facility] [address] [place], [place] [id number] [place] ALT [Catalytic activity/Vol] 20 U/L Normal 10-60 [facility] Comment on above: Performed By: #### E BS A1C, EBS CMP, LIPID #### [facility] [address] [place], [place] [id number] [place] AST [Catalytic activity/Vol] 19 U/L Normal 10-42 [facility] Comment on above: Performed By: #### E BS A1C, EBS CMP, LIPID #### [address] [place] [address] [place] Bilirubin [Mass/Vol] 0.8 mg/dL Normal 0.3-1.2 [facility] Comment on above: Performed By: #### E BS A1C, EBS CMP, LIPID #### [facility] [address] Calcium [Mass/Vol] 9.6 mg/dL Normal 8.2-10.2 [facility] Comment on above: Performed By: #### E BS A1C, EBS CMP, LIPID #### [facility] [address] Chloride [Moles/Vol] 96 mmol/L Normal 95-114 [facility] Comment on above: Performed By: #### E BS A1C, EBS CMP, LIPID #### [address] CO2 [Moles/Vol] 25.9 mmol/L Normal 22.0-30.0 [facility] Comment on above: Performed By: #### E BS A1C, EBS CMP, LIPID #### [address] Creatinine [Mass/Vol] 0.74 mg/dL Normal 0.44-1.03 [facility] Comment on above: Performed By: #### E BS A1C, EBS CMP, LIPID #### [address] Estimated GFR ( Rea > 60 Normal [facility] Comment on above: Result Comment: GFR estimated reference range: According to KDOQI guidelines, <60 ml/min/1.73m2 is sufficient to diagnose a patient with chronic kidney disease. Performed By: #### E BS A1C, EBS CMP, LIPID #### [facility] [address] [place] [address] Estimated GFR (Non- Am > 60 Normal [facility] Comment on above: Performed By: #### E BS A1C, EBS CMP, LIPID #### [facility] [address] [place] [address] [place] Globulin (S) [Mass/Vol] 2.8 g/dL Normal [facility] Comment on above: Performed By: #### E BS A1C, EBS CMP, LIPID #### [facility] [address] [place] [address] [place] Glucose [Mass/Vol] 155 mg/dL High 70-100 [facility] Comment on above: Result Comment: ADA recommended reference range Performed By: #### E BS A1C, EBS CMP, LIPID #### [facility] [address] [place] [address] [place] Potassium [Moles/Vol] 3.5 mmol/L Normal 3.5-5.1 [facility] Comment on above: Performed By: #### E BS A1C, EBS CMP, LIPID #### [facility] [address] Protein [Mass/Vol] 6.7 g/dL Normal 6.1-7.9 [facility] Comment on above: Performed By: #### E BS A1C, EBS CMP, LIPID #### [facility] [address] [place] [address] [place] Sodium [Moles/Vol] 134 mmol/L Low 136-146 [facility] Comment on above: Performed By: #### E BS A1C, EBS CMP, LIPID #### [facility] [address] [place] [address] [place] Urea nitrogen [Mass/Vol] 11 mg/dL Normal 9-23 [facility] Comment on above: Performed By: #### E BS A1C, EBS CMP, LIPID #### [facility] [address] EBS A1C with Estimated Avmara ash 04-26-2020 Glucose [Mass/Vol] 169 mg/dL Normal [facility] Comment on above: Result Comment: PERF ORMED BY: [place] [address] PATHOLOGIST MECHANICAL SPREADER OPERATOR ANGELI TINAJERO M.D. Performed By: #### E BS A1C, EBS CMP, LIPID #### [facility] [address] [place] [address] [place] HbA1c (Bld) [Mass fraction] 7.5 % High 4.3-5.6 [facility] Comment on above: Result Comment: Incr eased risk for diabetes: 5.7 - 6.4 diabetes: >6.4 glycemic control for adults with diabetes: <7.0 Performed By: #### E BS A1C, EBS CMP, LIPID #### [facility] [address] [place] [id number] [facility] Lipid Panelon 04-26-2020 Cholesterol [Mass/Vol] 203 mg/dL High 140-200 [facility] Comment on above: Result Comment: Chol less than 200 mg/dl low risk Chol 201-239 mg/dl borderline risk Chol 240 mg/dl and greater high risk Performed By: #### E BS A1C, EBS CMP, LIPID #### [facility] [address] [place] [id number] [facility] Cholesterol in HDL [Mass/Vol] 65 mg/dL Normal 35-85 [facility] Comment on above: Result Comment: HDL CHOL ATP-III CLASSIFICATION Cardiovascular Risk HDL > or equal to 60 mg/dL LOW HDL < 40 mg/dL HIGH Performed By: #### E BS A1C, EBS CMP, LIPID #### [facility] [address] [place] [address] [place] Cholesterol.total/Ch olesterol in HDL [Mass ratio] 3.1 {ratio} Normal <5.0 [facility] Comment on above: Result Comment: PERF ORMED BY: [place] [address] PATHOLOGIST MECHANICAL SPREADER OPERATOR ANGELI TINAJERO M.D. Performed By: #### E BS A1C, EBS CMP, LIPID #### [facility] [address] [place] [id number] [place] LDL Cholesterol,Calculat ed 117 mg/dL High 0-100 [facility] Comment on above: Result Comment: LDL ATP III CLASSIFICATION LDL less than 100 mg/dL Optimal LDL 100-129 mg/dL Near or above optimal LDL 130-159 mg/dL Borderline high LDL 160-189 mg/dL High LDL greater than 189 mg/dL Very high Performed By: #### E BS A1C, EBS CMP, LIPID #### [facility] [address] [place] [id number] [place] Triglyceride w/Reflex 103 mg/dL Normal 35-149 [facility] Comment on above: Result Comment: TRIG ATP III CLASSIFICATION TRIG less than 150 mg/dL Normal TRIG 150-199 mg/dL Borderline high TRIG 200-500 mg/dL High TRIG greater than 500 mg/dL Very high Standard traceable to the Center for Disease Conrtrol and Prevention (CDC) test method. Performed By: #### E BS A1C, EBS CMP, LIPID #### [facility] [address] VLDL CHOLESTEROL 20 mg/dL Normal [facility] Comment on above: Performed By: #### E BS A1C, EBS CMP, LIPID #### [facility] [address] [place] [id number] [facility] Vital Signs Date Time Vital Sign Value Performing Clinician Facility 03-19-2024 16:04-0500 Body mass index (BMI) [Ratio] 31.16 kg/m2 Padmini GONZALEZ Work Phone: [facility] 03-19-2024 16:04-0500 Body weight 95.71 kg Padmini GONZALEZ Work Phone: [facility] 03-19-2024 16:04-0500 Diastolic blood pressure 78 mm[Hg] Padmini GONZALEZ Work Phone: [facility] 03-19-2024 16:04-0500 Systolic blood pressure 124 mm[Hg] Padmini GONZALEZ Work Phone: [facility] 11-11-2022 09:35-0400 Body height 175.26 cm Reva Zimmerman Other [facility] Other 11-11-2022 09:35-0400 Body mass index (BMI) [Ratio] 32.48 kg/m2 Reva Zimmerman Other [facility] Other 11-11-2022 09:35-0400 Body weight 99.79 kg Reva Zimmerman Other [facility] Other 11-11-2022 09:35-0400 Diastolic blood pressure 90 mm[Hg] Reva Zimmerman Other [facility] Other 11-11-2022 09:35-0400 SaO2% (BldA) [Mass fraction] 98 % Reva Zimmerman Other [facility] Other 11-11-2022 09:35-0400 Systolic blood pressure 142 mm[Hg] Reva Zimmerman Other [facility] Other 03-23-2022 10:17-0500 Blood Pressure Location Polina indeni [facility] 03-23-2022 10:17-0500 Diastolic blood pressure 81 mm[Hg] Polina WINNL [facility] 03-23-2022 10:17-0500 Heart rate 88 /min Polina m2fxL [facility] 03-23-2022 10:17-0500 Respiratory rate 16 /min Polina m2fxL [facility] 03-23-2022 10:17-0500 Systolic blood pressure 141 mm[Hg] Polina WINNL [facility] Encounters Encounter Date Encounter Type Care [...] 11-11-2022 End: 11-11-2022 ambulatory Reva Elsie Other [facility] Other Start: 11-11-2022 Office outpatient vi sit 15 minutes Reva Zimmerman [facility] Start: 07-18-2022 End: 07-19-[address] PEPITO QUACH . Facility:[facility] Start: 06-16-2022 Encounter for other preprocedural examination DR PEPITO QUACH . [facility] Start: 06-16-2022 Encounter for preprocedural laboratory examination DR PEPITO QUACH . [facility] Start: 06-15-[address] PEPITO QUACH [...] Start: 2022 End: 04-20-2022 ambulatory Polina BIRD Facility:[id number] Start: 04-15-[address] KATHLEEN BUSBY . Facili ty:[facility] Start: 03-23-2022 End: 03-24-2022 ambulatory Polina BIRD Facility:[facility] Start: 03-23-2022 End: 03-23-2022 Patient encounter procedure Polina BIRD [facility] Start: 03-20-2022 ambulatory Polina BIRD Facility:[facility] Start: 03-13-2022 End: 03-13-[address] KATHLEEN BUSBY . Facility:[facility] Start: 02-28-2022 End: 02-28-[address] PEPITO QUACH . Facility:[facility] Start: 02-24-2022 End: 02-25-[address] KATHLEEN BUSBY . Facility:[facility] Start: 02-20-2022 Encounter for preprocedural cardiovascular examination DR PEPITO QUACH . [facility] Start: 02-16-2022 End: 02-17-[address] [...] Screening for malign ant neoplasm of colon [facility] Start: 03-19-2024 End: 03-19-2024 Patient encounter procedure 03/19/2024 3:30 PM EST Office Visit [facility] [address] [place] [address] Padmini Marr PA [address] [place], [place] [id number] Arrived [facility] Comment on above: Arrived Start: 03-19-2024 End: 03-19-2025 DXA Skeletal system Views for bone density DEXA bone density Imaging Routine Osteoporosis, post-menopausal ([facility]/HCC) Expected: 03/19/2024 (Approximate), Expires: 03/19/2025 [facility] Work Phone: Comment on above: Expected: 03/19/2024 (Approximate), Expires: 03/19/2025 Start: 11-11-2023 Influenza vaccination Influenz a Vaccine (#1) [facility] Start: 04-11-2022 Screening for malign ant neoplasm of cervix [facility] Start: 2007 Screening for malign ant neoplasm of breast Mammogram [facility] Start: 1967 Screening for malign ant neoplasm of colon [facility] Immunizations Immunization Date Immunization Notes Care Provider Fa cility 12-13-2023 influenza virus vaccine, unspecified formulation Padmini GONZALEZ Work Phone: [facility] Healthcare 12-12-2021 influenza, unspecifi ed formulation Polina TATUML [facility] 02-01-2021 SARS-CoV-2 (COVID-19 ) mRNA-1273 vaccine Polina NILL [facility] 04-13-2020 SARS-CoV-2 (COVID-19 ) mRNA-1273 vaccine Polina NILL [facility] 03-10-2020 SARS-CoV-2 (COVID-19 ) mRNA-1273 vaccine Polina NILL [facility] Payers Date Payer Category Payer [facility] er [id number] 2019 Unknown [id number] 1967 Unknown [id number] 2.16.840.1.245160.3.579.2. 727 1967 Unknown [id number] 2.16.840.1.324614.3.579.2. 727 1967 Unknown [id number] 2.16.840.1.681881.3.579.2. 593 1967 Unknown [id number] 2.16.840.1.800835.3.579.2. 593 1967 Unknown [id number] 2.16.840.1.315104.3.579.2. 593 1967 Unknown [id number] 2.16.840.1.439763.3.579.2. 593 1967 Unknown [id number] 2.16.840.1.894671.3.579.2. 593 1967 Unknown [id number] 2.16.840.1.543828.3.579.2. 593 1967 Unknown [id number] 2.16.840.1.498460.3.579.2. 593 1967 Unknown [id number] 2.16.840.1.364788.3.579.2. 593 1967 Unknown [id number] 2.16.840.1.682604.3.579.2. 593 1967 Unknown [id number] 2.16.840.1.521962.3.579.2. 593 1967 Unknown [id number] 2.16.840.1.303302.3.579.2. 593 1967 Unknown [id number] 2.16.840.1.622862.3.579.2. 593 1967 Unknown [id number] 2.16.840.1.658342.3.579.2. 593 1967 Unknown [id number] 2.16.840.1.444922.3.579.2. 593 1967 Unknown [id number] 2.16.840.1.606848.3.579.2. 593 1967 Unknown [id number] 2.16.840.1.950657.3.579.2. 593 1967 Unknown [id number] 2.16.840.1.099928.3.579.2. 593 1967 Unknown [id number] 2.16.840.1.240346.3.579.2. 593 1967 Unknown [id number] 2.16.840.1.113325.3.579.2. 593 1967 Unknown [id number] 2.16.840.1.403049.3.579.2. 593 1967 Unknown [id number] 2.16.840.1.788678.3.579.2. 1259 1959 Self-pay 1959 Unknown [id number] 1959 Unknown [id number] Unknown [id number] 2.16.840.1.099696.3.579.2. 593 Social History Date Type Detail Facility Start: 03-23-2022 End: 09-29-2022 Tobacco smoking status Ex-smoker (finding) [facility] Tobacco smoking status Never [facility] Start: 10-02-2022 End: 03-19-2024 Sex Assigned At Female [facility] History of tobacco use Current smoker [facility] History of tobacco use Cigarette Smoker [facility] Start: 10-02-2022 End: 03-19-2024 Alcoholic beverage intake Current drinker of alcohol (finding) [facility] Start: 10-02-2022 End: 03-19-2024 History of Social function [facility] Start: 09-29-2022 Alcohol Comment less than branden hly, Caffeine intake: 1-2 cups per day [facility] Start: 1965 Sex assigned at Not on file [facility] Medical Equipment Procedure Code Equipment Code Equipment Original Text Equi pment Identifier Dates Functional Status Date Assessment Result Facility 03-23-2022 Functional Status N/A [facility] History of Present illness Narrative 03-19-2024 [...] Problems Past Medical History: Diagnosis Date Diabetes ([facility]) Diverticulosis Hypertension ([facility]) Obstructive sleep apnea HISTORY PAST MEDICAL HISTORY SOCIAL HISTORY Past Medical History: Diagnosis Date Diabetes ([facility]/HCC) Diverticulosis Hypertension ([facility]) Nasal obstruction Obstructive sleep apnea Social History [...] of: CARLOS Murphy documented in this encounter [facility] Evaluation note 11-11-2022 Note Date & Type Note Facility 11-11-2022 Evaluation note Encounter Date Diagnosis Assessment Notes Nov, Abrasion of left cornea, initial encounter (ICD-10 - S05.02XA) Corneal abrasion home care material was printed Drink plenty fluids, get plenty of rest. Use the eyedrops as prescribed. Follow-up with your family physician if no improvement in 2 to 3 days [facility] Other Clinical Note 2022 Note Date & [...] colon polyps. CC: Kathleen Busby M.D. [facility] Clinical Note 03-23-2022 Note Date & Type Note Facility 03-23-2022 Note Chief Complaint consultation for abdominal pain HPI Staff 56 year old female presents on consultation from [place] [facility] for abdominal pain. Presented with complaint of LLQ pain, nausea, vomiting and diarrhea; diagnosed with gastroenteritis. Symptoms resolved one day after ED evaluation. Last colonoscopy completed 08/2017-normal. History of Present Illness 56 yo female with h/o htn, DMII, hypercholesterolemia, migraines, referred from [place] ED for epidsode of gastroenteritis; patient was [...] qWeek Allergies Bact (more content not included)... [facility] Comment on above: Result Comment: Elec tronically [...] bleeding. ANESTHESIA: General. SURGEON: Pepito Quach D.O. WAREHOUSE TRAFFIC SUPERVISOR: None. BLOOD LOSS: 5 mL URINE OUTPUT: [...] the Recovery Room in stable condition. [facility] Evaluation + Plan note Note Date & Type Note Facility Evaluation + Plan note No data available for this section [facility] [place] Evaluation note Note Date & Type Note [...] ablation, D&C 02/2022 Hospitalization History See Above [facility] Other Hospital Discharge instructions Note Date & Type Note Facility Hospital Discharge instructions No data available for this section [facility] [place] Progress note Note Date & Type Note Facility Progress note No data available for this section [facility] [place] Summary Purpose Family History No Family History Records FoundNo Family History Records FoundNo Family History Records FoundNo Family History Records Found Advance Directives No Advanced Directives Records FoundNo Advanced Directives Records FoundNo Advanced Directives Records FoundNo Advanced Directives Records Found Additional Source Comments INFORMATION SOURCE (unrecogn ized section and content) DATE CREATED AUTHOR 07/14/2020 [facility] DATE CREATED AUTHOR AUTHOR'S ORGANIZ ATION 04/27/2022 [facility] DATE CREATED AUTHOR AUTHOR'S ORGANIZ ATION 07/26/2022 [facility] DATE CREATED AUTHOR AUTHOR'S ORGANIZ ATION 03/25/[address] [facility] dical Specialists EPIC Patient Care team informatio n (unrecognized section and content) [employer]ough Sheeter Relationship Specialty Start Date End Date Kathleen Busby MD [address] [place] [phone] PCP - General Family Medicine 08/31/22 Dough Sheeter Relationship Specialty Start Date End Date Kathleen Busby MD [address] [place] [address] PCP - General Family Medicine 08/31/22 REASON [...] BE BASED ON THE PRIMARY CLINICAL RECORDS. [employer] [facility]. provides no warranty or guarantee of the accuracy or completeness of information in this document.
--- NOTE | 2024-08-06 08:15 | PM.CN ---
Consult Note: HPI Data of Consult Patient: new to practice Requesting Physician: Kanchan Alcaraz NP Primary Care Provider: Frank Busby MD Consult Narrative Reason for consult: right hip pain Narrative: Britney Parsons a pleasant 59 year old female presents for evaluation of right hip pain. Noticing increased right low back, hip, and groin pain after a fall 03/11/25. Pt has been engaged in PT, completed at least 10 sessions, with improvement. Pt previously utilizing tylenol without improvement, now on biofreeze mobic and tizanidine with significant relief without side effects. Pain today 0/10 increasing to 0/10, over the last 5 days has experienced no pain. Prior to that her pain was moderate to severe with standing, walking, activity, upon standing. cc:: CC: Kanchan Alcaraz NP Review of Systems ROS Musculoskeletal Denies: back pain or joint pain [facility] Medical History (Updated 08/06/24 @ 08:18 by Kanchan Alcaraz NP) Back pain ?M54.9 - Dorsalgia, unspecified (ICD-10) Rotator cuff tear ?M75.100 - Unspecified rotator cuff tear or rupture of unspecified shoulder, not specified as traumatic (ICD-10) ARLIN (obstructive sleep apnea) ?G47.33 - Obstructive sleep apnea (adult) (pediatric) (ICD-10) Hepatitis A ?B15.9 - Hepatitis A without hepatic coma (ICD-10) Right shoulder pain ?M25.511 - Pain in right shoulder (ICD-10) Diverticulosis ?K57.90 - Diverticulosis of intestine, part unspecified, without perforation or abscess without bleeding (ICD-10) Arthritis ?M19.90 - Unspecified osteoarthritis, unspecified site (ICD-10) Anemia ?D64.9 - Anemia, unspecified (ICD-10) Depression ?F32.A - Depression, unspecified (ICD-10) Colon polyp ?K63.5 - Polyp of colon (ICD-10) Diarrhea ?R19.7 - Diarrhea, unspecified (ICD-10) Constipation ?K59.00 - Constipation, unspecified (ICD-10) Sleep apnea ?G47.30 - Sleep apnea, unspecified (ICD-10) Pneumonia ?J18.9 - Pneumonia, unspecified organism (ICD-10) Neuropathy ?G62.9 - Polyneuropathy, unspecified (ICD-10) Restless leg ?G25.81 - Restless legs syndrome (ICD-10) Migraine ?G43.909 - Migraine, unspecified, not intractable, without status migrainosus (ICD-10) Urinary tract infection ?N39.0 - Urinary tract infection, site not specified (ICD-10) IBS (irritable bowel syndrome) ?K58.9 - Irritable bowel syndrome without diarrhea (ICD-10) GERD (gastroesophageal reflux disease) ?K21.9 - Gastro-esophageal reflux disease without esophagitis (ICD-10) Palpitations ?R00.2 - Palpitations (ICD-10) High cholesterol ?E78.00 - Pure hypercholesterolemia, unspecified (ICD-10) Hypertension ?I10 - Essential (primary) hypertension (ICD-10) Diabetes ?E11.9 - Type 2 diabetes mellitus without complications (ICD-10) Surgical History History of hysterectomy (08/2022) ?Z90.710 - Acquired absence of both cervix and uterus (ICD-10) History of robot-assisted laparoscopic hysterectomy ?Z90.710 - Acquired absence of both cervix and uterus (ICD-10) History of cholecystectomy ?Z90.49 - Acquired absence of other specified parts of digestive tract (ICD-10) History of dilation and curettage ?Z98.890 - Other specified postprocedural states (ICD-10) History of colonoscopy ?Z98.890 - Other specified postprocedural states (ICD-10) History of tubal ligation ?Z98.51 - Tubal ligation status (ICD-10) History of section ?Z98.891 - History of uterine scar from previous surgery (ICD-10) S/P hip arthroscopy ?Z98.890 - Other specified postprocedural states (ICD-10) Family History Other Family history of colon cancer Family history of diabetes mellitus Family history of heart disease Family history of hypertension Family history of myocardial infarction Family history of stroke Social History Within the past year, how often did you have a drink containing alcohol: monthly or less Smoking status: Former smoker Non-prescribed substance use: denies use Previous occupational history: [employer] Highest level of school completed/degree received: Associate degree: occupational, technical, vocational program Meds Home Medications and Allergies Home Medications ?Medication ?Instructions ?Recorded ?Confirmed ?Type dulaglutide 3 mg/0.5 mL 3 mg subcut .weekly 08/18/22 01/22/23 History subcutaneous pen injector (Trulicity) insulin glargine 100 unit/mL (3 70 unit subcut BEDTIME 08/18/22 01/22/23 History mL) subcutaneous pen (Basaglar KwikPen U-100 Insulin) lisinopril 10 1 tab PO DAILY 08/18/22 01/22/23 History mg-hydrochlorothiazide 12.5 mg tablet metformin 1,000 mg tablet 1,000 mg PO BID 08/18/22 01/22/23 History diclofenac sodium 75 mg 75 mg PO BID 01/12/23 01/22/23 History tablet,delayed release tizanidine 4 mg capsule 4 mg PO QPM 01/12/23 01/22/23 History ketorolac 10 mg tablet 10 mg PO Q8H pain 5 days #15 tabs 01/22/23 Rx oxycodone-acetaminophen 5 mg-325 1 tab PO Q4H PRN pain #40 tabs 01/22/23 Rx mg tablet (Percocet) acetaminophen 300 mg-codeine 30 mg 1 tab PO Q6H PRN pain 5 days #20 03/11/24 Rx tablet tabs Allergies Allergy/AdvReac Type Severity Reaction Status Date / Time Penicillins Allergy Rash Verified 03/11/24 10:25 cephalexin (From Keflex) AdvReac Mild Vomiting Verified 03/11/24 10:25 Exam Constitutional Documenting provider has reviewed patient's vital signs: yes Common normals: no apparent distress, oriented x3, healthy appearing, alert and well nourished General appearance: cooperative [facility] Common normals: normocephalic, hearing grossly normal bilaterally and moist oral mucous membranes Head and scalp: normocephalic Eye Common normals: PERRL Pupil: PERRL Neck & C-Spine Common normals: full ROM General: normal visual inspection Chest Common normals: inspection of chest normal Respiratory Common normals: normal respiratory effort, no retractions and no use of accessory muscles Back & Pelvis Lumbar spine/lower back: no pain with ROM, no lumbar spinal tenderness and no paraspinal muscle tenderness Sacroiliac joints: SI joints normal Other: right sij negative onelia(patricks), gaenslens, thigh thrust, compression test Extremity Right lower extremity: hip joint Other: minimal pain with internal/external rotation, non tender over right GTB Neuro Common normals: oriented x3 Sensorium/orientation: alert Psych Common normals: mental status grossly normal, thought process normal, cooperative, affect normal, speech normal and activity/motor behavior normal Speech: normal speech Thought process: normal thought process Results Additional Findings Additional findings: If on a controlled substance or opioids, I have checked an [place] report on this patient and there are no aberrancies noted in the prescribing history.??If on a controlled substance or opioid a drug screen was completed and reviewed within the last year, and if there has not been a drug screen completed we ordered one today to monitor higher risk, state monitored pain medication use. As part of providing excellent, safe, comprehensive care, the following was completed at our patient's visit: 1. A medication reconciliation and review to ensure accurate knowledge of current/active medications, including asking our patients to inform us about any [id number] medications or herbal remedies/nutritional supplements/alternative remedies. 2. A review to specifically ensure our patients have had annual screening for screening for depression, screening for tobacco use, and screening for unhealthy alcohol use. For concerning screenings had a discussion with the patient, provided patient education, and recommended follow-up with primary care provider when appropriate. If patient noted with a risk of falling, they received education on strength, gait, and balance training to prevent future risk of falling. Portions of this note may have been carried over from the previous visit and updated as appropriate. Please note this office utilizes paper charting in addition to the electronic medical record. A list of current medications, vitals, and PMH is available there as the clinical staff outside of myself do not have access to [employer] charting during the clinic day operations. As part of providing quality comprehensive care the current medications, vitals, and PMH were reviewed in the paper chart. Assessment and Plan Assessment and Plan (1) Osteoarthritis of right hip: Plan 59 year old female with right hip pain secondary to moderate OA. Has found benefit to NSAIDs, heat, TENS, and PT. encouraged to continue PT and HEP as tolerated. continue medications through PCP, pain well controlled at this time. defer right hip injection under fluoroscopy, can schedule if pain worsens. pt will f/u PRN at this time as pain 0/10 increasing to 0/10.
== END 2024-08-06 07:47 | disposition home or self-care (01) ==
LOC: PM 07:46
PROVIDERS: PCP Family Medicine; Visit Provider Nurse Practitioner
DX: M16.11 Unilateral primary osteoarthritis, right hip (principal)
CPT/HCPCS: G0463

== ENCOUNTER 2024-08-08 06:07 | Emergency (ER) | payer BC, SELFPAY ==
[2024-08-08 06:13] VITALS: BP 188/88; PULSE 81; TEMP 37.1; O2SAT 98; BMI 32.6
--- OUTSIDE RECORDS SUMMARY | 2024-08-08 06:17 | XMS_ITS | CCD ---
Author Organization [facility] Care Team Providers Care Uptwister Tender Name Role Phone Kathleen Busby Primary Care [...] Unavailable Kathleen Busby MD Primary Care Provider [phone] PADMINI MARR Attending Unavailable Allergies Allergy Classification Reported Allergen(s) Allergy Type Date of Onset Reaction(s) Facility (6 sources) Penicillins; Translations: [penicillins] Drug allergy 08-31-19 Eruption of skin (disorder), Rash [facility] (5 sources) Sulfamethoxazole / Trimethoprim; Translations: [sulfamethoxazole-tr imethoprim] Drug Allergy 10-03-19 Unknown (qualifier value) [facility] (1 source) Bacitracin Drug Allergy [facility] (1 source) Sulfamethoxazole / Trimethoprim Drug Allergy [facility] (1 source) penicillAMINE Drug Allergy rash [facility] Other Medications Current Medications Medication Drug Class(es) [...] encounter] Onset: 09-27-2021 Episodic Unclassified (1 source) SETTER OUT INJECT NONINSULN ANTIDIAB; Translations: [GROUP HOME INJECT [...] Onset: 03-15-2022 Episodic Other aftercare (1 source) halfway (current) use of oral hypoglycemic drugs; Translations: [SETTER OUT USE ORAL HYPOGLYCEMIC DX] Onset: 04-25-2022 Episodic Other aftercare (1 source) halfway (current) use of insulin; Translations: [GROUP HOME CURRENT USE OF INSULIN] Onset: 03-15-2022 Episodic Other 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 Comment on above: Result Comment: ADA RECOMMENDED LIMIT 4.0 - 6.0 ADA THERAPEUTIC TARGET < 7.0 ACTION SUGGESTED > 7.0 Performed By: #### B MP #### [facility] [address] [address] [address] Bernice Hamilton Glucose [Mass/Vol] 160 mg/dL Normal [facility] Comment on above: Performed By: #### B MP #### [facility] [address] [address] [address] Bernice Hamilton HbA1c (Bld) [Mass fraction] 7.2 % Critically high 4.5-6.2 [facility] Comment on above: Performed By: #### B MP #### [facility] [address] [address] [address] Bernice Hamilton GLYCOHEMOGLOBIN A1Con 2022 ADA RECOMMENDATION SEE BELOW Normal [facility] Comment on above: Result Comment: ADA RECOMMENDED LIMIT 4.0 - 6.0 ADA THERAPEUTIC TARGET < 7.0 ACTION SUGGESTED > 7.0 Performed By: #### B MP #### [facility] [address] [address] [address] Bernice Hamilton Glucose [Mass/Vol] 186 mg/dL Normal [facility] Comment on above: Performed By: #### B MP #### [facility] [address] [address] [address] Bernice Hamilton HbA1c (Bld) [Mass fraction] 8.1 % Critically high 4.5-6.2 [facility] Comment on above: Performed By: #### B MP #### [facility] [address] [address] [address] Bernice Hamilton TYPE AND SCREENon 06-12-2022 TYPE AND SCREEN Negative Normal [facility] Comment on above: Performed By: #### T NS ####[facility] [address] [address]Dr. Bernice Hamilton CBC AUTO DIFFon 06-09-2022 BASO # 0.1 103/ul Normal 0.0-0.1 [facility] Comment on above: Performed By: #### E RUR, PREGU #### [facility] [address] [place] [address] Dr. Bernice Hamilton Basophils/100 WBC (Bld) 1.1 % Normal 0.2-2.0 [facility] Comment on above: Performed By: #### E RUR, PREGU #### [facility] [address] [place] [address] Dr. Bernice Hamilton EO # 0.5 103/ul Normal 0.0-0.7 [facility] Comment on above: Performed By: #### E RUR, PREGU #### [facility] [address] [place] [address] Dr. Bernice Hamilton Eosinophils/100 WBC (Bld) 7.4 % Critically high 0.9-7.0 [facility] Comment on above: Performed By: #### E RUR, PREGU #### [facility] [address] [place] [address] Dr. Bernice Hamilton Erythrocyte distribution width (RBC) [Ratio] 16.8 % Critically high 11.0-15.0 [facility] Comment on above: Performed By: #### E RUR, PREGU #### [facility] [address] [place] [address] Dr. Bernice Hamilton Hematocrit (Bld) [Volume fraction] 37.8 % Normal 36.0-48.0 [facility] Comment on above: Performed By: #### E RUR, PREGU #### [facility] [address] [place] [address] Dr. Bernice Hamilton Hemoglobin (Bld) [Mass/Vol] 11.5 g/dL Critically low 12.0-16.0 [facility] Comment on above: Performed By: #### E RUR, PREGU #### [facility] [address] [place] [address] Dr. Bernice Hamilton IG # 0.02 10e3/ul Normal 0.00-0.03 [facility] Comment on above: Performed By: #### E RUR, PREGU #### [facility] [address] [place] [address] Dr. Bernice Hamilton IG % 0.3 % Normal 0.0-0.5 [facility] Comment on above: Performed By: #### E RUR, PREGU #### [facility] [address] [place] [address] Dr. Bernice Hamilton LYMPH # 1.8 103/ul Normal 1.2-3.8 [facility] Comment on above: Performed By: #### E RUR, PREGU #### [facility] [address] [place] [address] Dr. Bernice Hamilton Lymphocytes/100 WBC (Bld) 29.6 % Normal 20.5-60.0 [facility] Comment on above: Performed By: #### E RUR, PREGU #### [facility] [address] [place] [address] Dr. Bernice Hamilton MANUAL DIFF REQ NO Normal [facility] Comment on above: Performed By: #### E RUR, PREGU #### [facility] [address] [place] [address] Dr. Bernice Hamilton MCH (RBC) [Entitic mass] 22.8 pg Critically low 26.7-34.0 [facility] Comment on above: Performed By: #### E RUR, PREGU #### [facility] [address] [place] [address] Dr. Bernice Hamilton MCHC (RBC) [Mass/Vol] 30.4 g/dL Normal 29.9-35.2 [facility] Comment on above: Performed By: #### E RUR, PREGU #### [facility] [address] [place] [address] Dr. Bernice Hamilton MCV (RBC) [Entitic vol] 74.9 fL Critically low 81.0-99.0 [facility] Comment on above: Performed By: #### E RUR, PREGU #### [facility] [address] [place] [address] Dr. Bernice Hamilton MONO # 0.5 103/ul Normal 0.3-0.8 [facility] Comment on above: Performed By: #### E RUR, PREGU #### [facility] [address] [place] [address] Dr. Bernice Hamilton Monocytes/100 WBC (Bld) 7.3 % Normal 1.7-12.0 [facility] Comment on above: Performed By: #### E RUR, PREGU #### [facility] [address] [place] [address] Dr. Bernice Hamilton NEUT # 3.4 103/ul Normal 1.4-6.5 [facility] Comment on above: Performed By: #### E RUR, PREGU #### [facility] [address] [place] [address] Dr. Bernice Hamilton Neutrophils/100 WBC (Bld) 54.3 % Normal 43.0-75.0 [facility] Comment on above: Performed By: #### E RUR, PREGU #### [facility] [address] [place] [address] Dr. Bernice Hamilton Platelet mean volume (Bld) [Entitic vol] 10.9 fL Normal 9.5-13.5 [facility] Comment on above: Performed By: #### E RUR, PREGU #### [facility] [address] [place] [address] Dr. Bernice Hamilton PLT 320 103/ul Normal 150-450 [facility] Comment on above: Performed By: #### E RUR, PREGU #### [facility] [address] [place] [address] Dr. Bernice Hamilton RBC 5.05 106/ul Normal 4.20-5.40 [facility] Comment on above: Performed By: #### E RUR, PREGU #### [facility] [address] [place] [address] Dr. Bernice Hamilton WBC 6.2 103/ul Normal 4.0-11.0 [facility] Comment on above: Performed By: #### E RUR, PREGU #### [facility] [address] [place] [address] Dr. Bernice Hamilton LIVER PROFILEon 06-09-2022 Albumin [Mass/Vol] 3.6 g/dL Normal 3.4-5.0 [facility] Comment on above: Performed By: #### B MP #### [facility] [address] [place] [address] Dr. Bernice Hamilton Albumin/Globulin [Mass ratio] 1.0 {ratio} Normal [facility] Comment on above: Performed By: #### B MP #### [facility] [address] [place] [address] Dr. Bernice Hamilton ALP [Catalytic activity/Vol] 77 U/L Normal 46-116 [facility] Comment on above: Performed By: #### B MP #### [facility] [address] [place] [address] Dr. Bernice Hamilton ALT [Catalytic activity/Vol] 28 U/L Normal 14-59 [facility] Comment on above: Performed By: #### B MP #### [facility] [address] [place] [address] Dr. Bernice Hamilton AST [Catalytic activity/Vol] 15 U/L Normal 15-37 [facility] Comment on above: Performed By: #### B MP #### [facility] [address] [place] [address] Dr. Bernice Hamilton BILI, CONJUGATED 0.1 mg/dL Normal 0.0-0.2 [facility] Comment on above: Performed By: #### B MP #### [facility] [address] [place] [address] Dr. Bernice Hamilton Bilirubin [Mass/Vol] 0.2 mg/dL Normal 0.2-1.0 [facility] Comment on above: Performed By: #### B MP #### [facility] [address] [place] [address] Dr. Bernice Hamilton Globulin (S) [Mass/Vol] 3.7 g/dL Normal [facility] Comment on above: Performed By: #### B MP #### [facility] [address] [place] [address] Dr. Bernice Hamilton Protein [Mass/Vol] 7.3 g/dL Normal 6.4-8.2 [facility] Comment on above: Performed By: #### B MP #### [facility] [address] [address] [address] Bernice Hamilton PROF CHEM 8 (BAS METB)on Anion gap [Moles/Vol] 11.8 mmol/L Normal [facility] Comment on above: Performed By: #### B MP #### [facility] [address] [address] [address] Bernice Hamilton Calcium [Mass/Vol] 9.0 mg/dL Normal 8.5-10.1 [facility] Comment on above: Performed By: #### B MP #### [facility] [address] [address] [address] Bernice Hamilton Chloride [Moles/Vol] 104 mmol/L Normal 98-107 [facility] Comment on above: Performed By: #### B MP #### [facility] [address] [address] [address] Bernice Hamilton CO2 [Moles/Vol] 27.6 mmol/L Normal 21.0-32.0 [facility] Comment on above: Performed By: #### B MP #### [facility] [address] [place] [address] Dr. Bernice Hamilton Creatinine [Mass/Vol] 0.60 mg/dL Normal 0.55-1.02 [facility] Comment on above: Performed By: #### B MP #### [facility] [address] [place] [address] Dr. Bernice Hamilton EGFR-AF [place]ONG [place]ER >60 Normal >=60 [facility] Comment on above: Performed By: #### B MP #### [facility] [address] [address] [address] Bernice Hamilton EGFR-NON AF [place] >60 Normal >=60 [facility] Comment on above: Performed By: #### B MP #### [facility] [address] [place] [address] Dr. Bernice Hamilton Glucose [Mass/Vol] 174 mg/dL Critically high 74-106 [facility] Comment on above: Performed By: #### B MP #### [facility] [address] [address] [address] Bernice Hamilton Potassium [Moles/Vol] 4.4 mmol/L Normal 3.5-5.1 [facility] Comment on above: Performed By: #### B MP #### [facility] [address] [address] [address] Bernice Hamilton Sodium [Moles/Vol] 139 mmol/L Normal 136-145 [facility] Comment on above: Performed By: #### B MP #### [facility] [address] [address] [address] Bernice Hamilton Urea nitrogen [Mass/Vol] 17.0 mg/dL Normal 7.0-18.0 [facility] Comment on above: Performed By: #### B MP #### [facility] [address] [place] [address] Dr. Bernice Hamilton Urea nitrogen/Creatinine [Mass ratio] 28.3 mg/mg Normal [facility] Comment on above: Performed By: #### B MP #### [facility] [address] [place] [address] Dr. Bernice Hamilton PROTIMEon 06-09-2022 INR Coag (PPP) [Relative time] {INR} Normal [facility] Comment on above: Performed By: #### E RUR, PREGU #### [facility] [address] [place] [address] Dr. Bernice Hamilton INR GUIDELINES SEE BELOW Normal [facility] Comment on above: Result Comment: DAMARIS RED INR: 2.0 - 3.0 CONDITIONS NOT LISTED BELOW 2.5 - 3.5 FOR PROSTHETIC HEART VALVE REPLACEMENT 2.5 - 3.5 RECURRENT THROMBOSIS Performed By: #### E RUR, PREGU #### [facility] [address] [place] [address] Dr. Bernice Hamilton PT Coag (PPP) [Time] 9.8 s Normal 9.0-11.6 [facility] Comment on above: Performed By: #### E RUR, PREGU #### [facility] [address] [place] [address] Dr. Bernice Hamilton PTTon 06-09-2022 aPTT Coag (Bld) [Time] 24.2 s Normal 22.3-36.2 [facility] Comment on above: Performed By: #### Mara SORIANO PREGU #### [facility] [address] [place] [address] [address] Bernice Hamilton Outside Colonoscopyon 2022 Outside Colonoscopy [id number]#1.00C D:127 Normal [facility] Reminderson 04-20-2022 Reminders - From: Nayeli Du LPN To: N - Clinical; Sent: 04/20/2022 12:53:45 EST Show up: 03/19/2027 07:00:00 EST Subject: colonoscopy recall Due Date/Time: 2027 07:00:00 EST Reminder/Recall Patient is due for colonoscopy 2027 due to history of colonic polyps. Normal [facility] PREG HCG QUALon 2022 , QUAL Negative Normal NEGATIVE [facility] Comment on above: Performed By: #### Mara SORIANO PREGU #### [facility] [address] [place], [place] [id number] Dr. Bernice Hamilton Pre-Certification Formon Pre-Certification Form [id number]#1.00C D:127 Normal [facility] Ambulatory Visit Summaryon 0 03-23-2022 Ambulatory [...] RLS (restless legs syndrome) Sleep apnea Normal [facility] Consent for Procedure/Surger yon 03-23-2022 Consent for Procedure/Surgery [id number]#1.00C D:127 Normal [facility] ED Note-Physicianon 03-19-19 ED Note-Physician [id number]#1.00C D:127 Normal [facility] RAD - CT Reporton 03-19-2022 RAD - CT Report [id number]#1.00C D:127 Normal [facility] AMYLASEon 03-13-2022 Amylase [Catalytic activity/Vol] 53 U/L Normal 25-115 [facility] Comment on above: Performed By: #### E CHRISTIE PREGU #### [facility] [address] [address] [address] Bernice Hamilton CBC AUTO DIFFon 03-13-2022 BASO # 0.0 103/ul Normal 0.0-0.1 [facility] Comment on above: Performed By: #### C BC ####[facility] [address] [address]DrPablo Hamilton Basophils/100 WBC (Bld) 0.2 % Normal 0.2-2.0 [facility] Comment on above: Performed By: #### C BC ####[facility] [address] [address]DrPablo Hamilton EO # 0.2 103/ul Normal 0.0-0.7 [facility] Comment on above: Performed By: #### C BC ####[facility] [address] [address]DrPablo Hamilton Eosinophils/100 WBC (Bld) 1.1 % Normal 0.9-7.0 [facility] Comment on above: Performed By: #### C BC ####[facility] [address] [address]Dr. Bernice Hamilton Erythrocyte distribution width (RBC) [Ratio] 15.7 % Critically high 11.0-15.0 [facility] Comment on above: Performed By: #### C BC ####[facility] [address] [address]Dr. Bernice Hamilton Hematocrit (Bld) [Volume fraction] 37.0 % Normal 36.0-48.0 [facility] Comment on above: Performed By: #### C BC ####[facility] [address] [address]Dr. Bernice Hamilton Hemoglobin (Bld) [Mass/Vol] 11.5 g/dL Critically low 12.0-16.0 [facility] Comment on above: Performed By: #### C BC ####[facility] [address] [address]Dr. Bernice Hamilton IG # 0.08 10e3/ul Critically high 0.00-0.03 [facility] Comment on above: Performed By: #### C BC ####[facility] [address] [place], [place] [address]Dr. Bernice Hamilton IG % 0.5 % Normal 0.0-0.5 [facility] Comment on above: Performed By: #### C BC ####[facility] [address] [place], [place] [address]Dr. Bernice Hamilton LYMPH # 1.1 103/ul Critically low 1.2-3.8 [facility] Comment on above: Performed By: #### C BC ####[facility] [address] [address]Dr. Bernice Hamilton Lymphocytes/100 WBC (Bld) 6.4 % Critically low 20.5-60.0 [facility] Comment on above: Performed By: #### C BC ####[facility] [address] [place], [place] [address]Dr. Bernice Hamilton MANUAL DIFF REQ NO Normal [facility] Comment on above: Performed By: #### C BC ####[facility] [address] [place], [place] [address]Dr. Bernice Hamilton MCH (RBC) [Entitic mass] 23.1 pg Critically low 26.7-34.0 [facility] Comment on above: Performed By: #### C BC ####[facility] [address] [id number]. Bernice Hamilton MCHC (RBC) [Mass/Vol] 31.1 g/dL Normal 29.9-35.2 [facility] Comment on above: Performed By: #### C BC ####[facility] [address] [address]Dr. Bernice Hamilton MCV (RBC) [Entitic vol] 74.3 fL Critically low 81.0-99.0 [facility] Comment on above: Performed By: #### C BC ####[facility] [address] [address]Dr. Bernice Hamilton MONO # 1.1 103/ul Critically high 0.3-0.8 [facility] Comment on above: Performed By: #### C BC ####[facility] [address] [address]Dr. Bernice Hamilton Monocytes/100 WBC (Bld) 6.3 % Normal 1.7-12.0 [facility] Comment on above: Performed By: #### C BC ####[facility] [address] [id number]. Bernice Hamilton NEUT # 14.3 103/ul Critically high 1.4-6.5 [facility] Comment on above: Performed By: #### C BC ####[facility] [address] [id number]. Bernice Hamilton Neutrophils/100 WBC (Bld) 85.5 % Critically high 43.0-75.0 [facility] Comment on above: Performed By: #### C BC ####[facility] [address] [address]Dr. eBrnice Hamilton Platelet mean volume (Bld) [Entitic vol] 10.4 fL Normal 9.5-13.5 [facility] Comment on above: Performed By: #### C BC ####[facility] [address] [place], [place] [address]Bi. Bernice Hamilton PLT 356 103/ul Normal 150-450 [facility] Comment on above: Performed By: #### C BC ####[facility] [address] [place], [place] [address]Ay. Bernice Hamilton RBC 4.98 106/ul Normal 4.20-5.40 [facility] Comment on above: Performed By: #### C BC ####[facility] [address] [place], [place] [address]Wm. Bernice Hamilton WBC 16.8 103/ul Critically high 4.0-11.0 [facility] Comment on above: Performed By: #### C BC ####[facility] [address] [place], [place] [address]Xl. [address]ice [address] CT ABD/PELV W CONon 03-13-[address] ABD/PELV W CON CT ABD/PELV W CON: 03/13/2022 3:40 AM EST CLINICAL HISTORY: 56 years old Female with GENERALIZED ABDOMINAL PAIN. Left lower quadrant pain and vomiting. [facility] 02/28/2022. TECHNIQUE: Axial CT images [...] MATTHEW MELARA Date: 2022-03-13 05:43 Normal [facility] GROUP A STREP CULTUREon S. pyogenes Ag Ql (Unsp spec) Culture Observations: NEGATIVE FOR GROUP A STREPTOCOCCUS. Normal [facility] Comment on above: Performed By: #### S SCRN GRASTCX ####[facility] [address] [address]Dr. Bernice Hamilton LIPASEon 03-13-2022 Lipase [Catalytic activity/Vol] 121.0 U/L Normal 73.0-393.0 [facility] Comment on above: Performed By: #### E KATHERINER, PREGU #### [facility] [address] [place] [address] Dr. Bernice Hamilton PROF 14(COMP METB)on 023 Albumin [Mass/Vol] 3.6 g/dL Normal 3.4-5.0 [facility] Comment on above: Performed By: #### E CHRISTIE, PREGU #### [facility] [address] [address] [address] Bernice Hamilton Albumin/Globulin [Mass ratio] 0.8 {ratio} Normal [facility] Comment on above: Performed By: #### E CHRISTIE, PREGU #### [facility] [address] [place] [address] Dr. Bernice Hamilton ALP [Catalytic activity/Vol] 112 U/L Normal 46-116 [facility] Comment on above: Performed By: #### E RUR, PREGU #### [facility] [address] [place] [address] Dr. Bernice Hamilton ALT [Catalytic activity/Vol] 23 U/L Normal 14-59 [facility] Comment on above: Performed By: #### E RUR, PREGU #### [facility] [address] [place] [address] Dr. Bernice Hamilton Anion gap [Moles/Vol] 16.5 mmol/L Normal [facility] Comment on above: Performed By: #### E RUR, PREGU #### [facility] [address] [place] [address] Dr. Bernice Hamilton AST [Catalytic activity/Vol] 20 U/L Normal 15-37 [facility] Comment on above: Performed By: #### Mara MURPHYR, PREGU #### [facility] [address] [place] [address] Dr. Bernice Hamilton Bilirubin [Mass/Vol] 0.5 mg/dL Normal 0.2-1.0 [facility] Comment on above: Performed By: #### Mara MURPHYR, PREGU #### [facility] [address] [place] [address] Dr. Bernice Hamilton Calcium [Mass/Vol] 9.2 mg/dL Normal 8.5-10.1 [facility] Comment on above: Performed By: #### Mara RUR, PREGU #### [facility] [address] [place] [address] Dr. Bernice Hamilton Chloride [Moles/Vol] 98 mmol/L Normal 98-107 [facility] Comment on above: Performed By: #### E RUR, PREGU #### [facility] [address] [place] [address] Dr. Bernice Hamilton CO2 [Moles/Vol] 23.5 mmol/L Normal 21.0-32.0 [facility] Comment on above: Performed By: #### Mara RUR, PREGU #### [facility] [address] [address] [address] Bernice Hamilton Creatinine [Mass/Vol] 0.99 mg/dL Normal 0.55-1.02 [facility] Comment on above: Performed By: #### E RUR, PREGU #### [facility] [address] [address] [address] Bernice Hamilton EGFR-AF HONG KONGER >60 Normal >=60 [facility] Comment on above: Performed By: #### E RUR, PREGU #### [facility] [address] [address] [address] Bernice Hamilton EGFR-NON AF HONG KONGER 58 mL/min/1.73m2 Critically low >=60 [facility] Comment on above: Performed By: #### E RUR, PREGU #### [facility] [address] [place] [address] Dr. Bernice Hamilton Globulin (S) [Mass/Vol] 4.4 g/dL Normal [facility] Comment on above: Performed By: #### E RUR, PREGU #### [facility] [address] [address] [address] Bernice Hamilton Glucose [Mass/Vol] 288 mg/dL Critically high 74-106 T [facility] Comment on above: Performed By: #### E RUR, PREGU #### [facility] [address] [place] [address] Dr. Bernice Hamilton Potassium [Moles/Vol] 4.0 mmol/L Normal 3.5-5.1 [facility] Comment on above: Performed By: #### E RUR, PREGU #### [facility] [address] [address] [address] Bernice Hamilton Protein [Mass/Vol] 8.0 g/dL Normal 6.4-8.2 [facility] Comment on above: Performed By: #### E RUR, PREGU #### [facility] [address] [address] [address] Bernice Hamilton Sodium [Moles/Vol] 134 mmol/L Critically low 136-145 Th [facility] Comment on above: Performed By: #### E RUR, PREGU #### [facility] [address] [address] [address] Bernice Hamilton Urea nitrogen [Mass/Vol] 17.0 mg/dL Normal 7.0-18.0 [facility] Comment on above: Performed By: #### E RUR, PREGU #### [facility] [address] [address] [address] Bernice Hamilton Urea nitrogen/Creatinine [Mass ratio] 17.2 mg/mg Normal [facility] Comment on above: Performed By: #### E RUR, PREGU #### [facility] [address] [address] [address] Bernice Hamilton STREPT SCREENon 03-13-2022 STREP SCREEN A Negative Normal NEGATIVE [facility] Comment on above: Performed By: #### S SCRN, GRASTCX ####[facility] [address] [place], [place] [address]Dr. Bernice Hamilton TROPONIN, HIGH SENSITIVITYon 03-13-2022 HSTROP 8.3 pg/mL Normal 4.0-51.3 [facility] Comment on above: Result Comment: CUT- OFF POINTS HAVE BEEN ESTABLISHED BASED ON THE FOURTH UNIVERSAL DEFINITIONS OF MYOCARDIAL INFARCTION. THE UPPER REFERENCE LIMIT (URL) OF TROPONIN, DEFINED THE 99TH PERCENTILE OF cTnI DISTRIBUTION IN A REFERENCE POPULATION, HAS BEEN CONFIRMED THE DECISION THRESHOLD FOR DE DIAGNOSIS. Performed By: #### H STROPN ####[facility] [address] [address]Dr. Bernice Hamilton CBC AUTO DIFFon 02-28-2022 BASO # 0.1 103/ul Normal 0.0-0.1 [facility] Comment on above: Performed By: #### C BC ####[facility] [address] [address]Dr. Bernice Hamilton Basophils/100 WBC (Bld) 0.8 % Normal 0.2-2.0 [facility] Comment on above: Performed By: #### C BC ####[facility] [address] [address]Dr. Bernice Hamilton EO # 0.4 103/ul Normal 0.0-0.7 [facility] Comment on above: Performed By: #### C BC ####[facility] [address] [address]Dr. Bernice Alfonso Eosinophils/100 WBC (Bld) 5.7 % Normal 0.9-7.0 [facility] Comment on above: Performed By: #### C BC ####[facility] [address] [place], [place] [address]Dr. Bernice Hamilton Erythrocyte distribution width (RBC) [Ratio] 15.3 % Critically high 11.0-15.0 [facility] Comment on above: Performed By: #### C BC ####[facility] [address] [place], [place] [address]Dr. Bernice Hamilton Hematocrit (Bld) [Volume fraction] 35.9 % Critically low 36.0-48.0 [facility] Comment on above: Performed By: #### C BC ####[facility] [address] [place], [place] [address]Dr. Bernice Hamilton Hemoglobin (Bld) [Mass/Vol] 11.0 g/dL Critically low 12.0-16.0 [facility] Comment on above: Performed By: #### C BC ####[facility] [address] [place], [place] [address]Dr. Bernice Hamilton IG # 0.02 10e3/ul Normal 0.00-0.03 [facility] Comment on above: Performed By: #### C BC ####[facility] [address] [place], [place] [address]Dr. Bernice Hamilton IG % 0.3 % Normal 0.0-0.5 [facility] Comment on above: Performed By: #### C BC ####[facility] [address] [place], [place] [address]Dr. Bernice Hamilton LYMPH # 2.4 103/ul Normal 1.2-3.8 [facility] Comment on above: Performed By: #### C BC ####[facility] [address] [place], [place] [address]Dr. Bernice Hamilton Lymphocytes/100 WBC (Bld) 33.2 % Normal 20.5-60.0 [facility] Comment on above: Performed By: #### C BC ####[facility] [address] [address]DrPablo Hamilton MANUAL DIFF REQ NO Normal [facility] Comment on above: Performed By: #### C BC ####[facility] [address] [address]Dr. Bernice Hamilton MCH (RBC) [Entitic mass] 22.8 pg Critically low 26.7-34.0 [facility] Comment on above: Performed By: #### C BC ####[facility] [address] [place], [place] [address]Dr. Bernice Hamilton MCHC (RBC) [Mass/Vol] 30.6 g/dL Normal 29.9-35.2 [facility] Comment on above: Performed By: #### C BC ####[facility] [address] [place], [place] [address]DrPablo Hamilton MCV (RBC) [Entitic vol] 74.5 fL Critically low 81.0-99.0 [facility] Comment on above: Performed By: #### C BC ####[facility] [address] [place], [place] [address]DrPablo Hamilton MONO # 0.5 103/ul Normal 0.3-0.8 [facility] Comment on above: Performed By: #### C BC ####[facility] [address] [place], [place] [address]DrPablo Hamilton Monocytes/100 WBC (Bld) 7.4 % Normal 1.7-12.0 [facility] Comment on above: Performed By: #### C BC ####[facility] [address] [place], [place] [address]DrPablo Hamilton NEUT # 3.8 103/ul Normal 1.4-6.5 [facility] Comment on above: Performed By: #### C BC ####[facility] [address] [place], [place] [address]DrPablo Hamilton Neutrophils/100 WBC (Bld) 52.6 % Normal 43.0-75.0 [facility] Comment on above: Performed By: #### C BC ####[facility] [address] [address]Dr. Bernice Hamilton Platelet mean volume (Bld) [Entitic vol] 10.3 fL Normal 9.5-13.5 [facility] Comment on above: Performed By: #### C BC ####[facility] [address] [address]Dr. Bernice Hamilton PLT 334 103/ul Normal 150-450 [facility] Comment on above: Performed By: #### C BC ####[facility] [address] [address]Dr. Bernice Hamilton RBC 4.82 106/ul Normal 4.20-5.40 [facility] Comment on above: Performed By: #### C BC ####[facility] [address] [address]Dr. Bernice Hamilton WBC 7.3 103/ul Normal 4.0-11.0 [facility] Comment on above: Performed By: #### C BC ####[facility] [address] [id number]. Bernice Hamilton POINT OF CARE GLUCOSEon 02-10 Glucose [Mass/Vol] 188 mg/dL Critically high 74-106 T [facility] Comment on above: Performed By: #### B MP #### [facility] [address] [place] [address] Dr. Bernice Hamilton PREG HCG QUALon 02-28-2022 , QUAL Negative Normal NEGATIVE [facility] Comment on above: Performed By: #### B MP #### [facility] [address] [address] [address] Bernice Hamilton Covid-19 PCR (CVDTB)on 02-09 SARS-CoV-2 (COVID-19) RNA JOSIAS+probe Ql (Unsp spec) Not detected Normal NOT DETECTED [facility] Comment on above: Result Comment: This test is not yet approved or cleared by the [place] FDA. When there are no FDA-approved or cleared tests available, and other criteria are met, FDA can make tests available under an emergency access mechanism called an Emergency Use Authorization (EUA). The EUA for this test is supported by the [place] of Health and Human Service's (HHS's) declaration [...] consistent with SARS-CoV-2. Performed By: #### [facility] ####[facility] [address] [address]Dr. Bernice Hamilton PROF CHEM 8 (BAS METB)on Anion gap [Moles/Vol] 12.4 mmol/L Normal [facility] Comment on above: Performed By: #### B MP #### [facility] [address] [place] [address] Dr. Bernice Hamilton Calcium [Mass/Vol] 8.7 mg/dL Normal 8.5-10.1 [facility] Comment on above: Performed By: #### B MP #### [facility] [address] [place] [address] Dr. Bernice Hamilton Chloride [Moles/Vol] 103 mmol/L Normal 98-107 [facility] Comment on above: Performed By: #### B MP #### [facility] [address] [address] [address] Bernice Hamilton CO2 [Moles/Vol] 27.8 mmol/L Normal 21.0-32.0 [facility] Comment on above: Performed By: #### B MP #### [facility] [address] [place] [address] Dr. Bernice Hamilton Creatinine [Mass/Vol] 0.92 mg/dL Normal 0.55-1.02 [facility] Comment on above: Performed By: #### B MP #### [facility] [address] [address] [address] Bernice Hamilton EGFR-AF [place]ONG [place]ER >60 Normal >=60 [facility] Comment on above: Performed By: #### B MP #### [facility] [address] [address] [address] Bernice Hamilton EGFR-NON AF [place]ER >60 Normal >=60 [facility] Comment on above: Performed By: #### B MP #### [facility] [address] [address] [address] Bernice Hamilton Glucose [Mass/Vol] 228 mg/dL Critically high 74-106 T [facility] Comment on above: Performed By: #### B MP #### [facility] [address] [place] [address] Dr. Bernice Hamilton Potassium [Moles/Vol] 4.2 mmol/L Normal 3.5-5.1 [facility] Comment on above: Performed By: #### B MP #### [facility] [address] [place] [address] Dr. Bernice Hamilton Sodium [Moles/Vol] 139 mmol/L Normal 136-145 [facility] Comment on above: Performed By: #### B MP #### [facility] [address] [place] [address] Dr. Bernice Hamilton Urea nitrogen [Mass/Vol] 16.0 mg/dL Normal 7.0-18.0 [facility] Comment on above: Performed By: #### B MP #### [facility] [address] [place] [address] Dr. Bernice Hamilton Urea nitrogen/Creatinine [Mass ratio] 17.4 mg/mg Normal [facility] Comment on above: Performed By: #### B MP #### [facility] [address] [place] [address] Dr. Bernice Hamilton Covid-19 PCR ([facility])on SARS-CoV-2 (COVID-19) RNA JOSIAS+probe Ql (Unsp spec) Not detected Normal NOT DETECTED [facility] Comment on above: Result Comment: When diagnostic [...] for this test is supported by the [employer] of Health and Human Service's declaration that [...] Performed By: #### E CHRISTIE, PREGU #### [facility] [address] [place] [address] Dr. Bernice Hamilton INFLUENZA A AND B AGon 02-[address] [facility]OW Normal [facility] Comment on above: Result Comment: Nega tive for Flu A protein angiten. Infection due to Flu A cannot be ruled out. Flu A angiten in the sample may be below the detection limit of the test. Performed By: #### I NFLUAB #### [facility] [address] [place] [address] Dr. Bernice [facility] BEL[facility] Normal [facility] Comment on above: Result Comment: Nega tive for Flu B protein antigen. Infection due to Flu B cannot be ruled out. Flu B antigen in the sample may be below the detection limit of the test. Performed By: #### I NFLUAB #### [facility] [address] [place] [address] Dr. Bernice Hamilton INFLUENZA A AG Negative Normal NEGATIVE SEE COMMENT [facility] Comment on above: Performed By: #### I NFLUAB #### [facility] [address] [place] [address] Dr. Bernice Hamilton INFLUENZA B AG Negative Normal NEGATIVE SEE COMMENT [facility] Comment on above: Performed By: #### I NFLUAB #### [facility] [address] [address] [address] Bernice Hamilton INTERNAL CONTROLS Within Normal Limits Normal Wi thin Normal Limits [facility] Comment on above: Performed By: #### I NFLUAB #### [facility] [address] [address] [address] Bernice Hamilton US PELVIS AND TRANSVAGon [...] EFREN WHELAN Date: 2022-01-27 06:22 Normal [facility] CBC AUTO DIFFon 01-26-2022 BASO # 0.1 103/ul Normal 0.0-0.1 [facility] Comment on above: Performed By: #### B MP #### [facility] [address] [address] [address] Bernice Hamilton Basophils/100 WBC (Bld) 0.8 % Normal 0.2-2.0 [facility] Comment on above: Performed By: #### B MP #### [facility] [address] [place] [address] Dr. Bernice Hamilton EO # 0.3 103/ul Normal 0.0-0.7 [facility] Comment on above: Performed By: #### B MP #### [facility] [address] [place] [address] Dr. Bernice Hamilton Eosinophils/100 WBC (Bld) 3.8 % Normal 0.9-7.0 [facility] Comment on above: Performed By: #### B MP #### [facility] [address] [place] [address] Dr. Bernice Hamilton Erythrocyte distribution width (RBC) [Ratio] 15.0 % Normal 11.0-15.0 [facility] Comment on above: Performed By: #### B MP #### [facility] [address] [place] [address] Dr. Bernice Hamilton Hematocrit (Bld) [Volume fraction] 39.1 % Normal 36.0-48.0 [facility] Comment on above: Performed By: #### B MP #### [facility] [address] [place] [address] Dr. Bernice Hamilton Hemoglobin (Bld) [Mass/Vol] 12.3 g/dL Normal 12.0-16.0 [facility] Comment on above: Performed By: #### B MP #### [facility] [address] [place] [address] Dr. Bernice Hamilton IG # 0.02 10e3/ul Normal 0.00-0.03 [facility] Comment on above: Performed By: #### B MP #### [facility] [address] [place] [address] Dr. Bernice Hamilton IG % 0.3 % Normal 0.0-0.5 [facility] Comment on above: Performed By: #### B MP #### [facility] [address] [place] [address] Dr. Bernice Hamilton LYMPH # 2.6 103/ul Normal 1.2-3.8 [facility] Comment on above: Performed By: #### B MP #### [facility] [address] [place] [address] Dr. Bernice Hamilton Lymphocytes/100 WBC (Bld) 36.1 % Normal 20.5-60.0 [facility] Comment on above: Performed By: #### B MP #### [facility] [address] [place] [address] Dr. Bernice Hamilton MANUAL DIFF REQ NO Normal [facility] Comment on above: Performed By: #### B MP #### [facility] [address] [place] [address] Dr. Bernice Hamilton MCH (RBC) [Entitic mass] 23.3 pg Critically low 26.7-34.0 [facility] Comment on above: Performed By: #### B MP #### [facility] [address] [place] [address] Dr. Bernice Hamilton MCHC (RBC) [Mass/Vol] 31.5 g/dL Normal 29.9-35.2 [facility] Comment on above: Performed By: #### B MP #### [facility] [address] [place] [address] Dr. Bernice Hamilton MCV (RBC) [Entitic vol] 74.2 fL Critically low 81.0-99.0 [facility] Comment on above: Performed By: #### B MP #### [facility] [address] [place] [address] Dr. Bernice Hamilton MONO # 0.6 103/ul Normal 0.3-0.8 [facility] Comment on above: Performed By: #### B MP #### [facility] [address] [place] [address] Dr. Bernice Hamilton Monocytes/100 WBC (Bld) 8.3 % Normal 1.7-12.0 [facility] Comment on above: Performed By: #### B MP #### [facility] [address] [place] [address] Dr. Bernice Hamilton NEUT # 3.6 103/ul Normal 1.4-6.5 [facility] Comment on above: Performed By: #### B MP #### [facility] [address] [address] [address] Bernice Hamilton Neutrophils/100 WBC (Bld) 50.7 % Normal 43.0-75.0 [facility] Comment on above: Performed By: #### B MP #### [facility] [address] [address] [address] Bernice Hamilton Platelet mean volume (Bld) [Entitic vol] 10.7 fL Normal 9.5-13.5 [facility] Comment on above: Performed By: #### B MP #### [facility] [address] [place] [address] Dr. Bernice Hamilton PLT 303 103/ul Normal 150-450 [facility] Comment on above: Performed By: #### B MP #### [facility] [address] [place] [address] Dr. Bernice Hamilton RBC 5.27 106/ul Normal 4.20-5.40 [facility] Comment on above: Performed By: #### B MP #### [facility] [address] [place] [address] Dr. Bernice Hamilton WBC 7.1 103/ul Normal 4.0-11.0 [facility] Comment on above: Performed By: #### B MP #### [facility] [address] [place] [address] Dr. Bernice Hamilton FREE T4on 01-26-2022 Free T4 [Mass/Vol] 1.08 ng/dL Normal 0.76-1.46 [facility] Comment on above: Performed By: #### B MP #### [facility] [address] [place] [address] Dr. Bernice Hamilton GLYCOHEMOGLOBIN A1Con 2021 ADA RECOMMENDATION SEE BELOW Normal [facility] Comment on above: Result Comment: ADA RECOMMENDED LIMIT 4.0 - 6.0 ADA THERAPEUTIC TARGET < 7.0 ACTION SUGGESTED > 7.0 Performed By: #### E RUR, PREGU #### [facility] [address] [place] [address] Dr. Bernice Hamilton Glucose [Mass/Vol] 209 mg/dL Normal [facility] Comment on above: Performed By: #### E RUR, PREGU #### [facility] [address] [address] [address] Bernice Hamilton HbA1c (Bld) [Mass fraction] 8.9 % Critically high 4.5-6.2 [facility] Comment on above: Performed By: #### E RUR, PREGU #### [facility] [address] [address] [address] Bernice Hamilton PREG QUANT HCGon 01-26-2022 HCG QUANT <1 Normal [facility] Comment on above: Performed By: #### T SH, PREGQNT #### [facility] [address] [place] [address] Dr. Bernice Hamilton HCG RANGE SEE BELOW Normal [facility] Comment on above: Result Comment: 5-50 0.2-1 WEEK 50-500 1-2 WEEKS 100-5,000 2-3 WEEKS 500-10,000 3-4 WEEKS 1,000-50,000 4-5 WEEKS 10,000-100,000 5-6 WEEKS 15,000-200,000 6-8 WEEKS 10,000-100,000 2-3 MONTHS Performed By: #### T SH, PREGQNT #### [facility] [address] [place] [address] Dr. Bernice Hamilton PROTIMEon 01-26-2022 INR Coag (PPP) [Relative time] 0.95 {INR} Normal [facility] Comment on above: Performed By: #### P TT, PT ####[facility] [address] [address]Dr. Bernice Hamilton INR GUIDELINES SEE BELOW Normal [facility] Comment on above: Result Comment: DAMARIS RED INR: 2.0 - 3.0 CONDITIONS NOT LISTED BELOW 2.5 - 3.5 FOR PROSTHETIC HEART VALVE REPLACEMENT 2.5 - 3.5 RECURRENT THROMBOSIS Performed By: #### P TT, PT ####[facility] [address] [address]Dr. Bernice Hamilton PT Coag (PPP) [Time] 10.3 s Normal 9.0-11.6 [facility] Comment on above: Performed By: #### P TT, PT ####[facility] [address] [id number] Bernice Alfonso PTTon 01-26-2022 aPTT Coag (Bld) [Time] 23.8 s Normal 22.3-36.2 [facility] Comment on above: Performed By: #### P TT, PT ####[facility] [address] [id number]. Bernice Alfonso TSHon 01-26-2022 TSH 1.602 uIU/mL Normal 0.358-3.740 [facility] Comment on above: Performed By: #### T SH, PREGQNT #### [facility] [address] [address] [address] Bernice Hamilton Covid-19 PCR ([facility])on 12-11 SARS-CoV-2 (COVID-19) RNA JOSIAS+probe Ql (Unsp spec) Not detected Normal NOT DETECTED [facility] Comment on above: Result Comment: When diagnostic [...] for this test is supported by the [employer] of Health and Human Service's declaration that [...] Performed By: #### E RUR, PREGU #### [facility] [address] [address] [address] Bernice Hamilton XR FOOT ILSA MIN [...] : DR KATHLEEN BUSBY . Admission #: [id number] Family : Order #: [id number] CLICK HERE TO VIEW EXAM ECHOCARDIOGRAM REPORT [...] M.D. on 09/14/2021 at 10:21 Normal [facility] CARDIAC IVETH ADMITon 022 CK [Catalytic activity/Vol] 69 U/L Normal 26-192 [facility] Comment on above: Performed By: #### B MP #### [facility] [address] [place] [address] Dr. Bernice Hamilton CK.MB [Mass/Vol] 0.99 ng/mL Normal <=3.60 [facility] Comment on above: Performed By: #### B MP #### [facility] [address] [place] [address] Dr. Bernice Hamilton HSTROP 13.6 pg/mL Normal 4.0-51.3 [facility] Comment on above: Result Comment: CUT- OFF POINTS HAVE BEEN ESTABLISHED BASED ON THE FOURTH UNIVERSAL DEFINITIONS OF MYOCARDIAL INFARCTION. THE UPPER REFERENCE LIMIT (URL) OF TROPONIN, DEFINED THE 99TH PERCENTILE OF cTnI DISTRIBUTION IN A REFERENCE POPULATION, HAS BEEN CONFIRMED THE DECISION THRESHOLD FOR DE DIAGNOSIS. Performed By: #### B MP #### [facility] [address] [place] [address] Dr. Bernice Hamilton CRISTIANO 25 ng/mL Normal 9-82 [facility] Comment on above: Performed By: #### B MP #### [facility] [address] [address] [address] Bernice Hamilton CBC AUTO DIFFon 08-21-2021 BASO # 0.1 103/ul Normal 0.0-0.1 [facility] Comment on above: Performed By: #### C BC #### [facility] [address] [address] [address] Bernice Hamilton Basophils/100 WBC (Bld) 0.9 % Normal 0.2-2.0 [facility] Comment on above: Performed By: #### C BC #### [facility] [address] [place] [address] Dr. Bernice Hamilton EO # 0.5 103/ul Normal 0.0-0.7 [facility] Comment on above: Performed By: #### C BC #### [facility] [address] [place] [address] Dr. Bernice Hamilton Eosinophils/100 WBC (Bld) 6.8 % Normal 0.9-7.0 [facility] Comment on above: Performed By: #### C BC #### [facility] [address] [place] [address] Dr. Bernice Hamilton Erythrocyte distribution width (RBC) [Ratio] 14.6 % Normal 11.0-15.0 [facility] Comment on above: Performed By: #### C BC #### [facility] [address] [place] [address] Dr. Bernice Hamilton Hematocrit (Bld) [Volume fraction] 33.7 % Critically low 36.0-48.0 [facility] Comment on above: Performed By: #### C BC #### [facility] [address] [place] [address] Dr. Bernice Hamilton Hemoglobin (Bld) [Mass/Vol] 10.6 g/dL Critically low 12.0-16.0 [facility] Comment on above: Performed By: #### C BC #### [facility] [address] [place] [address] Dr. Bernice Hamilton IG # 0.02 10e3/ul Normal 0.00-0.03 [facility] Comment on above: Performed By: #### C BC #### [facility] [address] [place] [address] Dr. Bernice Hamilton IG % 0.3 % Normal 0.0-0.5 [facility] Comment on above: Performed By: #### C BC #### [facility] [address] [place] [address] Dr. Bernice Hamilton LYMPH # 2.6 103/ul Normal 1.2-3.8 [facility] Comment on above: Performed By: #### C BC #### [facility] [address] [address] [address] Bernice Hamilton Lymphocytes/100 WBC (Bld) 32.7 % Normal 20.5-60.0 [facility] Comment on above: Performed By: #### C BC #### [facility] [address] [place] [address] Dr. Bernice Hamilton MANUAL DIFF REQ NO Normal [facility] Comment on above: Performed By: #### C BC #### [facility] [address] [address] [address] Bernice Hamilton MCH (RBC) [Entitic mass] 24.9 pg Critically low 26.7-34.0 [facility] Comment on above: Performed By: #### C BC #### [facility] [address] [place] [address] Dr. Bernice Hamilton MCHC (RBC) [Mass/Vol] 31.5 g/dL Normal 29.9-35.2 [facility] Comment on above: Performed By: #### C BC #### [facility] [address] [place] [address] Dr. Bernice Hamilton MCV (RBC) [Entitic vol] 79.3 fL Critically low 81.0-99.0 [facility] Comment on above: Performed By: #### C BC #### [facility] [address] [place] [address] Dr. Bernice Hamilton MONO # 0.5 103/ul Normal 0.3-0.8 [facility] Comment on above: Performed By: #### C BC #### [facility] [address] [place] [address] Dr. Bernice Hamilton Monocytes/100 WBC (Bld) 6.0 % Normal 1.7-12.0 [facility] Comment on above: Performed By: #### C BC #### [facility] [address] [place] [address] Dr. Bernice Hamilton NEUT # 4.3 103/ul Normal 1.4-6.5 [facility] Comment on above: Performed By: #### C BC #### [facility] [address] [place] [address] Dr. Bernice Hamilton Neutrophils/100 WBC (Bld) 53.3 % Normal 43.0-75.0 [facility] Comment on above: Performed By: #### C BC #### [facility] [address] [place] [address] Dr. Bernice Hamilton Platelet mean volume (Bld) [Entitic vol] 11.8 fL Normal 9.5-13.5 [facility] Comment on above: Performed By: #### C BC #### [facility] [address] [place] [address] Dr. Bernice Hamilton PLT 262 103/ul Normal 150-450 [facility] Comment on above: Performed By: #### C BC #### [facility] [address] [place] [address] Dr. Bernice Hamilton RBC 4.25 106/ul Normal 4.20-5.40 [facility] Comment on above: Performed By: #### C BC #### [facility] [address] [place] [address] Dr. Bernice Hamilton WBC 8.0 103/ul Normal 4.0-11.0 [facility] Comment on above: Performed By: #### C BC #### [facility] [address] [place] [address] Dr. Bernice Hamilton ER URINE PROFILEon 2 Bilirubin Ql (U) Negative Normal NEGATIVE [facility] Comment on above: Performed By: #### E RUR, PREGU #### [facility] [address] [place] [address] Dr. Bernice Hamilton Clarity (U) CLEAR Normal CLEAR [facility] Comment on above: Performed By: #### E RUR, PREGU #### [facility] [address] [place] [address] Dr. Bernice Hamilton Color (U) LT. YELLOW Normal YELLOW [facility] Comment on above: Performed By: #### E RUR, PREGU #### [facility] [address] [place] [address] Dr. Bernice GONZALEZ A micrscopic examination will be performed if indicated. Normal [facility] Comment on above: Performed By: #### E RUR, PREGU #### [facility] [address] [place] [address] Dr. Bernice Hamilton Glucose Ql (U) 100 mg/dl Abnormal NEGATIVE [facility] Comment on above: Performed By: #### E RUR, PREGU #### [facility] [address] [place] [address] Dr. Bernice Hamilton Hemoglobin Ql (U) Negative Normal NEGATIVE [facility] Comment on above: Performed By: #### E RUR, PREGU #### [facility] [address] [place] [address] Dr. Bernice Hamilton Ketones Ql (U) Negative Normal NEGATIVE [facility] Comment on above: Performed By: #### E RUR, PREGU #### [facility] [address] [place] [address] Dr. Bernice Hamilton LEUKOCYTES Negative Normal NEGATIVE [facility] Comment on above: Performed By: #### E RUR, PREGU #### [facility] [address] [place] [address] Dr. Bernice Hamilton Nitrite Ql (U) Negative Normal NEGATIVE [facility] Comment on above: Performed By: #### E RUR, PREGU #### [facility] [address] [place] [address] Dr. Bernice Hamilton pH (U) 5.0 [pH] Normal 5-9 [facility] Comment on above: Performed By: #### E RUR, PREGU #### [facility] [address] [place] [address] Dr. Bernice Hamilton SPEC GRAVITY 1.010 Normal 1.005-<=1.025 [facility] Comment on above: Performed By: #### E RUR, PREGU #### [facility] [address] [place] [address] Dr. Bernice Hamilton UA PROTEIN Negative Normal NEGATIVE/ TRACE [facility] Comment on above: Performed By: #### E RUR, PREGU #### [facility] [address] [place] [address] Dr. Bernice Hamilton UR MICRO IND NOT INDICATED Normal [facility] Comment on above: Performed By: #### E RUR, PREGU #### [facility] [address] [place] [address] Dr. Bernice Hamilton Urobilinogen Qn (U) 0.2 {[place]'U}/dL Normal 0.2 - 1. 0 [facility] Comment on above: Performed By: #### E RUR, PREGU #### [facility] [address] [place] [address] Dr. Bernice Hamilton URon 08-21-2021 , QUAL Negative Normal NEGATIVE [facility] Comment on above: Performed By: #### E RUR, PREGU #### [facility] [address] [place] [address] Dr. Bernice Hamilton PROF 14(COMP METB)on 022 Albumin [Mass/Vol] 3.4 g/dL Normal 3.4-5.0 [facility] Comment on above: Performed By: #### B MP #### [facility] [address] [place] [address] Dr. Bernice Hamilton Albumin/Globulin [Mass ratio] 0.9 {ratio} Normal [facility] Comment on above: Performed By: #### B MP #### [facility] [address] [place] [address] Dr. Bernice Hamilton ALP [Catalytic activity/Vol] 81 U/L Normal 46-116 [facility] Comment on above: Performed By: #### B MP #### [facility] [address] [place] [address] Dr. Bernice Hamilton ALT [Catalytic activity/Vol] 32 U/L Normal 14-59 [facility] Comment on above: Performed By: #### B MP #### [facility] [address] [place] [address] Dr. Bernice Hamilton Anion gap [Moles/Vol] 15.5 mmol/L Normal [facility] Comment on above: Performed By: #### B MP #### [facility] [address] [address] [address] Bernice Hamilton AST [Catalytic activity/Vol] 29 U/L Normal 15-37 [facility] Comment on above: Performed By: #### B MP #### [facility] [address] [place] [address] Dr. Bernice Hamilton Bilirubin [Mass/Vol] 0.4 mg/dL Normal 0.2-1.0 [facility] Comment on above: Performed By: #### B MP #### [facility] [address] [place] [address] Dr. Bernice Hamilton Calcium [Mass/Vol] 8.7 mg/dL Normal 8.5-10.1 [facility] Comment on above: Performed By: #### B MP #### [facility] [address] [place] [address] Dr. Bernice Hamilton Chloride [Moles/Vol] 100 mmol/L Normal 98-107 [facility] Comment on above: Performed By: #### B MP #### [facility] [address] [place] [address] Dr. Bernice Hamilton CO2 [Moles/Vol] 24.2 mmol/L Normal 21.0-32.0 [facility] Comment on above: Performed By: #### B MP #### [facility] [address] [place] [address] Dr. Bernice Hamitlon Creatinine [Mass/Vol] 0.78 mg/dL Normal 0.55-1.02 [facility] Comment on above: Performed By: #### B MP #### [facility] [address] [place] [address] Dr. Bernice Hamilton EGFR-AF HONG [place]ER >60 Normal >=60 [facility] Comment on above: Performed By: #### B MP #### [facility] [address] [place] [address] Dr. Bernice Hamilton EGFR-NON AF [place] >60 Normal >=60 [facility] Comment on above: Performed By: #### B MP #### [facility] [address] [place] [address] Dr. Bernice Hamilton Globulin (S) [Mass/Vol] 3.8 g/dL Normal [facility] Comment on above: Performed By: #### B MP #### [facility] [address] [address] [address] Bernice Hamilton Glucose [Mass/Vol] 214 mg/dL Critically high 74-106 [facility] Comment on above: Performed By: #### B MP #### [facility] [address] [address] [address] Bernice Hamilton Potassium [Moles/Vol] 3.7 mmol/L Normal 3.5-5.1 [facility] Comment on above: Performed By: #### B MP #### [facility] [address] [address] [address] Bernice Hamilton Protein [Mass/Vol] 7.2 g/dL Normal 6.4-8.2 [facility] Comment on above: Performed By: #### B MP #### [facility] [address] [address] [address] Bernice Hamilton Sodium [Moles/Vol] 136 mmol/L Normal 136-145 [facility] Comment on above: Performed By: #### B MP #### [facility] [address] [address] [address] Bernice Hamilton Urea nitrogen [Mass/Vol] 13.0 mg/dL Normal 7.0-18.0 [facility] Comment on above: Performed By: #### B MP #### [facility] [address] [address] [address] Bernice Hamilton Urea nitrogen/Creatinine [Mass ratio] 16.7 mg/mg Normal [facility] Comment on above: Performed By: #### B MP #### [facility] [id number] Bernice Hamilton PROTIMEon 08-21-2021 INR Coag (PPP) [Relative time] 0.97 {INR} Normal [facility] Comment on above: Performed By: #### P T, PTT ####[facility] [address] [address]Dr[address] Bernice Hamilton INR GUIDELINES SEE BELOW Normal [facility] Comment on above: Result Comment: DAMARIS RED INR: 2.0 - 3.0 CONDITIONS NOT LISTED BELOW 2.5 - 3.5 FOR PROSTHETIC HEART VALVE REPLACEMENT 2.5 - 3.5 RECURRENT THROMBOSIS Performed By: #### P T, PTT ####[facility] [address] [id number]. Bernice Hamilton PT Coag (PPP) [Time] 10.5 s Normal 9.0-11.6 [facility] Comment on above: Performed By: #### P T, PTT ####[facility] [address] [id number]. Bernice Hamilton PTTon 08-21-2021 aPTT Coag (Bld) [Time] 21.9 s Critically low 22.3-36.2 [facility] Comment on above: Performed By: #### P T, PTT ####[facility] [address] [place], [place] [address]Dr. Bernice Hamilton XR CHEST 1 Von 08-21-2021 [...] 2021 ADA RECOMMENDATION SEE BELOW Normal [facility] Comment on above: Result Comment: ADA RECOMMENDED LIMIT 4.0 - 6.0 ADA THERAPEUTIC TARGET < 7.0 ACTION SUGGESTED > 7.0 Performed By: #### A 1C ####[facility] [address] [address]Dr. Bernice Hamilton Glucose [Mass/Vol] 192 mg/dL Normal [facility] Comment on above: Performed By: #### A 1C ####[facility] [address] [place], [place] [address]Dr. Bernice Hamilton HbA1c (Bld) [Mass fraction] 8.3 % Critically high 4.5-6.2 [facility] Comment on above: Performed By: #### A 1C ####[facility] [address] [place], [place] [address]Dr. Bernice Hamilton PROF 14(COMP METB)on 022 Albumin [Mass/Vol] 3.6 g/dL Normal 3.4-5.0 [facility] Comment on above: Performed By: #### C MP ####[facility] [address] [place], [place] [address]Dr. Bernice Hamilton Albumin/Globulin [Mass ratio] 0.9 {ratio} Normal [facility] Comment on above: Performed By: #### C MP ####[facility] [address] [place], [place] [address]Dr. Bernice Hamilton ALP [Catalytic activity/Vol] 84 U/L Normal 46-116 [facility] Comment on above: Performed By: #### C MP ####[facility] [address] [place], [place] [address]Dr. Bernice Hamilton ALT [Catalytic activity/Vol] 31 U/L Normal 14-59 [facility] Comment on above: Performed By: #### C MP ####[facility] [address] [place], [place] [address]Dr. Bernice Hamilton Anion gap [Moles/Vol] 12.4 mmol/L Normal [facility] Comment on above: Performed By: #### C MP ####[facility] [address] [place], [place] [address]Dr. Bernice Hamilton AST [Catalytic activity/Vol] 19 U/L Normal 15-37 [facility] Comment on above: Performed By: #### C MP ####[facility] [address] [place], [place] [address]Dr. Bernice Hamilton Bilirubin [Mass/Vol] 0.3 mg/dL Normal 0.2-1.0 [facility] Comment on above: Performed By: #### C MP ####[facility] [address] [id number]. Bernice Hamilton Calcium [Mass/Vol] 8.9 mg/dL Normal 8.5-10.1 [facility] Comment on above: Performed By: #### C MP ####[facility] [address] [id number]. Bernice Hamilton Chloride [Moles/Vol] 100 mmol/L Normal 98-107 [facility] Comment on above: Performed By: #### C MP ####[facility] [address] [address]Dr. Bernice Hamilton CO2 [Moles/Vol] 28.8 mmol/L Normal 21.0-32.0 [facility] Comment on above: Performed By: #### C MP ####[facility] [address] [address]Dr. Bernice Hamilton Creatinine [Mass/Vol] 0.79 mg/dL Normal 0.55-1.02 [facility] Comment on above: Performed By: #### C MP ####[facility] [address] [address]Dr. Bernice Hamilton EGFR-AF [place]ER >60 Normal >=60 [facility] Comment on above: Performed By: #### C MP ####[facility] [address] [address]Dr. Bernice Hamilton EGFR-NON AF [place] >60 Normal >=60 [facility] Comment on above: Performed By: #### C MP ####[facility] [address] [address]Dr. Bernice Hamilton Globulin (S) [Mass/Vol] 3.9 g/dL Normal [facility] Comment on above: Performed By: #### C MP ####[facility] [address] [address]Dr. Bernice Alfonso Glucose [Mass/Vol] 187 mg/dL Critically high 74-106 T [facility] Comment on above: Performed By: #### C MP ####[facility] [address] [place], [place] [address]Dr. Bernice Hamilton Potassium [Moles/Vol] 4.2 mmol/L Normal 3.5-5.1 [facility] Comment on above: Performed By: #### C MP ####[facility] [address] [place], [place] [address]Dr. Bernice Hamilotn Protein [Mass/Vol] 7.5 g/dL Normal 6.4-8.2 [facility] Comment on above: Performed By: #### C MP ####[facility] [address] [place], [place] [address]Dr. Bernice Hamilton Sodium [Moles/Vol] 137 mmol/L Normal 136-145 [facility] Comment on above: Performed By: #### C MP ####[facility] [address] [place], [place] [address]Dr. Bernice Hamilton Urea nitrogen [Mass/Vol] 14.0 mg/dL Normal 7.0-18.0 [facility] Comment on above: Performed By: #### C MP ####[facility] [address] [place], [place] [address]Dr. Bernice Alfonso Urea nitrogen/Creatinine [Mass ratio] 17.7 mg/mg Normal [facility] Comment on above: Performed By: #### C MP ####[facility] [address] [place], [place] [address]Dr. Bernice Hamilton CBC AUTO DIFFon 07-28-2021 BASO # 0.1 103/ul Normal 0.0-0.1 [facility] Comment on above: Performed By: #### C BC ####[facility] [address] [place], [place] [address]Dr. Bernice Alfonso Basophils/100 WBC (Bld) 0.8 % Normal 0.2-2.0 [facility] Comment on above: Performed By: #### C BC ####[facility] [address] [place], [place] [address]Dr. Susiesherwin Hamilton EO # 0.5 103/ul Normal 0.0-0.7 [facility] Comment on above: Performed By: #### C BC ####[facility] [address] [place], [place] [address]Dr. Bernice Hamilton Eosinophils/100 WBC (Bld) 5.4 % Normal 0.9-7.0 [facility] Comment on above: Performed By: #### C BC ####[facility] [address] [address]Dr. Bernice Hamilton Erythrocyte distribution width (RBC) [Ratio] 14.6 % Normal 11.0-15.0 [facility] Comment on above: Performed By: #### C BC ####[facility] [address] [address]Dr. Bernice Hamilton Hematocrit (Bld) [Volume fraction] 35.2 % Critically low 36.0-48.0 [facility] Comment on above: Performed By: #### C BC ####[facility] [address] [address]Dr. Bernice Hamilton Hemoglobin (Bld) [Mass/Vol] 11.0 g/dL Critically low 12.0-16.0 [facility] Comment on above: Performed By: #### C BC ####[facility] [address] [address]Dr. Bernice Hamilton IG # 0.04 10e3/ul Critically high 0.00-0.03 [facility] Comment on above: Performed By: #### C BC ####[facility] [address] [address]Dr. Bernice Hamilton IG % 0.5 % Normal 0.0-0.5 [facility] Comment on above: Performed By: #### C BC ####[facility] [address] [address]Dr. Bernice Hamilton LYMPH # 2.7 103/ul Normal 1.2-3.8 [facility] Comment on above: Performed By: #### C BC ####[facility] [address] [address]Dr. Bernice Hamilton Lymphocytes/100 WBC (Bld) 32.7 % Normal 20.5-60.0 [facility] Comment on above: Performed By: #### C BC ####[facility] [address] [address]Dr. Bernice Alfonso MANUAL DIFF REQ NO Normal [facility] Comment on above: Performed By: #### C BC ####[facility] [address] [address]Dr. Bernice Hamilton MCH (RBC) [Entitic mass] 24.6 pg Critically low 26.7-34.0 [facility] Comment on above: Performed By: #### C BC ####[facility] [address] [address]Dr. Bernice Alfonso MCHC (RBC) [Mass/Vol] 31.3 g/dL Normal 29.9-35.2 [facility] Comment on above: Performed By: #### C BC ####[facility] [address] [address]Dr. Bernice Alfonso MCV (RBC) [Entitic vol] 78.7 fL Critically low 81.0-99.0 [facility] Comment on above: Performed By: #### C BC ####[facility] [address] [place], [place] [address]Dr. Bernice Alfonso MONO # 0.6 103/ul Normal 0.3-0.8 [facility] Comment on above: Performed By: #### C BC ####[facility] [address] [place], [place] [address]Dr. Susiesherwin Hamilton Monocytes/100 WBC (Bld) 7.0 % Normal 1.7-12.0 [facility] Comment on above: Performed By: #### C BC ####[facility] [address] [place], [place] [address]Dr. Bernice Alfonso NEUT # 4.5 103/ul Normal 1.4-6.5 [facility] Comment on above: Performed By: #### C BC ####[facility] [address] [place], [place] [address]Dr. Bernice Hamilton Neutrophils/100 WBC (Bld) 53.6 % Normal 43.0-75.0 [facility] Comment on above: Performed By: #### C BC ####[facility] [address] [address]Dr. Bernice Hamilton Platelet mean volume (Bld) [Entitic vol] 11.0 fL Normal 9.5-13.5 [facility] Comment on above: Performed By: #### C BC ####[facility] [address] [id number]. Bernice Hamilton PLT 305 103/ul Normal 150-450 [facility] Comment on above: Performed By: #### C BC ####[facility] [address] [address]Dr. Bernice Hamilton RBC 4.47 106/ul Normal 4.20-5.40 [facility] Comment on above: Performed By: #### C BC ####[facility] [address] [address]Dr. Bernice Hamilton WBC 8.4 103/ul Normal 4.0-11.0 [facility] Comment on above: Performed By: #### C BC ####[facility] [address] [address]DrPablo Hamilton MAGNESIUMon 07-28-2021 Magnesium [Mass/Vol] 1.5 mg/dL Critically low 1.8-2.4 [facility] Comment on above: Performed By: #### Mara SORIANO PREGU #### [facility] [address] [address] [address] Bernice Hamilton PROF 14(COMP METB)on 022 Albumin [Mass/Vol] 3.4 g/dL Normal 3.4-5.0 [facility] Comment on above: Performed By: #### H LOY, CMP ####[facility] [address] [address]DrPablo Hamilton Albumin/Globulin [Mass ratio] 0.8 {ratio} Normal [facility] Comment on above: Performed By: #### H LOY, CMP ####[facility] [address] [address]DrPablo Hamilton ALP [Catalytic activity/Vol] 81 U/L Normal 46-116 [facility] Comment on above: Performed By: #### H STROPN, CMP ####[facility] [address] [id number]. Bernice Hamilton ALT [Catalytic activity/Vol] 31 U/L Normal 14-59 [facility] Comment on above: Performed By: #### H STROPN, CMP ####[facility] [address] [id number]. Bernice Hamilton Anion gap [Moles/Vol] 14.3 mmol/L Normal [facility] Comment on above: Performed By: #### H STROPN, CMP ####[facility] [address] [place], [place] [address]Dr. Bernice Hamilton AST [Catalytic activity/Vol] 18 U/L Normal 15-37 [facility] Comment on above: Performed By: #### H STROGILLIAN, CMP ####[facility] [address] [place], [place] [address]Dr. Bernice Hamilton Bilirubin [Mass/Vol] 0.3 mg/dL Normal 0.2-1.0 [facility] Comment on above: Performed By: #### H STROGILLIAN, CMP ####[facility] [address] [place], [place] [address]Dr. Bernice Hamilton Calcium [Mass/Vol] 9.1 mg/dL Normal 8.5-10.1 [facility] Comment on above: Performed By: #### H STROPN, CMP ####[facility] [address] [place], [place] [address]Dr. Bernice Hamilton Chloride [Moles/Vol] 102 mmol/L Normal 98-107 [facility] Comment on above: Performed By: #### H STROPN, CMP ####[facility] [address] [place], [place] [id number]. Bernice Hamilton CO2 [Moles/Vol] 26.1 mmol/L Normal 21.0-32.0 [facility] Comment on above: Performed By: #### H STROPN, CMP ####[facility] [address] [place] [id number]. Bernice Hamilton Creatinine [Mass/Vol] 0.81 mg/dL Normal 0.55-1.02 [facility] Comment on above: Performed By: #### H STROPN, CMP ####[facility] [address] [place] [address]Dr. Bernice Hamilton EGFR-AF HONG [place]ONGER >60 Normal >=60 [facility] Comment on above: Performed By: #### H STROPN, CMP ####[facility] [address] [place] [address]Dr. Bernice Hamilton EGFR-NON AF [place]ER >60 Normal >=60 [facility] Comment on above: Performed By: #### H STROPN, CMP ####[facility] [address] [place] [address]Dr. Bernice Hamilton Globulin (S) [Mass/Vol] 3.8 g/dL Normal [facility] Comment on above: Performed By: #### H STROPN, CMP ####[facility] [address] [place], [place] [address]Dr. Susiesherwin Hamilton Glucose [Mass/Vol] 206 mg/dL Critically high 74-106 [facility] Comment on above: Performed By: #### H STROPN, CMP ####[facility] X[address] [place], [place] [address]Dr. Bernice Alfonso Potassium [Moles/Vol] 3.4 mmol/L Critically low 3.5-5.1 [facility] Comment on above: Performed By: #### H STROPN, CMP ####[facility] [address] [place] [address]Dr. Bernice Hamilton Protein [Mass/Vol] 7.2 g/dL Normal 6.4-8.2 [facility] Comment on above: Performed By: #### H STROPN, CMP ####[facility] [address] [place], [place] [address]Dr. Bernice Hamilton Sodium [Moles/Vol] 139 mmol/L Normal 136-145 [facility] Comment on above: Performed By: #### H STROPN, CMP ####[facility] [address] [place], [place] [address]Dr. Bernice Alfonso Urea nitrogen [Mass/Vol] 16.0 mg/dL Normal 7.0-18.0 [facility] Comment on above: Performed By: #### H LOY, CMP ####[facility] [address] [place] [id number]. Bernice Hamilton Urea nitrogen/Creatinine [Mass ratio] 19.7 mg/mg Normal [facility] Comment on above: Performed By: #### H LOY, CMP ####[facility] [address] [place] [id number]. Bernice Hamilton TROPONIN, HIGH SENSITIVITYon 07-28-2021 HSTROP 10.4 pg/mL Normal 4.0-51.3 [facility] Comment on above: Result Comment: CUT- OFF POINTS HAVE BEEN ESTABLISHED BASED ON THE FOURTH UNIVERSAL DEFINITIONS OF MYOCARDIAL INFARCTION. THE UPPER REFERENCE LIMIT (URL) OF TROPONIN, DEFINED THE 99TH PERCENTILE OF cTnI DISTRIBUTION IN A REFERENCE POPULATION, HAS BEEN CONFIRMED THE DECISION THRESHOLD FOR DE DIAGNOSIS. Performed By: #### H LOY, CMP ####[facility] [address] [place] [id number]. Bernice Hamilton XR CHEST 1 Von 07-28-2021 [...] NAAon Chlamydia Trachomotis, JOSIAS Negative Normal Negative [facility] Comment on above: Order Comment: Reaso n for Exam High risk sexual behavior, unspecified type Performed By: #### G CCHLAMTRI #### [facility] , #### CUU #### [address] Neisseria Gonorrhoeae, JOSIAS Negative Normal Negative [facility] Comment on above: Order Comment: Reaso n for Exam High risk sexual behavior, unspecified type Performed By: #### G CCHLAMTRI #### [facility] , #### CUU #### [facility] [address] [place] [address] Trichomonas JOSIAS Negative Normal Negative [facility] Comment on above: Order Comment: Reaso n for Exam High risk sexual behavior, unspecified type Result Comment: Perf ormed at: =G - [facility] [address] [id number] Call Center Manager: Taylor Bowser MD, Phone: [phone] PERFORMED BY: [place] [address] PATHOLOGIST TOTER ANGELI TINAJERO M.D. Performed By: #### G CCHLAMTRI #### [facility] , #### CUU #### [address] Urine Cultureon 07-11-2020 Bacteria identified Cx Nom (U) Reason for Exam Dysuria Urine Reason for Exam: Dysuria : Urine ORGANISM: Escherichia coli (O:ESCCOL) Marathon Count >100,000 Aerobic SIMONE Charge (NUC86) -- [...] RESISTANT TO ALL B-LACTAM DRUGS. PERFORMED BY: [place] [address] PATHOLOGIST TOTER ANGELI TINAJERO M.D. [facility] Comment on above: Performed By: #### G CCHLAMTRI #### [facility] , #### CUU #### [facility] [address] [place] [address] Comprehensive Metabolic Empo n 04-26-2020 Albumin [Mass/Vol] 3.9 g/dL Normal 3.2-5.5 [facility] Comment on above: Performed By: #### E BS A1C, EBS CMP, LIPID #### [facility] [address] [place] [address] Albumin/Globulin [Mass ratio] 1.4 {ratio} [facility] Comment on above: Performed By: #### E BS A1C, EBS CMP, LIPID #### [facility] [address] [place] [address] [place] ALP [Catalytic activity/Vol] 66 U/L Normal 32-92 [facility] Comment on above: Performed By: #### E BS A1C, EBS CMP, LIPID #### [facility] [address] [place], [place] [address] [place] ALT [Catalytic activity/Vol] 20 U/L Normal 10-60 [facility] Comment on above: Performed By: #### E BS A1C, EBS CMP, LIPID #### [facility] [address] [place], [place] [address] [place] AST [Catalytic activity/Vol] 19 U/L Normal 10-42 [facility] Comment on above: Performed By: #### E BS A1C, EBS CMP, LIPID #### [address] [place] [address] [place] Bilirubin [Mass/Vol] 0.8 mg/dL Normal 0.3-1.2 [facility] Comment on above: Performed By: #### E BS A1C, EBS CMP, LIPID #### [facility] [address] Calcium [Mass/Vol] 9.6 mg/dL Normal 8.2-10.2 [facility] Comment on above: Performed By: #### E BS A1C, EBS CMP, LIPID #### [facility] [address] Chloride [Moles/Vol] 96 mmol/L Normal 95-114 [facility] Comment on above: Performed By: #### E BS A1C, EBS CMP, LIPID #### [address] CO2 [Moles/Vol] 25.9 mmol/L Normal 22.0-30.0 [facility] Comment on above: Performed By: #### E BS A1C, EBS CMP, LIPID #### [address] Creatinine [Mass/Vol] 0.74 mg/dL Normal 0.44-1.03 [facility] Comment on above: Performed By: #### E BS A1C, EBS CMP, LIPID #### [address] Estimated GFR ( Rea > 60 Normal [facility] Comment on above: Result Comment: GFR estimated reference range: According to KDOQI guidelines, <60 ml/min/1.73m2 is sufficient to diagnose a patient with chronic kidney disease. Performed By: #### E BS A1C, EBS CMP, LIPID #### [facility] [address] [place] [address] Estimated GFR (Non- Am > 60 Normal [facility] Comment on above: Performed By: #### E BS A1C, EBS CMP, LIPID #### [facility] [address] [place] [address] [place] Globulin (S) [Mass/Vol] 2.8 g/dL Normal [facility] Comment on above: Performed By: #### E BS A1C, EBS CMP, LIPID #### [facility] [address] [place] [address] [place] Glucose [Mass/Vol] 155 mg/dL High 70-100 [facility] Comment on above: Result Comment: ADA recommended reference range Performed By: #### E BS A1C, EBS CMP, LIPID #### [facility] [address] [place] [address] [place] Potassium [Moles/Vol] 3.5 mmol/L Normal 3.5-5.1 [facility] Comment on above: Performed By: #### E BS A1C, EBS CMP, LIPID #### [facility] [address] Protein [Mass/Vol] 6.7 g/dL Normal 6.1-7.9 [facility] Comment on above: Performed By: #### E BS A1C, EBS CMP, LIPID #### [facility] [address] [place] [address] [place] Sodium [Moles/Vol] 134 mmol/L Low 136-146 [facility] Comment on above: Performed By: #### E BS A1C, EBS CMP, LIPID #### [facility] [address] [place] [address] [place] Urea nitrogen [Mass/Vol] 11 mg/dL Normal 9-23 [facility] Comment on above: Performed By: #### E BS A1C, EBS CMP, LIPID #### [facility] [address] EBS A1C with Estimated Avmara ash 04-26-2020 Glucose [Mass/Vol] 169 mg/dL Normal [facility] Comment on above: Result Comment: PERF ORMED BY: [place] [address] PATHOLOGIST TOTER ANGELI TINAJERO M.D. Performed By: #### E BS A1C, EBS CMP, LIPID #### [facility] [address] [place] [address] [place] HbA1c (Bld) [Mass fraction] 7.5 % High 4.3-5.6 [facility] Comment on above: Result Comment: Incr eased risk for diabetes: 5.7 - 6.4 diabetes: >6.4 glycemic control for adults with diabetes: <7.0 Performed By: #### E BS A1C, EBS CMP, LIPID #### [facility] [address] [place] [id number] [facility] Lipid Panelon 04-26-2020 Cholesterol [Mass/Vol] 203 mg/dL High 140-200 [facility] Comment on above: Result Comment: Chol less than 200 mg/dl low risk Chol 201-239 mg/dl borderline risk Chol 240 mg/dl and greater high risk Performed By: #### E BS A1C, EBS CMP, LIPID #### [facility] [address] [place] [id number] [facility] Cholesterol in HDL [Mass/Vol] 65 mg/dL Normal 35-85 [facility] Comment on above: Result Comment: HDL CHOL ATP-III CLASSIFICATION Cardiovascular Risk HDL > or equal to 60 mg/dL LOW HDL < 40 mg/dL HIGH Performed By: #### E BS A1C, EBS CMP, LIPID #### [facility] [address] [place] [address] [place] Cholesterol.total/Ch olesterol in HDL [Mass ratio] 3.1 {ratio} Normal <5.0 [facility] Comment on above: Result Comment: PERF ORMED BY: [place] [address] PATHOLOGIST TOTER ANGELI TINAJERO M.D. Performed By: #### E BS A1C, EBS CMP, LIPID #### [facility] [address] [place] [id number] [place] LDL Cholesterol,Calculat ed 117 mg/dL High 0-100 [facility] Comment on above: Result Comment: LDL ATP III CLASSIFICATION LDL less than 100 mg/dL Optimal LDL 100-129 mg/dL Near or above optimal LDL 130-159 mg/dL Borderline high LDL 160-189 mg/dL High LDL greater than 189 mg/dL Very high Performed By: #### E BS A1C, EBS CMP, LIPID #### [facility] [address] [place] [id number] [place] Triglyceride w/Reflex 103 mg/dL Normal 35-149 [facility] Comment on above: Result Comment: TRIG ATP III CLASSIFICATION TRIG less than 150 mg/dL Normal TRIG 150-199 mg/dL Borderline high TRIG 200-500 mg/dL High TRIG greater than 500 mg/dL Very high Standard traceable to the Center for Disease Conrtrol and Prevention (CDC) test method. Performed By: #### E BS A1C, EBS CMP, LIPID #### [facility] [address] VLDL CHOLESTEROL 20 mg/dL Normal [facility] Comment on above: Performed By: #### E BS A1C, EBS CMP, LIPID #### [facility] [address] [place] [id number] [facility] Vital Signs Date Time Vital Sign Value Performing Clinician Facility 03-19-2024 16:04-0500 Body mass index (BMI) [Ratio] 31.16 kg/m2 Padmini GONZALEZ Work Phone: [facility] 03-19-2024 16:04-0500 Body weight 95.71 kg Padmini GONZALEZ Work Phone: [facility] 03-19-2024 16:04-0500 Diastolic blood pressure 78 mm[Hg] Padmini GONZALEZ Work Phone: [facility] 03-19-2024 16:04-0500 Systolic blood pressure 124 mm[Hg] Padmini GONZALEZ Work Phone: [facility] 11-11-2022 09:35-0400 Body height 175.26 cm Reva Zimmerman Other [facility] Other 11-11-2022 09:35-0400 Body mass index (BMI) [Ratio] 32.48 kg/m2 Reva Zimmerman Other [facility] Other 11-11-2022 09:35-0400 Body weight 99.79 kg Reva Zimmerman Other [facility] Other 11-11-2022 09:35-0400 Diastolic blood pressure 90 mm[Hg] Reva Zimmerman Other [facility] Other 11-11-2022 09:35-0400 SaO2% (BldA) [Mass fraction] 98 % Reva Zimmerman Other [facility] Other 11-11-2022 09:35-0400 Systolic blood pressure 142 mm[Hg] Reva Zimmerman Other [facility] [employer] Other 03-23-2022 10:17-0500 Blood Pressure Location Polina [facility] [employer] 03-23-2022 10:17-0500 Diastolic blood pressure 81 mm[Hg] Polina WINNL [facility] 03-23-2022 10:17-0500 Heart rate 88 /min Polina NimbulaL [facility] 03-23-2022 10:17-0500 Respiratory rate 16 /min Polina NimbulaL [employer] [facility] 03-23-2022 10:17-0500 Systolic blood pressure 141 mm[Hg] Polina WINNL [facility] Encounters Encounter Date Encounter Type Care [...] 11-11-2022 End: 11-11-2022 ambulatory Reva Elsie Other [facility] [employer] Other Start: 11-11-2022 Office outpatient vi sit 15 minutes Reva Zimmerman [facility] Start: 07-18-2022 End: 07-19-[address] PEPITO QUACH . Facility:[facility] Start: 06-16-2022 Encounter for other preprocedural examination DR PEPITO QUACH . [facility] Start: 06-16-2022 Encounter for preprocedural laboratory examination DR PEPITO QUACH . [facility] Start: 06-15-[address] PEPITO QUACH . [...] Start: 2022 End: 04-20-2022 ambulatory Polina BIRD Facility:CD:[id number] Start: 04-15-[address] KATHLEEN BUSBY . Facili ty:[facility] Start: 03-23-2022 End: 03-24-2022 ambulatory Polina BIRD Facility:[facility] Start: 03-23-2022 End: 03-23-2022 Patient encounter procedure Poilna BIRD [facility] Start: 03-20-2022 ambulatory Polina BIRD Facility:[facility] Start: 03-13-2022 End: 03-13-[address] KATHLEEN BUSBY . Facility:[facility] Start: 02-28-2022 End: 02-28-[address] PEPITO QUACH . Facility:[facility] Start: 02-24-2022 End: 02-25-[address] KATHLEEN BUSBY . Facility:[facility] Start: 02-20-2022 Encounter for preprocedural cardiovascular examination DR PEPITO QUACH . [facility] Start: 02-16-2022 End: 02-17-[address] PEPITO [...] Start: 09-07-2021 End: 09-08-[address] KATHLEEN BUSYB . Facility:[facility] Start: 08-21-2021 End: 08-21-2021 ambulatory [...] Screening for malign ant neoplasm of colon [facility] Start: 03-19-2024 End: 03-19-2024 Patient encounter procedure 03/19/2024 3:30 PM EST Office Visit [facility] [address] [place] [address] Padmini Marr PA [address] [place], [place] [id number] Arrived [facility] Comment on above: Arrived Start: 03-19-2024 End: 03-19-2025 DXA Skeletal system Views for bone density DEXA bone density Imaging Routine Osteoporosis, post-menopausal ([facility]) Expected: 03/19/2024 (Approximate), Expires: 03/19/2025 [facility] Work Phone: Comment on above: Expected: 03/19/2024 (Approximate), Expires: 03/19/2025 Start: 11-11-2023 Influenza vaccination Influenz a Vaccine (#1) [facility] Start: 04-11-2022 Screening for malign ant neoplasm of cervix [facility] Start: 2007 Screening for malign ant neoplasm of breast Mammogram [facility] Start: 1967 Screening for malign ant neoplasm of colon [facility] Immunizations Immunization Date Immunization Notes Care Provider Fa cility 12-13-2023 influenza virus vaccine, unspecified formulation Padmini GONZALEZ Work Phone: [facility] 12-12-2021 influenza, unspecifi ed formulation Polina TATUML [facility] 02-01-2021 SARS-CoV-2 (COVID-19 ) mRNA-1273 vaccine Polina NILL [facility] 04-13-2020 SARS-CoV-2 (COVID-19 ) mRNA-1273 vaccine Polina NILL [facility] 03-10-2020 SARS-CoV-2 (COVID-19 ) mRNA-1273 vaccine Polina NILL [facility] Payers Date Payer Category Payer [facility] [id number] 2019 Unknown [id number] 1967 Unknown [id number] 2.16.840.1.939601.3.579.2. 727 1967 Unknown [id number] 2.16.840.1.217329.3.579.2. 727 1967 Unknown [id number] 2.16.840.1.959399.3.579.2. 593 1967 Unknown [id number] 2.16.840.1.594734.3.579.2. 593 1967 Unknown [id number] 2.16.840.1.353284.3.579.2. 593 1967 Unknown [id number] 2.16.840.1.701857.3.579.2. 593 1967 Unknown [id number] 2.16.840.1.581989.3.579.2. 593 1967 Unknown [id number] 2.16.840.1.069916.3.579.2. 593 1967 Unknown [id number] 2.16.840.1.702919.3.579.2. 593 1967 Unknown [id number] 2.16.840.1.317327.3.579.2. 593 1967 Unknown [id number] 2.16.840.1.050198.3.579.2. 593 1967 Unknown [id number] 2.16.840.1.993774.3.579.2. 593 1967 Unknown [id number] 2.16.840.1.725868.3.579.2. 593 1967 Unknown [id number] 2.16.840.1.111729.3.579.2. 593 1967 Unknown [id number] 2.16.840.1.517252.3.579.2. 593 1967 Unknown [id number] 2.16.840.1.903092.3.579.2. 593 1967 Unknown [id number] 2.16.840.1.954055.3.579.2. 593 1967 Unknown [id number] 2.16.840.1.655736.3.579.2. 593 1967 Unknown [id number] 2.16.840.1.898083.3.579.2. 593 1967 Unknown [id number] 2.16.840.1.431482.3.579.2. 593 1967 Unknown [id number] 2.16.840.1.896334.3.579.2. 593 1967 Unknown [id number] 2.16.840.1.512679.3.579.2. 593 1967 Unknown [id number] 2.16.840.1.608584.3.579.2. 1259 1959 Self-pay 1959 Unknown [id number] 1959 Unknown [id number] Unknown [id number] 2.16.840.1.154027.3.579.2. 593 Social History Date Type Detail Facility Start: 03-23-2022 End: 09-29-2022 Tobacco smoking status Ex-smoker (finding) [facility] Tobacco smoking status Never [facility] Start: 10-02-2022 End: 03-19-2024 Sex Assigned At Female [facility] History of tobacco use Current smoker [facility] History of tobacco use Cigarette Smoker [facility] Start: 10-02-2022 End: 03-19-2024 Alcoholic beverage intake Current drinker of alcohol (finding) [facility] Start: 10-02-2022 End: 03-19-2024 History of Social function [facility] Start: 09-29-2022 Alcohol Comment less than branden hly, Caffeine intake: 1-2 cups per day [facility] Start: 1965 Sex assigned at Not on file [facility] Medical Equipment Procedure Code Equipment Code Equipment Original Text Equi pment Identifier Dates Functional Status Date Assessment Result Facility 03-23-2022 Functional Status N/A [facility] History of Present illness Narrative 03-19-2024 [...] Problems Past Medical History: Diagnosis Date Diabetes ([facility]) Diverticulosis Hypertension ([facility]) Obstructive sleep apnea HISTORY PAST MEDICAL HISTORY SOCIAL HISTORY Past Medical History: Diagnosis Date Diabetes ([facility]) Diverticulosis Hypertension ([facility]) Nasal obstruction Obstructive sleep apnea Social [...] of: CARLOS Murphy documented in this encounter [facility] Evaluation note 11-11-2022 Note Date & Type Note Facility 11-11-2022 Evaluation note Encounter Date Diagnosis Assessment Notes Nov, Abrasion of left cornea, initial encounter (ICD-10 - S05.02XA) Corneal abrasion home care material was printed Drink plenty fluids, get plenty of rest. Use the eyedrops as prescribed. Follow-up with your family physician if no improvement in 2 to 3 days [facility] Other Clinical Note 2022 Note Date & [...] colon polyps. CC: Kathleen Busby M.D. [facility] Clinical Note 03-23-2022 Note Date & Type Note Facility 03-23-2022 Note Chief Complaint consultation for abdominal pain HPI Staff 56 year old female presents on consultation from [place] ED for abdominal pain. Presented with complaint of LLQ pain, nausea, vomiting and diarrhea; diagnosed with gastroenteritis. Symptoms resolved one day after ED evaluation. Last colonoscopy completed 08/2017-normal. History of Present Illness 56 yo female with h/o htn, DMII, hypercholesterolemia, migraines, referred from [place] ED for epidsode of gastroenteritis; patient was [...] qWeek Allergies Bact (more content not included)... [facility] Comment on above: Result Comment: Elec [...] bleeding. ANESTHESIA: General. SURGEON: Pepito Quach D.O. TESTER VIBRATOR EQUIPMENT: None. BLOOD LOSS: 5 mL URINE OUTPUT: [...] the Recovery Room in stable condition. [facility] Evaluation + Plan note Note Date & Type Note Facility Evaluation + Plan note No data available for this section [facility] Evaluation note Note Date & Type Note [...] ablation, D&C 02/2022 Hospitalization History See Above [facility] Other Hospital Discharge instructions Note Date & Type Note Facility Hospital Discharge instructions No data available for this section [facility] [place] Progress note Note Date & Type Note Facility Progress note No data available for this section [facility] Summary Purpose Family History No Family History Records FoundNo Family History Records FoundNo Family History Records FoundNo Family History Records Found Advance Directives No Advanced Directives Records FoundNo Advanced Directives Records FoundNo Advanced Directives Records FoundNo Advanced Directives Records Found Additional Source Comments INFORMATION SOURCE (unrecogn ized section and content) DATE CREATED AUTHOR 07/14/2020 [facility] DATE CREATED AUTHOR AUTHOR'S ORGANIZ ATION 04/27/2022 [facility] DATE CREATED AUTHOR AUTHOR'S ORGANIZ ATION 07/26/2022 [facility] DATE CREATED AUTHOR AUTHOR'S ORGANIZ ATION 03/25/2024 [facility] Special[facility] EPIC Patient Care team informatio n (unrecognized section and content) [employer] T[employer] Relationship Specialty Start Date End Date Kathleen Busby MD [address] [place] [id number] 103- PCP - General Family Medicine 08/31/22 [employer] Relationship Specialty Start Date End Date Kathleen Busby MD [address] [place] [address] PCP - General Family Medicine 08/31/22 REASON [...] BE BASED ON THE PRIMARY CLINICAL RECORDS. [facility]. provides no warranty or guarantee of the accuracy or completeness of information in this document.
--- NOTE | 2024-08-08 06:29 | ED_ITS ---
HPI HPI - General Adult General Chief complaint: Eye Problems Stated complaint: EYE INFECTION/ DISCHARGE/ CONGESTION IN CHEST Time Seen by Provider: 08/08/24 06:21 Mode of arrival: walk-in Limitations: no limitations History of Present Illness HPI narrative: The patient is a [place] 59-year-old female who presents to the emergency department with a complaint of left eye irritation and discharge, sore throat, and productive cough. Symptoms began 2 days ago. Patient has a known past medical history of hypertension and diabetes. Her sugars have been in control. Patient states that her symptoms are becoming worse over the last day and she wanted to come to the emergency department to be evaluated prior to working. 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 Patient stated her symptoms started yesterday where she felt like her upper left eyelid was a little bit red and swollen. But today there is a copious amount of discharge and now the entire eye is red and irritated. Patient does not feel like there is a foreign body present. In addition, the patient feels that there is a little dryness to the throat and she had a nonproductive cough yesterday while this morning there is a productive cough to it. She does not vape or smoke. She felt a little bit nauseous this morning but has not had any vomiting no diarrhea. No constipation. No fever or chills. She does not have any myalgias. There has been no sweating. Patient does not take anything from home prior to arrival. Patient does not wear contacts. Symptoms are moderate in severity. Unknown what makes worse. Nothing makes better. Related Data Home Medications ?Medication ?Instructions ?Recorded ?Confirmed lisinopril 10 1 tab PO DAILY 08/18/2207/12 025 mg-hydrochlorothiazide 12.5 mg tablet metformin 1,000 mg tablet 1,000 mg PO BID 08/18/22 tizanidine 4 mg capsule 4 mg PO QPM 01/12/23 5 insulin glargine-yfgn 100 unit/mL 70 unit subcut BID 0 08/06/24 08/08/24 (3 mL) subcutaneous pen (Semglee (insulin glargine-yfgn) Pen) meloxicam 15 mg tablet 15 mg PO DAILY 08/06/2407/12 semaglutide 0.25 mg or 0.5 mg (2 0.25 mg subcut QWEEK 08/06/24 08/08/24 mg/1.5 mL) subcutaneous pen injector (Ozempic) Previous Rx's ?Medication ?Instructions ?Recorded azithromycin 250 mg tablet See Rx Instructions PO .COM PLEX #6 08/08/24 tabs sulfacetamide sodium 10 % eye drops 2 drp ophthalmic ( eye) Q4H #15 mL 08/08/24 Allergies Allergy/AdvReac Type Severity Reaction Status Date / Time Penicillins Allergy Rash Verified 08/08/24 06:19 cephalexin (From Keflex) AdvReac Mild Vomiting Verified 08/08/24 06:19 Opioid HPI Opioid Management Most Recent Opioid Data: Last Pain Scale 4 Today, 06:13 Review of Systems ROS Narrative 10 Systems were reviewed, and unless not ed in the HPI, all other systems are reviewed, unremarkable, or noncontributory. [facility] Medical History Back pain ?M54.9 - Dorsalgia, unspecified (ICD-10) Rotator cuff tear ?M75.100 - Unspecified rotator cuff tear or rupture of unspecified shoulder, not specified as traumatic (ICD-10) ARLIN (obstructive sleep apnea) ?G47.33 - Obstructive sleep apnea (adult) (pediatric) (ICD-10) Hepatitis A ?B15.9 - Hepatitis A without hepatic coma (ICD-10) Right shoulder pain ?M25.511 - Pain in right shoulder (ICD-10) Diverticulosis ?K57.90 - Diverticulosis of intestine, part unspecified, without perforation or abscess without bleeding (ICD-10) Arthritis ?M19.90 - Unspecified osteoarthritis, unspecified site (ICD-10) Anemia ?D64.9 - Anemia, unspecified (ICD-10) Depression ?F32.A - Depression, unspecified (ICD-10) Colon polyp ?K63.5 - Polyp of colon (ICD-10) Diarrhea ?R19.7 - Diarrhea, unspecified (ICD-10) Constipation ?K59.00 - Constipation, unspecified (ICD-10) Sleep apnea ?G47.30 - Sleep apnea, unspecified (ICD-10) Pneumonia ?J18.9 - Pneumonia, unspecified organism (ICD-10) Neuropathy ?G62.9 - Polyneuropathy, unspecified (ICD-10) Restless leg ?G25.81 - Restless legs syndrome (ICD-10) Migraine ?G43.909 - Migraine, unspecified, not intractable, without status migrainosus (ICD-10) Urinary tract infection ?N39.0 - Urinary tract infection, site not specified (ICD-10) IBS (irritable bowel syndrome) ?K58.9 - Irritable bowel syndrome without diarrhea (ICD-10) GERD (gastroesophageal reflux disease) ?K21.9 - Gastro-esophageal reflux disease without esophagitis (ICD-10) Palpitations ?R00.2 - Palpitations (ICD-10) High cholesterol ?E78.00 - Pure hypercholesterolemia, unspecified (ICD-10) Hypertension ?I10 - Essential (primary) hypertension (ICD-10) Diabetes ?E11.9 - Type 2 diabetes mellitus without complications (ICD-10) Surgical History History of hysterectomy (08/2022) ?Z90.710 - Acquired absence of both cervix and uterus (ICD-10) History of robot-assisted laparoscopic hysterectomy ?Z90.710 - Acquired absence of both cervix and uterus (ICD-10) History of cholecystectomy ?Z90.49 - Acquired absence of other specified parts of digestive tract (ICD- 10) History of dilation and curettage ?Z98.890 - Other specified postprocedural states (ICD-10) History of colonoscopy ?Z98.890 - Other specified postprocedural states (ICD-10) History of tubal ligation ?Z98.51 - Tubal ligation status (ICD-10) History of section ?Z98.891 - History of uterine scar from previous surgery (ICD-10) S/P hip arthroscopy ?Z98.890 - Other specified postprocedural states (ICD-10) Family History Other Family history of colon cancer Family history of diabetes mellitus Family history of heart disease Family history of hypertension Family history of myocardial infarction Family history of stroke Social History Within the past year, how often did you have a drink containing alcohol: monthly or less Smoking status: Former smoker Non-prescribed substance use: denies use Previous occupational history: [employer] Highest level of school completed/degree received: Associate degree: occupational, technical, vocational program Little interest or pleasure in doing things: not at all Feeling down, depressed, or hopeless: not at all Exam Narrative Exam Narrative: Prior to examining the patient, I have washed with hospital approved and provided Antiseptic [employer] and have also applied gloves.? Prior to touching the patient, I asked for consent to examine the patient.? General: Alert and oriented, well nourished, mild distress. Eye: PERRL, EOMI, normal conjunctiva. HENT: Normocephalic, normal hearing, moist oral mucosa, no scleral icterus, no sinus tenderness. Neck: Supple, non-tender, no carotid bruits, no JVD, no lymphadenopathy. Lungs: Clear to auscultation and percussion, non-labored respiration. Heart: Normal rate, regular rhythm, no murmur, gallop or edema. Abdomen: Soft, non-tender, non-distended, normal bowel sounds, no masses. Musculoskeletal: Normal range of motion and strength, no tenderness or swelling. Skin: Skin is warm, dry and pink, no rashes or lesions. Top eyelid is erythematous on the left. There is conjunctival and scleral injection. There is purulent discharge to the medial canthus of the eye. Neurologic: Awake, alert, and oriented X3, CN II-XII intact. Psychiatric: Cooperative, appropriate mood and affect.? Following the conclusion of the examination, I have washed my hands thoroughly after removing examination gloves. Constitutional Vital Signs, click to edit/add: Last Vital Signs Temp 98.7 F 08/08/24 06:13 Pulse 81 08/08/24 06:13 Resp 20 08/08/24 06:13 BP 188/88 H 08/08/24 06:13 Pulse Ox 98 08/08/24 06:13 O2 Del Method Room Air 08/08/24 06:13 Course Course Hospital Course: Patient was seen and evaluated in the emergency department. Patient appears nontoxic and in no acute distress. Patient however does look uncomfortable with the ocular discharge and additional symptoms. At this time the patient will be given drops for her eyes. And I also think she needs to be put on antibiotic therapy as I feel that the upper lid may be turning a little bit more cellulitic. Patient states that she thought it started out looking like a stye but is evolved into something more at this time. Patient does not require any imaging because she does not have any ancillary lung sounds hypoxia, tachypnea, or profound abnormal respiratory system. Patient however is diabetic. Patient has a lot of patient contact, and I believe her symptoms should be treated aggressively. Patient will be sent home. Patient will be placed on antibiotic therapy. Vital Signs Vital signs: Vital Signs Temperature 98.7 F 08/08/24 06:13 Pulse Rate 81 08/08/24 06:13 Respiratory Rate 20 08/08/24 06:13 Blood Pressure 188/88 H 08/08/24 06:13 Pulse Oximetry 98 08/08/24 06:13 Oxygen Delivery Method Room Air 08/08/24 06:13 Temperature 98.7 F 08/08/24 06:13 Pulse Rate 81 08/08/24 06:13 Respiratory Rate 20 08/08/24 06:13 Blood Pressure 188/88 H 08/08/24 06:13 Pulse Oximetry 98 08/08/24 06:13 Oxygen Delivery Method Room Air 08/08/24 06:13 Medical Decision Making MDM Narrative Medical decision making narrative: Patient is a diabetic 59-year-old who presents to the emergency department with ocular discharge, cough, sore throat and some mild nausea. Going to place the patient definitively on antibiotics and give her a work note. Patient should hopefully have an uncomplicated course. Differential Diagnosis Differential Diagnosis: COVID, influenza, RSV, pharyngitis, URI, stye, conjunctivitis, allergies Medical Records Medical records reviewed: Yes I reviewed the patient's medical records Discharge Plan Discharge Stand Alone Forms: Work/School Release Chief Complaint: Eye Problems Clinical Impression: Cough Conjunctivitis Qualifiers: Conjunctivitis type: acute Laterality: left Patient Disposition: Home, Self-Care Time of Disposition Decision: 06:37 Condition: Good Mode of Transportation: Private Vehicle Prescriptions / Home Meds: New sulfacetamide sodium 10 % drops 2 drp ophthalmic (eye) Q4H Qty: 15 0RF azithromycin 250 mg tablet See Rx Instructions .ROUTE .COMPLEX Qty: 6 0RF Rx Instructions: For 250 mg dose pack: take 500 mg today (day 1), then 250 mg for 4 days (days 2-5) No Action lisinopril-hydrochlorothiazide 10-12.5 mg tablet 1 tab PO DAILY metformin 1,000 mg tablet 1,000 mg PO BID Ozempic 0.25 mg or 0.5 mg(2 mg/1.5 mL) pen injector 0.25 mg subcut QWEEK Rx Instructions: for 4 weeks meloxicam 15 mg tablet 15 mg PO DAILY insulin glargine-yfgn [Semglee(insulin glarg-yfgn)Pen] 100 unit/mL (3 mL) insulin pen 70 unit subcut BID tizanidine 4 mg capsule 4 mg PO QPM Print Language: Lithuanian Instructions: Acute Cough (ED), Conjunctivitis (ED) Additional Instructions: Thank you for trusting me with your care. Referrals: Frank Busby MD [Primary Care Provider, Family Practice] - 1 week
== END 2024-08-08 06:52 | disposition home or self-care (01) ==
PROVIDERS: Emergency Provider Emergency Medicine; PCP Family Medicine
DX: R05.9 Cough, unspecified (principal); H10.32 Unspecified acute conjunctivitis, left eye; J02.9 Acute pharyngitis, unspecified; H53.142 Visual discomfort, left eye; R11.0 Nausea; Z79.85 Long-term (current) use of injectable non-insulin antidiabetic drugs; Z79.84 Long term (current) use of oral hypoglycemic drugs; E11.9 Type 2 diabetes mellitus without complications
CPT/HCPCS: 99283

== ENCOUNTER 2024-08-29 22:16 | Emergency (ER) | payer BC, SELFPAY ==
[2024-08-29 22:19] VITALS: BP 160/76; PULSE 76; TEMP 36.5; O2SAT 98; BMI 31.7
--- OUTSIDE RECORDS SUMMARY | 2024-08-29 22:21 | XMS_ITS | CCD ---
Author Organization [facility] Care Team Providers Care Alumni Relations Manager Name Role Phone Kathleen Busby Primary Care [...] Unavailable Kathleen Busby MD Primary Care Provider [phone] PADMINI MARR Attending Unavailable Allergies Allergy Classification Reported Allergen(s) Allergy Type Date of Onset Reaction(s) Facility (6 sources) Penicillins; Translations: [penicillins] Drug allergy 08-31-19 Eruption of skin (disorder), Rash [facility] (5 sources) Sulfamethoxazole / Trimethoprim; Translations: [sulfamethoxazole-tr imethoprim] Drug Allergy 10-03-19 Unknown (qualifier value) [facility] (1 source) Bacitracin Drug Allergy [facility] (1 source) Sulfamethoxazole / Trimethoprim Drug Allergy [facility] (1 source) penicillAMINE Drug Allergy rash [place] Other Medications Current Medications Medication Drug Class(es) [...] encounter] Onset: 09-27-2021 Episodic Unclassified (1 source) HALFWAY INJECT NONINSULN ANTIDIAB; Translations: [HALFWAY INJECT NONINSULN ANTIDIAB] Onset: 04-25-2022 Unclassified (4 [...] (current) use of oral hypoglycemic drugs; Translations: [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 DX] Onset: 04-25-2022 Episodic Other aftercare (1 source) 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; Translations: [HALFWAY CURRENT USE OF INSULIN] Onset: 03-15-2022 Episodic Other aftercare (1 source) varnish maker helper (current) use of aspirin; Translations: [MORTGAGE SERVICING SPECIALIST CURRENT USE OF ASPIRIN] Onset: 08-24-2021 Episodic Other aftercare (1 source) Other half-way (current) drug therapy; Translations: [OTH MORTGAGE SERVICING SPECIALIST CURRENT DRUG THERAPY] Onset: 08-24-2021 Episodic Other [...] 2022 ADA RECOMMENDATION SEE BELOW Normal [facility] Comment on above: Result Comment: ADA RECOMMENDED LIMIT 4.0 - 6.0 ADA THERAPEUTIC TARGET < 7.0 ACTION SUGGESTED > 7.0 Performed By: #### B MP #### [facility] [address] [address] [address] Bernice Hamilton Glucose [Mass/Vol] 160 mg/dL Normal [facility] Comment on above: Performed By: #### B MP #### [facility] [address] [address] [address] Bernice Hamilton HbA1c (Bld) [Mass fraction] 7.2 % Critically high 4.5-6.2 [facility] Comment on above: Performed By: #### B MP #### [facility] [address] [address] [address] Bernice Hamilton GLYCOHEMOGLOBIN A1Con 2022 ADA RECOMMENDATION SEE BELOW Normal [facility] Comment on above: Result Comment: ADA RECOMMENDED LIMIT 4.0 - 6.0 ADA THERAPEUTIC TARGET < 7.0 ACTION SUGGESTED > 7.0 Performed By: #### B MP #### [facility] [address] [address] [address] Bernice Hamilton Glucose [Mass/Vol] 186 mg/dL Normal [facility] Comment on above: Performed By: #### B MP #### [facility] [address] [address] [address] Bernice Hamilton HbA1c (Bld) [Mass fraction] 8.1 % Critically high 4.5-6.2 [facility] Comment on above: Performed By: #### B MP #### [facility] [address] [address] [address] Bernice Hamilton TYPE AND SCREENon 06-12-2022 TYPE AND SCREEN Negative Normal [facility] Comment on above: Performed By: #### T NS ####[facility] [address] [address]Dr. Bernice Hamilton CBC AUTO DIFFon 06-09-2022 BASO # 0.1 103/ul Normal 0.0-0.1 [facility] Comment on above: Performed By: #### E RUR, PREGU #### [facility] [address] [place] [address] Dr. Bernice Hamilton Basophils/100 WBC (Bld) 1.1 % Normal 0.2-2.0 [facility] Comment on above: Performed By: #### E RUR, PREGU #### [facility] [address] [place] [address] Dr. Bernice Hamilton EO # 0.5 103/ul Normal 0.0-0.7 [facility] Comment on above: Performed By: #### E RUR, PREGU #### [facility] [address] [place] [address] Dr. Bernice Hamilton Eosinophils/100 WBC (Bld) 7.4 % Critically high 0.9-7.0 [facility] Comment on above: Performed By: #### E RUR, PREGU #### [facility] [address] [place] [address] Dr. Bernice Hamilton Erythrocyte distribution width (RBC) [Ratio] 16.8 % Critically high 11.0-15.0 [facility] Comment on above: Performed By: #### E RUR, PREGU #### [facility] [address] [place] [address] Dr. Bernice Hamilton Hematocrit (Bld) [Volume fraction] 37.8 % Normal 36.0-48.0 [facility] Comment on above: Performed By: #### E RUR, PREGU #### [facility] [address] [place] [address] Dr. Bernice Hamilton Hemoglobin (Bld) [Mass/Vol] 11.5 g/dL Critically low 12.0-16.0 [facility] Comment on above: Performed By: #### E RUR, PREGU #### [facility] [address] [place] [address] Dr. Bernice Hamilton IG # 0.02 10e3/ul Normal 0.00-0.03 [facility] Comment on above: Performed By: #### E RUR, PREGU #### [facility] [address] [place] [address] Dr. Bernice Hamilton IG % 0.3 % Normal 0.0-0.5 [facility] Comment on above: Performed By: #### E RUR, PREGU #### [facility] [address] [place] [address] Dr. Bernice Hamilton LYMPH # 1.8 103/ul Normal 1.2-3.8 [facility] Comment on above: Performed By: #### E RUR, PREGU #### [facility] [address] [place] [address] Dr. Bernice Hamilton Lymphocytes/100 WBC (Bld) 29.6 % Normal 20.5-60.0 [facility] Comment on above: Performed By: #### E RUR, PREGU #### [facility] [address] [place] [address] Dr. Bernice Hamilton MANUAL DIFF REQ NO Normal [facility] Comment on above: Performed By: #### E RUR, PREGU #### [facility] [address] [place] [address] Dr. Bernice Hamilton MCH (RBC) [Entitic mass] 22.8 pg Critically low 26.7-34.0 [facility] Comment on above: Performed By: #### E RUR, PREGU #### [facility] [address] [place] [address] Dr. Bernice Hamilton MCHC (RBC) [Mass/Vol] 30.4 g/dL Normal 29.9-35.2 [facility] Comment on above: Performed By: #### E RUR, PREGU #### [facility] [address] [place] [address] Dr. Bernice Hamilton MCV (RBC) [Entitic vol] 74.9 fL Critically low 81.0-99.0 [facility] Comment on above: Performed By: #### E RUR, PREGU #### [facility] [address] [place] [address] Dr. Bernice Hamilton MONO # 0.5 103/ul Normal 0.3-0.8 [facility] Comment on above: Performed By: #### E RUR, PREGU #### [facility] [address] [place] [address] Dr. Bernice Hamilton Monocytes/100 WBC (Bld) 7.3 % Normal 1.7-12.0 [facility] Comment on above: Performed By: #### E RUR, PREGU #### [facility] [address] [place] [address] Dr. Bernice Hamilton NEUT # 3.4 103/ul Normal 1.4-6.5 [facility] Comment on above: Performed By: #### E RUR, PREGU #### [facility] [address] [place] [address] Dr. Bernice Hamilton Neutrophils/100 WBC (Bld) 54.3 % Normal 43.0-75.0 [facility] Comment on above: Performed By: #### E RUR, PREGU #### [facility] [address] [place] [address] Dr. Bernice Hamilton Platelet mean volume (Bld) [Entitic vol] 10.9 fL Normal 9.5-13.5 [facility] Comment on above: Performed By: #### E RUR, PREGU #### [facility] [address] [place] [address] Dr. Bernice Hamilton PLT 320 103/ul Normal 150-450 [facility] Comment on above: Performed By: #### E RUR, PREGU #### [facility] [address] [place] [address] Dr. Bernice Hamilton RBC 5.05 106/ul Normal 4.20-5.40 [facility] Comment on above: Performed By: #### E RUR, PREGU #### [facility] [address] [place] [address] Dr. Bernice Hamilton WBC 6.2 103/ul Normal 4.0-11.0 [facility] Comment on above: Performed By: #### E RUR, PREGU #### [facility] [address] [place] [address] Dr. Bernice Hamilton LIVER PROFILEon 06-09-2022 Albumin [Mass/Vol] 3.6 g/dL Normal 3.4-5.0 [facility] Comment on above: Performed By: #### B MP #### [facility] [address] [place] [address] Dr. Bernice Hamilton Albumin/Globulin [Mass ratio] 1.0 {ratio} Normal [facility] Comment on above: Performed By: #### B MP #### [facility] [address] [place] [address] Dr. Bernice Hamilton ALP [Catalytic activity/Vol] 77 U/L Normal 46-116 [facility] Comment on above: Performed By: #### B MP #### [facility] [address] [place] [address] Dr. Bernice Hamilton ALT [Catalytic activity/Vol] 28 U/L Normal 14-59 [facility] Comment on above: Performed By: #### B MP #### [facility] [address] [place] [address] Dr. Bernice Hamilton AST [Catalytic activity/Vol] 15 U/L Normal 15-37 [facility] Comment on above: Performed By: #### B MP #### [facility] [address] [place] [address] Dr. Bernice Hamilton BILI, CONJUGATED 0.1 mg/dL Normal 0.0-0.2 [facility] Comment on above: Performed By: #### B MP #### [facility] [address] [place] [address] Dr. Bernice Hamilton Bilirubin [Mass/Vol] 0.2 mg/dL Normal 0.2-1.0 [facility] Comment on above: Performed By: #### B MP #### [facility] [address] [place] [address] Dr. Bernice Hamilton Globulin (S) [Mass/Vol] 3.7 g/dL Normal [facility] Comment on above: Performed By: #### B MP #### [facility] [address] [place] [address] Dr. Bernice Hamilton Protein [Mass/Vol] 7.3 g/dL Normal 6.4-8.2 [facility] Comment on above: Performed By: #### B MP #### [facility] [address] [address] [address] Bernice Hamilton PROF CHEM 8 (BAS METB)on Anion gap [Moles/Vol] 11.8 mmol/L Normal [facility] Comment on above: Performed By: #### B MP #### [facility] [address] [address] [address] Bernice Hamilton Calcium [Mass/Vol] 9.0 mg/dL Normal 8.5-10.1 [facility] Comment on above: Performed By: #### B MP #### [facility] [address] [address] [address] Bernice Hamilton Chloride [Moles/Vol] 104 mmol/L Normal 98-107 [facility] Comment on above: Performed By: #### B MP #### [facility] [address] [address] [address] Bernice Hamilton CO2 [Moles/Vol] 27.6 mmol/L Normal 21.0-32.0 [facility] Comment on above: Performed By: #### B MP #### [facility] [address] [place] [address] Dr. Bernice Hamilton Creatinine [Mass/Vol] 0.60 mg/dL Normal 0.55-1.02 [facility] Comment on above: Performed By: #### B MP #### [facility] [address] [place] [address] Dr. Bernice Hamilton EGFR-AF LIBYAN >60 Normal >=60 [facility] Comment on above: Performed By: #### B MP #### [facility] [address] [address] [address] Bernice Hamilton EGFR-NON AF LIBYAN >60 Normal >=60 [facility] Comment on above: Performed By: #### B MP #### [facility] [address] [place] [address] Dr. Bernice Hamilton Glucose [Mass/Vol] 174 mg/dL Critically high 74-106 [facility] Comment on above: Performed By: #### B MP #### [facility] [address] [address] [address] Bernice Hamilton Potassium [Moles/Vol] 4.4 mmol/L Normal 3.5-5.1 [facility] Comment on above: Performed By: #### B MP #### [facility] [address] [address] [address] Bernice Hamilton Sodium [Moles/Vol] 139 mmol/L Normal 136-145 [facility] Comment on above: Performed By: #### B MP #### [facility] [address] [address] [address] Bernice Hamilton Urea nitrogen [Mass/Vol] 17.0 mg/dL Normal 7.0-18.0 [facility] Comment on above: Performed By: #### B MP #### [facility] [address] [place] [address] Dr. Bernice Hamilton Urea nitrogen/Creatinine [Mass ratio] 28.3 mg/mg Normal [facility] Comment on above: Performed By: #### B MP #### [facility] [address] [place] [address] Dr. Bernice Hamilton PROTIMEon 06-09-2022 INR Coag (PPP) [Relative time] {INR} Normal [facility] Comment on above: Performed By: #### E RUR, PREGU #### [facility] [address] [place] [address] Dr. Bernice Hamilton INR GUIDELINES SEE BELOW Normal [facility] Comment on above: Result Comment: DAMARIS RED INR: 2.0 - 3.0 CONDITIONS NOT LISTED BELOW 2.5 - 3.5 FOR PROSTHETIC HEART VALVE REPLACEMENT 2.5 - 3.5 RECURRENT THROMBOSIS Performed By: #### E RUR, PREGU #### [facility] [address] [place] [address] Dr. Bernice Hamilton PT Coag (PPP) [Time] 9.8 s Normal 9.0-11.6 [facility] Comment on above: Performed By: #### E RUR, PREGU #### [facility] [address] [place] [address] Dr. Bernice Hamilton PTTon 06-09-2022 aPTT Coag (Bld) [Time] 24.2 s Normal 22.3-36.2 [facility] Comment on above: Performed By: #### Mara SORIANO PREGU #### [facility] [address] [place] [address] [address] [address] Bernice Hamilton Outside Colonoscopyon 2022 Outside Colonoscopy [id number]#1.00C D:127 Normal [facility] Reminderson 04-20-2022 Reminders - From: Nayeli Du LPN To: N - Clinical; Sent: 04/20/2022 12:53:45 EST Show up: 03/19/2027 07:00:00 EST Subject: colonoscopy recall Due Date/Time: 2027 07:00:00 EST Reminder/Recall Patient is due for colonoscopy 2027 due to history of colonic polyps. Normal [facility] PREG HCG QUALon 2022 , QUAL Negative Normal NEGATIVE [facility] Comment on above: Performed By: #### Mara SORIANO PREGU #### [facility] [address] [place], [place] [id number] Dr. Bernice Hamilton Pre-Certification Formon Pre-Certification Form [id number]#1.00C D:127 Normal [facility] Ambulatory Visit Summaryon 0 03-23-2022 Ambulatory [...] RLS (restless legs syndrome) Sleep apnea Normal [facility] Consent for Procedure/Surger yon 03-23-2022 Consent for Procedure/Surgery [id number]#1.00C D:127 Normal [facility] ED Note-Physicianon 03-19-19 ED Note-Physician [id number]#1.00C D:127 Normal [facility] RAD - CT Reporton 03-19-2022 RAD - CT Report [id number]#1.00C D:127 Normal [facility] AMYLASEon 03-13-2022 Amylase [Catalytic activity/Vol] 53 U/L Normal 25-115 [facility] Comment on above: Performed By: #### E CHRISTIE PREGU #### [facility] [address] [address] [address] Bernice Hamilton CBC AUTO DIFFon 03-13-2022 BASO # 0.0 103/ul Normal 0.0-0.1 [facility] Comment on above: Performed By: #### C BC ####[facility] [address] [address]DrPablo Hamilton Basophils/100 WBC (Bld) 0.2 % Normal 0.2-2.0 [facility] Comment on above: Performed By: #### C BC ####[facility] [address] [address]DrPablo Hamilton EO # 0.2 103/ul Normal 0.0-0.7 [facility] Comment on above: Performed By: #### C BC ####[facility] [address] [address]DrPablo Hamilton Eosinophils/100 WBC (Bld) 1.1 % Normal 0.9-7.0 [facility] Comment on above: Performed By: #### C BC ####[facility] [address] [address]Dr. Bernice Hamilton Erythrocyte distribution width (RBC) [Ratio] 15.7 % Critically high 11.0-15.0 [facility] Comment on above: Performed By: #### C BC ####[facility] [address] [address]Dr. Bernice Hamilton Hematocrit (Bld) [Volume fraction] 37.0 % Normal 36.0-48.0 [facility] Comment on above: Performed By: #### C BC ####[facility] [address] [address]Dr. Bernice Hamilton Hemoglobin (Bld) [Mass/Vol] 11.5 g/dL Critically low 12.0-16.0 [facility] Comment on above: Performed By: #### C BC ####[facility] [address] [address]Dr. Bernice Hamilton IG # 0.08 10e3/ul Critically high 0.00-0.03 [facility] Comment on above: Performed By: #### C BC ####[facility] [address] [place], [place] [address]Dr. Bernice Hamilton IG % 0.5 % Normal 0.0-0.5 [facility] Comment on above: Performed By: #### C BC ####[facility] [address] [place], [place] [address]Dr. Bernice Hamilton LYMPH # 1.1 103/ul Critically low 1.2-3.[address] [facility] Comment on above: Performed By: #### C BC ####[facility] [address] [address]Dr. Bernice Hamilton Lymphocytes/100 WBC (Bld) 6.4 % Critically low 20.5-60.0 [facility] Comment on above: Performed By: #### C BC ####[facility] [address] [place], [place] [address]Dr. Bernice Hamilton MANUAL DIFF REQ NO Normal [facility] Comment on above: Performed By: #### C BC ####[facility] [address] [place], [place] [address]Dr. Bernice Hamilton MCH (RBC) [Entitic mass] 23.1 pg Critically low 26.7-34.0 [facility] Comment on above: Performed By: #### C BC ####[facility] [address] [address]Dr. Bernice Hamilton MCHC (RBC) [Mass/Vol] 31.1 g/dL Normal 29.9-35.2 [facility] Comment on above: Performed By: #### C BC ####[facility] [address] [address]Dr. Bernice Hamilton MCV (RBC) [Entitic vol] 74.3 fL Critically low 81.0-99.0 [facility] Comment on above: Performed By: #### C BC ####[facility] [address] [address]Dr. Bernice Hamilton MONO # 1.1 103/ul Critically high 0.3-0.8 [facility] Comment on above: Performed By: #### C BC ####[facility] [address] [address]Dr. Bernice Hamilton Monocytes/100 WBC (Bld) 6.3 % Normal 1.7-12.0 [facility] Comment on above: Performed By: #### C BC ####[facility] [address] [address]Dr. Bernice Hamilton NEUT # 14.3 103/ul Critically high 1.4-6.5 [facility] Comment on above: Performed By: #### C BC ####[facility] [address] [address]Dr. Bernice Hamilton Neutrophils/100 WBC (Bld) 85.5 % Critically high 43.0-75.0 [facility] Comment on above: Performed By: #### C BC ####[facility] [address] [address]Dr. Bernice Hamilton Platelet mean volume (Bld) [Entitic vol] 10.4 fL Normal 9.5-13.5 [facility] Comment on above: Performed By: #### C BC ####[facility] [address] [place], [place] [address]Cz. Bernice Hamilton PLT 356 103/ul Normal 150-450 [facility] Comment on above: Performed By: #### C BC ####[facility] [address] [place], [place] [address]Fv. Bernice Hamilton RBC 4.98 106/ul Normal 4.20-5.40 [facility] Comment on above: Performed By: #### C BC ####[facility] [address] [place], [place] [address]Wl. Bernice Hamilton WBC 16.8 103/ul Critically high 4.0-11.0 [facility] Comment on above: Performed By: #### C BC ####[facility] [address] [place], [place] [address]Dm. [address] CT ABD/PELV W CONon 03-13-[address] ABD/PELV W CON CT ABD/PELV W CON: 03/13/2022 3:40 AM EST CLINICAL HISTORY: 56 years old Female with GENERALIZED ABDOMINAL PAIN. Left lower quadrant pain and vomiting. [facility] 02/28/2022. TECHNIQUE: Axial CT images through [...] MATTHEW MELARA Date: 2022-03-13 05:43 Normal [facility] GROUP A STREP CULTUREon S. pyogenes Ag Ql (Unsp spec) Culture Observations: NEGATIVE FOR GROUP A STREPTOCOCCUS. Normal [facility] Comment on above: Performed By: #### S SCRN GRASTCX ####[facility] [address] [address]Dr. Bernice Hamilton LIPASEon 03-13-2022 Lipase [Catalytic activity/Vol] 121.0 U/L Normal 73.0-393.0 [facility] Comment on above: Performed By: #### E KATHERINER, PREGU #### [facility] [address] [place] [address] Dr. Bernice Hamilton PROF 14(COMP METB)on 023 Albumin [Mass/Vol] 3.6 g/dL Normal 3.4-5.0 [facility] Comment on above: Performed By: #### E CHRISTIE, PREGU #### [facility] [address] [address] [address] Bernice Hamilton Albumin/Globulin [Mass ratio] 0.8 {ratio} Normal [facility] Comment on above: Performed By: #### E CHRISTIE, PREGU #### [facility] [address] [place] [address] Dr. Bernice Hamilton ALP [Catalytic activity/Vol] 112 U/L Normal 46-116 [facility] Comment on above: Performed By: #### E RUR, PREGU #### [facility] [address] [place] [address] Dr. Bernice Hamilton ALT [Catalytic activity/Vol] 23 U/L Normal 14-59 [facility] Comment on above: Performed By: #### E RUR, PREGU #### [facility] [address] [place] [address] Dr. Bernice Hamilton Anion gap [Moles/Vol] 16.5 mmol/L Normal [facility] Comment on above: Performed By: #### E RUR, PREGU #### [facility] [address] [place] [address] Dr. Bernice Hamilton AST [Catalytic activity/Vol] 20 U/L Normal 15-37 [facility] Comment on above: Performed By: #### Mara MURPHYR, PREGU #### [facility] [address] [place] [address] Dr. Bernice Hamilton Bilirubin [Mass/Vol] 0.5 mg/dL Normal 0.2-1.0 [facility] Comment on above: Performed By: #### Mara MURPHYR, PREGU #### [facility] [address] [place] [address] Dr. Bernice Hamilton Calcium [Mass/Vol] 9.2 mg/dL Normal 8.5-10.1 [facility] Comment on above: Performed By: #### Mara RUR, PREGU #### [facility] [address] [place] [address] Dr. Bernice Hamilton Chloride [Moles/Vol] 98 mmol/L Normal 98-107 [facility] Comment on above: Performed By: #### E RUR, PREGU #### [facility] [address] [place] [address] Dr. Bernice Hamilton CO2 [Moles/Vol] 23.5 mmol/L Normal 21.0-32.0 [facility] Comment on above: Performed By: #### Mara RUR, PREGU #### [facility] [address] [address] [address] Bernice Hamilton Creatinine [Mass/Vol] 0.99 mg/dL Normal 0.55-1.02 [facility] Comment on above: Performed By: #### E RUR, PREGU #### [facility] [address] [address] [address] Bernice Hamilton EGFR-AF LIBYAN >60 Normal >=60 [facility] Comment on above: Performed By: #### E RUR, PREGU #### [facility] [address] [address] [address] Bernice Hamilton EGFR-NON AF LIBYAN 58 mL/min/1.73m2 Critically low >=60 [facility] Comment on above: Performed By: #### E RUR, PREGU #### [facility] [address] [place] [address] Dr. Bernice Hamilton Globulin (S) [Mass/Vol] 4.4 g/dL Normal [facility] Comment on above: Performed By: #### E RUR, PREGU #### [facility] [address] [address] [address] Bernice Hamilton Glucose [Mass/Vol] 288 mg/dL Critically high 74-106 T [facility] Comment on above: Performed By: #### E RUR, PREGU #### [facility] [address] [place] [address] Dr. Bernice Hamilton Potassium [Moles/Vol] 4.0 mmol/L Normal 3.5-5.1 [facility] Comment on above: Performed By: #### E RUR, PREGU #### [facility] [address] [address] [address] Bernice Hamilton Protein [Mass/Vol] 8.0 g/dL Normal 6.4-8.2 [facility] Comment on above: Performed By: #### E RUR, PREGU #### [facility] [address] [address] [address] Bernice Hamilton Sodium [Moles/Vol] 134 mmol/L Critically low 136-145 [facility] Comment on above: Performed By: #### E RUR, PREGU #### [facility] [address] [address] [address] Bernice Hamilton Urea nitrogen [Mass/Vol] 17.0 mg/dL Normal 7.0-18.0 [facility] Comment on above: Performed By: #### E RUR, PREGU #### [facility] [address] [address] [address] Bernice Hamilton Urea nitrogen/Creatinine [Mass ratio] 17.2 mg/mg Normal [facility] Comment on above: Performed By: #### E RUR, PREGU #### [facility] [address] [address] [address] Bernice Hamilton STREPT SCREENon 03-13-2022 STREP SCREEN A Negative Normal NEGATIVE [facility] Comment on above: Performed By: #### S SCRN, GRASTCX ####[facility] [address] [place], [place] [address]Dr. Bernice Hamilton TROPONIN, HIGH SENSITIVITYon 03-13-2022 HSTROP 8.3 pg/mL Normal 4.0-51.3 [facility] Comment on above: Result Comment: CUT- OFF POINTS HAVE BEEN ESTABLISHED BASED ON THE FOURTH UNIVERSAL DEFINITIONS OF MYOCARDIAL INFARCTION. THE UPPER REFERENCE LIMIT (URL) OF TROPONIN, DEFINED THE 99TH PERCENTILE OF cTnI DISTRIBUTION IN A REFERENCE POPULATION, HAS BEEN CONFIRMED THE DECISION THRESHOLD FOR HI DIAGNOSIS. Performed By: #### H STROPN ####[facility] [address] [address]Dr. Bernice Hamilton CBC AUTO DIFFon 02-28-2022 BASO # 0.1 103/ul Normal 0.0-0.1 [facility] Comment on above: Performed By: #### C BC ####[facility] [address] [address]Dr. Bernice Hamilton Basophils/100 WBC (Bld) 0.8 % Normal 0.2-2.0 [facility] Comment on above: Performed By: #### C BC ####[facility] [address] [address]Dr. Bernice Hamilton EO # 0.4 103/ul Normal 0.0-0.7 [facility] Comment on above: Performed By: #### C BC ####[facility] [address] [address]Dr. Bernice Alfonso Eosinophils/100 WBC (Bld) 5.7 % Normal 0.9-7.0 [facility] Comment on above: Performed By: #### C BC ####[facility] [address] [place], [place] [address]Dr. Bernice Hamilton Erythrocyte distribution width (RBC) [Ratio] 15.3 % Critically high 11.0-15.0 [facility] Comment on above: Performed By: #### C BC ####[facility] [address] [place], [place] [address]Dr. Bernice Hamilton Hematocrit (Bld) [Volume fraction] 35.9 % Critically low 36.0-48.0 [facility] Comment on above: Performed By: #### C BC ####[facility] [address] [place], [place] [address]Dr. Bernice Hamilton Hemoglobin (Bld) [Mass/Vol] 11.0 g/dL Critically low 12.0-16.0 [facility] Comment on above: Performed By: #### C BC ####[facility] [address] [place], [place] [address]Dr. Bernice Hamilton IG # 0.02 10e3/ul Normal 0.00-0.03 [facility] Comment on above: Performed By: #### C BC ####[facility] [address] [place], [place] [address]Dr. Bernice Hamilton IG % 0.3 % Normal 0.0-0.5 [facility] Comment on above: Performed By: #### C BC ####[facility] [address] [place], [place] [address]Dr. Bernice Hamilton LYMPH # 2.4 103/ul Normal 1.2-3.8 [facility] Comment on above: Performed By: #### C BC ####[facility] [address] [place], [place] [address]Dr. Bernice Hamilton Lymphocytes/100 WBC (Bld) 33.2 % Normal 20.5-60.0 [facility] Comment on above: Performed By: #### C BC ####[facility] [address] [address]DrPablo Hamilton MANUAL DIFF REQ NO Normal [facility] Comment on above: Performed By: #### C BC ####[facility] [address] [address]Dr. Bernice Hamilton MCH (RBC) [Entitic mass] 22.8 pg Critically low 26.7-34.0 [facility] Comment on above: Performed By: #### C BC ####[facility] [address] [place], [place] [address]Dr. Bernice Hamilton MCHC (RBC) [Mass/Vol] 30.6 g/dL Normal 29.9-35.2 [facility] Comment on above: Performed By: #### C BC ####[facility] [address] [place], [place] [address]DrPablo Hamilton MCV (RBC) [Entitic vol] 74.5 fL Critically low 81.0-99.0 [facility] Comment on above: Performed By: #### C BC ####[facility] [address] [place], [place] [address]DrPablo Hamilton MONO # 0.5 103/ul Normal 0.3-0.8 [facility] Comment on above: Performed By: #### C BC ####[facility] [address] [place], [place] [address]DrPablo Haimlton Monocytes/100 WBC (Bld) 7.4 % Normal 1.7-12.0 [facility] Comment on above: Performed By: #### C BC ####[facility] [address] [place], [place] [address]DrPablo Hamilton NEUT # 3.8 103/ul Normal 1.4-6.5 [facility] Comment on above: Performed By: #### C BC ####[facility] [address] [place], [place] [address]DrPablo Hamilton Neutrophils/100 WBC (Bld) 52.6 % Normal 43.0-75.0 [facility] Comment on above: Performed By: #### C BC ####[facility] [address] [address]Dr. Bernice Hamilton Platelet mean volume (Bld) [Entitic vol] 10.3 fL Normal 9.5-13.5 [facility] Comment on above: Performed By: #### C BC ####[facility] [address] [address]Dr. Bernice Hamilton PLT 334 103/ul Normal 150-450 [facility] Comment on above: Performed By: #### C BC ####[facility] [address] [address]Dr. Bernice Hamilton RBC 4.82 106/ul Normal 4.20-5.40 [facility] Comment on above: Performed By: #### C BC ####[facility] [address] [address]Dr. Bernice Hamilton WBC 7.3 103/ul Normal 4.0-11.0 [facility] Comment on above: Performed By: #### C BC ####[facility] [address] [address]Dr. Bernice Hamilton POINT OF CARE GLUCOSEon 02-10 Glucose [Mass/Vol] 188 mg/dL Critically high 74-106 T [facility] Comment on above: Performed By: #### B MP #### [facility] [address] [place] [address] Dr. Bernice Hamilton PREG HCG QUALon 02-28-2022 , QUAL Negative Normal NEGATIVE [facility] Comment on above: Performed By: #### B MP #### [facility] [address] [address] [address] Bernice Hamilton Covid-19 PCR (CVDTB)on 02-09 SARS-CoV-2 (COVID-19) RNA JOSIAS+probe Ql (Unsp spec) Not detected Normal NOT DETECTED [facility] Comment on above: Result Comment: This test is not yet approved or cleared by the [place] FDA. When there are no FDA-approved or cleared tests available, and other criteria are met, FDA can make tests available under an emergency access mechanism called an Emergency Use Authorization (EUA). The EUA for this test is supported by the [place] of Health and Human Service's (HHS's) declaration [...] consistent with SARS-CoV-2. Performed By: #### [facility] ####[facility] [address] [address]Dr. Bernice Hamilton PROF CHEM 8 (BAS METB)on Anion gap [Moles/Vol] 12.4 mmol/L Normal [facility] Comment on above: Performed By: #### B MP #### [facility] [address] [place] [address] Dr. Bernice Hamilton Calcium [Mass/Vol] 8.7 mg/dL Normal 8.5-10.1 [facility] Comment on above: Performed By: #### B MP #### [facility] [address] [place] [address] Dr. Bernice Hamilton Chloride [Moles/Vol] 103 mmol/L Normal 98-107 [facility] Comment on above: Performed By: #### B MP #### [facility] [address] [address] [address] Bernice Hamilton CO2 [Moles/Vol] 27.8 mmol/L Normal 21.0-32.0 [facility] Comment on above: Performed By: #### B MP #### [facility] [address] [place] [address] Dr. Bernice Hamilton Creatinine [Mass/Vol] 0.92 mg/dL Normal 0.55-1.02 [facility] Comment on above: Performed By: #### B MP #### [facility] [address] [address] [address] Bernice Hamilton EGFR-AF LIBYAN >60 Normal >=60 [facility] Comment on above: Performed By: #### B MP #### [facility] [address] [address] [address] Bernice Hamilton EGFR-NON AF LIBYAN >60 Normal >=60 [facility] Comment on above: Performed By: #### B MP #### [facility] [address] [address] [address] Bernice Hamilton Glucose [Mass/Vol] 228 mg/dL Critically high 74-106 T [facility] Comment on above: Performed By: #### B MP #### [facility] [address] [place] [address] Dr. Bernice Hamilton Potassium [Moles/Vol] 4.2 mmol/L Normal 3.5-5.1 [facility] Comment on above: Performed By: #### B MP #### [facility] [address] [place] [address] Dr. Bernice Hamilton Sodium [Moles/Vol] 139 mmol/L Normal 136-145 [facility] Comment on above: Performed By: #### B MP #### [facility] [address] [place] [address] Dr. Bernice Hamilton Urea nitrogen [Mass/Vol] 16.0 mg/dL Normal 7.0-18.0 [facility] Comment on above: Performed By: #### B MP #### [facility] [address] [place] [address] Dr. Bernice Hamilton Urea nitrogen/Creatinine [Mass ratio] 17.4 mg/mg Normal [facility] Comment on above: Performed By: #### B MP #### [facility] [address] [place] [address] Dr. Bernice Hamilton Covid[facility]19 PCR [facility])on SARS-CoV-2 (COVID-19) RNA JOSIAS+probe Ql (Unsp spec) Not detected Normal NOT DETECTED [facility] Comment on above: Result Comment: [...] for this test is supported by the [employer] Control/Anti Air Warfare Officer of Health and Human Service's declaration that [...] Performed By: #### E CHRISTIE, PREGU #### [facility] [address] [place] [address] Dr. Bernice Hamilton INFLUENZA A AND B [facility]on 02-[facility] Normal [facility] Comment on above: Result Comment: Nega tive for Flu A protein angiten. Infection due to Flu A cannot be ruled out. Flu A angiten in the sample may be below the detection limit of the test. Performed By: #### I NFLUAB #### [facility] [address] [place] [address] Dr. Bern[address] [facility] [facility] Normal [facility] Comment on above: Result Comment: Nega tive for Flu B protein antigen. Infection due to Flu B cannot be ruled out. Flu B antigen in the sample may be below the detection limit of the test. Performed By: #### I NFLUAB #### [facility] [address] [place] [address] Dr. Bernice Hamilton INFLUENZA A AG Negative Normal NEGATIVE SEE COMMENT [facility] Comment on above: Performed By: #### I NFLUAB #### [facility] [address] [place] [address] Dr. Bernice Hamilton INFLUENZA B AG Negative Normal NEGATIVE SEE COMMENT [facility] Comment on above: Performed By: #### I NFLUAB #### [facility] [address] [address] [address] Bernice Hamilton INTERNAL CONTROLS Within Normal Limits Normal Wi thin Normal Limits [facility] Comment on above: Performed By: #### I NFLUAB #### [facility] [address] [address] [address] Bernice Hamilton US PELVIS AND TRANSVAGon [...] EFREN WHELAN Date: 2022-01-27 06:22 Normal [facility] CBC AUTO DIFFon 01-26-2022 BASO # 0.1 103/ul Normal 0.0-0.1 [facility] Comment on above: Performed By: #### B MP #### [facility] [address] [address] [address] Bernice Hamilton Basophils/100 WBC (Bld) 0.8 % Normal 0.2-2.0 [facility] Comment on above: Performed By: #### B MP #### [facility] [address] [place] [address] Dr. Bernice Hamilton EO # 0.3 103/ul Normal 0.0-0.7 [facility] Comment on above: Performed By: #### B MP #### [facility] [address] [place] [address] Dr. Bernice Hamilton Eosinophils/100 WBC (Bld) 3.8 % Normal 0.9-7.0 [facility] Comment on above: Performed By: #### B MP #### [facility] [address] [place] [address] Dr. Bernice Hamilton Erythrocyte distribution width (RBC) [Ratio] 15.0 % Normal 11.0-15.0 [facility] Comment on above: Performed By: #### B MP #### [facility] [address] [place] [address] Dr. Bernice Hamilton Hematocrit (Bld) [Volume fraction] 39.1 % Normal 36.0-48.0 [facility] Comment on above: Performed By: #### B MP #### [facility] [address] [place] [address] Dr. Bernice Hamilton Hemoglobin (Bld) [Mass/Vol] 12.3 g/dL Normal 12.0-16.0 [facility] Comment on above: Performed By: #### B MP #### [facility] [address] [place] [address] Dr. Bernice Hamilton IG # 0.02 10e3/ul Normal 0.00-0.03 [facility] Comment on above: Performed By: #### B MP #### [facility] [address] [place] [address] Dr. Bernice Hamilton IG % 0.3 % Normal 0.0-0.5 [facility] Comment on above: Performed By: #### B MP #### [facility] [address] [place] [address] Dr. Bernice Hamilton LYMPH # 2.6 103/ul Normal 1.2-3.8 [facility] Comment on above: Performed By: #### B MP #### [facility] [address] [place] [address] Dr. Bernice Hamilton Lymphocytes/100 WBC (Bld) 36.1 % Normal 20.5-60.0 [facility] Comment on above: Performed By: #### B MP #### [facility] [address] [place] [address] Dr. Bernice Hamilton MANUAL DIFF REQ NO Normal [facility] Comment on above: Performed By: #### B MP #### [facility] [address] [place] [address] Dr. Bernice Hamilton MCH (RBC) [Entitic mass] 23.3 pg Critically low 26.7-34.0 [facility] Comment on above: Performed By: #### B MP #### [facility] [address] [place] [address] Dr. Bernice Hamilton MCHC (RBC) [Mass/Vol] 31.5 g/dL Normal 29.9-35.2 [facility] Comment on above: Performed By: #### B MP #### [facility] [address] [place] [address] Dr. Bernice Hamilton MCV (RBC) [Entitic vol] 74.2 fL Critically low 81.0-99.0 [facility] Comment on above: Performed By: #### B MP #### [facility] [address] [place] [address] Dr. Bernice Hamilton MONO # 0.6 103/ul Normal 0.3-0.8 [facility] Comment on above: Performed By: #### B MP #### [facility] [address] [place] [address] Dr. Bernice Hamilton Monocytes/100 WBC (Bld) 8.3 % Normal 1.7-12.0 [facility] Comment on above: Performed By: #### B MP #### [facility] [address] [place] [address] Dr. Bernice Hamilton NEUT # 3.6 103/ul Normal 1.4-6.5 [facility] Comment on above: Performed By: #### B MP #### [facility] [address] [address] [address] Bernice Hamilton Neutrophils/100 WBC (Bld) 50.7 % Normal 43.0-75.0 [facility] Comment on above: Performed By: #### B MP #### [facility] [address] [address] [address] Brenice Hamilton Platelet mean volume (Bld) [Entitic vol] 10.7 fL Normal 9.5-13.5 [facility] Comment on above: Performed By: #### B MP #### [facility] [address] [place] [address] Dr. Bernice Hamilton PLT 303 103/ul Normal 150-450 [facility] Comment on above: Performed By: #### B MP #### [facility] [address] [place] [address] Dr. Bernice Hamilton RBC 5.27 106/ul Normal 4.20-5.40 [facility] Comment on above: Performed By: #### B MP #### [facility] [address] [place] [address] Dr. Bernice Hamilton WBC 7.1 103/ul Normal 4.0-11.0 [facility] Comment on above: Performed By: #### B MP #### [facility] [address] [place] [address] Dr. Bernice Hamilton FREE T4on 01-26-2022 Free T4 [Mass/Vol] 1.08 ng/dL Normal 0.76-1.46 [facility] Comment on above: Performed By: #### B MP #### [facility] [address] [place] [address] Dr. Bernice Hamilton GLYCOHEMOGLOBIN A1Con 2021 ADA RECOMMENDATION SEE BELOW Normal [facility] Comment on above: Result Comment: ADA RECOMMENDED LIMIT 4.0 - 6.0 ADA THERAPEUTIC TARGET < 7.0 ACTION SUGGESTED > 7.0 Performed By: #### E RUR, PREGU #### [facility] [address] [place] [address] Dr. Bernice Hamilton Glucose [Mass/Vol] 209 mg/dL Normal [facility] Comment on above: Performed By: #### E RUR, PREGU #### [facility] [address] [address] [address] Bernice Hamilton HbA1c (Bld) [Mass fraction] 8.9 % Critically high 4.5-6.2 [facility] Comment on above: Performed By: #### E RUR, PREGU #### [facility] [address] [address] [address] Bernice Hamilton PREG QUANT HCGon 01-26-2022 HCG QUANT <1 Normal [facility] Comment on above: Performed By: #### T SH, PREGQNT #### [facility] [address] [place] [address] Dr. Bernice Hamilton HCG RANGE SEE BELOW Normal [facility] [facility] Comment on above: Result Comment: 5-50 0.2-1 WEEK 50-500 1-2 WEEKS 100-5,000 2-3 WEEKS 500-10,000 3-4 WEEKS 1,000-50,000 4-5 WEEKS 10,000-100,000 5-6 WEEKS 15,000-200,000 6-8 WEEKS 10,000-100,000 2-3 MONTHS Performed By: #### T SH, PREGQNT #### [facility] [address] [place] [address] Dr. Bernice Hamilton PROTIMEon 01-26-2022 INR Coag (PPP) [Relative time] 0.95 {INR} Normal [facility] Comment on above: Performed By: #### P TT, PT ####[facility] [address] [address]Dr. Bernice Hamilton INR GUIDELINES SEE BELOW Normal [facility] Comment on above: Result Comment: DAMARIS RED INR: 2.0 - 3.0 CONDITIONS NOT LISTED BELOW 2.5 - 3.5 FOR PROSTHETIC HEART VALVE REPLACEMENT 2.5 - 3.5 RECURRENT THROMBOSIS Performed By: #### P TT, PT ####[facility] [address] [address]Dr. Bernice Hamilton PT Coag (PPP) [Time] 10.3 s Normal 9.0-11.6 [facility] Comment on above: Performed By: #### P TT, PT ####[facility] [address] [id number] Bernice Alfonso PTTon 01-26-2022 aPTT Coag (Bld) [Time] 23.8 s Normal 22.3-36.2 [facility] Comment on above: Performed By: #### P TT, PT ####[facility] [address] [id number]. Bernice Alfonso TSHon 01-26-2022 TSH 1.602 uIU/mL Normal 0.358-3.740 [facility] Comment on above: Performed By: #### T SH, PREGQNT #### [facility] [address] [address] [address] Bernice Hamilton [facility]11 SARS-CoV-2 (COVID-19) RNA JOSIAS+probe Ql (Unsp spec) Not detected Normal NOT DETECTED [facility] Comment on above: Result Comment: [...] for this test is supported by the [place] of Health and Human Service's declaration that [...] Performed By: #### E RUR, PREGU #### [facility] [address] [address] [address] Bernice Hamilton XR FOOT ILSA MIN [...] by: HETAL ENCARNACION Date: 2021-09-22 18:28 Normal [facility] ECHOCARDIO M/2D COMPLETEon 0 09-13-2021 ECHOCARDIO M/2D COMPLETE Patient: BRITNEY PARSONS Exam Date: 09/13/2021 : 1965 Gender:F Ordering : DR KATHLEEN BUSBY . Admission #: [id number] Family : Order #: [id number] CLICK HERE TO VIEW EXAM ECHOCARDIOGRAM REPORT [...] M.D. on 09/14/2021 at 10:21 Normal [facility] CARDIAC IVETH ADMITon 022 CK [Catalytic activity/Vol] 69 U/L Normal 26-192 [facility] Comment on above: Performed By: #### B MP #### [facility] [address] [place] [address] Dr. Bernice Hamilton CK.MB [Mass/Vol] 0.99 ng/mL Normal <=3.60 [facility] Comment on above: Performed By: #### B MP #### [facility] [address] [place] [address] Dr. Bernice Hamilton HSTROP 13.6 pg/mL Normal 4.0-51.3 [facility] Comment on above: Result Comment: CUT- OFF POINTS HAVE BEEN ESTABLISHED BASED ON THE FOURTH UNIVERSAL DEFINITIONS OF MYOCARDIAL INFARCTION. THE UPPER REFERENCE LIMIT (URL) OF TROPONIN, DEFINED THE 99TH PERCENTILE OF cTnI DISTRIBUTION IN A REFERENCE POPULATION, HAS BEEN CONFIRMED THE DECISION THRESHOLD FOR HI DIAGNOSIS. Performed By: #### B MP #### [facility] [address] [place] [address] Dr. Bernice Hamilton CRISTIANO 25 ng/mL Normal 9-82 [facility] Comment on above: Performed By: #### B MP #### [facility] [address] [address] [address] Bernice Hamilton CBC AUTO DIFFon 08-21-2021 BASO # 0.1 103/ul Normal 0.0-0.1 [facility] Comment on above: Performed By: #### C BC #### [facility] [address] [address] [address] Bernice Hamilton Basophils/100 WBC (Bld) 0.9 % Normal 0.2-2.0 [facility] Comment on above: Performed By: #### C BC #### [facility] [address] [place] [address] Dr. Bernice Hamilton EO # 0.5 103/ul Normal 0.0-0.7 [facility] Comment on above: Performed By: #### C BC #### [facility] [address] [place] [address] Dr. Bernice Hamilton Eosinophils/100 WBC (Bld) 6.8 % Normal 0.9-7.0 [facility] Comment on above: Performed By: #### C BC #### [facility] [address] [place] [address] Dr. Bernice Hamilton Erythrocyte distribution width (RBC) [Ratio] 14.6 % Normal 11.0-15.0 [facility] Comment on above: Performed By: #### C BC #### [facility] [address] [place] [address] Dr. Bernice Hamilton Hematocrit (Bld) [Volume fraction] 33.7 % Critically low 36.0-48.0 [facility] Comment on above: Performed By: #### C BC #### [facility] [address] [place] [address] Dr. Bernice Hamilton Hemoglobin (Bld) [Mass/Vol] 10.6 g/dL Critically low 12.0-16.0 [facility] Comment on above: Performed By: #### C BC #### [facility] [address] [place] [address] Dr. Bernice Hamilton IG # 0.02 10e3/ul Normal 0.00-0.03 [facility] Comment on above: Performed By: #### C BC #### [facility] [address] [place] [address] Dr. Bernice Hamilton IG % 0.3 % Normal 0.0-0.5 [facility] Comment on above: Performed By: #### C BC #### [facility] [address] [place] [address] Dr. Bernice Hamilton LYMPH # 2.6 103/ul Normal 1.2-3.8 [facility] Comment on above: Performed By: #### C BC #### [facility] [address] [address] [address] Bernice Hamilton Lymphocytes/100 WBC (Bld) 32.7 % Normal 20.5-60.0 [facility] Comment on above: Performed By: #### C BC #### [facility] [address] [place] [address] Dr. Bernice Hamilton MANUAL DIFF REQ NO Normal [facility] Comment on above: Performed By: #### C BC #### [facility] [address] [address] [address] Bernice Hamilton MCH (RBC) [Entitic mass] 24.9 pg Critically low 26.7-34.0 [facility] Comment on above: Performed By: #### C BC #### [facility] [address] [place] [address] Dr. Bernice Hamilton MCHC (RBC) [Mass/Vol] 31.5 g/dL Normal 29.9-35.2 [facility] Comment on above: Performed By: #### C BC #### [facility] [address] [place] [address] Dr. Bernice Hamilton MCV (RBC) [Entitic vol] 79.3 fL Critically low 81.0-99.0 [facility] Comment on above: Performed By: #### C BC #### [facility] [address] [place] [address] Dr. Bernice Hamilton MONO # 0.5 103/ul Normal 0.3-0.8 [facility] Comment on above: Performed By: #### C BC #### [facility] [address] [place] [address] Dr. Bernice Hamilton Monocytes/100 WBC (Bld) 6.0 % Normal 1.7-12.0 [facility] Comment on above: Performed By: #### C BC #### [facility] [address] [place] [address] Dr. Bernice Hamilton NEUT # 4.3 103/ul Normal 1.4-6.5 [facility] Comment on above: Performed By: #### C BC #### [facility] [address] [place] [address] Dr. Bernice Hamilton Neutrophils/100 WBC (Bld) 53.3 % Normal 43.0-75.0 [facility] Comment on above: Performed By: #### C BC #### [facility] [address] [place] [address] Dr. Bernice Hamilton Platelet mean volume (Bld) [Entitic vol] 11.8 fL Normal 9.5-13.5 [facility] Comment on above: Performed By: #### C BC #### [facility] [address] [place] [address] Dr. Bernice Hamilton PLT 262 103/ul Normal 150-450 [facility] Comment on above: Performed By: #### C BC #### [facility] [address] [place] [address] Dr. Bernice Hamilton RBC 4.25 106/ul Normal 4.20-5.40 [facility] Comment on above: Performed By: #### C BC #### [facility] [address] [place] [address] Dr. Bernice Hamilton WBC 8.0 103/ul Normal 4.0-11.0 [facility] Comment on above: Performed By: #### C BC #### [facility] [address] [place] [address] Dr. Bernice Hamilton ER URINE PROFILEon 2 Bilirubin Ql (U) Negative Normal NEGATIVE [facility] Comment on above: Performed By: #### E RUR, PREGU #### [facility] [address] [place] [address] Dr. Bernice Hamilton Clarity (U) CLEAR Normal CLEAR [facility] Comment on above: Performed By: #### E RUR, PREGU #### [facility] [address] [place] [address] Dr. Bernice Hamilton Color (U) LT. YELLOW Normal YELLOW [facility] Comment on above: Performed By: #### E RUR, PREGU #### [facility] [address] [place] [address] Dr. Bernice GONZALEZ A micrscopic examination will be performed if indicated. Normal [facility] Comment on above: Performed By: #### E RUR, PREGU #### [facility] [address] [place] [address] Dr. Bernice Hamilton Glucose Ql (U) 100 mg/dl Abnormal NEGATIVE [facility] Comment on above: Performed By: #### E RUR, PREGU #### [facility] [address] [place] [address] Dr. Bernice Hamilton Hemoglobin Ql (U) Negative Normal NEGATIVE [facility] Comment on above: Performed By: #### E RUR, PREGU #### [facility] [address] [place] [address] Dr. Bernice Hamilton Ketones Ql (U) Negative Normal NEGATIVE [facility] Comment on above: Performed By: #### E RUR, PREGU #### [facility] [address] [place] [address] Dr. Bernice Hamilton LEUKOCYTES Negative Normal NEGATIVE [facility] Comment on above: Performed By: #### E RUR, PREGU #### [facility] [address] [place] [address] Dr. Bernice Hamilton Nitrite Ql (U) Negative Normal NEGATIVE [facility] Comment on above: Performed By: #### E RUR, PREGU #### [facility] [address] [place] [address] Dr. Bernice Hamilton pH (U) 5.0 [pH] Normal 5-9 [facility] Comment on above: Performed By: #### E RUR, PREGU #### [facility] [address] [place] [address] Dr. Bernice Hamilton SPEC GRAVITY 1.010 Normal 1.005-<=1.025 [facility] Comment on above: Performed By: #### E RUR, PREGU #### [facility] [address] [place] [address] Dr. Bernice Hamilton UA PROTEIN Negative Normal NEGATIVE/ TRACE [facility] Comment on above: Performed By: #### E RUR, PREGU #### [facility] [address] [place] [address] Dr. Bernice Hamilton UR MICRO IND NOT INDICATED Normal [facility] Comment on above: Performed By: #### E RUR, PREGU #### [facility] [address] [place] [address] Dr. Bernice Hamilton Urobilinogen Qn (U) 0.2 {Marco Antonio'U}/dL Normal 0.2 - 1. 0 [facility] Comment on above: Performed By: #### E RUR, PREGU #### [facility] [address] [place] [address] Dr. Bernice Hamilton URon 08-21-2021 , QUAL Negative Normal NEGATIVE [facility] Comment on above: Performed By: #### E RUR, PREGU #### [facility] [address] [place] [address] Dr. Bernice Hamilton PROF 14(COMP METB)on 022 Albumin [Mass/Vol] 3.4 g/dL Normal 3.4-5.0 [facility] Comment on above: Performed By: #### B MP #### [facility] [address] [place] [address] Dr. Bernice Hamilton Albumin/Globulin [Mass ratio] 0.9 {ratio} Normal [facility] Comment on above: Performed By: #### B MP #### [facility] [address] [place] [address] Dr. Bernice Hamilton ALP [Catalytic activity/Vol] 81 U/L Normal 46-116 [facility] Comment on above: Performed By: #### B MP #### [facility] [address] [place] [address] Dr. Bernice Hamilton ALT [Catalytic activity/Vol] 32 U/L Normal 14-59 [facility] Comment on above: Performed By: #### B MP #### [facility] [address] [place] [address] Dr. Bernice Hamilton Anion gap [Moles/Vol] 15.5 mmol/L Normal [facility] Comment on above: Performed By: #### B MP #### [facility] [address] [address] [address] Bernice Hamilton AST [Catalytic activity/Vol] 29 U/L Normal 15-37 [facility] Comment on above: Performed By: #### B MP #### [facility] [address] [place] [address] Dr. Bernice Hamilton Bilirubin [Mass/Vol] 0.4 mg/dL Normal 0.2-1.0 [facility] Comment on above: Performed By: #### B MP #### [facility] [address] [place] [address] Dr. Bernice Hamilton Calcium [Mass/Vol] 8.7 mg/dL Normal 8.5-10.1 [facility] Comment on above: Performed By: #### B MP #### [facility] [address] [place] [address] Dr. Bernice Hamilton Chloride [Moles/Vol] 100 mmol/L Normal 98-107 [facility] Comment on above: Performed By: #### B MP #### [facility] [address] [place] [address] Dr. Bernice Hamilton CO2 [Moles/Vol] 24.2 mmol/L Normal 21.0-32.0 [facility] Comment on above: Performed By: #### B MP #### [facility] [address] [place] [address] Dr. Bernice Hamilton Creatinine [Mass/Vol] 0.78 mg/dL Normal 0.55-1.02 [facility] Comment on above: Performed By: #### B MP #### [facility] [address] [place] [address] Dr. Bernice Hamilton EGFR-AF LIBYAN >60 Normal >=60 [facility] Comment on above: Performed By: #### B MP #### [facility] [address] [place] [address] Dr. Bernice Hamilton EGFR-NON AF LIBYAN >60 Normal >=60 [facility] Comment on above: Performed By: #### B MP #### [facility] [address] [place] [address] Dr. Bernice Hamilton Globulin (S) [Mass/Vol] 3.8 g/dL Normal [facility] Comment on above: Performed By: #### B MP #### [facility] [address] [address] [address] Bernice Hamilton Glucose [Mass/Vol] 214 mg/dL Critically high 74-106 [facility] Comment on above: Performed By: #### B MP #### [facility] [address] [address] [address] Bernice Hamilton Potassium [Moles/Vol] 3.7 mmol/L Normal 3.5-5.1 [facility] Comment on above: Performed By: #### B MP #### [facility] [address] [address] [address] Bernice Hamilton Protein [Mass/Vol] 7.2 g/dL Normal 6.4-8.2 [facility] Comment on above: Performed By: #### B MP #### [facility] [address] [address] [address] Bernice Hamilton Sodium [Moles/Vol] 136 mmol/L Normal 136-145 [facility] Comment on above: Performed By: #### B MP #### [facility] [address] [address] [address] Bernice Hamilton Urea nitrogen [Mass/Vol] 13.0 mg/dL Normal 7.0-18.0 [facility] Comment on above: Performed By: #### B MP #### [facility] [address] [address] [address] Bernice Hamilton Urea nitrogen/Creatinine [Mass ratio] 16.7 mg/mg Normal [facility] Comment on above: Performed By: #### B MP #### [facility] [id number] Bernice Hamilton PROTIMEon 08-21-2021 INR Coag (PPP) [Relative time] 0.97 {INR} Normal [facility] Comment on above: Performed By: #### P T, PTT ####[facility] [address] [address]Dr. Bernice Hamilton INR GUIDELINES SEE BELOW Normal [facility] Comment on above: Result Comment: DAMARIS RED INR: 2.0 - 3.0 CONDITIONS NOT LISTED BELOW 2.5 - 3.5 FOR PROSTHETIC HEART VALVE REPLACEMENT 2.5 - 3.5 RECURRENT THROMBOSIS Performed By: #### P T, PTT ####[facility] [address] [id number]. Bernice Hamilton PT Coag (PPP) [Time] 10.5 s Normal 9.0-11.6 [facility] Comment on above: Performed By: #### P T, PTT ####[facility] [address] [id number]. Bernice Hamilton PTTon 08-21-2021 aPTT Coag (Bld) [Time] 21.9 s Critically low 22.3-36.2 [facility] Comment on above: Performed By: #### P T, PTT ####[facility] [address] [place], [place] [address]Dr. Bernice Hamilton XR CHEST 1 Von 08-21-2021 [...] SARAH BETH MENJIVAR Date: 2021-08-21 15:43 Normal [facility] GLYCOHEMOGLOBIN A1Con 2021 ADA RECOMMENDATION SEE BELOW Normal [facility] Comment on above: Result Comment: ADA RECOMMENDED LIMIT 4.0 - 6.0 ADA THERAPEUTIC TARGET < 7.0 ACTION SUGGESTED > 7.0 Performed By: #### A 1C ####[facility] [address] [address]Dr. Bernice Hamilton Glucose [Mass/Vol] 192 mg/dL Normal [facility] Comment on above: Performed By: #### A 1C ####[facility] [address] [place], [place] [address]Dr. Bernice Hamilton HbA1c (Bld) [Mass fraction] 8.3 % Critically high 4.5-6.2 [facility] Comment on above: Performed By: #### A 1C ####[facility] [address] [place], [place] [address]Dr. Bernice Hamilton PROF 14(COMP METB)on 022 Albumin [Mass/Vol] 3.6 g/dL Normal 3.4-5.0 [facility] Comment on above: Performed By: #### C MP ####[facility] [address] [place], [place] [address]Dr. Bernice Hamilton Albumin/Globulin [Mass ratio] 0.9 {ratio} Normal [facility] Comment on above: Performed By: #### C MP ####[facility] [address] [place], [place] [address]Dr. Bernice Hamilton ALP [Catalytic activity/Vol] 84 U/L Normal 46-116 [facility] Comment on above: Performed By: #### C MP ####[facility] [address] [place], [place] [address]Dr. Bernice Hamilton ALT [Catalytic activity/Vol] 31 U/L Normal 14-59 [facility] Comment on above: Performed By: #### C MP ####[facility] [address] [place], [place] [address]Dr. Bernice Hamilton Anion gap [Moles/Vol] 12.4 mmol/L Normal [facility] Comment on above: Performed By: #### C MP ####[facility] [address] [place], [place] [address]Dr. Bernice Hamilton AST [Catalytic activity/Vol] 19 U/L Normal 15-37 [facility] Comment on above: Performed By: #### C MP ####[facility] [address] [place], [place] [address]Dr. Bernice Hamilton Bilirubin [Mass/Vol] 0.3 mg/dL Normal 0.2-1.0 [facility] Comment on above: Performed By: #### C MP ####[facility] [address] [id number]. Bernice Hamilton Calcium [Mass/Vol] 8.9 mg/dL Normal 8.5-10.1 [facility] Comment on above: Performed By: #### C MP ####[facility] [address] [id number]. Bernice Hamilton Chloride [Moles/Vol] 100 mmol/L Normal 98-107 [facility] Comment on above: Performed By: #### C MP ####[facility] [address] [address]Dr. Bernice Hamilton CO2 [Moles/Vol] 28.8 mmol/L Normal 21.0-32.0 [facility] Comment on above: Performed By: #### C MP ####[facility] [address] [address]Dr. Bernice Hamilton Creatinine [Mass/Vol] 0.79 mg/dL Normal 0.55-1.02 [facility] Comment on above: Performed By: #### C MP ####[facility] [address] [address]Dr. Bernice Hamilton EGFR-AF LIBYAN >60 Normal >=60 [facility] Comment on above: Performed By: #### C MP ####[facility] [address] [address]Dr. Bernice Hamilton EGFR-NON AF LIBYAN >60 Normal >=60 [facility] Comment on above: Performed By: #### C MP ####[facility] [address] [address]Dr. Bernice Hamilton Globulin (S) [Mass/Vol] 3.9 g/dL Normal [facility] Comment on above: Performed By: #### C MP ####[facility] [address] [address]Dr. Bernice Alfonso Glucose [Mass/Vol] 187 mg/dL Critically high 74-106 T [facility] Comment on above: Performed By: #### C MP ####[facility] [address] [place], [place] [address]Dr. Bernice Hamilton Potassium [Moles/Vol] 4.2 mmol/L Normal 3.5-5.1 [facility] Comment on above: Performed By: #### C MP ####[facility] [address] [place], [place] [address]Dr. Bernice Hamilton Protein [Mass/Vol] 7.5 g/dL Normal 6.4-8.2 [facility] Comment on above: Performed By: #### C MP ####[facility] [address] [place], [place] [address]Dr. Bernice Hamilton Sodium [Moles/Vol] 137 mmol/L Normal 136-145 [facility] Comment on above: Performed By: #### C MP ####[facility] [address] [place], [place] [address]Dr. Bernice Hamilton Urea nitrogen [Mass/Vol] 14.0 mg/dL Normal 7.0-18.0 [facility] Comment on above: Performed By: #### C MP ####[facility] Ekshuy[address]bi[address] [place], [place] [address]Dr. Bernice Alfonso Urea nitrogen/Creatinine [Mass ratio] 17.7 mg/mg Normal [facility] Comment on above: Performed By: #### C MP ####[facility] Yzjwsexvnb[address] [place], [place] [address]Dr. Bernice Hamilton CBC AUTO DIFFon 07-28-2021 BASO # 0.1 103/ul Normal 0.0-0.1 [facility] Comment on above: Performed By: #### C BC ####[facility] Bxdd[address] [place], [place] [address]Dr. Bernice Alfonso Basophils/100 WBC (Bld) 0.8 % Normal 0.2-2.0 [facility] Comment on above: Performed By: #### C BC ####[facility] Zejtgt[address]bug[address] [place], [place] [address]Dr. Susiesherwin Hamilton EO # 0.5 103/ul Normal 0.0-0.7 [facility] Comment on above: Performed By: #### C BC ####[facility] Hsdiohowvb[address] [place], [place] [address]Dr. Bernice Hamilton Eosinophils/100 WBC (Bld) 5.4 % Normal 0.9-7.0 [facility] Comment on above: Performed By: #### C BC ####[facility] [address] [place] [address]Dr. Bernice Hamilton Erythrocyte distribution width (RBC) [Ratio] 14.6 % Normal 11.0-15.0 [facility] Comment on above: Performed By: #### C BC ####[facility] [address] [place] [address]Dr. Bernice Hamilton Hematocrit (Bld) [Volume fraction] 35.2 % Critically low 36.0-48.0 [facility] Comment on above: Performed By: #### C BC ####[facility] [address] [place] [address]Dr. Bernice Hamilton Hemoglobin (Bld) [Mass/Vol] 11.0 g/dL Critically low 12.0-16.0 [facility] Comment on above: Performed By: #### C BC ####[facility] [address] [place] [address]Dr. Bernice Hamilton IG # 0.04 10e3/ul Critically high 0.00-0.03 [facility] Comment on above: Performed By: #### C BC ####[facility] [address] [place] [address]Dr. Bernice Hamilton IG % 0.5 % Normal 0.0-0.5 [facility] Comment on above: Performed By: #### C BC ####[facility] [address] [place] [address]Dr. Bernice Hamilton LYMPH # 2.7 103/ul Normal 1.2-3.8 [facility] Comment on above: Performed By: #### C BC ####[facility] [address] [place] [address]Dr. Bernice Hamilton Lymphocytes/100 WBC (Bld) 32.7 % Normal 20.5-60.0 [facility] Comment on above: Performed By: #### C BC ####[facility] [address] [place] [address]Dr. Bernice Alfonso MANUAL DIFF REQ NO Normal [facility] Comment on above: Performed By: #### C BC ####[facility] [address] [place] [address]Dr. Bernice Hamilton MCH (RBC) [Entitic mass] 24.6 pg Critically low 26.7-34.0 [facility] Comment on above: Performed By: #### C BC ####[facility] [address]msxgkm[address] [place] [address]Dr. Bernice Alfonso MCHC (RBC) [Mass/Vol] 31.3 g/dL Normal 29.9-35.2 [facility] Comment on above: Performed By: #### C BC ####[facility] [address] [place] [address]Dr. Bernice Alfonso MCV (RBC) [Entitic vol] 78.7 fL Critically low 81.0-99.0 [facility] Comment on above: Performed By: #### C BC ####[facility] Gricywxsrc[address] [place], [place] [address]Dr. Bernice Alfonso MONO # 0.6 103/ul Normal 0.3-0.8 [facility] Comment on above: Performed By: #### C BC ####[facility] Qmubqupggu[address] [place], [place] [address]Dr. Susiesherwin Hamilton Monocytes/100 WBC (Bld) 7.0 % Normal 1.7-12.0 [facility] Comment on above: Performed By: #### C BC ####[facility] Oxmqufxqqw[address] [place], [place] [address]Dr. Bernice Alfonso NEUT # 4.5 103/ul Normal 1.4-6.5 [facility] Comment on above: Performed By: #### C BC ####[facility] Kdjrivrlre[address] [place], [place] [address]Dr. Bernice Hamilton Neutrophils/100 WBC (Bld) 53.6 % Normal 43.0-75.0 [facility] Comment on above: Performed By: #### C BC ####[facility] X[address]slixuvy[address] [place] [address]Dr. Bernice Hamilton Platelet mean volume (Bld) [Entitic vol] 11.0 fL Normal 9.5-13.5 [facility] Comment on above: Performed By: #### C BC ####[facility] [address]kw[address] [place] [address]Dr. Bernice Hamilton PLT 305 103/ul Normal 150-450 [facility] Comment on above: Performed By: #### C BC ####[facility] [address]htrah[address] [place] [address]Dr. Bernice Hamilton RBC 4.47 106/ul Normal 4.20-5.40 [facility] Comment on above: Performed By: #### C BC ####[facility] Rkvnsurmry[address] [place] [address]Dr. Bernice Hamilton WBC 8.4 103/ul Normal 4.0-11.0 [facility] Comment on above: Performed By: #### C BC ####[facility] G[address]ov[address]lt[address] [place] [address]DrPablo Hamilton MAGNESIUMon 07-28-2021 Magnesium [Mass/Vol] 1.5 mg/dL Critically low 1.8-2.4 [facility] Comment on above: Performed By: #### Mara SORIANO PREGU #### [facility] Laboratory [address] [address] [address] Bernice Hamilton PROF 14(COMP METB)on 022 Albumin [Mass/Vol] 3.4 g/dL Normal 3.4-5.0 [facility] Comment on above: Performed By: #### H LOY, CMP ####[facility] Led[address]qs[address] [place] [address]DrPablo Hamilton Albumin/Globulin [Mass ratio] 0.8 {ratio} Normal [facility] Comment on above: Performed By: #### H LOY, CMP ####[facility] [address]vq[address]vf2[address] [place] [address]DrPablo Hamilton ALP [Catalytic activity/Vol] 81 U/L Normal 46-116 [facility] Comment on above: Performed By: #### H STROPN, CMP ####[facility] [address] [place] [address]Dr. Bernice Hamilton ALT [Catalytic activity/Vol] 31 U/L Normal 14-59 [facility] Comment on above: Performed By: #### H STROPN, CMP ####[facility] [address]zfk[address] [place] [address]Dr. Bernice Hamilton Anion gap [Moles/Vol] 14.3 mmol/L Normal [facility] Comment on above: Performed By: #### H STROPN, CMP ####[facility] Qgdtvgs[address] [place], [place] [address]Dr. Bernice Hamilton AST [Catalytic activity/Vol] 18 U/L Normal 15-37 [facility] Comment on above: Performed By: #### H STROGILLIAN, CMP ####[facility] Qncorfrtig[address] [place], [place] [address]Dr. Bernice Hamilton Bilirubin [Mass/Vol] 0.3 mg/dL Normal 0.2-1.0 [facility] Comment on above: Performed By: #### H STROGILLIAN, CMP ####[facility] Dnht[address] [place], [place] [address]Dr. Bernice Hamilton Calcium [Mass/Vol] 9.1 mg/dL Normal 8.5-10.1 [facility] Comment on above: Performed By: #### H STROPN, CMP ####[facility] Agezwwslbq[address] [place], [place] [address]Dr. Bernice Hamilton Chloride [Moles/Vol] 102 mmol/L Normal 98-107 [facility] Comment on above: Performed By: #### H STROPN, CMP ####[facility] [address] [place], [place] [address]Dr. Bernice Hamilton CO2 [Moles/Vol] 26.1 mmol/L Normal 21.0-32.0 [facility] Comment on above: Performed By: #### H STROPN, CMP ####[facility] [address]rinbyvn[address] [place] [address]Dr. Bernice Hamilton Creatinine [Mass/Vol] 0.81 mg/dL Normal 0.55-1.02 [facility] Comment on above: Performed By: #### H STROPN, CMP ####[facility] [address]tqu[address] [place] [address]Dr. Bernice Hamilton EGFR-AF LIBYAN >60 Normal >=60 [facility] Comment on above: Performed By: #### H STROPN, CMP ####[facility] Jenctjsifg39[address] [place] [address]Dr. Bernice Hamilton EGFR-NON AF LIBYAN >60 Normal >=60 [facility] Comment on above: Performed By: #### H STROPN, CMP ####[facility] Dsrucrbnsi[address] [place] [address]Dr. Bernice Hamilton Globulin (S) [Mass/Vol] 3.8 g/dL Normal [facility] Comment on above: Performed By: #### H STROPN, CMP ####[facility] V[address]xl[address] [place], [place] [address]Dr. Susiesherwin Hamilton Glucose [Mass/Vol] 206 mg/dL Critically high 74-106 [facility] Comment on above: Performed By: #### H STROPN, CMP ####[facility] Kxydzmwovr[address] [place], [place] [address]Dr. Bernice Alfonso Potassium [Moles/Vol] 3.4 mmol/L Critically low 3.5-5.1 [facility] Comment on above: Performed By: #### H STROPN, CMP ####[facility] [address] [place] [address]Dr. Bernice Hamilton Protein [Mass/Vol] 7.2 g/dL Normal 6.4-8.2 [facility] Comment on above: Performed By: #### H STROPN, CMP ####[facility] Uvrf[address]lzen[address] [place], [place] [address]Dr. Bernice Hamilton Sodium [Moles/Vol] 139 mmol/L Normal 136-145 [facility] Comment on above: Performed By: #### H STROPN, CMP ####[facility] Kncrzohvmq[address] [place], [place] [address]Dr. Bernice Alfonso Urea nitrogen [Mass/Vol] 16.0 mg/dL Normal 7.0-18.0 [facility] Comment on above: Performed By: #### H LOY, CMP ####[facility] [address]ixxo4[address] [place] [address]Dr. Bernice Hamilton Urea nitrogen/Creatinine [Mass ratio] 19.7 mg/mg Normal [facility] Comment on above: Performed By: #### H LOY, CMP ####[facility] [address] [place] [address]Dr. Bernice Hamilton TROPONIN, HIGH SENSITIVITYon 07-28-2021 HSTROP 10.4 pg/mL Normal 4.0-51.3 [facility] Comment on above: Result Comment: CUT- OFF POINTS HAVE BEEN ESTABLISHED BASED ON THE FOURTH UNIVERSAL DEFINITIONS OF MYOCARDIAL INFARCTION. THE UPPER REFERENCE LIMIT (URL) OF TROPONIN, DEFINED THE 99TH PERCENTILE OF cTnI DISTRIBUTION IN A REFERENCE POPULATION, HAS BEEN CONFIRMED THE DECISION THRESHOLD FOR HI DIAGNOSIS. Performed By: #### H LOY, CMP ####[facility] [address] [place] [id number]. Bernice Hamilton XR CHEST 1 Von 07-28-2021 [...] by: HETAL ENCARNACION Date: 2021-07-28 15:17 Normal [facility] Chlamydia/GC/Trich NAAon Chlamydia Trachomotis, JOSIAS Negative Normal Negative [facility] Comment on above: Order Comment: Reaso n for Exam High risk sexual behavior, unspecified type Performed By: #### G CCHLAMTRI #### [facility] , #### CUU #### [address] Neisseria Gonorrhoeae, JOSIAS Negative Normal Negative [facility] Comment on above: Order Comment: Reaso n for Exam High risk sexual behavior, unspecified type Performed By: #### G CCHLAMTRI #### [facility] , #### CUU #### [facility] [address] [place] [address] Trichomonas JOSIAS Negative Normal Negative [facility] Comment on above: Order Comment: Reaso n for Exam High risk sexual behavior, unspecified type Result Comment: Perf ormed at: =G - [facility] [address] [id number] Loss Prevention Investigator: Taylor Bowser MD, Phone: [phone] PERFORMED BY: [place] [address] PATHOLOGIST CLAM DREDGER ANGELI TINAJERO M.D. Performed By: #### G CCHLAMTRI #### [facility] , #### CUU #### [address] Urine Cultureon 07-11-2020 Bacteria identified Cx Nom (U) Reason for Exam Dysuria Urine Reason for Exam: Dysuria : Urine ORGANISM: Escherichia coli (O:ESCCOL) [place] Count >100,000 Aerobic SIMONE Charge (NUC86) -- [...] RESISTANT TO ALL B-LACTAM DRUGS. PERFORMED BY: [place] [address] PATHOLOGIST CLAM DREDGER ANGELI TINAJERO M.D. [facility] Comment on above: Performed By: #### G CCHLAMTRI #### [facility] , #### CUU #### [facility] [address] [place] [address] Comprehensive Metabolic Empo n 04-26-2020 Albumin [Mass/Vol] 3.9 g/dL Normal 3.2-5.5 [facility] Comment on above: Performed By: #### E BS A1C, EBS CMP, LIPID #### [facility] [address] [place] [address] Albumin/Globulin [Mass ratio] 1.4 {ratio} [facility] Comment on above: Performed By: #### E BS A1C, EBS CMP, LIPID #### [facility] [address] [place] [address] [place] ALP [Catalytic activity/Vol] 66 U/L Normal 32-92 [facility] Comment on above: Performed By: #### E BS A1C, EBS CMP, LIPID #### [facility] [address] [place], [place] [address] [place] ALT [Catalytic activity/Vol] 20 U/L Normal 10-60 [facility] Comment on above: Performed By: #### E BS A1C, EBS CMP, LIPID #### [facility] [address] [place], [place] [address] [place] AST [Catalytic activity/Vol] 19 U/L Normal 10-42 [facility] Comment on above: Performed By: #### E BS A1C, EBS CMP, LIPID #### [address] [place] [address] [place] Bilirubin [Mass/Vol] 0.8 mg/dL Normal 0.3-1.2 [facility] Comment on above: Performed By: #### E BS A1C, EBS CMP, LIPID #### [facility] [address] Calcium [Mass/Vol] 9.6 mg/dL Normal 8.2-10.2 [facility] Comment on above: Performed By: #### E BS A1C, EBS CMP, LIPID #### [facility] [address] Chloride [Moles/Vol] 96 mmol/L Normal 95-114 [facility] Comment on above: Performed By: #### E BS A1C, EBS CMP, LIPID #### [address] CO2 [Moles/Vol] 25.9 mmol/L Normal 22.0-30.0 [facility] Comment on above: Performed By: #### E BS A1C, EBS CMP, LIPID #### [address] Creatinine [Mass/Vol] 0.74 mg/dL Normal 0.44-1.03 [facility] Comment on above: Performed By: #### E BS A1C, EBS CMP, LIPID #### [address] Estimated GFR ( Rea > 60 Normal [facility] Comment on above: Result Comment: GFR estimated reference range: According to KDOQI guidelines, <60 ml/min/1.73m2 is sufficient to diagnose a patient with chronic kidney disease. Performed By: #### E BS A1C, EBS CMP, LIPID #### [facility] [address] [place] [address] Estimated GFR (Non- Am > 60 Normal [facility] Comment on above: Performed By: #### E BS A1C, EBS CMP, LIPID #### [facility] [address] [place] [address] [place] Globulin (S) [Mass/Vol] 2.8 g/dL Normal [facility] Comment on above: Performed By: #### E BS A1C, EBS CMP, LIPID #### [facility] [address] [place] [address] [place] Glucose [Mass/Vol] 155 mg/dL High 70-100 [facility] Comment on above: Result Comment: ADA recommended reference range Performed By: #### E BS A1C, EBS CMP, LIPID #### [facility] [address] [place] [address] [place] Potassium [Moles/Vol] 3.5 mmol/L Normal 3.5-5.1 [facility] Comment on above: Performed By: #### E BS A1C, EBS CMP, LIPID #### [facility] [address] Protein [Mass/Vol] 6.7 g/dL Normal 6.1-7.9 [facility] Comment on above: Performed By: #### E BS A1C, EBS CMP, LIPID #### [facility] [address] [place] [address] [place] Sodium [Moles/Vol] 134 mmol/L Low 136-146 [facility] Comment on above: Performed By: #### E BS A1C, EBS CMP, LIPID #### [facility] [address] [place] [address] [place] Urea nitrogen [Mass/Vol] 11 mg/dL Normal 9-23 [facility] Comment on above: Performed By: #### E BS A1C, EBS CMP, LIPID #### [facility] [address] EBS A1C with Estimated Avmara ash 04-26-2020 Glucose [Mass/Vol] 169 mg/dL Normal [facility] Comment on above: Result Comment: PERF ORMED BY: [place] [address] PATHOLOGIST CLAM DREDGER ANGELI TINAJERO M.D. Performed By: #### E BS A1C, EBS CMP, LIPID #### [facility] [address] [place] [address] [place] HbA1c (Bld) [Mass fraction] 7.5 % High 4.3-5.6 [facility] Comment on above: Result Comment: Incr eased risk for diabetes: 5.7 - 6.4 diabetes: >6.4 glycemic control for adults with diabetes: <7.0 Performed By: #### E BS A1C, EBS CMP, LIPID #### [facility] [address] [place] [id number] [facility] Lipid Panelon 04-26-2020 Cholesterol [Mass/Vol] 203 mg/dL High 140-200 [facility] Comment on above: Result Comment: Chol less than 200 mg/dl low risk Chol 201-239 mg/dl borderline risk Chol 240 mg/dl and greater high risk Performed By: #### E BS A1C, EBS CMP, LIPID #### [facility] [address] [place] [id number] [facility] Cholesterol in HDL [Mass/Vol] 65 mg/dL Normal 35-85 [facility] Comment on above: Result Comment: HDL CHOL ATP-III CLASSIFICATION Cardiovascular Risk HDL > or equal to 60 mg/dL LOW HDL < 40 mg/dL HIGH Performed By: #### E BS A1C, EBS CMP, LIPID #### [facility] [address] [place] [address] [place] Cholesterol.total/Ch olesterol in HDL [Mass ratio] 3.1 {ratio} Normal <5.0 [facility] Comment on above: Result Comment: PERF ORMED BY: [place] [address] PATHOLOGIST CLAM DREDGER ANGELI TINAJERO M.D. Performed By: #### E BS A1C, EBS CMP, LIPID #### [facility] [address] [place] [id number] [place] LDL Cholesterol,Calculat ed 117 mg/dL High 0-100 [facility] Comment on above: Result Comment: LDL ATP III CLASSIFICATION LDL less than 100 mg/dL Optimal LDL 100-129 mg/dL Near or above optimal LDL 130-159 mg/dL Borderline high LDL 160-189 mg/dL High LDL greater than 189 mg/dL Very high Performed By: #### E BS A1C, EBS CMP, LIPID #### [facility] [address] [place] [id number] [place] Triglyceride w/Reflex 103 mg/dL Normal 35-149 [facility] Comment on above: Result Comment: TRIG ATP III CLASSIFICATION TRIG less than 150 mg/dL Normal TRIG 150-199 mg/dL Borderline high TRIG 200-500 mg/dL High TRIG greater than 500 mg/dL Very high Standard traceable to the Center for Disease Conrtrol and Prevention (CDC) test method. Performed By: #### E BS A1C, EBS CMP, LIPID #### [facility] [address] VLDL CHOLESTEROL 20 mg/dL Normal [facility] Comment on above: Performed By: #### E BS A1C, EBS CMP, LIPID #### [facility] [address] [place] [id number] [facility] Vital Signs Date Time Vital Sign Value Performing Clinician Facility 03-19-2024 16:04-0500 Body mass index (BMI) [Ratio] 31.16 kg/m2 Padmini GONZALEZ Work Phone: [facility] 03-19-2024 16:04-0500 Body weight 95.71 kg Padmini GONZALEZ Work Phone: [facility] 03-19-2024 16:04-0500 Diastolic blood pressure 78 mm[Hg] Padmini GONZALEZ Work Phone: [facility] 03-19-2024 16:04-0500 Systolic blood pressure 124 mm[Hg] Padmini GONZALEZ Work Phone: [facility] 11-11-2022 09:35-0400 Body height 175.26 cm Reva Zimmerman Other [facility] Other 11-11-2022 09:35-0400 Body mass index (BMI) [Ratio] 32.48 kg/m2 Reva Zimmerman Other [facility] Other 11-11-2022 09:35-0400 Body weight 99.79 kg Reva Zimmerman Other [facility] Other 11-11-2022 09:35-0400 Diastolic blood pressure 90 mm[Hg] Reva Zimmerman Other [facility] Other 11-11-2022 09:35-0400 SaO2% (BldA) [Mass fraction] 98 % Reva Zimmerman Other [facility] Other 11-11-2022 09:35-0400 Systolic blood pressure 142 mm[Hg] Reva Zimmerman Other [facility] [employer] Other 03-23-2022 10:17-0500 Blood Pressure Location Polina [employer] [facility] 03-23-2022 10:17-0500 Diastolic blood pressure 81 mm[Hg] Polina [facility] 03-23-2022 10:17-0500 Heart rate 88 /min Polina [employer] [facility] 03-23-2022 10:17-0500 Respiratory rate 16 /min Polina [email or web address] [facility] 03-23-2022 10:17-0500 Systolic blood pressure 141 mm[Hg] Polina WINNL [facility] Encounters Encounter Date Encounter Type Care Provider [...] 11-11-2022 End: 11-11-2022 ambulatory Reva Elsie Other [facility] [employer] Other Start: 11-11-2022 Office outpatient vi sit 15 minutes Reva Zimmerman [facility] Start: 07-18-2022 End: 07-19-[address] PEPITO QUACH . Facility:[facility] Start: 06-16-2022 Encounter for other preprocedural examination DR PEPITO QUACH . [facility] Start: 06-16-2022 Encounter for preprocedural laboratory examination DR PEPITO QUACH . [facility] Start: 06-15-[address] PEPITO [...] Start: 2022 End: 04-20-2022 ambulatory Polina BIRD Facility:CD:[id number] Start: 04-15-[address] KATHLEEN BUSBY . Facili ty:[facility] Start: 03-23-2022 End: 03-24-2022 ambulatory Polina BIRD Facility:[facility] Start: 03-23-2022 End: 03-23-2022 Patient encounter procedure Polina BIRD [facility] Start: 03-20-2022 ambulatory Polina BIRD Facility:[facility] Start: 03-13-2022 End: 03-13-[address] KATHLEEN BUSBY . Facility:[facility] Start: 02-28-2022 End: 02-28-[address] PEPITO QUACH . Facility:[facility] Start: 02-24-2022 End: 02-25-[address] KATHLEEN BUSBY . Facility:[facility] Start: 02-20-2022 Encounter for preprocedural cardiovascular examination DR PEPITO QUACH . [facility] Start: 02-16-2022 End: 02-17-2022 ambulatory [...] Screening for malign ant neoplasm of colon [facility] Start: 03-19-2024 End: 03-19-2024 Patient encounter procedure 03/19/2024 3:30 PM EST Office Visit [facility] [address] [place] [address] Padmini Marr PA [address] [place], [place] [id number] Arrived [facility] Comment on above: Arrived Start: 03-19-2024 End: 03-19-2025 DXA Skeletal system Views for bone density DEXA bone density Imaging Routine Osteoporosis, post-menopausal ([facility]/HCC) Expected: 03/19/2024 (Approximate), Expires: 03/19/2025 [facility] [facility] Comment on above: Expected: 03/19/2024 (Approximate), Expires: 03/19/2025 Start: 11-11-2023 Influenza vaccination Influenz a Vaccine (#1) [facility] Start: 04-11-2022 Screening for malign ant neoplasm of cervix [facility] Start: 2007 Screening for malign ant neoplasm of breast Mammogram [facility] Start: 1967 Screening for malign ant neoplasm of colon [facility] Immunizations Immunization Date Immunization Notes Care Provider Fa cility 12-13-2023 influenza virus vaccine, unspecified formulation Padmini GONZALEZ Work Phone: [facility] 12-12-2021 influenza, unspecifi ed formulation Polina TATUML [facility] 02-01-2021 SARS-CoV-2 (COVID-19 ) mRNA-1273 vaccine Polina NILL [facility] 04-13-2020 SARS-CoV-2 (COVID-19 ) mRNA-1273 vaccine Oplina NILL [facility] 03-10-2020 SARS-CoV-2 (COVID-19 ) mRNA-1273 vaccine Polina NILL [facility] Payers Date Payer Category Payer [facility] er [id number] 2019 Unknown [id number] 1967 Unknown [id number] 2.16.840.1.817719.3.579.2. 727 1967 Unknown [id number] 2.16.840.1.705494.3.579.2. 727 1967 Unknown [id number] 2.16.840.1.336681.3.579.2. 593 1967 Unknown [id number] 2.16.840.1.888349.3.579.2. 593 1967 Unknown [id number] 2.16.840.1.152161.3.579.2. 593 1967 Unknown [id number] 2.16.840.1.665189.3.579.2. 593 1967 Unknown [id number] 2.16.840.1.810496.3.579.2. 593 1967 Unknown [id number] 2.16.840.1.161787.3.579.2. 593 1967 Unknown [id number] 2.16.840.1.200942.3.579.2. 593 1967 Unknown [id number] 2.16.840.1.115999.3.579.2. 593 1967 Unknown [id number] 2.16.840.1.215420.3.579.2. 593 1967 Unknown [id number] 2.16.840.1.302578.3.579.2. 593 1967 Unknown [id number] 2.16.840.1.597664.3.579.2. 593 1967 Unknown [id number] 2.16.840.1.428371.3.579.2. 593 1967 Unknown [id number] 2.16.840.1.832486.3.579.2. 593 1967 Unknown [id number] 2.16.840.1.420612.3.579.2. 593 1967 Unknown [id number] 2.16.840.1.799413.3.579.2. 593 1967 Unknown [id number] 2.16.840.1.815919.3.579.2. 593 1967 Unknown [id number] 2.16.840.1.139817.3.579.2. 593 1967 Unknown [id number] 2.16.840.1.635982.3.579.2. 593 1967 Unknown [id number] 2.16.840.1.256335.3.579.2. 593 1967 Unknown [id number] 2.16.840.1.671531.3.579.2. 593 1967 Unknown [id number] 2.16.840.1.016123.3.579.2. 1259 1959 Self-pay 1959 Unknown [id number] 1959 Unknown [id number] Unknown [id number] 2.16.840.1.116882.3.579.2. 593 Social History Date Type Detail Facility Start: 03-23-2022 End: 09-29-2022 Tobacco smoking status Ex-smoker (finding) [facility] Tobacco smoking status Never [facility] Start: 10-02-2022 End: 03-19-[address] Female [facility] History of tobacco use Current smoker [facility] History of tobacco use Cigarette Smoker [facility] Start: 10-02-2022 End: 03-19-2024 Alcoholic beverage intake Current drinker of alcohol (finding) [facility] Start: 10-02-2022 End: 03-19-2024 History of Social function [facility] Start: 09-29-2022 Alcohol Comment less than branden hly, Caffeine intake: 1-2 cups per day [facility] Start: 1967 Sex assigned at Not on file [facility] Medical Equipment Procedure Code Equipment Code Equipment Original Text Equi pment Identifier Dates Functional Status Date Assessment Result Facility 03-23-2022 Functional Status N/A [facility] History of Present illness Narrative 03-19-2024 [...] Problems Past Medical History: Diagnosis Date Diabetes ([facility]) Diverticulosis Hypertension ([facility]) Obstructive sleep apnea HISTORY PAST MEDICAL HISTORY SOCIAL HISTORY Past Medical History: Diagnosis Date Diabetes ([facility]) Diverticulosis Hypertension ([facility]) Nasal obstruction Obstructive sleep apnea Social [...] of: CARLOS Murphy documented in this encounter [facility] Evaluation note 11-11-2022 Note Date & Type Note Facility 11-11-2022 Evaluation note Encounter Date Diagnosis Assessment Notes Nov, Abrasion of left cornea, initial encounter (ICD-10 - S05.02XA) Corneal abrasion home care material was printed Drink plenty fluids, get plenty of rest. Use the eyedrops as prescribed. Follow-up with your family physician if no improvement in 2 to 3 days [facility] Other Clinical Note 2022 Note Date & [...] colon polyps. CC: Kathleen Busby M.D. [facility] Clinical Note 03-23-2022 Note Date & Type Note Facility 03-23-2022 Note Chief Complaint consultation for abdominal pain HPI Staff 56 year old female presents on consultation from [place] ED for abdominal pain. Presented with complaint of LLQ pain, nausea, vomiting and diarrhea; diagnosed with gastroenteritis. Symptoms resolved one day after ED evaluation. Last colonoscopy completed 08/2017-normal. History of Present Illness 56 yo female with h/o htn, DMII, hypercholesterolemia, migraines, referred from [place] ED for epidsode of gastroenteritis; patient was [...] qWeek Allergies Bact (more content not included)... [facility] Comment on above: Result Comment: Elec [...] bleeding. ANESTHESIA: General. SURGEON: Pepito Quach D.O. DIGITAL MEASUREMENT ADVISOR: None. BLOOD LOSS: 5 mL URINE OUTPUT: [...] the Recovery Room in stable condition. [facility] Evaluation + Plan note Note Date & Type Note Facility Evaluation + Plan note No data available for this section [facility] Evaluation note Note Date & Type Note [...] ablation, D&C 02/2022 Hospitalization History See Above [facility] Other Hospital Discharge instructions Note Date & Type Note Facility Hospital Discharge instructions No data available for this section [facility] Progress note Note Date & Type Note Facility Progress note No data available for this section [facility] Summary Purpose Family History No Family History Records FoundNo Family History Records FoundNo Family History Records FoundNo Family History Records Found Advance Directives No Advanced Directives Records FoundNo Advanced Directives Records FoundNo Advanced Directives Records FoundNo Advanced Directives Records Found Additional Source Comments INFORMATION SOURCE (unrecogn ized section and content) DATE CREATED AUTHOR 07/14/2020 [facility] DATE CREATED AUTHOR AUTHOR'S ORGANIZ ATION 04/27/2022 [facility] DATE CREATED AUTHOR AUTHOR'S ORGANIZ ATION 07/26/2022 [facility] DATE CREATED AUTHOR AUTHOR'S ORGANIZ ATION 03/25/2024 [facility] EPIC Patient Care team informatio n (unrecognized section and content) Alumni Relations Manager Relationship Specialty Start Date End Date Kathleen Busby MD [address] [place] [phone] PCP - General Family Medicine 08/31/22 Alumni Relations Manager Relationship Specialty Start Date End Date Kathleen Busby MD [address] [place] [phone] PCP - General Family Medicine 08/31/22 REASON [...] BE BASED ON THE PRIMARY CLINICAL RECORDS. TV Volume Wizard App [facility]. provides no warranty or guarantee of the accuracy or completeness of information in this document.
[2024-08-29 22:23] LABS: Glucometer 380 mg/dL (74-106)
--- NOTE | 2024-08-29 22:39 | ED.GENADUL1 ---
HPI HPI - General Adult General Chief complaint: Recheck/Abnormal Lab/Rx Stated complaint: high blood sugar Time Seen by Provider: 08/29/24 22:17 Source: patient Mode of arrival: walk-in Limitations: no limitations History of Present Illness HPI narrative: This 59-year-old female presents to the ED because her blood sugar has been running high today. She is diabetic and in the past she has been on Jardiance 10 mg daily, semaglutide 0.25 mg weekly, metformin 1 g twice a day and a fast acting insulin. She is unable to afford this for the past couple weeks the only hypoglycemic agent she has been on is Toujeo 60 units daily. Today she took 120 units. This was a sample pen which in March. She does not report any symptoms. She is also on lisinopril for hypertension. Related Data Home Medications ?Medication ?Instructions ?Recorded ?Confirmed lisinopril 10 1 tab PO DAILY 08/18/22 08/29/24 mg-hydrochlorothiazide 12.5 mg tablet metformin 1,000 mg tablet 1,000 mg PO BID 08/18/22 08/29/24 tizanidine 4 mg capsule 4 mg PO QPM 01/12/23 08/29/24 insulin glargine-yfgn 100 unit/mL 70 unit subcut BID 08/06/24 08/29/24 (3 mL) subcutaneous pen (Semglee (insulin glargine-yfgn) Pen) meloxicam 15 mg tablet 15 mg PO DAILY 08/06/24 08/29/24 semaglutide 0.25 mg or 0.5 mg (2 0.25 mg subcut QWEEK 08/06/24 08/29/24 mg/1.5 mL) subcutaneous pen injector (Ozempic) trojeo Max solostar 60 units subcut DAILY 08/29/24 08/29/24 Previous Rx's ?Medication ?Instructions ?Recorded azithromycin 250 mg tablet See Rx Instructions PO .COMPLEX #6 08/08/24 tabs metformin 500 mg tablet 1,000 mg (2 x 500 mg) PO BID #120 08/30/24 tabs Allergies Allergy/AdvReac Type Severity Reaction Status Date / Time Penicillins Allergy Rash Verified 08/29/24 22:28 cephalexin (From Keflex) AdvReac Mild Vomiting Verified 08/29/24 22:28 Opioid HPI Opioid Management Most Recent Opioid Data: Last Pain Scale 4 08/08/24, 06:13 PFSH PFS Medical History Back pain ?M54.9 - Dorsalgia, unspecified (ICD-10) Rotator cuff tear ?M75.100 - Unspecified rotator cuff tear or rupture of unspecified shoulder, not specified as traumatic (ICD-10) ARLIN (obstructive sleep apnea) ?G47.33 - Obstructive sleep apnea (adult) (pediatric) (ICD-10) Hepatitis A ?B15.9 - Hepatitis A without hepatic coma (ICD-10) Right shoulder pain ?M25.511 - Pain in right shoulder (ICD-10) Diverticulosis ?K57.90 - Diverticulosis of intestine, part unspecified, without perforation or abscess without bleeding (ICD-10) Arthritis ?M19.90 - Unspecified osteoarthritis, unspecified site (ICD-10) Anemia ?D64.9 - Anemia, unspecified (ICD-10) Depression ?F32.A - Depression, unspecified (ICD-10) Colon polyp ?K63.5 - Polyp of colon (ICD-10) Diarrhea ?R19.7 - Diarrhea, unspecified (ICD-10) Constipation ?K59.00 - Constipation, unspecified (ICD-10) Sleep apnea ?G47.30 - Sleep apnea, unspecified (ICD-10) Pneumonia ?J18.9 - Pneumonia, unspecified organism (ICD-10) Neuropathy ?G62.9 - Polyneuropathy, unspecified (ICD-10) Restless leg ?G25.81 - Restless legs syndrome (ICD-10) Migraine ?G43.909 - Migraine, unspecified, not intractable, without status migrainosus (ICD-10) Urinary tract infection ?N39.0 - Urinary tract infection, site not specified (ICD-10) IBS (irritable bowel syndrome) ?K58.9 - Irritable bowel syndrome without diarrhea (ICD-10) GERD (gastroesophageal reflux disease) ?K21.9 - Gastro-esophageal reflux disease without esophagitis (ICD-10) Palpitations ?R00.2 - Palpitations (ICD-10) High cholesterol ?E78.00 - Pure hypercholesterolemia, unspecified (ICD-10) Hypertension ?I10 - Essential (primary) hypertension (ICD-10) Diabetes ?E11.9 - Type 2 diabetes mellitus without complications (ICD-10) Surgical History History of hysterectomy (08/2022) ?Z90.710 - Acquired absence of both cervix and uterus (ICD-10) History of robot-assisted laparoscopic hysterectomy ?Z90.710 - Acquired absence of both cervix and uterus (ICD-10) History of cholecystectomy ?Z90.49 - Acquired absence of other specified parts of digestive tract (ICD-10) History of dilation and curettage ?Z98.890 - Other specified postprocedural states (ICD-10) History of colonoscopy ?Z98.890 - Other specified postprocedural states (ICD-10) History of tubal ligation ?Z98.51 - Tubal ligation status (ICD-10) History of section ?Z98.891 - History of uterine scar from previous surgery (ICD-10) S/P hip arthroscopy ?Z98.890 - Other specified postprocedural states (ICD-10) Family History Other Family history of colon cancer Family history of diabetes mellitus Family history of heart disease Family history of hypertension Family history of myocardial infarction Family history of stroke Social History Within the past year, how often did you have a drink containing alcohol: monthly or less Smoking status: Former smoker Non-prescribed substance use: denies use Previous occupational history: [employer] Highest level of school completed/degree received: Associate degree: occupational, technical, vocational program Little interest or pleasure in doing things: several days Feeling down, depressed, or hopeless: several days Exam Constitutional Vital Signs, click to edit/add: Last Vital Signs Temp 97.7 F 08/29/24 22:19 Pulse 76 08/29/24 22:19 Resp 20 08/29/24 22:19 BP 160/76 H 08/29/24 22:19 Pulse Ox 98 08/29/24 22:19 Course Vital Signs Vital signs: Vital Signs Temperature 97.7 F 08/29/24 22:19 Pulse Rate 76 08/29/24 22:19 Respiratory Rate 20 08/29/24 22:19 Blood Pressure 160/76 H 08/29/24 22:19 Pulse Oximetry 98 08/29/24 22:19 Temperature 97.7 F 08/29/24 22:19 Pulse Rate 76 08/29/24 22:19 Respiratory Rate 20 08/29/24 22:19 Blood Pressure 160/76 H 08/29/24 22:19 Pulse Oximetry 98 08/29/24 22:19 Medical Decision Making MDM Narrative Medical decision making narrative: Patient presents with hyperglycemia due to lack of medications for her diabetes. She is treated with a liter of IV fluids and 5 units of regular insulin IV which has brought her blood sugar down to 264. She is discharged with a prescription for metformin 1 g twice a day and is given the rest of the vial of regular insulin along with sliding scale instructions. She is to contact her PCP after the weekend for further management and may return anytime for worsening symptoms. Lab Data Labs: Lab Results 08/29/24 08/29/24 08/30/24 Range/Units 22:20 23:20 00:28 WBC 6.8 (4.0-11.0) 10^3/uL RBC 4.78 (4.20-5.40) 10^6/uL Hgb 14.9 (12.0-16.0) g/dL Hct 41.3 (36.0-48.0) % MCV 86.4 (81.0-99.0) fL MCH 31.2 (26.7-34.0) pg MCHC 36.1 H (29.9-35.2) g/dL RDW 12.6 (11.0-15.0) % Plt Count 211 (150-450) 10^3/uL MPV 11.4 (9.5-13.5) fL Neut % (Auto) 42.5 L (43.0-75.0) % Lymph % (Auto) 41.6 (20.5-60.0) % [place] % (Auto) 7.4 (1.7-12.0) % Eos % (Auto) 7.5 H (0.9-7.0) % Baso % (Auto) 0.9 (0.2-2.0) % Neut # (Auto) 2.9 (1.4-6.5) 10^3/uL Lymph # (Auto) 2.8 (1.2-3.8) 10^3/uL [place] # (Auto) 0.5 (0.3-0.8) 10^3/uL Eos # (Auto) 0.5 (0.0-0.7) 10^3/uL Baso # (Auto) 0.1 (0.0-0.1) 10^3/uL Abs Immat Gran (auto) 0.01 (0.00-0.03) 10^3/uL Imm/Tot Granulo (auto) 0.1 (0.0-0.5) % Sodium 134 L (136-145) mmol/L Potassium 5.5 H (3.5-5.1) mmol/L Chloride 98 (98-107) mmol/L Carbon Dioxide 27.5 (21.0-32.0) mmol/L Anion Gap 14.0 BUN 24.0 H (7.0-18.0) mg/dL Creatinine 0.85 (0.55-1.02) mg/dL Est GFR ( Amer) >60 (>=60 mL/min/1.73m^2) Est GFR (Non-Af Amer) >60 (>=60 mL/min/1.73m^2) BUN/Creatinine Ratio 28.2 Glucose 386 H (74-106) mg/dL Calcium 9.2 (8.5-10.1) mg/dL Total Bilirubin 0.5 (0.2-1.0) mg/dL AST Not Reportable ALT Not Reportable Alkaline Phosphatase 131 H (46-116) U/L Total Protein 7.7 (6.4-8.2) g/dL Albumin 3.5 (3.4-5.0) g/dL Globulin 4.2 g/dL Albumin/Globulin Ratio 0.8 POC Glucose 380 H 264 H (74-106) mg/dL Discharge Plan Discharge Chief Complaint: Recheck/Abnormal Lab/Rx Clinical Impression: Hyperglycemia Patient Disposition: Home, Self-Care Time of Disposition Decision: 00:30 Mode of Transportation: Private Vehicle Prescriptions / Home Meds: New metformin 500 mg tablet 1,000 mg PO BID Qty: 120 0RF No Action lisinopril-hydrochlorothiazide 10-12.5 mg tablet 1 tab PO DAILY metformin 1,000 mg tablet 1,000 mg PO BID Ozempic 0.25 mg or 0.5 mg(2 mg/1.5 mL) pen injector 0.25 mg subcut QWEEK Rx Instructions: for 4 weeks meloxicam 15 mg tablet 15 mg PO DAILY insulin glargine-yfgn [Semglee(insulin glarg-yfgn)Pen] 100 unit/mL (3 mL) insulin pen 70 unit subcut BID tizanidine 4 mg capsule 4 mg PO QPM azithromycin 250 mg tablet See Rx Instructions .ROUTE .COMPLEX Qty: 6 0RF Rx Instructions: For 250 mg dose pack: take 500 mg today (day 1), then 250 mg for 4 days (days 2-5) trojeo Max solostar 60 units subcut DAILY Print Language: Filipino Instructions: Diabetic Hyperglycemia (ED) Additional Instructions: Sliding scale for regular insulin: 150-200: 5 uits 201-250: 6 units 251-300: 7 units 301-350: 8 units Monitor your blood glucose level before each meal and inject regular insulin subcutaneously per sliding scale. Return for worsening symptoms. Referrals: Frank Busby MD [Primary Care Provider, Family Practice] - 1 week
[2024-08-29] MEDS: INSULIN REGULAR, HUMAN (100 UNIT/ML) 10 ML MDV IV (23:21)
[2024-08-29] MEDS: 0.9 % SODIUM CHLORIDE 1,000 ML 1000 ML IV (23:21)
[2024-08-29 23:30] LABS: Basophils Absolute Auto 0.1 10^3/uL (0.0-0.1); Basophils Percent Auto 0.9 % (0.2-2.0); Eosinophils Absolute Auto 0.5 10^3/uL (0.0-0.7); Eosinophils Percent Auto 7.5 % (0.9-7.0); Hematocrit 41.3 % (36.0-48.0); Hemoglobin 14.9 g/dL (12.0-16.0); Immature Granulocytes Abs Auto 0.01 10^3/uL (0.00-0.03); Immature Granulocytes Pct Auto 0.1 % (0.0-0.5); Lymphocytes Absolute Auto 2.8 10^3/uL (1.2-3.8); Lymphocytes Percent Auto 41.6 % (20.5-60.0); Mean Corpuscular HGB Conc 36.1 g/dL (29.9-35.2); Mean Corpuscular Hemoglobin 31.2 pg (26.7-34.0); Mean Corpuscular Volume 86.4 fL (81.0-99.0); Mean Platelet Volume 11.4 fL (9.5-13.5); Monocytes Absolute Auto 0.5 10^3/uL (0.3-0.8); Monocytes Percent Auto 7.4 % (1.7-12.0); Neutrophils Absolute Auto 2.9 10^3/uL (1.4-6.5); Neutrophils Percent Auto 42.5 % (43.0-75.0); Platelet Count 211 10^3/uL (150-450); Red Blood Count 4.78 10^6/uL (4.20-5.40); Red Cell Distribution Width 12.6 % (11.0-15.0); White Blood Count 6.8 10^3/uL (4.0-11.0)
[2024-08-29 23:56] LABS: Albumin Globulin Ratio 0.8; Albumin Level 3.5 g/dL (3.4-5.0); Alkaline Phosphatase 131 U/L (46-116); BUN Creatinine Ratio 28.2; Bilirubin Total 0.5 mg/dL (0.2-1.0); Calcium 9.2 mg/dL (8.5-10.1); Carbon Dioxide 27.5 mmol/L (21.0-32.0); Chloride 98 mmol/L (98-107); Estimated GFR (African America >60 (>=60 mL/min/1.73m^2); Estimated GFR (Non-African Ame >60 (>=60 mL/min/1.73m^2); Globulin 4.2 g/dL; Sodium 134 mmol/L (136-145); Total Protein 7.7 g/dL (6.4-8.2)
[2024-08-30 00:08] LABS: Glucose 386 mg/dL (74-106); Potassium 5.5 mmol/L (3.5-5.1)
[2024-08-30 00:30] LABS: Glucometer 264 mg/dL (74-106)
[2024-08-30 00:51] LABS: Alanine Aminotransferase 108 U/L (14-59); Albumin Globulin Ratio 0.9; Albumin Level 3.2 g/dL (3.4-5.0); Alkaline Phosphatase 122 U/L (46-116); Anion Gap 14.5; Aspartate Amino Transferase 49 U/L (15-37); BUN Creatinine Ratio 30.9; Bilirubin Total 0.3 mg/dL (0.2-1.0); Calcium 8.8 mg/dL (8.5-10.1); Carbon Dioxide 27.2 mmol/L (21.0-32.0); Chloride 101 mmol/L (98-107); Estimated GFR (African America >60 (>=60 mL/min/1.73m^2); Estimated GFR (Non-African Ame >60 (>=60 mL/min/1.73m^2); Globulin 3.7 g/dL; Glucose 290 mg/dL (74-106); Potassium 3.7 mmol/L (3.5-5.1); Sodium 139 mmol/L (136-145); Total Protein 6.9 g/dL (6.4-8.2)
== END 2024-08-30 00:48 | disposition home or self-care (01) ==
PROVIDERS: Emergency Provider Emergency Medicine; PCP Family Medicine
DX: R73.9 Hyperglycemia, unspecified (principal); Z79.85 Long-term (current) use of injectable non-insulin antidiabetic drugs; Z79.84 Long term (current) use of oral hypoglycemic drugs
CPT/HCPCS: 36415; 80053; 85025; 99284; J1817